=== PATIENT | male | born 1975 | race Two or more races ===

== ENCOUNTER 2020-05-29 11:41 | Outpatient (REF) | payer MEDICAID, SELFPAY ==
[2020-05-29 13:52] LABS: Glucose Urine UA NEG (NEG); Leukocyte Esterase Urine NEG (NEG); Nitrite Urine NEG (NEG); PH 5.5 (5.0-8.0); Specific Gravity - Urine >= 1.030 (1.005-1.025); Urine Blood NEG (NEG); Urine Ketones NEG (NEG); Urine Protein NEG (NEG-TRACE)
[2020-05-29 13:57] LABS: Appearance Urine HAZY; Color Urine DARK YELLOW
[2020-05-29 14:09] LABS: Prostate Specific Antigen 0.94 ng/mL (<0.05-4.0)
== END 2020-05-29 11:42 | disposition home or self-care (01) ==
LOC: HO.LAB 11:41
PROVIDERS: Absent Provider Internal Medicine; PCP Internal Medicine; Visit Provider Registered Nurse
DX: N39.43 Post-void dribbling (principal); R35.0 Frequency of micturition; R39.15 Urgency of urination
CPT/HCPCS: 81003; 84153; 87086

== ENCOUNTER → 2020-06-01 13:38 | Outpatient (BNVA) | payer MEDICAID, SELFPAY | PROVIDERS: PCP Internal Medicine; Referring Provider Internal Medicine; Visit Provider Internal Medicine Gastroenterology | DX: Z76.89 Persons encountering health services in other specified circumstances (principal) ==

== ENCOUNTER 2020-06-02 13:50 | Outpatient (REF) | payer MEDICAID, SELFPAY ==
[2020-06-02 14:45] LABS: Hematocrit 44.2 % (42-52); Hemoglobin 14.7 g/dl (14.0-18.0); Mean Corpuscular HGB Conc 33.3 g/dl (31.0-36.0); Mean Corpuscular Hemoglobin 29.7 pg (27.0-33.0); Mean Corpuscular Volume 89.3 fL (80-98); Mean Platelet Volume 10.7 fL (9.4-12.4); Platelet Count 234 X10*3/uL (160-400); Red Blood Count 4.95 X10*6/uL (4.60-5.80); Red Cell Distribution Width 11.7 % (11.0-16.0); White Blood Count 7.9 X10*3/uL (4.8-10.8)
[2020-06-02 14:50] LABS: INTERNATIONAL NORM RATIO 1.1 (0.9-1.1); Prothrombin Time 12.6 SEC (10.8-13.0)
[2020-06-02 15:11] LABS: Alanine Aminotransferase 17 U/L (0-40); Albumin Level 4.3 g/dL (3.5-5.0); Alkaline Phosphatase 101 U/L (39-117); Anion Gap 11 (12-20); Aspartate Amino Transferase 15 U/L (5-37); Bilirubin Total 0.3 mg/dL (0.0-1.0); Blood Urea Nitrogen 16 mg/dL (9-16); Calcium 9.6 mg/dL (8.4-10.2); Carbon Dioxide 31 mmol/L (22-29); Chloride 106 mmol/L (96-108); Estimated Glomerular Filt Rate > 60; Glucose Random 100 mg/dL (60-115); Potassium 5.6 mmol/l (3.3-5.1); Sodium 142 mmol/L (135-145); Total Protein 7.8 g/dL (6.5-8.0)
== END 2020-06-02 13:51 | disposition home or self-care (01) ==
LOC: HO.LAB 13:50
PROVIDERS: PCP Internal Medicine; Visit Provider Internal Medicine Gastroenterology
DX: K74.60 Unspecified cirrhosis of liver (principal)
CPT/HCPCS: 36415; 80053; 85027; 85610

== ENCOUNTER 2020-06-05 11:44 | Outpatient (REF) | payer MEDICAID, SELFPAY ==
[2020-06-05 13:11] LABS: Anion Gap 13 (12-20); Carbon Dioxide 28 mmol/L (22-29); Chloride 102 mmol/L (96-108); Potassium 5.4 mmol/l (3.3-5.1); Sodium 138 mmol/L (135-145)
== END 2020-06-05 11:45 | disposition home or self-care (01) ==
LOC: HO.LAB 11:44
PROVIDERS: Visit Provider Internal Medicine Gastroenterology
DX: E87.5 Hyperkalemia (principal)
CPT/HCPCS: 80051

== ENCOUNTER → 2020-08-31 13:19 | Outpatient (BNVA) | payer SELFPAY | PROVIDERS: PCP Internal Medicine; Visit Provider Internal Medicine Gastroenterology ==

== ENCOUNTER 2020-12-20 13:11 | Outpatient (REF) | payer MEDICAID, SELFPAY ==
--- NOTE | ~2020-12-20 | US_ITS ---
EXAMINATION: ULTRASOUND PROSTATE VOLUME CLINICAL INFORMATION: Enlarged prostate gland. COMPARISON: None TECHNIQUE: Multiple 2-D grayscale and color Doppler transrectal ultrasound images of the prostate gland were obtained. FINDINGS: The prostate gland demonstrates homogeneous echotexture and measures approximately 4.3 x 3.2 x 4.2 cm with a volume of 30 mL. Color Doppler showed no abnormal vascular flow. US/US prostate volume IMPRESSION: Mild prostatomegaly.
== END 2020-12-20 13:12 | disposition home or self-care (01) ==
LOC: HO.US 13:11
PROVIDERS: PCP Internal Medicine; Visit Provider Internal Medicine
DX: N40.1 Benign prostatic hyperplasia with lower urinary tract symptoms (principal)
CPT/HCPCS: 76872

== ENCOUNTER 2021-01-26 13:29 | Emergency (ER) | payer MEDICAID, SELFPAY ==
--- NOTE | ~2021-01-26 | US_ITS ---
EXAMINATION: US VENOUS ULTRASOUND WITH DOPPLER LOWER EXTREMITY, BILATERAL CLINICAL INFORMATION: Bilateral lower extremity pain. Assess for occult DVT. COMPARISON: None TECHNIQUE: Ultrasound of the deep veins is performed from the hip to the calf with compression sonography and color and pulse Doppler assessment. Spectral analysis with color-flow imaging is performed. FINDINGS: RIGHT: There is normal venous compression and respiratory variation and augmented flow. The visualized common femoral vein, superficial femoral vein, profunda femoral vein, popliteal vein, and the trifurcation region shows no evidence of deep venous thrombosis. No popliteal fossa cyst. LEFT: There is normal venous compression and respiratory variation and augmented flow. The visualized common femoral vein, superficial femoral vein, profunda femoral vein, popliteal vein, and the trifurcation region shows no evidence of deep venous thrombosis. No popliteal fossa cyst. US/US venous duplex LE BI IMPRESSION: No DVT demonstrated in the bilateral lower extremity.
[2021-01-26 13:36] VITALS: BP 111/81; PULSE 68; RESP 16; TEMP 36.6; O2SAT 97; BMI 31.0
--- NOTE | 2021-01-26 14:02 | ED_ITS ---
HPI - Extremity Problem General Chief complaint: Extremity Problem Stated complaint: swollen legs Time Seen by Provider: 01/26/21 13:47 Source: patient Mode of arrival: ambulatory Limitations: no limitations History of Present Illness HPI Narrative: 45 y/o male with history of hepatitis C/MENDOZA cirrhosis (compensated without ascites), asthma, GERD & polysubstance abuse on Suboxone who presents to the ER with 1 month of ankle and foot swelling. He denies injury or trauma. His feet and ankles ache and sometimes shoots up into his calf. He denies history of fluid retention, CHF, or being on any diuretics. He denies SOB, PEREZ or chest pain. MD Complaint: extremity swelling Onset (ago): month(s) (1) Pain Consistency: constant Location: left, right and lower extremity Quality: aching Radiation: proximal Relieving factors: rest Exacerbating factors: walking, exertion and palpation Associated symptoms: denies other symptoms Related Data Home Medications Medication Instructions Recorded Confirmed buprenorphine 8 mg-naloxone 2 mg 2 film BUCCAL DAILY 06/01/20 08/31/20 sublingual film quetiapine 50 mg tablet 50 mg PO DAILY 06/01/20 08/31/20 Previous Rx's Medication Instructions Recorded omeprazole 20 mg capsule,delayed 20 mg PO BID 30 Days #60 cap 08/31/20 release furosemide [Lasix] 20 mg PO QAM #3 tab 01/26/21 Allergies Allergy/AdvReac Type Severity Reaction Status Date / Time No Known Allergies Allergy Verified 01/26/21 13:42 [No Known Allergies*] Review of Systems Review of Systems: Constitutional: No Fever, No Chills ENT/Mouth: No sore throat, No Rhinorrhea, No Swallowing Difficulty Cardiovascular: No Chest Pain, No SOB, No Orthopnea, +Edema Respiratory: No Cough, No Sputum, No Wheezing, No dyspnea Gastrointestinal: No Nausea, No Vomiting, No Diarrhea, No abdominal Pain Musculoskeletal: No joint pain, No Myalgias Skin: No Skin Lesions, No rash Neuro: No Weakness, No Numbness, No Dizziness, No Headache Heme/Lymph: No Bruising, No Lymphadenopathy PMFSH Past Medical History Attestation statement: The following information was validated with the patient. Medical History Hepatitis C infection Polysubstance abuse Surgical History History of esophagogastroduodenoscopy (EGD) (~03/2018) Family History Family History (Updated 06/01/20 @ 13:42 by ASHLEY Lawrence) Father No problems noted. Mother Diabetes Social History Social History (Updated 08/31/20 @ 13:22 by Geeta Haney CMA) Household Members: Family Household Members Other:: mom Alcohol intake: never Cigarette Packs Per Day: 1 Cigarettes Per Day: 20 Advance Directives: Yes Advance Directives Information Provided: Yes Advance Directives on File: No Current occupational status: disabled Physical Exam Vital Signs: Vital Signs: Last Vital Signs Temp 98 F 01/26/21 15:59 Pulse 67 01/26/21 15:59 Resp 20 01/26/21 15:59 BP 128/82 01/26/21 15:59 Pulse Ox 98 01/26/21 15:59 Body Mass Index 31.0 Appearance: Alert. Oriented X3. No acute distress. HEENT: Normal external inspection. Neck: Normal inspection. CVS: Normal heart rate and rhythm. Pulses normal. Respiratory: No respiratory distress. Breath sounds normal. Abdomen: Soft and nontender. +BS x4 Skin: Skin warm and dry. Normal skin color. Normal skin turgor. No rashes. Extremities: Trace bilateral lower extremity edema of the feet and ankles, superficial nontender varicose veins on bilateral medial foot, calves are nontender to palpation. no pretibial edema Neuro: Oriented X 3. No motor deficit. No sensory deficit. Course Course Course Narrative: 45 y/o male with history of cirrhosis presenting with 1 month of LE edema. He reports calling his PCP and he was told to come to the ER for evaluation. He has no chest pain, SOB or calf tenderness. He reports a shooting pain up his leg and intermittent calf swelling at home. None at present. Doubt DVT but will get LE dopplers to rule this out. Will also check basic labs including BNP. Reevaluation(s) Reevaluation #1: Lab workup is unremarkable, including normal BNP. LE U/S are pending. Reevaluation #2: LE U/S are negative for DVT. Will plan to give 3 days of low dose lasix and have him f/u with his PCP for further evaluation next week. We discussed importance of elevation of his legs and compression stockings. MDM - Extremity (Nontraumatic) Lab Data Result diagrams: 01/26/21 14:08 01/26/21 14:08 Labs: Lab Results 01/26/21 01/26/21 01/26/21 Range/Units 14:08 14:08 14:08 WBC 7.1 (4.8-10.8) X10*3/uL RBC 4.84 (4.60-5.80) X10*6/uL Hgb 14.4 (14.0-18.0) g/dl Hct 42.7 (42-52) % MCV 88.2 (80-98) fL MCH 29.8 (27.0-33.0) pg MCHC 33.7 (31.0-36.0) g/dl RDW 11.9 (11.0-16.0) % Plt Count 214 (160-400) X10*3/uL MPV 10.0 (9.4-12.4) fL Immature Gran % (Auto) 0.4 (0.0-0.4) % Neut % (Auto) 55.1 (45-73) % Lymph % (Auto) 31.2 (20-40) % [place] % (Auto) 8.2 (2-11) % Eos % (Auto) 4.4 H (0-4) % Baso % (Auto) 0.7 (0-2) % Lymph # (Auto) 2.2 (1.2-4.9) X10*3/uL [place] # (Auto) 0.6 (0.1-1.2) X10*3/uL Eos # (Auto) 0.3 (0.0-0.4) X10*3/uL Baso # (Auto) 0.1 (0.0-0.2) X10*3/uL Abs Immat Gran (auto) 0.03 (0.00-0.03) X10*3/uL Absolute Neuts (auto) 3.9 (2.0-8.3) X10*3/uL Absolute Nucleated RBC 0.000 (0.0-0.012) X10*3/uL Nucleated RBC % (auto) 0.0 (0.0-0.2) /100WBC Sodium 143 (135-145) mmol/L Potassium 4.9 (3.3-5.1) mmol/L Chloride 106 (96-108) mmol/L Carbon Dioxide 30 H (22-29) mmol/L Anion Gap 12 (12-20) BUN 13 (9-16) mg/dL Creatinine 0.98 (0.5-1.4) mg/dL Estim Creat Clear Calc 107.2 Estimated GFR > 60 Random Glucose 108 (60-115) mg/dL Calcium 9.7 (8.4-10.2) mg/dL Magnesium 2.1 (1.6-2.6) mg/dL Total Bilirubin 0.3 (0.0-1.0) mg/dL Direct Bilirubin 0.2 (0.0-0.5) mg/dL AST 22 D (5-37) U/L ALT 33 (0-40) U/L Alkaline Phosphatase 94 (39-117) U/L B-Natriuretic Peptide < 10 (<100) pg/mL Total Protein 8.1 H (6.5-8.0) g/dL Albumin 4.4 (3.5-5.0) g/dL Critical Care Time Critical Care Time Critical Care Time: No Discharge Plan Discharge Clinical Impression: Lower extremity edema Patient Disposition: Home, Self-Care Instructions: Leg Edema (ED) Additional Instructions: Your lab workup today was normal. Your ultrasounds did not show any blood clots. Recommend elevating your legs whenever possible. Start wearing compression stockings every day to help with the swelling in your ankles and feel. Reduce your salt intake. Take the prescribed water pill for the next 3 days. Follow up with your doctor next week to see if they would like to continue you on this medication or not. If you develop new or worsening symptoms call 911 or come back to the ER for further evaluation. Tu examen de laboratorio de hoy fue normal. Anabella ecograf?as no mostraron db?n co?gulo de luisito. Recomiende elevar las piernas siempre que sea posible. Comience a usar medias de compresi?n todos los d?as para ayudar con la hinchaz?n en los tobillos y la sensaci?n. Reduzca hendrickson consumo de deepak. [place] la pastilla de agua recetada rodríguez los pr?ximos 3 d?as. Lin un seguimiento con hendrickson m?dico la pr?xima semana para jevon si le gustar?a continuar con luz elena medicamento o no. Si presenta s?ntomas nuevos o que empeoran, llame al 911 o regrese a la oliverio de emergencias para sharri evaluaci?n adicional. Prescriptions: New furosemide [Lasix] 20 mg tablet 20 mg PO QAM Qty: 3 RF: 0 No Action buprenorphine-naloxone [Suboxone] 8-2 mg film 2 film buccal DAILY RF: 0 quetiapine [Seroquel] 50 mg tablet 50 mg PO DAILY RF: 0 omeprazole 20 mg capsule,delayed release(DR/EC) 20 mg PO BID 30 Days Qty: 60 RF: 4 Referrals: Rubia Brantley MD [Primary Care Provider] - 3 days Cheng Bolanos MD [Physician] - 3 days (leg edema, ?cirrhosis related)
[2021-01-26 14:16] LABS: MANUAL DIFF FLAG NO
[2021-01-26 14:20] LABS: Basophils Absolute Auto 0.1 X10*3/uL (0.0-0.2); Basophils Percent Auto 0.7 % (0-2); Eosinophils Absolute Auto 0.3 X10*3/uL (0.0-0.4); Eosinophils Percent Auto 4.4 % (0-4); Hematocrit 42.7 % (42-52); Hemoglobin 14.4 g/dl (14.0-18.0); Imm Gran Abs Auto 0.03 X10*3/uL (0.00-0.03); Imm Gran Pct Auto 0.4 % (0.0-0.4); Lymphocytes Absolute Auto 2.2 X10*3/uL (1.2-4.9); Lymphocytes Percent Auto 31.2 % (20-40); Mean Corpuscular HGB Conc 33.7 g/dl (31.0-36.0); Mean Corpuscular Hemoglobin 29.8 pg (27.0-33.0); Mean Corpuscular Volume 88.2 fL (80-98); Monocytes Absolute Auto 0.6 X10*3/uL (0.1-1.2); Monocytes Percent Auto 8.2 % (2-11); Neutrophils Absolute Auto 3.9 X10*3/uL (2.0-8.3); Neutrophils Percent Auto 55.1 % (45-73); Platelet Count 214 X10*3/uL (160-400); Red Blood Count 4.84 X10*6/uL (4.60-5.80); Red Cell Distribution Width 11.9 % (11.0-16.0); White Blood Count 7.1 X10*3/uL (4.8-10.8)
[2021-01-26 14:41] LABS: Alanine Aminotransferase 33 U/L (0-40); Albumin Level 4.4 g/dL (3.5-5.0); Alkaline Phosphatase 94 U/L (39-117); Anion Gap 12 (12-20); Aspartate Amino Transferase 22 U/L (5-37); Bilirubin Direct 0.2 mg/dL (0.0-0.5); Bilirubin Total 0.3 mg/dL (0.0-1.0); Blood Urea Nitrogen 13 mg/dL (9-16); Calcium 9.7 mg/dL (8.4-10.2); Carbon Dioxide 30 mmol/L (22-29); Chloride 106 mmol/L (96-108); Creatinine Clr Calc Pharmacy 107.2; Estimated Glomerular Filt Rate > 60; Glucose Random 108 mg/dL (60-115); Magnesium 2.1 mg/dL (1.6-2.6); Potassium 4.9 mmol/L (3.3-5.1); Sodium 143 mmol/L (135-145); Total Protein 8.1 g/dL (6.5-8.0)
[2021-01-26 14:45] LABS: B Type Natriuretic Peptide < 10 pg/mL (<100)
[2021-01-26 15:59] VITALS: BP 128/82; PULSE 67; RESP 20; TEMP 36.6; O2SAT 98
== END 2021-01-26 16:19 | disposition home or self-care (01) ==
PROVIDERS: Physician Assistant; Emergency Provider Emergency Medicine; PCP Internal Medicine
DX: R60.0 Localized edema (principal); M79.662 Pain in left lower leg; M79.661 Pain in right lower leg; B19.20 Unspecified viral hepatitis C without hepatic coma; K75.81 Nonalcoholic steatohepatitis (NASH); F19.10 Other psychoactive substance abuse, uncomplicated; F11.20 Opioid dependence, uncomplicated
CPT/HCPCS: 36415; 80048; 80076; 83735; 83880; 85025; 93970; 99284

== ENCOUNTER → 2021-03-06 11:10 | Outpatient (BNVA) | payer MEDICAID, SELFPAY | PROVIDERS: PCP Internal Medicine; Referring Provider Internal Medicine; Visit Provider Surgery Vascular Surgery | DX: I83.12 Varicose veins of left lower extremity with inflammation (principal) | CPT/HCPCS: 99202 ==

== ENCOUNTER → 2021-03-15 10:38 | Outpatient (BNVA) | payer MEDICAID, SELFPAY | PROVIDERS: PCP Internal Medicine; Visit Provider Internal Medicine Gastroenterology ==

== ENCOUNTER 2021-03-27 08:58 | Outpatient (REF) | payer MEDICAID, SELFPAY ==
--- NOTE | ~2021-03-27 | US_ITS ---
EXAMINATION: US ABDOMEN LIMITED WITH LIVER ELASTOGRAPHY CLINICAL INFORMATION: Cirrhosis COMPARISON: Previous abdominal ultrasound most recent February 2019 TECHNIQUE: Real-time imaging of the abdominal viscera. Noninvasive ultrasound liver fibrosis assessment is performed using Kym ElastPQ point quantification shear wave elastography (pSWE) with a C5-2 MHz transducer. Multiple elastography samples are obtained. FINDINGS: PANCREAS: Not visualized due to bowel gas. LIVER: Liver echotexture is increased. The liver is normal in size and contour. No focal lesion or intrahepatic biliary duct dilatation. The right lobe measures 16.7 cm in length. The left lobe measures 9.3 cm in length. Portal flow is normal/hepatopedal Shear wave liver elastography median stiffness is 1.4 m/s (reference: normal median stiffness is 1.3 m/s or less). IQR/median stiffness to assess sampling precision is 0.14 (reference: good quality data set is IQR/median stiffness of 0.15 or less). GALLBLADDER: Normal. The gallbladder is physiologically distended without evidence of stones, sludge, polyps, wall thickening or pericholecystic fluid. COMMON BILE DUCT: Normal in caliber measuring 0.2 cm in diameter. RIGHT KIDNEY: Normal. No hydronephrosis. No renal calculi or focal parenchymal lesions. The kidney measures 11 cm in maximum dimension. FREE FLUID: None. US/US abdomen baker w elastography IMPRESSION: 1. Impression: Echogenic liver. Nonvisualization of the pancreas. 2. Liver elastography: Adequate liver sampling. In the absence of other known clinical signs, rules out compensated advanced chronic liver disease. REFERENCE: Society of Radiologists in Ultrasound Liver Stiffness Thresholds (2020): LIVER STIFFNESS THRESHOLDS: *Liver Stiffness equal or less than 1.3 m/s: High probability of being normal. *Liver Stiffness less than 1.7 m/s: In the absence of other known clinical signs, rules out compensated advanced chronic liver disease. *Liver Stiffness 1.7-2.1 m/s: Suggestive of compensated advanced chronic liver disease but need further test for confirmation. *Liver Stiffness over 2.1 m/s: Rules in compensated advanced chronic liver disease. *Liver Stiffness over 2.4 m/s: Suggestive of clinically significant portal hypertension. QUALITY OF DATA SET: *IQR/Median value equal or less than 0.15 implies a quality data set. *IQR/Median value over 0.15 implies a poor quality data set. SIGNIFICANT CHANGE FROM PRIOR EXAM: Significant change if liver stiffness measurement is 10% or greater from prior exam. OTHER CONSIDERATIONS: The stage of liver fibrosis may be overestimated in the setting of acute hepatitis, liver inflammation, elevated liver function tests, hepatic vascular congestion, obstructive cholestasis, non-fasting state, and infiltrative diseases such as amyloidosis and lymphoma. In some patients with NAFLD, the liver stiffness thresholds for compensated advanced chronic liver disease may be lower. In causes other than viral hepatitis and NAFLD, liver stiffness thresholds are not well established.
== END 2021-03-27 08:59 | disposition home or self-care (01) ==
LOC: HO.US 08:58
PROVIDERS: PCP Internal Medicine; Visit Provider Internal Medicine Gastroenterology
DX: K74.60 Unspecified cirrhosis of liver (principal)
CPT/HCPCS: 76705; 76981

== ENCOUNTER 2021-04-11 12:48 | Outpatient (REF) | payer MEDICAID, SELFPAY ==
--- NOTE | ~2021-04-11 | US_ITS ---
EXAMINATION: BILATERAL LOWER EXTREMITY VENOUS ULTRASOUND (Reflux Exam) CLINICAL INDICATION: Lower extremity venous insufficiency COMPARISON: Bilateral lower extremity venous Doppler ultrasound on 01/24/2021 TECHNIQUE: Color flow triplex imaging and compression Doppler was performed to evaluate both the deep and the superficial systems bilaterally. To evaluate the superficial system, the examination was performed in the upright position. Color-flow Doppler ultrasound and compression ultrasound were utilized. In addition, maneuvers were utilized to demonstrate reflux. FINDINGS: 1. DEEP VENOUS ULTRASOUND OF THE RIGHT LOWER EXTREMITY: Common Femoral Vein: Compressible, normal respiratory variation and augmented flow. Femoral Vein: Compressible, normal color flow and augmentation. Popliteal Vein: Compressible, normal augmentation. Deep Reflux: There is no evidence of reflux in the deep system in either the common femoral vein or the popliteal vein. There is no evidence of a Morales's cyst. 2. SUPERFICIAL ULTRASOUND WITH DOPPLER OF RIGHT LOWER EXTREMITY GREAT SAPHENOUS VEIN: Saphenofemoral junction: 0.7 cm; Reflux: No evidence of reflux. Proximal thigh: 0.4 cm; Reflux: No evidence of reflux. Midthigh: 0.3 cm; Reflux: No evidence of reflux. Above knee: 0.4 cm; Reflux: No evidence of reflux. At knee: 0.3 cm; Reflux: No evidence of reflux. Below knee: 0.3 cm; Reflux: 3.2 seconds Midcalf: 3 cm; Reflux: 2.7 seconds Ankle: 0.2 cm; Reflux: No evidence of reflux. DUPLICATED GREAT SAPHENOUS VEIN: None SMALL SAPHENOUS VEIN: Saphenopopliteal junction: 0.6 cm; No evidence of reflux. Midcalf: 0.4 cm; No evidence of reflux. Distal calf: 0.3 cm; No evidence of reflux. VEIN OF GIACOMINI: None imaged. PERFORATORS: Proximal calf, 0.3 cm, 0.9 seconds of reflux. VARICOSITIES: No varicosities greater than 3 mm identified. 3. DEEP VENOUS ULTRASOUND OF THE LEFT LOWER EXTREMITY: Common Femoral Vein: Compressible, normal respiratory variation and augmented flow. Femoral Vein: Compressible, normal color flow and augmentation. Popliteal Vein: Compressible, normal augmentation. Deep Reflux: There is no evidence of reflux in the deep system in either the common femoral vein or the popliteal vein. There is no evidence of a Morales's cyst. 4. SUPERFICIAL ULTRASOUND WITH DOPPLER OF LEFT LOWER EXTREMITY GREAT SAPHENOUS VEIN: Saphenofemoral junction/proximal thigh: 0.8 cm; Reflux: 2.9 seconds Midthigh: 0.6 cm; Reflux: 3.2 seconds Above knee: 0.5 cm; Reflux: 3.4 seconds At knee: 0.6 cm; Reflux: 3.2 seconds Below knee: 0.5 cm; Reflux: 3.2 seconds Midcalf: 0.4 cm; Reflux: 3.2 seconds Ankle: 0.4 cm; Reflux: 2.9 seconds DUPLICATED GREAT SAPHENOUS VEIN: None SMALL SAPHENOUS VEIN: Saphenopopliteal junction: 0.2 cm; No evidence of reflux. Midcalf: 0.3 cm; No evidence of reflux. Distal calf: 0.2 cm; No evidence of reflux. VEIN OF GIACOMINI: None imaged. PERFORATORS: Proximal calf, 0.3 cm, no reflux. Proximal calf, 0.3 cm, 1.1 seconds of reflux. Distal calf, 0.3 cm, 0.5 seconds of reflux. VARICOSITIES: Proximal calf, 0.3 cm, 3.3 seconds of reflux. ADDITIONAL: Note is made of prominent bilateral inguinal lymph nodes. US/US venous duplex LE BI IMPRESSION: 1. Segmental reflux within the right great saphenous vein below the knee and at the midcalf. 2. Left great saphenous venous insufficiency beginning at the junction/proximal thigh. 3. No evidence of small saphenous venous insufficiency. 4. Bilateral refluxing perforators and a left proximal calf refluxing varicosity. 5. No evidence of DVT or deep venous insufficiency. 6. Bilateral prominent inguinal lymph nodes.
== END 2021-04-11 12:49 | disposition home or self-care (01) ==
LOC: HO.US 12:48
PROVIDERS: PCP Internal Medicine; Visit Provider Surgery Vascular Surgery
DX: I83.893 Varicose veins of bilateral lower extremities with other complications (principal)
CPT/HCPCS: 93970

== ENCOUNTER → 2021-04-24 10:54 | Outpatient (BNVA) | payer MEDICAID, SELFPAY | PROVIDERS: PCP Internal Medicine; Visit Provider Urology | DX: N40.1 Benign prostatic hyperplasia with lower urinary tract symptoms (principal); N13.8 Other obstructive and reflux uropathy | CPT/HCPCS: 51798; 99202 ==

== ENCOUNTER → 2021-06-05 10:54 | Outpatient (BNVA) | payer MEDICAID, SELFPAY | PROVIDERS: PCP Internal Medicine; Visit Provider Urology | DX: R39.15 Urgency of urination (principal); N40.1 Benign prostatic hyperplasia with lower urinary tract symptoms; N13.8 Other obstructive and reflux uropathy; I83.12 Varicose veins of left lower extremity with inflammation | CPT/HCPCS: 99212 ==

== ENCOUNTER → 2021-06-22 08:58 | Outpatient (BNVA) | payer MEDICAID, SELFPAY | PROVIDERS: PCP Internal Medicine; Visit Provider Urology | DX: N30.10 Interstitial cystitis (chronic) without hematuria (principal); R39.15 Urgency of urination; R35.1 Nocturia | CPT/HCPCS: 52000; 99212 ==

== ENCOUNTER 2021-08-06 10:47 | Day surgery (SDC) | payer MEDICAID, SELFPAY ==
[2021-07-31 10:21] VITALS: BMI 31.9
[2021-08-06] VITALS (7 sets, daily range): BP systolic 104–129; BP diastolic 63–76; PULSE 63–91; RESP 16–18; TEMP 36.1–36.8; O2SAT 95–98
--- NOTE | 2021-08-06 11:49 | HO.ANESPROP2 ---
HPI - Anesthesia Eval Consult details Narrative: 46 M for cystoscopy and bladder biopsy PMF Active Problems Active Problems: All Active Problems (Updated 06/22/21 @ 09:38 by Srinivas Landers MD) Nocturia more than twice per night (Acute) Interstitial cystitis (Acute) Urinary urgency (Acute) BPH w urinary obs/LUTS (Acute) Varicose veins of left lower extremity with inflammation (Acute) Tobacco abuse (Acute) Asthma (Acute) Cirrhosis of liver without ascites (Acute) GERD (gastroesophageal reflux disease) (Acute) Past Medical History Medical History Hepatitis C infection Polysubstance abuse Family History Family History Father No problems noted. Mother Diabetes Family history of problems with anesthesia: No Surgical History Surgical History History of esophagogastroduodenoscopy (EGD) (~03/2018) History of Problems with Anesthesia: No Social History Social History (Updated 07/31/21 @ 10:21 by Annamaria Fernandes RN) Household Members: Family Household Members Other:: mom Alcohol intake: never Patient Tobacco Use Status: Current everyday Tobacco user Tobacco use type: Cigarette Cigarettes Per Day: 15 Years Smoked: 14 Substance Use Type: Former Substance User Last Used Substance: Unknown Last Used Substance Other:: on Suboxone x4 yrs Are you DNR?: No Advance Directives: No Advance Directives Information Provided: Yes Advance Directives on File: No Current occupational status: disabled Meds Allergies Allergy/AdvReac Type Severity Reaction Status Date / Time tramadol AdvReac Unknown Verified 07/31/21 10:20 Home Medications Medication Instructions Recorded Confirmed Last Taken Type buprenorphine 8 mg-naloxone 2 mg 2 film BUCCAL DAILY 06/01/20 07/31/21 08/06/21 History sublingual film (Suboxone) quetiapine 50 mg tablet (Seroquel) 50 mg PO DAILY 06/01/20 07/31/21 Unknown History Exam Exam Date and Time: August 06, 2021 1149 Height,Weight and Vital Signs: Height 5 ft 8 in Weight 95.254 kg Last Vital Signs Temp 98.2 F 08/06/21 10:53 Pulse 63 08/06/21 10:53 Resp 18 08/06/21 10:53 BP 115/76 08/06/21 10:53 Pulse Ox 98 08/06/21 10:53 Airway Mallampati Class: II TM Dist: >3cm Neck ROM: Full Loose/Missing/Broken Teeth: Yes (Poor dentation ) Heart: rrr Lungs: bl breath sounds Assessment and Plan Final Anesthetic Review Family History of Problems with Anesthesia: No History of Problems with Anesthesia: No NPO: Yes ASA Class: III Final Preanesthetic Review: Meds/Allgs Chart Reviewed and Anes Risks/Benef Reviewed Patient Risk: High Procedure Risk: Intermediate Anesthetic Plan Anesthetic Plan: GA Disposition: Standard PACU
--- NOTE | 2021-08-06 11:56 | PC.NURSE ---
iv right thigh by aneshtesia
--- NOTE | 2021-08-06 11:57 | MHC.SHP ---
Pre-Procedural Eval Section A Date of Service: 08/06/21 The patient is an INPATIENT: No Changes since office visit: No Cold of Flu in the past 2 weeks, No New Medical Problems, No Changes in Medication and No Patient answered all questions The History & Physical has been completed within 30 days and I have reviewed it.: No Section B Chief Complaint: interstital cystitis Details of Present Illness: persistent urgency and frequency with mild no response to medications Relevant Social History: Tobacco Use Present Medications: see Short Stay Collaborative assessment Medical History: No relevant PMH History of Previous Operations: No relevant previous surgery Allergies: Allergies Allergy/AdvReac Type Severity Reaction Status Date / Time tramadol AdvReac Unknown Verified 07/31/21 10:20 Review of Systems Sugical H&P ROS: Negative: Constitution, Cardiovascular, Respiratory, Neurological, Psychiatric, Hem-Onc, Allergic/Immunologic, Gastrointestinal, Genitourinary, Musculoskeletal, Integumentary, Endocrine and Eyes/Ears/Nose/Throat Exam Surgical H&P Exam: Normal: HEENT, Normal: Heart, Normal: Lungs, Normal: Extremities, Normal: Abdomen, Normal: Skin and Normal: Neurological Plan Diagnosis/Plan: Unchanged ( cystoscopy, bladder biopsy, hydrodistention) I have reviewed the history and physical and performed a pertinent physical examination on my patient. No changes have occurred unless specified.
--- NOTE | 2021-08-06 12:40 | W.PM.OPN ---
Operative Note Operative Note Date of Service: 08/06/21 Narrative: PreOperative Diagnosis: Interstitial cystitis with pelvic pain Post Operative Diagnosis: Interstitial cystitis with pelvic pain Procedure: Hydrodistention Surgeon: Dr Srinivas Landers Anesthesia: General Indications for procedure: failed prior overactive bladder medications. Cystoscopy in office showed small capacity bladder with collagen sub 1/3 L deposition. Recommended for hydrodistention with bladder biopsy. Procedure: After informed consent was verified the patient was brought to the operating room and placed in a supine position. Anesthesia was administered per protocol. The patient was placed in a modified dorsal lithotomy position and prepped and draped in sterile fashion. Safety pause time-out was observed. Antibiotics being given. A 22 [place] cystoscope was used to empty the bladder. A mixture of bupivacaine lidocaine gel 20 cc was instilled into the bladder and allowed to sit for 2-3 minutes. A belladonna and opiate rectal suppository was placed. Hydrodistention of the bladder was performed. The bladder was filled and allowed to sit for 2 minutes. Filling was from a height of 1 m. On the 1st fill there was Three hundred twenty-five cc within the bladder. Cystoscopy revealed only mild glomerulations. Prominent feature was bladder stiffness with prominent collagen bands. Second filling of the bladder was performed in similar fashion. Bladder biopsies were performed and fulguration used for control. Volume was approximately Three hundred twenty-five cc. mild hematuria terminal The the bladder was emptied. The patient tolerated procedure well was extubated in operating room transferred in stable condition to the recovery area. Appropriate postprocedure pain medication was provided. Pathology: bladder biopsies Drains: None
[2021-08-06] MEDS: Phenazopyridine HCL 100 MG TABLET PO (13:20)
[2021-08-06] MEDS: Acetaminophen 325 MG TABLET 650 MG PO (13:20)
== END 2021-08-06 14:22 | disposition home or self-care (01) ==
PROVIDERS: PCP Internal Medicine; Visit Provider Urology
PROC: 0T7B7ZZ Dilation of Bladder, Via Natural or Artificial Opening (ICD-10-PCS; CPT 52260; principal; 2021-08-06 12:40)
DX: N30.10 Interstitial cystitis (chronic) without hematuria (principal); R10.2 Pelvic and perineal pain; N32.89 Other specified disorders of bladder
CPT/HCPCS: 52260; 88305; J1100; J1956; J2250; J2405; J3010

== ENCOUNTER → 2021-08-21 10:16 | Outpatient (BNVA) | payer MEDICAID, SELFPAY | PROVIDERS: PCP Internal Medicine; Visit Provider Urology | DX: N30.10 Interstitial cystitis (chronic) without hematuria (principal); N40.1 Benign prostatic hyperplasia with lower urinary tract symptoms; R35.1 Nocturia; R39.15 Urgency of urination | CPT/HCPCS: 51798; 99212 ==

== ENCOUNTER 2021-09-12 11:30 | Outpatient (REF) | payer MEDICAID, SELFPAY ==
--- NOTE | ~2021-09-12 | XR_ITS ---
EXAMINATION: XR CHEST CLINICAL INFORMATION: Chest pain. COMPARISON: 07/10/2018 and 07/07/2013. TECHNIQUE: 2 views of the chest were obtained. FINDINGS: There is some bibasilar scarring/atelectasis present. No confluent pneumonitis is appreciated. No pneumothorax or pleural effusion. Heart normal size. No evidence of pulmonary edema. XR/XR chest 2V IMPRESSION: No significant acute parenchymal disease.
== END 2021-09-12 11:31 | disposition home or self-care (01) ==
LOC: HO.XRAY 11:30
PROVIDERS: Absent Provider Internal Medicine; PCP Internal Medicine; Visit Provider Emergency Medicine
DX: R07.9 Chest pain, unspecified (principal)
CPT/HCPCS: 71046

== ENCOUNTER 2021-11-11 12:42 | Emergency (ER) | payer MEDICAID, SELFPAY ==
--- NOTE | ~2021-11-11 | CT_ITS ---
EXAMINATION: CT FACIAL BONES WITH CONTRAST CLINICAL INFORMATION: Evaluate dental abscess versus edema/cellulitis COMPARISON: None TECHNIQUE: 3 mm thin and reformatted 1.5 mm sagittal and coronal images of facial bones were obtained following IV 85 mL Omnipaque 350. This CT examination was performed using dose optimization techniques as appropriate, variously including the following: *Automated exposure control *Adjustment of mA and/or kV according to patient size (this includes techniques or standardized protocols for targeted exams where dose is matched to indication/reason for exam; i.e. extremities or head) *Use of iterative reconstruction technique DLP: 611 mGy-cm FINDINGS: There is no acute maxillofacial fracture. The pterygoid plates are intact. The zygomatic arches are intact. The lamina papyracea are intact. The orbital rims are intact. The paranasal sinuses are well-aerated. No air-fluid levels are seen. There is mild deviation of the nasal septum. The ostiomeatal complexes are clear. The lamina papyracea are intact. The ethmoid roofs are symmetric. The carotid canals are normally covered by bone. Except for upper and lower frontal teeth patient is near edentulous. No maxillary periapical disease is seen. The mastoid air cells and visualized middle ear cavities are well-aerated. The orbits are normal. The TMJs are unremarkable. The imaged portions of the brain demonstrate no acute abnormality. CT/CT facial bones w con IMPRESSION: No evidence of periapical or dental abscess or serous collection seen. No abnormal lymphadenopathy. The sinuses are clear.
[2021-11-11 13:03] VITALS: BP 128/78; PULSE 90; RESP 18; TEMP 36.6; O2SAT 98; BMI 31.8
[2021-11-11 14:52] LABS: MANUAL DIFF FLAG NO
[2021-11-11 14:55] LABS: Basophils Absolute Auto 0.1 X10*3/uL (0.0-0.2); Basophils Percent Auto 0.6 % (0-2); Eosinophils Absolute Auto 0.2 X10*3/uL (0.0-0.4); Eosinophils Percent Auto 1.9 % (0-4); Hematocrit 42.8 % (42.0-52.0); Hemoglobin 14.6 g/dl (14.0-18.0); Imm Gran Abs Auto 0.03 X10*3/uL (0.00-0.03); Imm Gran Pct Auto 0.3 % (0.0-0.4); Lymphocytes Percent Auto 19.6 % (20-40); Mean Corpuscular HGB Conc 34.1 g/dl (31.0-36.0); Mean Corpuscular Hemoglobin 29.4 pg (27.0-33.0); Mean Corpuscular Volume 86.1 fL (80.0-98.0); Mean Platelet Volume 9.9 fL (9.4-12.4); Monocytes Absolute Auto 0.7 X10*3/uL (0.1-1.2); Monocytes Percent Auto 7.1 % (2-11); Neutrophils Absolute Auto 7.3 x10*3/uL (2.0-8.3); Neutrophils Percent Auto 70.5 % (45-73); Platelet Count 244 X10*3/uL (160-400); Red Blood Count 4.97 X10*6/uL (4.60-5.80); Red Cell Distribution Width 12.3 % (11.0-16.0); White Blood Count 10.4 X10*3/uL (4.8-10.8)
[2021-11-11 15:07] LABS: Lactic Acid 1.7 mmol/L (0.5-2.0)
[2021-11-11 15:13] LABS: Alanine Aminotransferase 28 U/L (0-40); Albumin Level 4.4 g/dL (3.5-5.0); Alkaline Phosphatase 96 U/L (39-117); Anion Gap 13 (12-20); Aspartate Amino Transferase 20 U/L (5-37); Bilirubin Direct 0.2 mg/dL (0.0-0.5); Bilirubin Total 0.7 mg/dL (0.0-1.0); Blood Urea Nitrogen 15 mg/dL (9-16); Calcium 9.8 mg/dL (8.4-10.2); Carbon Dioxide 26 mmol/L (22-29); Chloride 104 mmol/L (96-108); Creatinine Clr Calc Pharmacy 125.5; Estimated Glomerular Filt Rate > 60; Glucose Random 100 mg/dL (60-115); Potassium 5.2 mmol/L (3.3-5.1); Sodium 138 mmol/L (135-145); Total Protein 8.3 g/dL (6.5-8.0)
[2021-11-11] MEDS: Ketorolac Tromethamine 15 MG/ML VIAL IVPUSH (16:10)
[2021-11-11] MEDS: iohexoL 350 MG/ML 100 ML INFUS..BTL IV (16:26)
[2021-11-11] MEDS: Clindamycin Phosphate/D5W 600 MG/50 ML PIGGYBACK 100 MG IV (16:32)
--- NOTE | 2021-11-11 17:16 | ED_ITS ---
HPI - Dental/Oral General Chief complaint: Dental/Oral Stated complaint: Facial swelling/Mouth pain Time Seen by Provider: 11/11/21 14:28 Source: patient Mode of arrival: ambulatory History of Present Illness HPI Narrative: 46-year-old male with a past medical history of hepatitis-C, polysubstance abuse, presenting to the ED complaining of left lower dental pain and left-sided facial swelling since yesterday. Admits pain started 3 days ago after trying to eat something with his gums as patient has minimal teeth. Denies fever, chills, drainage from area, oral swelling, difficulty swallowing, ear pain, throat pain, neck pain Related Data Home Medications Medication Instructions Recorded Confirmed buprenorphine 8 mg-naloxone 2 mg 2 film BUCCAL DAILY 06/01/20 07/31/21 sublingual film (Suboxone) quetiapine 50 mg tablet (Seroquel) 50 mg PO DAILY 06/01/20 07/31/21 Previous Rx's Medication Instructions Recorded omeprazole 20 mg capsule,delayed 20 mg PO BID 30 Days #60 cap 08/31/20 release doxycycline hyclate 100 mg tablet 100 mg PO BID 14 Days #28 tab 04/24/21 tamsulosin 0.4 mg capsule 0.4 mg PO BEDTIME 30 Days #30 cap 04/24/21 naproxen 500 mg tablet 500 mg PO BID PRN 7 Days #14 tab 08/06/21 phenazopyridine 100 mg tablet 100 mg PO TID PRN 4 Days #12 tab 08/06/21 (Pyridium) amitriptyline 25 mg tablet 25 mg PO BEDTIME 90 Days #90 tab 08/21/21 famotidine 40 mg tablet 40 mg PO BEDTIME 90 Days #90 tab 08/21/21 oxybutynin chloride 10 mg 10 mg PO DAILY 90 Days #90 tab 08/21/21 tablet,extended release 24 hr acetaminophen 500 mg tablet 500 mg PO Q6H PRN #14 tab 11/11/21 (Tylenol Extra Strength) clindamycin HCl 150 mg capsule 450 mg PO Q8H 7 Days #63 cap 11/11/21 naproxen 500 mg tablet 500 mg PO BID PRN 10 Days #20 tab 11/11/21 Allergies Allergy/AdvReac Type Severity Reaction Status Date / Time tramadol AdvReac Unknown Verified 08/21/21 10:56 Review of Systems Review of Systems: Constitutional: No Fever, No Chills ENT/Mouth: +L lower dental pain, +L facial swelling, No Ear Pain, No Nasal Congestion, No Sinus Pain, No Hoarseness, No sore throat, No Rhinorrhea, No Swallowing Difficulty Cardiovascular: No Chest Pain, No SOB Respiratory: No Cough, No Sputum Gastrointestinal: No Nausea, No Vomiting, No Diarrhea, No Constipation, No Abdominal pain Genitourinary: No Dysuria, No Urgency, No Flank Pain Musculoskeletal: No joint pain, No Myalgias, No Joint Swelling Skin: No Skin Lesions, No rash Neuro: No Weakness Yes all other systems are reviewed and are negative [facility] Past Medical History Attestation statement: The following information was validated with the patient. Medical History Hepatitis C infection Polysubstance abuse Surgical History History of esophagogastroduodenoscopy (EGD) (~03/2018) Family History Family History Father No problems noted. Mother Diabetes Social History Social History Household Members: Family Household Members Other:: mom Alcohol intake: never Patient Tobacco Use Status: Current everyday Tobacco user Tobacco use type: Cigarette Cigarettes Per Day: 15 Years Smoked: 14 Substance Use Type: Former Substance User Advance Directives: No Advance Directives Information Provided: No Current occupational status: disabled Physical Exam Vital Signs: Vital Signs: Last Vital Signs Temp 98 F 11/11/21 13:03 Pulse 90 11/11/21 13:03 Resp 18 11/11/21 13:03 BP 128/78 11/11/21 13:03 Pulse Ox 98 11/11/21 13:03 BMI result Body Mass Index 31.8 Const: General: cooperative, healthy appearing and no acute distress Orientation/consciousness: patient oriented x3 Limitations: no limitations HEENT: Other: + very poor dentition. + left lower gums with mild swelling and tenderness to palpation. No appreciable fluctuance/induration or cellulitis. + left mandible/lower cheek with her appreciable swelling and tenderness. No erythema or pointing Head: Yes normal to inspection and Yes atraumatic Ears: hearing grossly normal bilaterally, external ears normal, TM's normal bilaterally and mastoids normal General nose exam: Normal external nose present Throat: Yes posterior oropharynx normal, Yes tonsils normal, No peritonsillar mass and No uvular edema Eyes: General: appearance normal, both eyes and all related structures EOM: EOMs intact bilaterally Neck: Neck: Yes normal visual inspection and Yes no meningeal signs Resp: Effort & Inspection: normal respiratory effort, no respiratory distress and no stridor Cardio: Rate: regular rate Heart sounds: S1 normal heart sound present and S2 normal heart sound present Skin: Rashes: no rashes Wounds: no wounds Neuro: General: patient oriented x3, tone normal and no meningeal signs Gait exam (Neuro): Normal gait present Extrem: General: Yes normal to inspection Course Course Course Narrative: -no leukocytosis. H&H stable. Potassium mildly elevated to 5.2 > p.o. Kayexalate ordered CT facial bones w con IMPRESSION: No evidence of periapical or dental abscess or serous? collection seen. No abnormal lymphadenopathy. The sinuses are clear. >> results discussed with patient with assistant golf course superintendent. Will DC home with Clindamycin and stressed dental follow-up MDM - Dental/Oral MDM Narrative Medical decision making narrative: 46-year-old male with a past medical history of hepatitis-C, polysubstance abuse, presenting to the ED complaining of left lower dental pain and left-sided facial swelling since yesterday. On exam vital signs stable, NAD/well appearing. Physical exam as above. Concern for dental abscess versus gingival abscess 1st conjunctivitis. No evidence of drainable collection at this time Plan: Labs, lactic/blood cultures, CT, IV clindamycin Differential Diagnosis Differential diagnosis: Likely gingival abscess, dental caries, toothache and dental abscess Medical Records Attestation: I reviewed the patient's medical records. Lab Data Attestation: I reviewed the patient's lab results. Result diagrams: 11/11/21 14:46 11/11/21 14:46 Labs: Lab Results 11/11/21 11/11/21 11/11/21 Range/Units 14:46 14:46 14:46 WBC 10.4 (4.8-10.8) X10*3/uL RBC 4.97 (4.60-5.80) X10*6/uL Hgb 14.6 (14.0-18.0) g/dl Hct 42.8 (42.0-52.0) % MCV 86.1 (80.0-98.0) fL MCH 29.4 (27.0-33.0) pg MCHC 34.1 (31.0-36.0) g/dl RDW 12.3 (11.0-16.0) % Plt Count 244 (160-400) X10*3/uL MPV 9.9 (9.4-12.4) fL Immature Gran % (Auto) 0.3 (0.0-0.4) % Neut % (Auto) 70.5 (45-73) % Lymph % (Auto) 19.6 L (20-40) % Sawyer % (Auto) 7.1 (2-11) % Eos % (Auto) 1.9 (0-4) % Baso % (Auto) 0.6 (0-2) % Lymph # (Auto) 2.0 (1.2-4.9) X10*3/uL Sawyer # (Auto) 0.7 (0.1-1.2) X10*3/uL Eos # (Auto) 0.2 (0.0-0.4) X10*3/uL Baso # (Auto) 0.1 (0.0-0.2) X10*3/uL Abs Immat Gran (auto) 0.03 (0.00-0.03) X10*3/uL Absolute Neuts (auto) 7.3 (2.0-8.3) x10*3/uL Absolute Nucleated RBC 0.000 (0.0-0.012) X10*3/uL Nucleated RBC % (auto) 0.0 (0.0-0.2) /100WBC Sodium 138 (135-145) mmol/L Potassium 5.2 H (3.3-5.1) mmol/L Chloride 104 (96-108) mmol/L Carbon Dioxide 26 (22-29) mmol/L Anion Gap 13 (12-20) BUN 15 (9-16) mg/dL Creatinine 0.84 (0.5-1.4) mg/dL Estim Creat Clear Calc 125.5 Estimated GFR > 60 Random Glucose 100 (60-115) mg/dL Lactic Acid 1.7 (0.5-2.0) mmol/L Calcium 9.8 (8.4-10.2) mg/dL Magnesium 2.0 (1.6-2.6) mg/dL Total Bilirubin 0.7 (0.0-1.0) mg/dL Direct Bilirubin 0.2 (0.0-0.5) mg/dL AST 20 (5-37) U/L ALT 28 (0-40) U/L Alkaline Phosphatase 96 (39-117) U/L Total Protein 8.3 H (6.5-8.0) g/dL Albumin 4.4 (3.5-5.0) g/dL Discharge Plan Discharge Clinical Impression: Dental infection Patient Disposition: Home, Self-Care Instructions: Dental Abscess (ED) Additional Instructions: A CT scan does not show any evidence of abscess or drainable collection You have an infection of your mouth. Clindamycin is an antibiotic please take a s prescribed. In addition naproxen as an anti-inflammatory pain medication. Also take Tylenol Call your dentist tomorrow for follow-up If symptoms persist or worsen, you have fever, worsening swelling, or are able to swallow up return to the ED Sharri tomograf?a computarizada no muestra ninguna evidencia de absceso o colecci?n drenable Tiene sharri infecci?n en la boca. La clindamicina es un antibi?becky, t?hernandez seg?n lo prescrito. Adem?s, el naproxeno michael analg?sico antiinflamatorio. Tambi?n topher Tylenol Llame a hendrickson dentista ma?juan alberto para un seguimiento Si los s?ntomas persisten o empeoran, tiene fiebre, empeora la hinchaz?n o puede tragar. Regrese al servicio de urgencias. Prescriptions: New clindamycin HCl 150 mg capsule 450 mg PO Q8H 7 Days Qty: 63 0RF acetaminophen [Tylenol Extra Strength] 500 mg tablet 500 mg PO Q6H PRN (Reason: pain or fever) Qty: 14 0RF naproxen 500 mg tablet 500 mg PO BID PRN (Reason: pain) 10 Days Qty: 20 0RF No Action phenazopyridine [Pyridium] 100 mg tablet 100 mg PO TID PRN (Reason: spasm) 4 Days Qty: 12 0RF naproxen 500 mg tablet 500 mg PO BID PRN (Reason: pain) 7 Days Qty: 14 0RF doxycycline hyclate 100 mg tablet 100 mg PO BID 14 Days Qty: 28 0RF tamsulosin 0.4 mg capsule 0.4 mg PO BEDTIME 30 Days Qty: 30 1RF buprenorphine-naloxone [Suboxone] 8-2 mg film 2 film buccal DAILY 0RF Rx Instructions: place 1 film on inside of (each) cheek quetiapine [Seroquel] 50 mg tablet 50 mg PO DAILY 0RF omeprazole 20 mg capsule,delayed release(DR/EC) 20 mg PO BID 30 Days Qty: 60 4RF famotidine 40 mg tablet 40 mg PO BEDTIME 90 Days Qty: 90 1RF oxybutynin chloride 10 mg tablet extended release 24hr 10 mg PO DAILY 90 Days Qty: 90 1RF amitriptyline 25 mg tablet 25 mg PO BEDTIME 90 Days Qty: 90 1RF Referrals: Donte Krause, ELI [Dentist] - Josiane Escobedo DMD [Dentist] - Enrique Pan DDS [Physician] - Print Language: Swedish
[2021-11-11] MEDS: Sodium Polystyrene Sulfon/Sorb 15 GM/60 ML ORAL.SUSP 30 GM PO (17:23)
== END 2021-11-11 17:46 | disposition home or self-care (01) ==
PROVIDERS: Physician Assistant; Emergency Provider Emergency Medicine; PCP Internal Medicine
DX: K04.7 Periapical abscess without sinus (principal); K08.89 Other specified disorders of teeth and supporting structures; Z87.891 Personal history of nicotine dependence; Z79.899 Other long term (current) drug therapy
CPT/HCPCS: 36415; 70487; 80048; 80076; 83605; 83735; 85025; 87040; 96365; 96375; 99284; J1885; Q9967

== ENCOUNTER → 2022-01-10 11:09 | Outpatient (BNVA) | payer MEDICAID, SELFPAY | PROVIDERS: PCP Internal Medicine; Visit Provider Internal Medicine Gastroenterology | DX: K74.60 Unspecified cirrhosis of liver (principal); K21.9 Gastro-esophageal reflux disease without esophagitis; Z79.899 Other long term (current) drug therapy | CPT/HCPCS: 99212 ==

== ENCOUNTER → 2022-02-19 10:44 | Outpatient (BNVA) | payer MEDICAID, SELFPAY | PROVIDERS: PCP Internal Medicine; Visit Provider Urology | DX: N40.1 Benign prostatic hyperplasia with lower urinary tract symptoms (principal); N13.8 Other obstructive and reflux uropathy; N30.10 Interstitial cystitis (chronic) without hematuria | CPT/HCPCS: 99212 ==

== ENCOUNTER 2022-04-30 10:58 | Day surgery (SDC) | payer MEDICAID, SELFPAY ==
[2022-04-25 11:59] VITALS: BMI 31.0
--- NOTE | 2022-04-26 12:14 | P.CONAN_ITS ---
Documented by User: Martha Hollingsworth NP 04/26/22 12:17 HPI - Anesthesia Eval Consult details Narrative: 46yo M for Upper Endoscopy and Colonoscopy Hx polysub. Suboxone daily s/p cysto hydrodistention 07/2021 with GA-LMA 4 PMFSH Active Problems Active Problems: All Active Problems (Updated 11/12/21 @ 00:01 by Background Jayshree) Nocturia more than twice per night (Acute) Interstitial cystitis (Acute) Urinary urgency (Acute) BPH w urinary obs/LUTS (Acute) Varicose veins of left lower extremity with inflammation (Acute) Tobacco abuse (Acute) Asthma (Acute) Cirrhosis of liver without ascites (Acute) GERD (gastroesophageal reflux disease) (Acute) Past Medical History Medical History Hepatitis C infection Polysubstance abuse Family History Family History Father No problems noted. Mother Diabetes Family history of problems with anesthesia: No Surgical History Surgical History History of esophagogastroduodenoscopy (EGD) (~03/2018) History of Problems with Anesthesia: No Social History Social History Household Members: Family Household Members Other:: mom Alcohol intake: never Patient Tobacco Use Status: Current everyday Tobacco user Tobacco use type: Cigarette Cigarette Packs Per Day: 1 Cigarettes Per Day: 20.0 Years Smoked: 14 Use of substances other than those prescribed or required for medical reasons: No Substance Use Type: Former Substance User Substance Use Type Other:: on suboxone x 5 years Are you DNR?: No Advance Directives: No Advance Directives Information Provided: Yes Current occupational status: disabled Meds Allergies Allergy/AdvReac Type Severity Reaction Status Date / Time tramadol AdvReac Unknown Verified 03/21/22 15:24 Home Medications Medication Instructions Recorded Confirmed Last Taken Type buprenorphine 8 mg-naloxone 2 mg 2 film buccal DAILY 06/01/20 01/10/22 04/30/22 History sublingual film (Suboxone) quetiapine 50 mg tablet (Seroquel) 50 mg PO DAILY 06/01/20 01/10/22 Unknown History cholecalciferol (vitamin D3) 50 50 mcg PO DAILY 03/21/22 Unknown History mcg (2,000 unit) capsule (Vitamin D3) docusate sodium 100 mg capsule 100 mg PO BID 03/21/22 Unknown History melatonin 10 mg capsule 10 mg PO BEDTIME 03/21/22 Unknown History Exam Exam Date and Time: April 26, 2022 1214 Height,Weight and Vital Signs: Height 5 ft 9 in Weight 95.254 kg Pertinent Lab Results Pertinent Lab Results: Laboratory Tests 11/11/21 11/11/21 14:46 14:46 WBC 10.4 Hgb 14.6 Hct 42.8 Plt Count 244 Sodium 138 Potassium 5.2 H Chloride 104 Carbon Dioxide 26 BUN 15 Creatinine 0.84 Assessment and Plan Assessment Anesthesia Assessment: Chart Reviewed Final Anesthetic Review Family History of Problems with Anesthesia: No History of Problems with Anesthesia: No Documented by User: Hipolito Paredes MD 04/30/22 12:42 [facility] Past Medical History Medical History Hepatitis C infection Polysubstance abuse Family History Family History Father No problems noted. Mother Diabetes Surgical History Surgical History History of esophagogastroduodenoscopy (EGD) (~03/2018) Social History Social History Household Members: Family Household Members Other:: mom Alcohol intake: never Patient Tobacco Use Status: Current everyday Tobacco user Tobacco use type: Cigarette Cigarette Packs Per Day: 1 Cigarettes Per Day: 20.0 Years Smoked: 14 Use of substances other than those prescribed or required for medical reasons: No Substance Use Type: Former Substance User Substance Use Type Other:: on suboxone x 5 years Are you DNR?: No Advance Directives: No Advance Directives Information Provided: Yes Current occupational status: disabled Meds Allergies Allergy/AdvReac Type Severity Reaction Status Date / Time tramadol AdvReac Unknown Verified 03/21/22 15:24 Home Medications Medication Instructions Recorded Confirmed Last Taken Type buprenorphine 8 mg-naloxone 2 mg 2 film buccal DAILY 06/01/20 01/10/22 04/30/22 History sublingual film (Suboxone) quetiapine 50 mg tablet (Seroquel) 50 mg PO DAILY 06/01/20 01/10/22 Unknown History cholecalciferol (vitamin D3) 50 50 mcg PO DAILY 03/21/22 Unknown History mcg (2,000 unit) capsule (Vitamin D3) docusate sodium 100 mg capsule 100 mg PO BID 03/21/22 Unknown History melatonin 10 mg capsule 10 mg PO BEDTIME 03/21/22 Unknown History Exam Airway Mallampati Class: I TM Dist: >3cm Neck ROM: Full Loose/Missing/Broken Teeth: Yes Assessment and Plan Final Anesthetic Review NPO: Yes ASA Class: III Final Preanesthetic Review: No Changes in Pt Med Stat, Meds/Allgs Chart Reviewed, Consent Obtained/Reviewed and Anes Risks/Benef Reviewed Patient Risk: Low Procedure Risk: Low Anesthetic Plan Anesthetic Plan: MAC: Disposition: Standard PACU
[2022-04-30 11:11] VITALS: BMI 31.0
[2022-04-30 11:20] VITALS: BP 146/74; PULSE 86; RESP 20; TEMP 530.6; TEMP 987; O2SAT 95
[2022-04-30 11:49] LABS: Amphetamine Screen Urine Not Detected (Not Detect); Barbiturates, Urine Not Detected (Not Detect); Benzodiazepines Screen Urine Not Detected (Not Detect); Cannabinoid Screen Urine Not Detected (Not Detect); Cocaine Screen Urine Not Detected (Not Detect); Fentanyl, urine Not Detected (Not Detect); Opiate Screen Urine Not Detected (Not Detect); Phencyclidine Screen Urine Not Detected (Not Detect)
[2022-04-30] MEDS: Lactated Ringers 1,000 ML 100 ML IVCONT (11:51)
--- NOTE | 2022-04-30 11:59 | MHC.SHP ---
Pre-Procedural Eval Section A Date of Service: 04/30/22 Section B Chief Complaint: Unspecified cirrhosis of liver,reflux disease Relevant Family History (Specify if Yes): No Relevant Social History: Tobacco Use Present Medications: see Short Stay Collaborative assessment Medical History: Significant History (Hepatitis C infection Polysubstance abuse) History of Previous Operations: Relevant previous surgery/procedure and date(s) (urology procedure) Allergies: Allergies Allergy/AdvReac Type Severity Reaction Status Date / Time tramadol AdvReac Unknown Verified 03/21/22 15:24 Review of Systems Sugical H&P ROS: Negative: Constitution, Cardiovascular, Respiratory, Neurological, Psychiatric, Hem-Onc, Allergic/Immunologic, Gastrointestinal, Genitourinary, Musculoskeletal, Integumentary, Endocrine and Eyes/Ears/Nose/Throat Exam Surgical H&P Exam: Normal: HEENT, Normal: Heart, Normal: Lungs, Normal: Extremities, Normal: Abdomen, Normal: Skin and Normal: Neurological Plan Diagnosis/Plan: Unchanged I have reviewed the history and physical and performed a pertinent physical examination on my patient. No changes have occurred unless specified.
--- NOTE | 2022-04-30 12:00 | W.PM.OPN ---
Operative Note Operative Note Date of Service: 04/30/22 Narrative: Procedure Description: EGD Indication: GERD Anesthesia: MAC FLEXIBLE TRANSORAL UPPER GASTROINTESTINAL ENDOSCOPY UPPER ENDOSCOPY Consent: Indications for the procedure and potential complications of bleeding, perforation, reaction to medications and missed diagnosis were discussed with the patient and informed consent was obtained. Instrument: Olympus GIF H 190 J mid size upper endoscope Monitoring: Vital signs and clinical assessment, continuous EKG monitoring, Pulse oximetry, Carbon Dioxide monitoring and blood pressure monitoring were done throughout the procedure. Procedure: The patient was placed in the left lateral decubitis position and pre-procedure medications were administered and a bite block was placed. The endoscope was inserted into the mouth and advanced under direct vision to the third part of duodenum. A careful inspection was made as the upper endoscope was withdrawn including a retroflexed examination of the proximal stomach; Findings and interventions are described below. Findings: Larynx:normal Esophagus: GE junction at 38 cm, diaphragm hiatus at 38 cm, islands of salmon pink mucosa with few short tongues consistent with barretts, bx taken. Also esophagitis noted with furrowing of mucosa. Bx taken from GEJ, and distal, proximal esophagus. white patches noted consistent with candidiasis. No esophageal varices noted. Stomach: Patchy gastric erythema. Biopsies were obtained. Grade 3 flap valve on retroflexed examination of the cardia with very lax LES> Duodenum: Normal bulb and descending duodenum, Intervention: Biopsies as noted above Impression/Findings: possible barretts esophagitis gastritis candidiasis PLAN: 2 week course of fluconazole GERD precautions if H pylori pos then treat If Barretts pos then repeat EGD in 3 yrs or so
[2022-04-30 12:33] VITALS: BP 108/50; PULSE 82; RESP 20; TEMP 36.1; O2SAT 95
[2022-04-30 12:51] VITALS: BP 115/51; PULSE 79; RESP 18; TEMP 36.1; O2SAT 96
== END 2022-04-30 14:02 | disposition home or self-care (01) ==
PROVIDERS: Nurse Practitioner; PCP Internal Medicine; Visit Provider Internal Medicine Gastroenterology
PROC: (CPT 43239; principal; 2022-04-30 13:30)
DX: K21.9 Gastro-esophageal reflux disease without esophagitis (principal); K74.60 Unspecified cirrhosis of liver; B19.20 Unspecified viral hepatitis C without hepatic coma; K22.70 Barrett's esophagus without dysplasia; K20.80 Other esophagitis without bleeding; B37.9 Candidiasis, unspecified; K29.50 Unspecified chronic gastritis without bleeding; K44.9 Diaphragmatic hernia without obstruction or gangrene; E66.9 Obesity, unspecified; Z68.31 Body mass index [BMI] 31.0-31.9, adult; Z79.899 Other long term (current) drug therapy; F19.11 Other psychoactive substance abuse, in remission; F17.210 Nicotine dependence, cigarettes, uncomplicated
CPT/HCPCS: 43239; 80307; 88305; 88312; 88342

== ENCOUNTER → 2022-08-01 11:34 | Outpatient (BNVA) | payer MEDICAID, SELFPAY | PROVIDERS: PCP Internal Medicine; Visit Provider Internal Medicine Gastroenterology | DX: K74.60 Unspecified cirrhosis of liver (principal); K21.9 Gastro-esophageal reflux disease without esophagitis; Z79.899 Other long term (current) drug therapy | CPT/HCPCS: 99212 ==

== ENCOUNTER 2022-08-02 12:53 | Outpatient (REF) | payer MEDICAID, SELFPAY ==
[2022-08-02 13:16] LABS: MANUAL DIFF FLAG NO
[2022-08-02 13:30] LABS: Basophils Absolute Auto 0.1 X10*3/uL (0.0-0.2); Basophils Percent Auto 0.7 % (0-2); Eosinophils Absolute Auto 0.3 X10*3/uL (0.0-0.4); Eosinophils Percent Auto 4.1 % (0-4); Hematocrit 41.9 % (42.0-52.0); Hemoglobin 14.3 g/dl (14.0-18.0); Imm Gran Abs Auto 0.01 X10*3/uL (0.00-0.03); Imm Gran Pct Auto 0.1 % (0.0-0.4); Lymphocytes Absolute Auto 1.9 X10*3/uL (1.2-4.9); Mean Corpuscular HGB Conc 34.1 g/dl (31.0-36.0); Mean Corpuscular Hemoglobin 29.2 pg (27.0-33.0); Mean Corpuscular Volume 85.7 fL (80.0-98.0); Mean Platelet Volume 9.8 fL (9.4-12.4); Monocytes Absolute Auto 0.5 X10*3/uL (0.1-1.2); Monocytes Percent Auto 7.6 % (2-11); Neutrophils Absolute Auto 4.1 x10*3/uL (2.0-8.3); Neutrophils Percent Auto 59.5 % (45-73); Platelet Count 231 X10*3/uL (160-400); Red Blood Count 4.89 X10*6/uL (4.60-5.80); Red Cell Distribution Width 11.9 % (11.0-16.0); White Blood Count 6.8 X10*3/uL (4.8-10.8)
[2022-08-02 14:33] LABS: Folate 15.2 ng/mL (> or = 4.0); Vitamin B12 510 pg/mL (200-900)
[2022-08-02 14:34] LABS: Alanine Aminotransferase 33 U/L (0-40); Albumin Level 4.3 g/dL (3.5-5.0); Alkaline Phosphatase 93 U/L (39-117); Anion Gap 15 (12-20); Aspartate Amino Transferase 26 U/L (5-37); Bilirubin Total 0.3 mg/dL (0.0-1.0); Blood Urea Nitrogen 14 mg/dL (9-16); Calcium 9.4 mg/dL (8.4-10.2); Carbon Dioxide 22 mmol/L (22-29); Chloride 106 mmol/L (96-108); Estimated Glomerular Filt Rate > 60; Glucose Random 106 mg/dL (60-115); Potassium 4.4 mmol/L (3.3-5.1); Sodium 139 mmol/L (135-145)
[2022-08-02 14:49] LABS: Vitamin D 25-OH Total 19.6 ng/mL (>30)
== END 2022-08-02 12:54 | disposition home or self-care (01) ==
LOC: HO.LAB 12:53
PROVIDERS: Internal Medicine Gastroenterology; PCP Internal Medicine; Visit Provider Radiology Diagnostic Radiology
DX: K74.60 Unspecified cirrhosis of liver (principal)
CPT/HCPCS: 36415; 80053; 82306; 82607; 82746; 85025; 85610

== ENCOUNTER 2022-08-30 10:14 | Outpatient (REF) | payer MEDICAID, SELFPAY ==
--- NOTE | ~2022-08-30 | US_ITS ---
EXAMINATION: US ABDOMEN COMPLETE CLINICAL INFORMATION: Unspecified cirrhosis of the liver, screen for HCC. COMPARISON: US abdomen complete with liver elastography 03/27/2021. Ultrasound abdomen complete 02/23/2019. TECHNIQUE: Real-time imaging of the abdominal viscera. FINDINGS: PANCREAS: Normal. ABDOMINAL AORTA: The proximal, mid, and distal segments are normal in caliber. INFERIOR VENA CAVA: Visualized portions are normal. LIVER: Enlarged measuring 17.6 cm in span. The liver contour is normal. There is diffuse increased liver parenchymal echogenicity, consistent with infiltrative hepatocellular disease. No focal hepatic lesion. There is no intrahepatic biliary duct dilatation seen. GALLBLADDER: Normal. The gallbladder is physiologically distended without evidence of stones, sludge, polyps, wall thickening or pericholecystic fluid. COMMON BILE DUCT: Normal in caliber measuring 0.5 cm in diameter. RIGHT KIDNEY: Normal. No hydronephrosis. No renal calculi or focal parenchymal lesions. The kidney measures 10.0 cm in maximum dimension. LEFT KIDNEY: Normal. No hydronephrosis. No renal calculi or focal parenchymal lesions. The kidney measures 10.2 cm in maximum dimension. SPLEEN: Normal. The spleen measures 12.8 cm in maximum dimension. FREE FLUID: None. US/US abdomen complete IMPRESSION: Hepatomegaly. Increased hepatic echogenicity which can be seen in the setting of hepatic steatosis or underlying liver disease. No focal liver lesion.
== END 2022-08-30 10:15 | disposition home or self-care (01) ==
LOC: HO.US 10:14
PROVIDERS: Visit Provider Internal Medicine Gastroenterology
DX: K74.60 Unspecified cirrhosis of liver (principal)
CPT/HCPCS: 76700

== ENCOUNTER 2022-09-11 17:22 | Emergency (ER) | payer MEDICAID, SELFPAY ==
--- NOTE | ~2022-09-11 | XR_ITS ---
EXAMINATION: XR CHEST CLINICAL INFORMATION: Volume overload COMPARISON: Chest x-ray 09/12/2021 TECHNIQUE: 2 views of the chest were obtained. FINDINGS: The lungs are clear. No airspace consolidation, pleural effusion, or pneumothorax. The cardiomediastinal silhouette is within normal limits. No evidence of pulmonary edema. No acute osseous injury. XR/XR chest 2V IMPRESSION: No acute pulmonary process. No evidence of pulmonary edema.
--- NOTE | ~2022-09-11 | US_ITS ---
EXAMINATION: US VENOUS ULTRASOUND WITH DOPPLER LOWER EXTREMITY, BILATERAL CLINICAL INFORMATION: Left worse than right lower extremity edema for 2 weeks COMPARISON: Lower extremity venous ultrasound 04/11/2021 TECHNIQUE: Ultrasound of the deep veins is performed from the hip to the calf with compression sonography and color and pulse Doppler assessment. Spectral analysis with color-flow imaging is performed. FINDINGS: RIGHT: There is normal venous compression and respiratory variation and augmented flow. The visualized common femoral vein, superficial femoral vein, profunda femoral vein, popliteal vein, and the trifurcation region shows no evidence of deep venous thrombosis. Visualized right posterior tibial calf veins appear patent. The peroneal veins were not visualized. LEFT: There is normal venous compression and respiratory variation and augmented flow. The visualized common femoral vein, superficial femoral vein, profunda femoral vein, popliteal vein, and the trifurcation region shows no evidence of deep venous thrombosis. Visualized posterior tibial and peroneal veins calf veins appear patent. If the patient's symptoms persist, followup ultrasound in 5 days 7 days might be of value to exclude proximal propagation from a non-visualized calf vein. Incidental finding of prominent bilateral inguinal lymph nodes measuring up to 1.3 cm in short axis dimension, presumably reactive. US/US venous duplex LE BI IMPRESSION: No DVT demonstrated in the bilateral lower extremities.
[2022-09-11 17:46] VITALS: BP 127/51; PULSE 76; RESP 16; TEMP 36.6; O2SAT 98; BMI 31.0
--- NOTE | 2022-09-11 17:48 | ED.EXTPRO ---
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 Patient denies any recent travel but states that his legs are uncomfortable. <Patrica Sue MD - Last Filed: 09/11/22 23:02> Related Data Home medications: Home Medications Medication Instructions Recorded Confirmed buprenorphine 8 mg-naloxone 2 mg 2 film buccal DAILY 06/01/20 08/01/22 sublingual film (Suboxone) quetiapine 50 mg tablet (Seroquel) 50 mg PO DAILY 06/01/20 08/01/22 cholecalciferol (vitamin D3) 50 50 mcg PO DAILY 03/21/22 08/01/22 mcg (2,000 unit) capsule (Vitamin D3) docusate sodium 100 mg capsule 100 mg PO BID 03/21/22 08/01/22 melatonin 10 mg capsule 10 mg PO BEDTIME 03/21/22 08/01/22 Previous Rx's Medication Instructions Recorded tamsulosin 0.4 mg capsule 0.4 mg PO BEDTIME 30 days #30 caps 04/24/21 naproxen 500 mg tablet 500 mg PO BID PRN pain 7 days #14 08/06/21 tabs phenazopyridine 100 mg tablet 100 mg PO TID PRN spasm 4 days #12 08/06/21 (Pyridium) tabs acetaminophen 500 mg tablet 500 mg PO Q6H PRN pain or fever 11/11/21 (Tylenol Extra Strength) #14 tabs naproxen 500 mg tablet 500 mg PO BID PRN pain 10 days #20 11/11/21 tabs bisacodyl 5 mg tablet,delayed 10 mg PO ONCE 3 days #6 tabs 01/10/22 release (Dulcolax (bisacodyl)) polyethylene glycol 3350 17 17 g PO DAILY 1 day #238 grams 01/10/22 gram/dose oral powder (Miralax) oxybutynin chloride 10 mg 10 mg PO DAILY 90 days #90 tabs 03/04/22 tablet,extended release 24 hr mirabegron 50 mg tablet,extended 50 mg PO DAILY 90 days #90 tabs 04/15/22 release 24 hr (Myrbetriq) fluconazole 100 mg tablet 100 mg PO DAILY #15 tabs 04/30/22 omeprazole 20 mg capsule,delayed 20 mg PO BID 60 days #120 caps 08/01/22 release sennosides 8.6 mg-docusate sodium 2 tab-cap PO BEDTIME 60 days #120 08/01/22 50 mg capsule (Senna Plus) caps <SAMANTHA Rees - Last Filed: 09/11/22 17:51> Allergies/Adverse reactions: Allergies Allergy/AdvReac Type Severity Reaction Status Date / Time tramadol AdvReac Unknown Verified 08/01/22 11:40 <SAMANTHA Rees - Last Filed: 09/11/22 17:51> Review of Systems Review of Systems: Pertinent positives and negatives as stated in HPI <Patrica Sue MD - Last Filed: 09/11/22 23:02> PMFSH Past Medical History Source: nursing notes reviewed <Patrica Sue MD - Last Filed: 09/11/22 23:02> Medical History: Medical History Hepatitis C infection Polysubstance abuse <SAMANTHA Rees - Last Filed: 09/11/22 17:51> Surgical History: Surgical History History of esophagogastroduodenoscopy (EGD) (~03/2018) <SAMANTHA Rees - Last Filed: 09/11/22 17:51> Family History Family History: Family History Father No problems noted. Mother Diabetes <SAMANTHA Rees - Last Filed: 09/11/22 17:51> Social History Social History: Social History Household Members: Family Household Members Other:: mom Alcohol intake: never Patient Tobacco Use Status: Current everyday Tobacco user Tobacco use type: Cigarette Cigarette Packs Per Day: 1 Cigarettes Per Day: 20.0 Years Smoked: 14 Substance Use Type: Former Substance User Advance Directives: No Advance Directives Information Provided: Yes Current occupational status: disabled <SAMANTHA Rees - Last Filed: 09/11/22 17:51> Physical Exam Vital Signs: Vital Signs: Last Vital Signs Temp 97.9 F 09/11/22 17:46 Pulse 62 09/11/22 22:08 Resp 18 09/11/22 22:08 BP 133/83 09/11/22 22:08 Pulse Ox 100 09/11/22 22:08 O2 Del Method 09/11/22 22:08 BMI result Body Mass Index 31.0 <SAMANTHA Rees - Last Filed: 09/11/22 17:51> Vital Signs: Last Vital Signs Temp 97.9 F 09/11/22 17:46 Pulse 62 09/11/22 22:08 Resp 18 09/11/22 22:08 BP 133/83 09/11/22 22:08 Pulse Ox 100 09/11/22 22:08 O2 Del Method 09/11/22 22:08 BMI result Body Mass Index 31.0 VITAL SIGNS: Reviewed. GENERAL: Well developed, well nourished, in no acute distress. HEAD: Normocephalic/atraumatic LUNGS: Normal breath sounds. No adventitious sounds or accessory muscle use. SpO2<100> CARDIOVASCULAR: Regular rate and rhythm without noted murmur ABDOMEN: Soft, non-tender, non-distended with bowel sounds. MUSCULOSKELETAL: No tenderness, deformities, or effusions noted on gross inspection. EXTREMITIES: No cyanosis, clubbing or edema; bilateral lower extremity swelling, nonpitting and no evidence of erythema or induration, palpable DP/PT and obvious skin changes consistent with chronic venous stasis. SKIN: Inspection of the skin reveals no rashes NEUROLOGIC: Alert and oriented x 4. Strength and sensation to light touch were grossly intact x 4. <Patrica Sue MD - Last Filed: 09/11/22 23:02> Course Course Course Narrative: RME - 47 yo male with history of hepatitis C/MENDOZA cirrhosis, asthma, GERD, & polysubstance abuse on Suboxone presents to the ER for evaluation of worsening bilateral LE edema, L>R for the last 2 weeks. No associated SOB or chest pain. LE with bilateral tense edema. VSS. Will get labs, bilateral LE dopplers. Stable to go to waiting room until treatment room is available. <SAMANTHA Rees - Last Filed: 09/11/22 17:51> Medical Decision Making Medical Decision Making MDM Narrative: 47-year-old male with history and clinical presentation after review of all investigations most consistent with chronic venous stasis as there is no evidence to suggest DVT or cellulitis. On review of patient's documentation prior history he does seem to carry a diagnosis of liver cirrhosis but he denies being on any prescription medications. The lower extremities do appear to have chronic skin color changes with thickening. All results were discussed with him he was strongly encouraged to watch his salt intake, use compression stockings and these were described that he needed to measure across the calf area for best fit and then further instructed to follow-up with his primary care provider. <Patrica Sue MD - Last Filed: 09/11/22 23:02> Differential Diagnosis Differential Diagnoses: The differential diagnosis associated with the presentation includes <Patrica Sue MD - Last Filed: 09/11/22 23:02> Please see the discussion above <Patrica Sue MD - Last Filed: 09/11/22 23:02> Lab Data [facility] Lab Attestation statement: I reviewed the patient's lab results. <Patrica Sue MD - Last Filed: 09/11/22 23:02> Please see the discussion above <Patrica Sue MD - Last Filed: 09/11/22 23:02> Result Diagrams: 09/11/22 18:11 09/11/22 18:11 <SAMANTHA Rees - Last Filed: 09/11/22 17:51> Labs: Lab Results 09/11/22 09/11/22 09/11/22 Range/Units 18:11 18:11 18:11 WBC 6.5 (4.8-10.8) X10*3/uL RBC 4.87 (4.60-5.80) X10*6/uL Hgb 14.3 (14.0-18.0) g/dl Hct 42.1 (42.0-52.0) % MCV 86.4 (80.0-98.0) fL MCH 29.4 (27.0-33.0) pg MCHC 34.0 (31.0-36.0) g/dl RDW 12.0 (11.0-16.0) % Plt Count 237 (160-400) X10*3/uL MPV 9.8 (9.4-12.4) fL Immature Gran % (Auto) 0.3 (0.0-0.4) % Neut % (Auto) 54.0 (45-73) % Lymph % (Auto) 32.7 (20-40) % [place] % (Auto) 7.9 (2-11) % Eos % (Auto) 4.2 H (0-4) % Baso % (Auto) 0.9 (0-2) % Lymph # (Auto) 2.1 (1.2-4.9) X10*3/uL [place] # (Auto) 0.5 (0.1-1.2) X10*3/uL Eos # (Auto) 0.3 (0.0-0.4) X10*3/uL Baso # (Auto) 0.1 (0.0-0.2) X10*3/uL Abs Immat Gran (auto) 0.02 (0.00-0.03) X10*3/uL Absolute Neuts (auto) 3.5 (2.0-8.3) x10*3/uL Absolute Nucleated RBC 0.000 (0.0-0.012) X10*3/uL Nucleated RBC % (auto) 0.0 (0.0-0.2) /100WBC Sodium 144 (135-145) mmol/L Potassium 4.5 (3.3-5.1) mmol/L Chloride 106 (96-108) mmol/L Carbon Dioxide 32 H (22-29) mmol/L Anion Gap 11 L (12-20) BUN 14 (9-16) mg/dL Creatinine 0.87 (0.5-1.4) mg/dL Estim Creat Clear Calc 118.2 Estimated GFR > 60 Random Glucose 117 H (60-115) mg/dL Calcium 9.7 (8.4-10.2) mg/dL Magnesium 1.9 (1.6-2.6) mg/dL Total Bilirubin 0.4 (0.0-1.0) mg/dL Direct Bilirubin < 0.2 (0.0-0.5) mg/dL AST 22 (5-37) U/L ALT 30 (0-40) U/L Alkaline Phosphatase 87 (39-117) U/L B-Natriuretic Peptide < 10 (<100) pg/mL Total Protein 8.0 (6.5-8.0) g/dL Albumin 4.3 (3.5-5.0) g/dL <SAMANTHA Rees - Last Filed: 09/11/22 17:51> Lab Results 09/11/22 09/11/22 09/11/22 Range/Units 18:11 18:11 18:11 WBC 6.5 (4.8-10.8) X10*3/uL RBC 4.87 (4.60-5.80) X10*6/uL Hgb 14.3 (14.0-18.0) g/dl Hct 42.1 (42.0-52.0) % MCV 86.4 (80.0-98.0) fL MCH 29.4 (27.0-33.0) pg MCHC 34.0 (31.0-36.0) g/dl RDW 12.0 (11.0-16.0) % Plt Count 237 (160-400) X10*3/uL MPV 9.8 (9.4-12.4) fL Immature Gran % (Auto) 0.3 (0.0-0.4) % Neut % (Auto) 54.0 (45-73) % Lymph % (Auto) 32.7 (20-40) % [place] % (Auto) 7.9 (2-11) % Eos % (Auto) 4.2 H (0-4) % Baso % (Auto) 0.9 (0-2) % Lymph # (Auto) 2.1 (1.2-4.9) X10*3/uL [place] # (Auto) 0.5 (0.1-1.2) X10*3/uL Eos # (Auto) 0.3 (0.0-0.4) X10*3/uL Baso # (Auto) 0.1 (0.0-0.2) X10*3/uL Abs Immat Gran (auto) 0.02 (0.00-0.03) X10*3/uL Absolute Neuts (auto) 3.5 (2.0-8.3) x10*3/uL Absolute Nucleated RBC 0.000 (0.0-0.012) X10*3/uL Nucleated RBC % (auto) 0.0 (0.0-0.2) /100WBC Sodium 144 (135-145) mmol/L Potassium 4.5 (3.3-5.1) mmol/L Chloride 106 (96-108) mmol/L Carbon Dioxide 32 H (22-29) mmol/L Anion Gap 11 L (12-20) BUN 14 (9-16) mg/dL Creatinine 0.87 (0.5-1.4) mg/dL Estim Creat Clear Calc 118.2 Estimated GFR > 60 Random Glucose 117 H (60-115) mg/dL Calcium 9.7 (8.4-10.2) mg/dL Magnesium 1.9 (1.6-2.6) mg/dL Total Bilirubin 0.4 (0.0-1.0) mg/dL Direct Bilirubin < 0.2 (0.0-0.5) mg/dL AST 22 (5-37) U/L ALT 30 (0-40) U/L Alkaline Phosphatase 87 (39-117) U/L B-Natriuretic Peptide < 10 (<100) pg/mL Total Protein 8.0 (6.5-8.0) g/dL Albumin 4.3 (3.5-5.0) g/dL <Patrica Sue MD - Last Filed: 09/11/22 23:02> Radiology Impression Radiologist Impression: My interpretation is in agreement with radiology's impression of the imaging studies. <Patrica Sue MD - Last Filed: 09/11/22 23:02> External Record Review External record reviewed: Outpatient record and Prior outpatient labs <Patrica Sue MD - Last Filed: 09/11/22 23:02> Discharge Plan Discharge Clinical Impression: Chronic venous stasis dermatitis of both lower extremities, Bilateral leg edema <SAMANTHA Rees - Last Filed: 09/11/22 17:51> Patient Disposition: Home, Self-Care <SAMANTHA Rees - Last Filed: 09/11/22 17:51> Instructions: Leg Edema (ED), Venous Insufficiency (DC), Lymphedema (ED) <SAMANTHA Rees - Last Filed: 09/11/22 17:51> Additional Instructions: 1. Reanudar todos los medicamentos caseros seg?n lo prescrito. 2. Llame al consultorio de hendrickson proveedor de atenci?n primaria y programe sharri tommy para sharri reevaluaci?n y un manejo ambulatorio adicional. 3. Recomiende que mida la parte m?s chuy de hendrickson pantorrilla y luego compre las medias de compresi?n que mejor le queden. Deben ser medias hasta la rodilla. Regrese a la olivreio de emergencias si los s?ntomas empeoran. 1. Resume all home medications as prescribed. 2. Please call the office of your primary care provider and set up an appointment for re-evaluation and further outpatient management. 3. Recommend that you measure the largest portion of your calf and then purchased the compression stockings that will best fit you. The should be knee-high stockings. Return to the ER for any worsening symptoms. <SAMANTHA Rees - Last Filed: 09/11/22 17:51> Prescriptions: No Action oxybutynin chloride 10 mg tablet extended release 24hr 10 mg PO DAILY 90 Days Qty: 90 1RF Myrbetriq 50 mg tablet extended release 24 hr 50 mg PO DAILY 90 Days Qty: 90 1RF phenazopyridine [Pyridium] 100 mg tablet 100 mg PO TID PRN (Reason: spasm) 4 Days Qty: 12 0RF naproxen 500 mg tablet 500 mg PO BID PRN (Reason: pain) 7 Days Qty: 14 0RF fluconazole 100 mg tablet 100 mg PO DAILY Qty: 15 0RF Rx Instructions: Take 2 tabs day one then one tab thereafter acetaminophen [Tylenol Extra Strength] 500 mg tablet 500 mg PO Q6H PRN (Reason: pain or fever) Qty: 14 0RF naproxen 500 mg tablet 500 mg PO BID PRN (Reason: pain) 10 Days Qty: 20 0RF tamsulosin 0.4 mg capsule 0.4 mg PO BEDTIME 30 Days Qty: 30 1RF buprenorphine-naloxone [Suboxone] 8-2 mg film 2 film buccal DAILY Rx Instructions: place 1 film on inside of (each) cheek quetiapine [Seroquel] 50 mg tablet 50 mg PO DAILY melatonin 10 mg capsule 10 mg PO BEDTIME docusate sodium 100 mg capsule 100 mg PO BID cholecalciferol (vitamin D3) [Vitamin D3] 50 mcg (2,000 unit) capsule 50 mcg PO DAILY bisacodyl [Dulcolax (bisacodyl)] 5 mg tablet,delayed release (DR/EC) 10 mg PO ONCE 3 Days Qty: 6 0RF Rx Instructions: Take 2 tablets at 12 pm daily starting 3 days before colonoscopy appointment polyethylene glycol 3350 [Miralax] 17 gram/dose powder 17 g PO DAILY 1 Days Qty: 238 0RF Rx Instructions: Mix Miralax with 64 oz(8 cups) of Crystal light. Take 2 tablets of Dulcolax qt 12 pm. Wait to have your 1st bowel movement, then begin drinking Miralax. Drink a glass of Miralax every 10-15 minutes until you are finished. You will drink at least another 4 cups of clear liquid of your choice over the next 2 hours. Please drink as many clear liquids as possible You may have clear liquids up to four hours before your procedure omeprazole 20 mg capsule,delayed release(DR/EC) 20 mg PO BID 60 Days Qty: 120 2RF Senna Plus 8.6-50 mg capsule 2 tab-cap PO BEDTIME 60 Days Qty: 120 1RF <SAMANTHA Rees - Last Filed: 09/11/22 17:51> Referrals: Rubia Brantley MD [Primary Care Provider] - <SAMANTHA Rees - Last Filed: 09/11/22 17:51> Print Language: Emirati <SAMANTHA Rees - Last Filed: 09/11/22 17:51>
[2022-09-11 18:16] LABS: MANUAL DIFF FLAG NO
[2022-09-11 18:21] LABS: Basophils Absolute Auto 0.1 X10*3/uL (0.0-0.2); Basophils Percent Auto 0.9 % (0-2); Eosinophils Absolute Auto 0.3 X10*3/uL (0.0-0.4); Eosinophils Percent Auto 4.2 % (0-4); Hematocrit 42.1 % (42.0-52.0); Hemoglobin 14.3 g/dl (14.0-18.0); Imm Gran Abs Auto 0.02 X10*3/uL (0.00-0.03); Imm Gran Pct Auto 0.3 % (0.0-0.4); Lymphocytes Absolute Auto 2.1 X10*3/uL (1.2-4.9); Lymphocytes Percent Auto 32.7 % (20-40); Mean Corpuscular Hemoglobin 29.4 pg (27.0-33.0); Mean Corpuscular Volume 86.4 fL (80.0-98.0); Mean Platelet Volume 9.8 fL (9.4-12.4); Monocytes Absolute Auto 0.5 X10*3/uL (0.1-1.2); Monocytes Percent Auto 7.9 % (2-11); Neutrophils Absolute Auto 3.5 x10*3/uL (2.0-8.3); Platelet Count 237 X10*3/uL (160-400); Red Blood Count 4.87 X10*6/uL (4.60-5.80); White Blood Count 6.5 X10*3/uL (4.8-10.8)
[2022-09-11 18:35] LABS: Alanine Aminotransferase 30 U/L (0-40); Albumin Level 4.3 g/dL (3.5-5.0); Alkaline Phosphatase 87 U/L (39-117); Anion Gap 11 (12-20); Aspartate Amino Transferase 22 U/L (5-37); Bilirubin Direct < 0.2 mg/dL (0.0-0.5); Bilirubin Total 0.4 mg/dL (0.0-1.0); Blood Urea Nitrogen 14 mg/dL (9-16); Calcium 9.7 mg/dL (8.4-10.2); Carbon Dioxide 32 mmol/L (22-29); Chloride 106 mmol/L (96-108); Creatinine Clr Calc Pharmacy 118.2; Estimated Glomerular Filt Rate > 60; Glucose Random 117 mg/dL (60-115); Magnesium 1.9 mg/dL (1.6-2.6); Potassium 4.5 mmol/L (3.3-5.1); Sodium 144 mmol/L (135-145)
[2022-09-11 18:39] LABS: B Type Natriuretic Peptide < 10 pg/mL (<100)
[2022-09-11 22:08] VITALS: BP 133/83; PULSE 62; RESP 18; O2SAT 100
== END 2022-09-11 23:22 | disposition home or self-care (01) ==
PROVIDERS: Physician Assistant; Emergency Provider Student in an Organized Health Care Education/Training Program; PCP Internal Medicine
DX: R60.0 Localized edema (principal); L30.9 Dermatitis, unspecified; R06.02 Shortness of breath; Z79.899 Other long term (current) drug therapy
CPT/HCPCS: 36415; 71046; 80048; 80076; 83735; 83880; 85025; 93970; 99283; 99284

== ENCOUNTER 2022-09-30 11:38 | Outpatient (REF) | payer MEDICAID, SELFPAY ==
--- NOTE | ~2022-09-30 | US_ITS ---
EXAMINATION: US VENOUS ULTRASOUND WITH DOPPLER LOWER EXTREMITY, BILATERAL CLINICAL INFORMATION: Bilateral lower extremity edema. COMPARISON: 09/11/2022. TECHNIQUE: Ultrasound of the deep veins is performed from the hip to the calf with compression sonography and color and pulse Doppler assessment. Spectral analysis with color-flow imaging is performed. FINDINGS: RIGHT: There is normal venous compression and respiratory variation and augmented flow. The visualized common femoral vein, superficial femoral vein, profunda femoral vein, popliteal vein, and the trifurcation region shows no evidence of deep venous thrombosis. There is no significant popliteal fossa cyst. LEFT: There is normal venous compression and respiratory variation and augmented flow. The visualized common femoral vein, superficial femoral vein, profunda femoral vein, popliteal vein, and the trifurcation region shows no evidence of deep venous thrombosis. There is no significant popliteal fossa cyst. If the patient's symptoms persist, followup ultrasound in 5 days 7 days might be of value to exclude proximal propagation from a non-visualized calf vein. OTHERS FINDINGS: Incidentally noted prominent bilateral inguinal lymph nodes measuring up to 1.4 cm short axis, grossly unchanged compared to 09/11/2022 with preserved fatty aden and reniform shape, presumably reactive. US/US venous duplex LE BI IMPRESSION: No DVT demonstrated in the bilateral lower extremities.
== END 2022-09-30 11:39 | disposition home or self-care (01) ==
LOC: HO.US 11:38
PROVIDERS: PCP Internal Medicine; Visit Provider Emergency Medicine
DX: I87.2 Venous insufficiency (chronic) (peripheral) (principal); R22.43 Localized swelling, mass and lump, lower limb, bilateral
CPT/HCPCS: 93970

== ENCOUNTER 2023-01-30 11:06 | Outpatient (AMB) | payer MEDICAID, SELFPAY ==
--- NOTE | 2023-01-30 11:14 | A.OFFVIS_ITS ---
Intake Vital Signs 01/30/23 11:26 Height 5 ft 9 in Weight 217 lb BMI 32.0 BP 102/69 Blood Pressure Location Lt brachial Position Sitting Pulse 76 Intake Visit Reasons: 6 month Intake Note: Patient 6 month follow up Patient cc: constipation and refills for Vit D3. Denies any other GI issues. 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 Accompanied by: Self / Same As Patient Allergies tramadol Adverse Reaction (Verified 01/30/23 11:22) Unknown Medication List - Last Reconciled 01/30/23 by Cheng Bolanos MD acetaminophen (Tylenol Extra Strength) 500 mg PO Q6H PRN buprenorphine-naloxone 8-2 mg (Suboxone) 2 film buccal DAILY cholecalciferol (vitamin D3) (Vitamin D3) 50 mcg PO DAILY docusate sodium 100 mg PO BID fluconazole 100 mg PO DAILY mirabegron ER (Myrbetriq) 50 mg PO DAILY 90 days naproxen 500 mg PO BID PRN 10 days omeprazole 20 mg PO BID 60 days oxybutynin chloride ER 10 mg PO DAILY 90 days phenazopyridine (Pyridium) 100 mg PO TID PRN 4 days quetiapine (Seroquel) 50 mg PO DAILY sennosides-docusate sodium 8.6-50 mg (Senna Plus) 2 tab-caps (2 x 8.6-50 mg) PO BEDTIME 60 days tamsulosin 0.4 mg PO BEDTIME 30 days HPI 6 month HPI Details GI CLINIC?VISIT FOR THIS 47-YEAR-OLD URUGUAYAN-SPEAKING MALE FOR FU of GERD, history of Hep C and compensated liver cirrhosis LABS [facility]:?02/23/19 Normal CBC, INR and LFTs IMAGING STUDIES:? 08/2022 ABD US SHOWED: Hepatomegaly. Increased hepatic echogenicity which can be seen in the setting of hepatic steatosis or underlying liver disease. No focal liver lesion. 03/2021 ABD US SHOWED: 1. Impression: Echogenic liver. Nonvisualization of the pancreas. ?2. Liver elastography:? Adequate liver sampling.? In the absence of other known clinical signs, rules out compensated advanced chronic liver disease. 02/24/19 abd US showed: ? 1. Unremarkable complete abdomen ultrasound. ? 2. On the previous 2016 ultrasound exam there was mild hepatosplenomegaly and increased hepatic texture which is not visualized at this time. ENDOSCOPIC STUDIES: 04/2022 EGD WAS PERFORMED BY DR FARIA: Esophagus: GE junction at 38? cm, diaphragm hiatus at 38 cm, islands of salmon pink mucosa with few short tongues consistent with barretts, bx taken. Also esophagitis noted with furrowing of mucosa. Bx taken from GEJ, and distal, proximal esophagus. white patches noted consistent with candidiasis. No esophageal varices noted. Stomach: Patchy gastric erythema. Biopsies were obtained. Grade 3 flap valve on retroflexed examination of the cardia with very lax LES> Impression/Findings: possible barretts esophagitis gastritis candidiasis PLAN:? 2 week course of fluconazole GERD precautions if H pylori pos then treat If Barretts pos then repeat EGD in 3 yrs or so BIOPSIES SHOWED: A.? Stomach, biopsy:? Antral-type and oxyntic mucosa with mild chronic inactive inflammation; no Helicobacter organisms seen. B.? GE junction, biopsy: - Cardiac-type mucosa with moderate chronic, focally active, inflammation; no intestinal metaplasia seen. - Squamous mucosa within normal limits; no fungi seen. C.? Esophagus, distal, biopsy:? Active esophagitis (few eosinophils and neutrophils); no fungi seen. D.? Esophagus, proximal, biopsy:? Active esophagitis (rare eosinophil); no fungi seen. 03/27/18? EGD SHOWED: ? Small hiatal hernia and erosive esophagitis and no varices ?TODAY'S VISIT ?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 Pt would like to wait till he is 49 to schedule a colonoscopy. Complains of mild constipation which he attributes to his diet - eats anything Denies known family hx of colon polyps or cancer PAST VISIT: EGD results were reviewed with the patient Intermittent GERD symptoms Denies abd pain Sometimes he notes RUQ pain with bloating 1-2 times a month. Pain resolves after a few seconds to a few minutes. Feels like someone is putting a needle in him. Pt advised to schedule a screening colonoscopy. Denies known FH of colon cancer or polyps. ? Everything is good ? Lab resuts were reviewed with the patient. ? Did not have an US done since he did not get called with an appointment. ? Heartburn well controlled with Omeprazole twice a day? - requesting a refill ? Sometimes takes two Omeprazole at the same time. ? Denies dysphagia, heartburn, change in appetite or weight. ? Takes 2 beers sometimes on weekends. ? Reminded to have labs checked and schedule an abdominal US. ? Has not had labs checked due to COVID 19 pandemic. ?PAST GI HISTORY BY REVIEW OF MEDICAL RECORDS: ? Pt was seen on 11/29/19: 1. Gastroesophageal reflux disease, esophagitis presence not specified - K21.9 (Primary) 2. Cirrhosis of liver without ascites, unspecified hepatic cirrhosis type - K74.60 3. History of hepatitis C - Z86.19 44 YM with obesity, history of Chronic Hep B and C x several years status post hepatitis C treatment 3 years ago. Liver fibrosis test suggestive of F1-2 cirrhosis. Patient has normal LFTs, albumin, prothrombin time without thrombocytopenia. He most likely has early cirrhosis related to Hep C and MENDOZA. He will need to work on weight reduction to prevent progression of liver disease related to MENDOZA. 02/23/19 abdominal US was normal. He was advisied to FU in 8-9 months. ? Treatment 1. Gastroesophageal reflux disease, esophagitis presence not specified Refill Omeprazole Capsule Delayed Release, 20 mg, 1 capsule, Orally, once a day, 30 days, 30, Refills 5 ?? ? LAB: CREATININE ?? ? LAB: LIVER PROFILE ?? ? LAB: CBC w/o DIFF ?? ? LAB: PROTHROMBIN TIME (PT, INR) 2. History of hepatitis C Notes: Treated in the past. FU monitoring with repeat viral load showed a viral load of < 1.18 in Jul, 2019 [facility] Medical History Hepatitis C infection Polysubstance abuse Surgical History History of esophagogastroduodenoscopy (EGD) (~03/2018) Family History Father No problems noted. Mother Diabetes Social History Household Members: Family Household Members Other:: mom Alcohol intake: never Patient Tobacco Use Status: Current everyday Tobacco user Tobacco use type: Cigarette Cigarette Packs Per Day: 1 Cigarettes Per Day: 20.0 Years Smoked: 14 Substance Use Type: Former Substance User Current occupational status: disabled Review of Systems Const All systems reviewed & are unremarkable except as noted in HPI and below Physical Exam Vital Signs: Last Vital Signs Pulse 76 01/30/23 11:26 BP 102/69 01/30/23 11:26 BMI result Body Mass Index 32.0 Const General: healthy appearing and no acute distress Nutritional Appearance: obese Orientation/consciousness: patient oriented x3 Limitations: language barrier HEENT Head: Yes normal to inspection Ears: hearing grossly normal bilaterally Eyes Sclerae: sclerae normal Pupils: Equal, round and reactive pupils present Neck Neck: Yes normal visual inspection Chest Chest palpation & inspection: normal inspection of the chest Resp Effort & Inspection: normal respiratory effort Auscultation: clear to auscultation bilaterally Cardio Palpation: normal PMI Rate: regular rate Rhythm: regular rhythm Heart sounds: S1 normal heart sound present, S2 normal heart sound present and no murmurs GI Palpation (GI): Soft to palpation, nontender and No hepatosplenomegaly present Auscultation: normal bowel sounds Rectal Exam - Male: Yes deferred Skin General skin exam: no rashes or lesions noted Neuro General: patient oriented x3, gait normal and moves all extremities Cranial nerves: Yes Equal, round and reactive pupils present Psych Appearance: grossly normal Mental Status: mental status grossly normal Assessment & Plan Assessment & Plan (1) Cirrhosis of liver without ascites: Comment: Liver fibrosis test suggestive of F1-2 cirrhosis. Patient has normal LFTs, albumin, prothrombin time without thrombocytopenia. He most likely has early cirrhosis related to past Hep C and MENDOZA Code(s): K74.60 - Unspecified cirrhosis of liver (2) GERD (gastroesophageal reflux disease): Code(s): K21.9 - Gastro-esophageal reflux disease without esophagitis (3) Colon cancer screening: Code(s): Z12.11 - Encounter for screening for malignant neoplasm of colon Plan 47 YM with obesity, history of Chronic Hep B and C x several years status post hepatitis C treatment 4 years ago. Liver fibrosis test suggestive of F1-2 cirrhosis. Patient has normal LFTs, albumin, prothrombin time without thrombocytopenia. He most likely has early cirrhosis related to Hep C and MENDOZA. He will need to work on weight reduction to prevent progression of liver disease related to MENDOZA. 03/2021 abdominal US with Elastography was normal. Pt will be scheduled for a FU Abd US 04/2022 EGD (FU of GERD) and performed by Dr Faria and results as noted above. FU in 12 months Colonoscopy will be scheduled on FU next year since patient would like to wait till he has 49 to schedule his colonoscopy. Medications: Changed From cholecalciferol (vitamin D3) (Vitamin D3) 50 mcg PO DAILY To cholecalciferol (vitamin D3) (Vitamin D3) 50 mcg PO DAILY 90 caps 1RF 90 days Coding Level of Care Code Est Pt Level 4 (26257) Diagnoses Cirrhosis of liver without ascites K74.60 GERD (gastroesophageal reflux disease) K21.9 Colon cancer screening Z12.11 Time Spent (min) 23
[2023-01-30 11:26] VITALS: BP 102/69; PULSE 76; BMI 32.0
== END 2023-01-30 12:24 | disposition home or self-care (01) ==
PROVIDERS: Visit Provider Internal Medicine Gastroenterology
DX: K74.60 Unspecified cirrhosis of liver (principal); K21.9 Gastro-esophageal reflux disease without esophagitis; Z12.11 Encounter for screening for malignant neoplasm of colon
CPT/HCPCS: 99214

== ENCOUNTER → 2023-01-30 11:06 | Outpatient (BNVA) | payer MEDICAID, SELFPAY | PROVIDERS: Visit Provider Internal Medicine Gastroenterology | DX: Z12.11 Encounter for screening for malignant neoplasm of colon (principal); K74.60 Unspecified cirrhosis of liver; K21.9 Gastro-esophageal reflux disease without esophagitis | CPT/HCPCS: 99212 ==

== ENCOUNTER 2023-02-07 13:00 | Outpatient (AMB) | payer MEDICAID, SELFPAY ==
[2023-02-07 13:03] VITALS: BP 130/66; PULSE 73; BMI 32.0
--- NOTE | 2023-02-07 13:03 | MHC.OFFVIS ---
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 Required: Yes Stage Electrician Helper Language: Inflated Pad Buffer Name: Ceci [id number] Accompanied by: Self / Same As Patient Allergies tramadol Adverse Reaction (Verified 02/07/23 13:05) Unknown Medication List - Last Reconciled 02/07/23 by Boyd Pfeiffre MD acetaminophen (Tylenol Extra Strength) 500 mg PO Q6H PRN buprenorphine-naloxone 8-2 mg (Suboxone) 2 film buccal DAILY cholecalciferol (vitamin D3) (Vitamin D3) 50 mcg PO DAILY 90 days docusate sodium 100 mg PO BID fluconazole 100 mg PO DAILY mirabegron ER (Myrbetriq) 50 mg PO DAILY naproxen 500 mg PO BID PRN 10 days omeprazole 20 mg PO BID 60 days oxybutynin chloride ER 10 mg PO DAILY phenazopyridine (Pyridium) 100 mg PO TID PRN quetiapine (Seroquel) 50 mg PO DAILY sennosides-docusate sodium 8.6-50 mg (Senna Plus) 2 tab-caps (2 x 8.6-50 mg) PO BEDTIME 60 days tamsulosin 0.4 mg PO BEDTIME 30 days HPI HPI Comments History of Present Illness Details Patient is here for consultation regarding leg edema. He carries a diagnosis of cirrhosis of the liver possibly related to hepatitis-B/C. He states he gets swelling in the legs off and on. Otherwise, denies any clear-cut anginal-type symptoms or shortness of breath. No known cardiac issues including coronary artery disease, myocardial infarction or cardiomyopathy. [facility] Medical History Hepatitis C infection Polysubstance abuse Surgical History History of esophagogastroduodenoscopy (EGD) (~03/2018) Family History Father No problems noted. Mother Diabetes Social History Household Members: Family Household Members Other:: mom Alcohol intake: never Patient Tobacco Use Status: Current everyday Tobacco user Tobacco use type: Cigarette Cigarette Packs Per Day: 1 Cigarettes Per Day: 20.0 Years Smoked: 14 Substance Use Type: Former Substance User Current occupational status: disabled Review of Systems Const Denies weakness ENT Denies dizziness Card Denies chest pain, Denies chest pain with activity, Denies syncope, Denies rapid heart rate, Denies pedal edema, Denies edema, Denies leg edema, Denies lightheadedness, Denies palpitations, Denies dyspnea, Denies dyspnea on exertion and Denies orthopnea Resp Denies cough, Denies dyspnea and Denies dyspnea on exertion GI Denies hematochezia and Denies change in stool character Musc Denies abnormal gait, Denies muscle cramps, Denies muscle weakness, Denies numbness, Denies radiating pain into limb and Denies tingling Neuro Denies abnormal gait, Denies dizziness, Denies syncope, Denies numbness, Denies tingling and Denies weakness Endo Denies palpitations Physical Exam Vital Signs: Last Vital Signs Pulse 73 02/07/23 13:03 BP 130/66 02/07/23 13:03 BMI result Body Mass Index 32.0 Const General: comfortable and no acute distress Orientation/consciousness: patient oriented x3 HEENT Other: Unremarkable Head: Yes normal to inspection Neck Neck: Yes normal visual inspection Chest Chest palpation & inspection: normal inspection of the chest Resp Auscultation: clear to auscultation bilaterally Cardio Palpation: normal PMI Heart sounds: S1 normal heart sound present, S2 normal heart sound present, no gallops, no murmurs and no rubs GI Palpation (GI): Soft to palpation Back/Spine/Pelvis Other: unremarkable Skin General skin exam: no rashes or lesions noted Neuro General: patient oriented x3 Extrem Other: 1+ edema General: Yes normal to inspection Psych Mental Status: mental status grossly normal Office Procedures EKG Details: EKG with sinus rhythm at 73/Min; no significant ST-T changes and otherwise unremarkable. [place]. [id number], Complete Assessment & Plan Assessment & Plan (1) Leg edema: Code(s): R60.0 - Localized edema (2) Cirrhosis of liver without ascites: Comment: Liver fibrosis test suggestive of F1-2 cirrhosis. Patient has normal LFTs, albumin, prothrombin time without thrombocytopenia. He most likely has early cirrhosis related to past Hep C and MENDOZA Code(s): K74.60 - Unspecified cirrhosis of liver Plan Mild leg swelling on exam. Could be related to venous insufficiency/dependent edema. Less likely right heart dysfunction or pulmonary hypertension. Check echocardiogram. Orders: Orders CA echo transthoracic complete Today K74.60 - Unspecified cirrhosis of liver, R60.0 - Localized edema Medications: Changed From mirabegron ER (Myrbetriq) 50 mg PO DAILY 90 days 90 tabs 1RF N30.10 - Interstitial cystitis (chronic) without hematuria To mirabegron ER (Myrbetriq) 50 mg PO DAILY N30.10 - Interstitial cystitis (chronic) without hematuria From oxybutynin chloride ER 10 mg PO DAILY 90 days 90 tabs 1RF N30.10 - Interstitial cystitis (chronic) without hematuria, N32.81 - Overactive bladder, R39.15 - Urgency of urination To oxybutynin chloride ER 10 mg PO DAILY N30.10 - Interstitial cystitis (chronic) without hematuria, N32.81 - Overactive bladder, R39.15 - Urgency of urination From phenazopyridine (Pyridium) 100 mg PO TID 4 days PRN 12 tabs 0RF spasm To phenazopyridine (Pyridium) 100 mg PO TID PRN Coding Level of Care Code New Pt Level 3 (94014) Diagnoses Leg edema R60.0 Cirrhosis of liver without ascites K74.60 CPT Codes EKG - CPT: 13491-[id number], Complete ([id number])
== END 2023-02-07 13:20 | disposition home or self-care (01) ==
PROVIDERS: PCP Internal Medicine; Visit Provider Internal Medicine
DX: R60.0 Localized edema (principal); K74.60 Unspecified cirrhosis of liver
CPT/HCPCS: 93010; 99203

== ENCOUNTER → 2023-02-07 13:00 | Outpatient (BNVA) | payer MEDICAID, SELFPAY | PROVIDERS: PCP Internal Medicine; Visit Provider Internal Medicine | DX: R60.0 Localized edema (principal); K74.60 Unspecified cirrhosis of liver | CPT/HCPCS: 93005; 99202 ==

== ENCOUNTER → 2023-03-07 13:12 | Outpatient (REF) | payer MEDICAID, SELFPAY ==
--- NOTE | 2023-03-07 13:14 | CA_ITS ---
Transthoracic Echocardiogram Patient (Last, First, Middle): Demetri Story, Gender: Male Date of : 1975 Age: 47 Procedure Date: 03/07/2023 Procedure Type: Transthoracic Echocardiogram Location: OP Height: 175.26 cm Weight: 99.79 kg BSA: 2.15 m2 Heart Rate: 68 bpm BP: 115 / 70 mmHg Head Neck Surgeon: LUIS Grossman MD: Boyd Pfeiffer MD Staff Pharmacist: Jagdeep Ortiz MD Symptoms: R60.0 - Localized edema Study Quality: Adequate ECG Rhythm: Sinus Conclusions: - Essentially normal study Findings Left Ventricle Normal left ventricular size, thickness, and systolic function. The visually estimated ejection fraction is between 60-65%. Spectral Doppler is indicative of a normal filling pattern. Peak GLS is -17.1%, which is borderline low. Right Ventricle Normal right ventricular cavity size and systolic function. Atria Both atria are normal in size. There is no evidence of interatrial shunt. Aortic Valve Normal aortic valve structure and function. There is no aortic valve stenosis. There is no aortic valve regurgitation. Mitral Valve Normal mitral valve structure and function. There is trace mitral valve regurgitation. There is no mitral valve stenosis. Pulmonic Valve The pulmonic valve is likely normal. There is trace pulmonic valve regurgitation. Tricuspid Valve Normal tricuspid valve structure. There is trace tricuspid valve regurgitation. The right ventricular systolic pressure is normal. The right ventricular systolic pressure is 20 mmHg. Normal right atrial pressure. There is no evidence of pulmonary hypertension. Great Vessels All visible segments of the aorta are normal in size. The pulmonary artery was not well visualized. There is no dilatation of the ascending aorta. Venous The inferior vena cava is normal in size and collapses greater than 50% with inspiration. Pericardium/Pleural There is no evidence of pericardial effusion. Prior Study Comparison No prior study available for comparison. Measurements 2D Linear Measurements IVSd: 1.09 0.6-0.9/0.6-1.0 cm LVIDd: 4.63 3.9-5.3/4.2-5.9 cm LVIDd Index: 2.15 2.4-3.2/2.2-3.1 cm/m2 LVIDs: 3.02 2.0-3.6 cm LVPWd: 0.93 0.7-1.1 cm LA Diam: 3.20 2.7-3.8/3.0-4.0 cm LAIDs Index: 1.49 1.5-2.3 cm/m2 LV Mass: 202.34 67-162/88-224 g LV Mass Index: 94.11 43-95/49-115 g/m2 LVOT Diam: 2.00 3.0+(-)1.3 cm 2D Systolic Function EF 4C: 63.10 >55% EF 2C: 59.10 >55% EF BiP: 60.20 >55% Mitral Valve MV Pk E: 0.90 MV PK A: 0.88 MV Decel Time: 232.00 E/A: 1.00 E'Lateral: 10.30 E'Medial: 10.00 E/E' Med: 9.00 E/E' Lat: 8.70 PHT: 68.00 MVA PHT: 3.24 Decel Hale: 3.85 Aortic Valve AoV Pk Sidney: 1.29 AoV Mn Sidney: 0.87 AoV VTI: 0.27 AoV Pk Grad: 7.00 Aov Mn Grad: 4.00 NICOLA Cont.VTI: 2.80 LVOT LVOT Pk Sidney: 1.14 LVOT Mn Sidney: 0.76 LVOT VTI: 0.24 LVOT Pk Grad: 5.00 LVOT Mn Grad: 3.00 LVOT Diam: 2.00 LVOT Area: 3.14 Diastolic Function MV Pk E: 0.90 MV Pk A: 0.88 E/A: 1.00 E'Medial: 10.00 E/E' Med: 9.00 E' Laterial: 10.30 E/E' Lat: 8.70 Right Ventricle TAPSE (mm): 23.30 TVS' Sidney: 12.40 Tricuspid Valve TR Pk Sidney: 2.07 TR Pk Grad: 17.00 RA Press: 3.00 RVSP: 20.00 Great Vessels Aorta Sinus of Valsalva: 3.60 2.0-3.5 cm Ao Asc: 3.40 2.1-3.4 cm Pulmonary Valve PV Pk Sidney: 0.98 Peak PV Grad: 4.00 Updated in Other Vendor System with Status of Final Jagdeep Ortiz MD electronically signed on 03/07/2023 2:58:23 PM with status of Final
== END ==
LOC: HO.CARD 13:12
PROVIDERS: PCP Internal Medicine; Visit Provider Internal Medicine
DX: R60.0 Localized edema (principal); K74.60 Unspecified cirrhosis of liver
CPT/HCPCS: 93306; 93356

== ENCOUNTER → 2023-03-07 13:14 | Outpatient (BNV) | payer MEDICAID, SELFPAY | PROVIDERS: PCP Internal Medicine; Visit Provider Internal Medicine Cardiovascular Disease | DX: R60.0 Localized edema (principal) | CPT/HCPCS: 93306 ==

== ENCOUNTER 2023-08-27 16:07 | Outpatient (REF) | payer MEDICAID, SELFPAY ==
[2023-08-28 08:10] LABS: HBS Num1 13.41 mIU/mL (0-7.99); HBc Num1 6.67 S/CO (0.00-0.79); HBsAGNum1 0.59 S/CO (0.00-0.99); Hepatitis A Antibody IgM 0.75 Index (0-0.79); Hepatitis B Surface Antigen Negative (Negative); ~HepC Num1 12.33 S/CO (0.00-0.79); ~Hepatitis A Antibody IgM Nonreactive (Nonreactive); ~Hepatitis B Surface Antibody REACTIVE (Nonreactive); ~Hepatitis C Antibody Reactive (Nonreactive)
[2023-08-28 09:57] LABS: HBc Num2 7.03 S/CO; HBc Num3 6.74 S/CO
[2023-08-28 09:58] LABS: Hepatitis B Core Antibody Reactive (Nonreactive)
== END 2023-08-27 16:08 | disposition home or self-care (01) ==
LOC: HO.HHCL 16:07
PROVIDERS: Visit Provider Internal Medicine
DX: K74.60 Unspecified cirrhosis of liver (principal)
CPT/HCPCS: 36415; 86704; 86705; 86706; 86709; 86803; 87340

== ENCOUNTER 2024-01-29 11:08 | Outpatient (AMB) | payer MEDICAID, SELFPAY ==
--- NOTE | 2024-01-29 11:32 | A.OFFVIS_ITS ---
Vital Signs 01/29/24 11:35 Height 5 ft 9 in Weight 203 lb BMI 30.0 BP 112/59 L Blood Pressure Location Lt brachial Position Sitting Pulse 73 Intake Visit Reasons: 1 year fu Intake Note: Patient yearly follow up Cirrhosis of liver without ascites (+) Patient cc: constipation with some blood on and off. Patient also is been having both legs with uinflammation and pain. Denies any other GI issues. Security Vehicle Patrol Officer Required: Yes Security Vehicle Patrol Officer Name: [facility] interpeter Accompanied by: Self / Same As Patient Allergies tramadol Adverse Reaction (Verified 02/07/23 13:05) Unknown Medication List - Last Reconciled 01/29/24 by Cheng Bolanos MD acetaminophen (Tylenol Extra Strength) 500 mg PO Q6H PRN buprenorphine-naloxone 8-2 mg (Suboxone) 2 film buccal DAILY cholecalciferol (vitamin D3) 50 mcg PO DAILY 90 days docusate sodium 100 mg PO BID fluconazole 100 mg PO DAILY mirabegron ER (Myrbetriq) 50 mg PO DAILY naproxen 500 mg PO BID PRN 10 days omeprazole 20 mg PO BID 60 days oxybutynin chloride ER 10 mg PO DAILY phenazopyridine (Pyridium) 100 mg PO TID PRN quetiapine (Seroquel) 50 mg PO DAILY sennosides-docusate sodium 8.6-50 mg (Senna Plus) 2 tab-caps (2 x 8.6-50 mg) PO BEDTIME 60 days tamsulosin 0.4 mg PO BEDTIME 30 days HPI HPI 1 year fu: Details: GI CLINIC?VISIT FOR THIS 48-YEAR-OLD GUAMANIAN-SPEAKING MALE FOR FU of GERD, history of Hep C and compensated liver cirrhosis LABS IN [facility]:?02/23/19 Normal CBC, INR and LFTs IMAGING STUDIES:? 08/2022 ABD US SHOWED: Hepatomegaly. Increased hepatic echogenicity which can be seen in the setting of hepatic steatosis or underlying liver disease. No focal liver lesion. 03/2021 ABD US SHOWED: 1. Impression: Echogenic liver. Nonvisualization of the pancreas. ?2. Liver elastography:? Adequate liver sampling.? In the absence of other known clinical signs, rules out compensated advanced chronic liver disease. 02/24/19 abd US showed: ? 1. Unremarkable complete abdomen ultrasound. ? 2. On the previous 2017 ultrasound exam there was mild hepatosplenomegaly and increased hepatic texture which is not visualized at this time. ENDOSCOPIC STUDIES: 04/2022 EGD WAS PERFORMED BY DR FARIA: Esophagus: GE junction at 38? cm, diaphragm hiatus at 38 cm, islands of salmon pink mucosa with few short tongues consistent with barretts, bx taken. Also esophagitis noted with furrowing of mucosa. Bx taken from GEJ, and distal, proximal esophagus. white patches noted consistent with candidiasis. No esophageal varices noted. Stomach: Patchy gastric erythema. Biopsies were obtained. Grade 3 flap valve on retroflexed examination of the cardia with very lax LES> Impression/Findings: possible barretts esophagitis gastritis candidiasis PLAN:? 2 week course of fluconazole GERD precautions if H pylori pos then treat If Barretts pos then repeat EGD in 3 yrs or so BIOPSIES SHOWED: A.? Stomach, biopsy:? Antral-type and oxyntic mucosa with mild chronic inactive inflammation; no Helicobacter organisms seen. B.? GE junction, biopsy: - Cardiac-type mucosa with moderate chronic, focally active, inflammation; no intestinal metaplasia seen. - Squamous mucosa within normal limits; no fungi seen. C.? Esophagus, distal, biopsy:? Active esophagitis (few eosinophils and neutrophils); no fungi seen. D.? Esophagus, proximal, biopsy:? Active esophagitis (rare eosinophil); no fungi seen. 03/27/18? EGD SHOWED: ? 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 Patient also is been having both legs with inflammation and pain. Denies any other GI issues. Complains of constipation - sometimes no BM for 5 days. Notes intermittent BR blood in the stool after he strains to have a BM Heartburn is better. Pt would like to wait till he is 49 to schedule a colonoscopy. Complains of mild constipation which he attributes to his diet - eats anything Denies known family hx of colon polyps or cancer PAST VISIT: EGD results were reviewed with the patient Intermittent GERD symptoms Denies abd pain Sometimes he notes RUQ pain with bloating 1-2 times a month. Pain resolves after a few seconds to a few minutes. Feels like someone is putting a needle in him. Pt advised to schedule a screening colonoscopy. Denies known FH of colon cancer or polyps. ? Everything is good ? Lab resuts were reviewed with the patient. ? Did not have an US done since he did not get called with an appointment. ? Heartburn well controlled with Omeprazole twice a day? - requesting a refill ? Sometimes takes two Omeprazole at the same time. ? Denies dysphagia, heartburn, change in appetite or weight. ? Takes 2 beers sometimes on weekends. ? Reminded to have labs checked and schedule an abdominal US. ? Has not had labs checked due to COVID 19 pandemic. ?PAST GI HISTORY BY REVIEW OF MEDICAL RECORDS: ? Pt was seen on 11/29/19: 1. Gastroesophageal reflux disease, esophagitis presence not specified - K21.9 (Primary) 2. Cirrhosis of liver without ascites, unspecified hepatic cirrhosis type - K74.60 3. History of hepatitis C - Z86.19 44 YM with obesity, history of Chronic Hep B and C x several years status post hepatitis C treatment 3 years ago. Liver fibrosis test suggestive of F1-2 cirrhosis. Patient has normal LFTs, albumin, prothrombin time without thrombocytopenia. He most likely has early cirrhosis related to Hep C and MENDOZA. He will need to work on weight reduction to prevent progression of liver disease related to MENDOZA. 02/23/19 abdominal US was normal. He was advisied to FU in 8-9 months. ? Treatment 1. Gastroesophageal reflux disease, esophagitis presence not specified Refill Omeprazole Capsule Delayed Release, 20 mg, 1 capsule, Orally, once a day, 30 days, 30, Refills 5 ?? ? LAB: CREATININE ?? ? LAB: LIVER PROFILE ?? ? LAB: CBC w/o DIFF ?? ? LAB: PROTHROMBIN TIME (PT, INR) 2. History of hepatitis C Notes: Treated in the past. FU monitoring with repeat viral load showed a viral load of < 1.18 in Jul, 2019 [facility] Medical History Hepatitis C infection Polysubstance abuse Surgical History History of esophagogastroduodenoscopy (EGD) (~03/2018) Family History Father No problems noted. Mother Diabetes Social History Household Members: Family Household Members Other:: mom Alcohol intake: never Patient Tobacco Use Status: Current everyday Tobacco user Tobacco use type: Cigarette Cigarette Packs Per Day: 1 Cigarettes Per Day: 20.0 Years Smoked: 14 Substance Use Type: Former Substance User Current occupational status: disabled Review of Systems Const All systems reviewed & are unremarkable except as noted in HPI and below Physical Exam Vital Signs: Last Vital Signs Pulse 73 01/29/24 11:35 BP 112/59 L 01/29/24 11:35 BMI result Body Mass Index 30.0 Const General: healthy appearing and no acute distress Nutritional Appearance: obese Orientation/consciousness: patient oriented x3 Limitations: language barrier HEENT Head: Yes normal to inspection Ears: hearing grossly normal bilaterally Eyes Sclerae: sclerae normal Pupils: Equal, round and reactive pupils present Neck Neck: Yes normal visual inspection Chest Chest palpation & inspection: normal inspection of the chest Resp Effort & Inspection: normal respiratory effort Auscultation: clear to auscultation bilaterally Cardio Palpation: normal PMI Rate: regular rate Rhythm: regular rhythm Heart sounds: S1 normal heart sound present, S2 normal heart sound present and no murmurs GI Palpation (GI): Soft to palpation, nontender and No hepatosplenomegaly present Auscultation: normal bowel sounds Rectal Exam - Male: Yes deferred Skin General skin exam: no rashes or lesions noted Neuro General: patient oriented x3, gait normal and moves all extremities Cranial nerves: Yes Equal, round and reactive pupils present Psych Appearance: grossly normal Mental Status: mental status grossly normal Assessment & Plan Assessment & Plan (1) GERD (gastroesophageal reflux disease): Code(s): K21.9 - Gastro-esophageal reflux disease without esophagitis Category: Medical (2) Cirrhosis of liver without ascites: Comment: Liver fibrosis test suggestive of F1-2 cirrhosis. Patient has normal LFTs, albumin, prothrombin time without thrombocytopenia. He most likely has early cirrhosis related to past Hep C and MENDOZA Code(s): K74.60 - Unspecified cirrhosis of liver Category: Medical (3) Colon cancer screening: Code(s): Z12.11 - Encounter for screening for malignant neoplasm of colon Category: Medical (4) Chronic constipation: Code(s): K59.09 - Other constipation Category: Medical Plan 48 YM with obesity, history of Chronic Hep B and C x several years status post hepatitis C treatment 4 years ago. Liver fibrosis test suggestive of F1-2 cirrhosis. Patient has normal LFTs, albumin, prothrombin time without thrombocytopenia. He most likely has early cirrhosis related to Hep C and MENDOZA. He will need to work on weight reduction to prevent progression of liver disease related to MENDOZA. 03/2021 abdominal US with Elastography was normal. Pt will be scheduled for a FU Abd US 04/2022 EGD (FU of GERD) and performed by Dr Faria and results as noted above. Colonoscopy will be scheduled on FU next year since patient would like to wait till he has 49 to schedule his colonoscopy 01/29/24 Complains of constipation - sometimes no BM for 5 days. Notes intermittent BR blood in the stool after he strains to have a BM Patient was advised to take senna at bedtime for constipation. He will be scheduled for a colonoscopy for colon cancer screen and rectal bleeding Abdominal US for HCC surveillance FU in 3-4 months Orders: Orders US abdomen limited Today K74.60 - Unspecified cirrhosis of liver Medications: New polyethylene glycol 3350 (Miralax) Mix Miralax with 64 oz(8 cups) of Crystal light. Take 2 tablets of Dulcolax qt 12 pm. Wait to have your 1st bowel movement, then begin drinking Miralax. Drink a glass of Miralax every 10-15 minutes until you are finished. You will drink at least another 4 cups of clear liquid of your choice over the next 2 hours. Please drink as many clear liquids as possible You may have clear liquids up to four hours before your procedure 17 grams PO DAILY 238 grams 0RF colon prep 1 day sennosides-docusate sodium 8.6-50 mg (Senna Plus) 2 tab-caps (2 x 8.6-50 mg) PO BEDTIME 120 caps 1RF 60 days K59.09 - Other constipation bisacodyl (Dulcolax (bisacodyl)) Take 2 tablets at 12 pm starting 5 days before colonoscopy 10 mg (2 x 5 mg) PO ONCE 10 tabs 0RF colon prep 5 days Coding Level of Care Code Est Pt Level 4 (17903) Diagnoses GERD (gastroesophageal reflux disease) K21.9 Cirrhosis of liver without ascites K74.60 Colon cancer screening Z12.11 Chronic constipation K59.09 Time Spent (min) 24
[2024-01-29 11:35] VITALS: BP 112/59; PULSE 73
== END 2024-01-29 12:51 | disposition home or self-care (01) ==
PROVIDERS: PCP Internal Medicine; Referring Provider Internal Medicine; Visit Provider Internal Medicine Gastroenterology
DX: K21.9 Gastro-esophageal reflux disease without esophagitis (principal); K74.60 Unspecified cirrhosis of liver; Z12.11 Encounter for screening for malignant neoplasm of colon; K59.09 Other constipation
CPT/HCPCS: 99214

== ENCOUNTER → 2024-01-29 11:08 | Outpatient (BNVA) | payer MEDICAID, SELFPAY | PROVIDERS: PCP Internal Medicine; Visit Provider Internal Medicine Gastroenterology | DX: Z12.11 Encounter for screening for malignant neoplasm of colon (principal); K21.9 Gastro-esophageal reflux disease without esophagitis; K74.60 Unspecified cirrhosis of liver; K59.09 Other constipation | CPT/HCPCS: 99212 ==

== ENCOUNTER 2024-02-17 09:32 | Outpatient (REF) | payer MEDICAID, SELFPAY ==
--- NOTE | ~2024-02-17 | US_ITS ---
EXAMINATION: US ABDOMEN LIMITED CLINICAL INFORMATION: Unspecified cirrhosis of the liver. COMPARISON: Ultrasound abdomen 08/30/2022 and 03/27/2021. TECHNIQUE: Real-time imaging of the right upper quadrant abdominal viscera. FINDINGS: PANCREAS: Limited visualization of pancreatic tail and head. Imaged portion of pancreatic body is unremarkable. LIVER: Hepatomegaly, 17.4 cm. Increased hepatic parenchymal heterogeneity and echogenicity could be associated with hepatocellular disease/hepatic steatosis and substantially limits visualization. Correlation with liver function tests and clinical exam recommended to determine further management. GALLBLADDER: No gallstones. No gallbladder wall thickening. COMMON BILE DUCT: Normal in caliber measuring 0.3 cm in diameter. RIGHT KIDNEY: No hydronephrosis. No renal calculi. Limited visualization. The kidney measures 10.4 cm in maximum dimension. FREE FLUID: None. US/US abdomen limited IMPRESSION: Hepatomegaly, 17.4 cm. Increased hepatic parenchymal heterogeneity and echogenicity could be associated with hepatocellular disease/hepatic steatosis and substantially limits visualization. Correlation with liver function tests and clinical exam recommended to determine further management.
== END 2024-02-17 09:33 | disposition home or self-care (01) ==
LOC: HO.US 09:32
PROVIDERS: PCP Internal Medicine; Visit Provider Internal Medicine Gastroenterology
DX: K74.60 Unspecified cirrhosis of liver (principal)
CPT/HCPCS: 76705

== ENCOUNTER 2024-04-08 12:27 | Outpatient (AMB) | payer MEDICAID, SELFPAY ==
--- NOTE | 2024-04-08 12:33 | A.OFFVIS_ITS ---
Vital Signs 04/08/24 12:35 Height 5 ft 9 in Weight 208 lb 1.862 oz BMI 30.7 BP 118/63 Blood Pressure Location Lt brachial Position Sitting Intake Visit Reasons: discuss colonoscopy Intake Note: Patient follow up for chronic constipation and to discuss Colonoscopy screening. Patient cc: chronic constipation with some blood on and off. Senior Civil Engineer Required: Yes Senior Civil Engineer Name: [facility] Interpeter Accompanied by: Self / Same As Patient Allergies tramadol Adverse Reaction (Verified 04/08/24 12:33) Unknown Medication List - Last Reconciled 04/08/24 by Cheng Bolanos MD acetaminophen (Tylenol Extra Strength) 500 mg PO Q6H PRN bisacodyl (Dulcolax (bisacodyl)) 10 mg (2 x 5 mg) PO ONCE 5 days buprenorphine-naloxone 8-2 mg (Suboxone) 2 film buccal DAILY cholecalciferol (vitamin D3) 50 mcg PO DAILY 90 days docusate sodium 100 mg PO BID fluconazole 100 mg PO DAILY mirabegron ER (Myrbetriq) 50 mg PO DAILY naproxen 500 mg PO BID PRN 10 days omeprazole 20 mg PO BID 60 days oxybutynin chloride ER 10 mg PO DAILY phenazopyridine (Pyridium) 100 mg PO TID PRN polyethylene glycol 3350 (Miralax) 17 grams PO DAILY 1 day quetiapine (Seroquel) 50 mg PO DAILY sennosides-docusate sodium 8.6-50 mg (Senna Plus) 2 tab-caps (2 x 8.6-50 mg) PO BEDTIME 60 days sennosides-docusate sodium 8.6-50 mg (Senna Plus) 2 tab-caps (2 x 8.6-50 mg) PO BEDTIME 60 days tamsulosin 0.4 mg PO BEDTIME 30 days HPI HPI discuss colonoscopy: Details: GI CLINIC?VISIT FOR THIS 48-YEAR-OLD UKRAINIAN-SPEAKING MALE FOR FU of GERD, history of Hep C and compensated liver cirrhosis ??TODAY'S VISIT ?[facility] [employer]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 No showed for colon appt since he was not prepared for it. Abd US results and colon Prep instructions reviewed with the patient with the help of the reservations manager PAST VISIT: Patient cc: constipation with some blood on and off. Patient also is been having both legs with inflammation and pain. Denies any other GI issues. Complains of constipation - sometimes no BM for 5 days. Notes intermittent BR blood in the stool after he strains to have a BM Heartburn is better. Pt would like to wait till he is 49 to schedule a colonoscopy. Complains of mild constipation which he attributes to his diet - eats anything Denies known family hx of colon polyps or cancer EGD results were reviewed with the patient Intermittent GERD symptoms Denies abd pain Sometimes he notes RUQ pain with bloating 1-2 times a month. Pain resolves after a few seconds to a few minutes. Feels like someone is putting a needle in him. Pt advised to schedule a screening colonoscopy. Denies known FH of colon cancer or polyps. ? Everything is good ? Lab resuts were reviewed with the patient. ? Did not have an US done since he did not get called with an appointment. ? Heartburn well controlled with Omeprazole twice a day? - requesting a refill ? Sometimes takes two Omeprazole at the same time. ? Denies dysphagia, heartburn, change in appetite or weight. ? Takes 2 beers sometimes on weekends. ? Reminded to have labs checked and schedule an abdominal US. ? Has not had labs checked due to COVID 19 pandemic. LABS IN [place]:?02/23/19 Normal CBC, INR and LFTs IMAGING STUDIES:? 08/2022 ABD US SHOWED: Hepatomegaly. Increased hepatic echogenicity which can be seen in the setting of hepatic steatosis or underlying liver disease. No focal liver lesion. 03/2021 ABD US SHOWED: 1. Impression: Echogenic liver. Nonvisualization of the pancreas. ?2. Liver elastography:? Adequate liver sampling.? In the absence of other known clinical signs, rules out compensated advanced chronic liver disease. 02/24/19 abd US showed: ? 1. Unremarkable complete abdomen ultrasound. ? 2. On the previous 2016 ultrasound exam there was mild hepatosplenomegaly and increased hepatic texture which is not visualized at this time. ENDOSCOPIC STUDIES: 04/2022 EGD WAS PERFORMED BY DR FARIA: Esophagus: GE junction at 38? cm, diaphragm hiatus at 38 cm, islands of salmon pink mucosa with few short tongues consistent with barretts, bx taken. Also esophagitis noted with furrowing of mucosa. Bx taken from GEJ, and distal, proximal esophagus. white patches noted consistent with candidiasis. No esophageal varices noted. Stomach: Patchy gastric erythema. Biopsies were obtained. Grade 3 flap valve on retroflexed examination of the cardia with very lax LES> Impression/Findings: possible barretts esophagitis gastritis candidiasis PLAN:? 2 week course of fluconazole GERD precautions if H pylori pos then treat If Barretts pos then repeat EGD in 3 yrs or so BIOPSIES SHOWED: A.? Stomach, biopsy:? Antral-type and oxyntic mucosa with mild chronic inactive inflammation; no Helicobacter organisms seen. B.? GE junction, biopsy: - Cardiac-type mucosa with moderate chronic, focally active, inflammation; no intestinal metaplasia seen. - Squamous mucosa within normal limits; no fungi seen. C.? Esophagus, distal, biopsy:? Active esophagitis (few eosinophils and neutrophils); no fungi seen. D.? Esophagus, proximal, biopsy:? Active esophagitis (rare eosinophil); no fungi seen. 03/27/18? EGD SHOWED: ? Small hiatal hernia and erosive esophagitis and no varices ?PAST GI HISTORY BY REVIEW OF MEDICAL RECORDS: ? Pt was seen on 11/29/19: 1. Gastroesophageal reflux disease, esophagitis presence not specified - K21.9 (Primary) 2. Cirrhosis of liver without ascites, unspecified hepatic cirrhosis type - K74.60 3. History of hepatitis C - Z86.19 44 YM with obesity, history of Chronic Hep B and C x several years status post hepatitis C treatment 3 years ago. Liver fibrosis test suggestive of F1-2 cir rhosis. Patient has normal LFTs, albumin, prothrombin time without thrombocytopenia. He most likely has early cirrhosis related to Hep C and MENDOZA. He will need to work on weight reduction to prevent progression of liver disease related to MENDOZA. 02/23/19 abdominal US was normal. He was advisied to FU in 8-9 months. ? Treatment 1. Gastroesophageal reflux disease, esophagitis presence not specified Refill Omeprazole Capsule Delayed Release, 20 mg, 1 capsule, Orally, once a day, 30 days, 30, Refills 5 ?? ? LAB: CREATININE ?? ? LAB: LIVER PROFILE ?? ? LAB: CBC w/o DIFF ?? ? LAB: PROTHROMBIN TIME (PT, INR) 2. History of hepatitis C Notes: Treated in the past. FU monitoring with repeat viral load showed a viral load of < 1.18 in Jul, 2019 [facility] Medical History Hepatitis C infection Polysubstance abuse Surgical History History of esophagogastroduodenoscopy (EGD) (~03/2018) Family History Father No problems noted. Mother Diabetes Social History Household Members: Family Household Members Other:: mom Alcohol intake: never Patient Tobacco Use Status: Current everyday Tobacco user Tobacco use type: Cigarette Cigarette Packs Per Day: 1 Cigarettes Per Day: 20.0 Years Smoked: 14 Substance Use Type: Former Substance User Current occupational status: disabled Review of Systems Const All systems reviewed & are unremarkable except as noted in HPI and below Physical Exam Vital Signs: Last Vital Signs BP 118/63 04/08/24 12:35 BMI result Body Mass Index 30.7 Const General: healthy appearing and no acute distress Nutritional Appearance: obese Orientation/consciousness: patient oriented x3 Limitations: language barrier HEENT Head: Yes normal to inspection Ears: hearing grossly normal bilaterally Eyes Sclerae: sclerae normal Pupils: Equal, round and reactive pupils present Neck Neck: Yes normal visual inspection Chest Chest palpation & inspection: normal inspection of the chest Resp Effort & Inspection: normal respiratory effort Auscultation: clear to auscultation bilaterally Cardio Palpation: normal PMI Rate: regular rate Rhythm: regular rhythm Heart sounds: S1 normal heart sound present, S2 normal heart sound present and no murmurs GI Palpation (GI): Soft to palpation, nontender and No hepatosplenomegaly present Auscultation: normal bowel sounds Rectal Exam - Male: Yes deferred Skin General skin exam: no rashes or lesions noted Neuro General: patient oriented x3, gait normal and moves all extremities Cranial nerves: Yes Equal, round and reactive pupils present Psych Appearance: grossly normal Mental Status: mental status grossly normal Assessment & Plan Assessment & Plan (1) GERD (gastroesophageal reflux disease): Code(s): K21.9 - Gastro-esophageal reflux disease without esophagitis Category: Medical (2) Cirrhosis of liver without ascites: Comment: Liver fibrosis test suggestive of F1-2 cirrhosis. Patient has normal LFTs, albumin, prothrombin time without thrombocytopenia. He most likely has early cirrhosis related to past Hep C and MENDOZA Code(s): K74.60 - Unspecified cirrhosis of liver Category: Medical (3) Colon cancer screening: Code(s): Z12.11 - Encounter for screening for malignant neoplasm of colon Category: Medical (4) Chronic constipation: Code(s): K59.09 - Other constipation Category: Medical Plan 48 YM with obesity, history of Chronic Hep B and C x several years status post hepatitis C treatment 4 years ago. Liver fibrosis test suggestive of F1-2 cirrhosis. Patient has normal LFTs, albumin, prothrombin time without thrombocytopenia. He most likely has early cirrhosis related to Hep C and MENDOZA. He will need to work on weight reduction to prevent progression of liver disease related to MENDOZA. 03/2021 abdominal US with Elastography was normal. Pt will be scheduled for a FU Abd US 04/2022 EGD (FU of GERD) and performed by Dr Faria and results as noted above. Colonoscopy will be scheduled on FU next year since patient would like to wait till he has 49 to schedule his colonoscopy 01/29/24 Complains of constipation - sometimes no BM for 5 days. Notes intermittent BR blood in the stool after he strains to have a BM Patient was advised to take senna at bedtime for constipation. He will be scheduled for a colonoscopy for colon cancer screen and rectal bleeding On 02/25/24 @ 11:05 Cheng Bolanos Wrote To Cheng Bolanos (2) pt scheduled for a screening colonoscopy today and did not shhow up for his appt Did not answer the phone when called. (Pre-op nurse reported ot was apprehensive about the procedure when called yesterday) Please keep FU appt with Dr Bolanos in Mar, 2024 to rediscuss Abdominal US for HCC surveillance 04/08/24 colon Prep instructions reviewed with the patient with the help of the reservations manager Recheck labs today, reschedule colonoscopy and fU in 6 months Coding Level of Care Code Est Pt Level 4 (17903) Diagnoses GERD (gastroesophageal reflux disease) K21.9 Cirrhosis of liver without ascites K74.60 Colon cancer screening Z12.11 Chronic constipation K59.09 Time Spent (min) 21
[2024-04-08 12:35] VITALS: BP 118/63; BMI 30.7
== END 2024-04-08 13:26 | disposition home or self-care (01) ==
PROVIDERS: PCP Internal Medicine; Referring Provider Internal Medicine; Visit Provider Internal Medicine Gastroenterology
DX: K21.9 Gastro-esophageal reflux disease without esophagitis (principal); K74.60 Unspecified cirrhosis of liver; Z12.11 Encounter for screening for malignant neoplasm of colon; K59.09 Other constipation
CPT/HCPCS: 99214

== ENCOUNTER → 2024-04-08 12:27 | Outpatient (BNVA) | payer MEDICAID, SELFPAY | PROVIDERS: PCP Internal Medicine; Visit Provider Internal Medicine Gastroenterology | DX: Z12.11 Encounter for screening for malignant neoplasm of colon (principal); K21.9 Gastro-esophageal reflux disease without esophagitis; K74.60 Unspecified cirrhosis of liver; K59.09 Other constipation | CPT/HCPCS: 99212 ==

== ENCOUNTER 2024-04-21 13:31 | Outpatient (REF) | payer MEDICAID, SELFPAY ==
[2024-04-21 14:45] LABS: Hematocrit 43.7 % (42.0-52.0); Hemoglobin 14.8 g/dl (14.0-18.0); Mean Corpuscular HGB Conc 33.9 g/dl (31.0-36.0); Mean Corpuscular Hemoglobin 30.1 pg (27.0-33.0); Mean Platelet Volume 10.8 fL (9.4-12.4); Platelet Count 233 X10*3/uL (160-400); Red Blood Count 4.91 X10*6/uL (4.60-5.80); Red Cell Distribution Width 12.3 % (11.0-16.0); White Blood Count 8.9 X10*3/uL (4.8-10.8)
[2024-04-21 14:56] LABS: Prothrombin Time 12.2 SEC (10.9-12.4)
[2024-04-21 15:29] LABS: Alanine Aminotransferase 33 U/L (0-40); Albumin Level 4.2 g/dL (3.5-5.0); Alkaline Phosphatase 96 U/L (39-117); Aspartate Amino Transferase 22 U/L (5-37); Bilirubin Direct 0.1 mg/dL (0.0-0.5); Bilirubin Total 0.4 mg/dL (0.0-1.0)
[2024-04-21 15:33] LABS: Vitamin D 25-OH Total 33.2 ng/mL (>30)
== END 2024-04-21 13:32 | disposition home or self-care (01) ==
LOC: HO.LAB 13:31
PROVIDERS: Visit Provider Internal Medicine Gastroenterology
DX: K74.60 Unspecified cirrhosis of liver (principal)
CPT/HCPCS: 36415; 80076; 82306; 85027; 85610

== ENCOUNTER 2025-01-15 16:49 | Emergency (ER) | payer MEDICAID, SELFPAY ==
--- NOTE | ~2025-01-15 | US_ITS ---
CLINICAL HISTORY: pain Venous duplex ultrasound bilateral lower extremity Comparison: US/[place]/SR - US VENOUS DUPLEX LE BI - 09/30/22 11:46 EDT Findings: The visualized deep veins are fully compressible with normal Doppler color flow and spectral tracings. No popliteal cyst. IMPRESSION: 1. Negative for bilateral lower extremity deep vein thrombosis. This document has been electronically signed by: Awilda Greene MD on 01/15/2025 19:24:04
[2025-01-15 16:57] VITALS: BP 105/61; PULSE 78; RESP 16; TEMP 36.4; O2SAT 95; BMI 30.4
[2025-01-15 18:12] LABS: MANUAL DIFF FLAG NO
[2025-01-15 18:17] LABS: Basophils Absolute Auto 0.1 X10*3/uL (0.0-0.2); Eosinophils Absolute Auto 0.3 X10*3/uL (0.0-0.4); Eosinophils Percent Auto 3.8 % (0-4); Hematocrit 41.6 % (42.0-52.0); Hemoglobin 14.7 g/dl (14.0-18.0); Imm Gran Abs Auto 0.02 X10*3/uL (0.00-0.03); Imm Gran Pct Auto 0.3 % (0.0-0.4); Lymphocytes Absolute Auto 2.4 X10*3/uL (1.2-4.9); Lymphocytes Percent Auto 34.4 % (20-40); Mean Corpuscular HGB Conc 35.3 g/dl (31.0-36.0); Mean Corpuscular Volume 84.9 fL (80.0-98.0); Mean Platelet Volume 10.3 fL (9.4-12.4); Monocytes Absolute Auto 0.5 X10*3/uL (0.1-1.2); Monocytes Percent Auto 6.5 % (2-11); Neutrophils Absolute Auto 3.8 x10*3/uL (2.0-8.3); Platelet Count 238 X10*3/uL (160-400); Red Cell Distribution Width 12.1 % (11.0-16.0); White Blood Count 7.1 X10*3/uL (4.8-10.8)
[2025-01-15 18:33] LABS: Alanine Aminotransferase 50 U/L (0-40); Albumin Level 4.5 g/dL (3.5-5.0); Alkaline Phosphatase 96 U/L (39-117); Anion Gap 13 (12-20); Aspartate Amino Transferase 31 U/L (5-37); Bilirubin Total 0.4 mg/dL (0.0-1.0); Blood Urea Nitrogen 14 mg/dL (9-16); Calcium 9.5 mg/dL (8.4-10.2); Carbon Dioxide 27 mmol/L (22-29); Chloride 106 mmol/L (96-108); Estimated Glomerular Filt Rate > 60; Glucose Random 98 mg/dL (60-115); Sodium 141 mmol/L (135-145)
[2025-01-15 18:53] LABS: B Type Natriuretic Peptide 20 pg/mL (<100)
--- NOTE | 2025-01-15 20:38 | ED.GENADULT ---
HPI - General Adult General Chief complaint: Extremity Problem Stated complaint: bilat leg pain Time Seen by Provider: 01/15/25 17:19 Source: patient, RN notes reviewed, old records reviewed and translator/interpreter Mode of arrival: ambulatory Limitations: language barrier History of Present Illness ED Provider: Florentino HPI narrative: 49-year-old male past medical history significant for liver cirrhosis without ascites, GERD, asthma, BPH presents for evaluation of bilateral leg pain. Patient reports chronic leg pain for many years He describes a burning sensation in both of his legs. His symptoms are worse when he is walking. He denies any injury to either leg pain He has no history of DVT or PE. He is already taking gabapentin 100 mg TID He is not a diabetic Denies any redness or swelling Related Data Home Medications ?Medication ?Instructions ?Recorded ?Confirmed buprenorphine 8 mg-naloxone 2 mg 2 film buccal DAILY 06/01/20 04/08/24 sublingual film (Suboxone) quetiapine 50 mg tablet (Seroquel) 50 mg PO DAILY 06/01/20 04/08/24 docusate sodium 100 mg capsule 100 mg PO BID 03/21/22 04/08/24 mirabegron 50 mg tablet,extended 50 mg PO DAILY 02/07/23 04/08/24 release 24 hr (Myrbetriq) oxybutynin chloride 10 mg 10 mg PO DAILY 02/07/23 04/08/24 tablet,extended release 24 hr phenazopyridine 100 mg tablet 100 mg PO TID PRN spasm 02/07/23 04/08/24 (Pyridium) Previous Rx's ?Medication ?Instructions ?Recorded tamsulosin 0.4 mg capsule 0.4 mg PO BEDTIME 30 days #30 caps 04/24/21 acetaminophen 500 mg tablet 500 mg PO Q6H PRN pain or fever 11/11/21 (Tylenol Extra Strength) #14 tabs naproxen 500 mg tablet 500 mg PO BID PRN pain 10 days #20 11/11/21 tabs fluconazole 100 mg tablet 100 mg PO DAILY #15 tabs 04/30/22 omeprazole 20 mg capsule,delayed 20 mg PO BID 60 days #120 caps 08/01/22 release sennosides 8.6 mg-docusate sodium 2 tab-cap (2 x 8.6-50 mg) PO 08/01/22 50 mg capsule (Senna Plus) BEDTIME 60 days #120 caps cholecalciferol (vitamin D3) 50 50 mcg PO DAILY 90 days #90 caps 07/24/23 mcg (2,000 unit) capsule bisacodyl 5 mg tablet,delayed 10 mg (2 x 5 mg) PO ONCE colon 01/29/24 release (Dulcolax (bisacodyl)) prep 5 days #10 tabs polyethylene glycol 3350 17 17 g PO DAILY colon prep 1 day 01/29/24 gram/dose oral powder (Miralax) #238 grams sennosides 8.6 mg-docusate sodium 2 tab PO BEDTIME 90 days #180 tabs 09/19/24 50 mg tablet (Senexon-S) naproxen 500 mg tablet 500 mg PO BID PRN pain #20 tabs 01/15/25 Allergies Allergy/AdvReac Type Severity Reaction Status Date / Time tramadol AdvReac Unknown Verified 01/15/25 17:03 Review of Systems Constitutional: Constitutional: Denies body ache(s), Denies chills, Denies fever(s) and Denies headache(s) Eyes: Eyes: Denies blurry vision, Denies exophthalmos and Denies irritation ENT: Denies dizziness and Denies headache(s) Cardiovascular: Cardiovascular: Denies chest pain and Denies dyspnea on exertion Respiratory: Respiratory: Denies cough and Denies dyspnea on exertion Gastrointestinal: Gastrointestinal: Denies abdominal pain, Denies nausea and Denies vomiting Musculoskeletal: Musculoskeletal: Denies arthralgias, Denies joint swelling and Reports radiating pain into limb Integumentary/Breasts: Skin/Breast: Denies erythema Neurologic: Denies dizziness and Denies headache(s) Psychiatric: Psychiatric: Denies depression [facility] Past Medical History Medical History (Updated 01/15/25 @ 20:47 by Freedom Good) Hiatal hernia Polysubstance abuse Hepatitis C infection Surgical History History of esophagogastroduodenoscopy (EGD) (~03/2018) Family History Family History Father No problems noted. Mother Diabetes Social History Social History Household Members: Family Household Members Other:: mom Alcohol intake: never Patient Tobacco Use Status: Current everyday Tobacco user Tobacco use type: Cigarette Cigarette Packs Per Day: 1 Cigarettes Per Day: 20.0 Years Smoked: 14 Substance Use Type: Former Substance User Advance Directives: No Advance Directives Information Provided: No Current occupational status: disabled Physical Exam ED Vital Signs: Vital Signs - 24 hr 01/15/25 16:57 Temperature 97.5 F Pulse Rate 78 Respiratory Rate 16 Blood Pressure 105/61 Pulse Oximetry 95 Oxygen Delivery Method Room Air BMI result Body Mass Index 30.4 Const General: healthy appearing, comfortable, no acute distress, alert and awake Nutritional Appearance: well nourished Orientation/consciousness: patient oriented x3 HENMT Head: Yes normocephalic and Yes atraumatic Eyes Eyelids: Yes eyelids normal Conjunctivae: conjunctivae normal Sclerae: sclerae normal Corneas: corneas normal Pupils: Equal, round and reactive pupils present EOM: EOMs intact bilaterally Neck Neck: Yes full ROM Resp Effort & Inspection: normal respiratory effort, able to speak in complete sentences and not labored Cardio Rate: regular rate Rhythm: regular rhythm Skin General skin exam: elasticity normal Neuro General: patient oriented x3 Cranial nerves: Yes Equal, round and reactive pupils present and Yes Bilaterally intact EOM present Cognition (Neuro): normal cognition Extrem Other: There is mild edema bilateral nonpitting edema to the lower extremities. There was no significant erythema. PT and DP pulses are 2+ and equal bilaterally. No open wounds or lesions. The patient does have calf tenderness bilaterally, right greater than left. Full range of motion with flexion-extension of the hip, knees Medical Decision Making Medical Decision Making MDM Narrative: 49-year-old male presents for evaluation of bilateral leg pain. History exam is most consistent with neuropathy and he has already being treated with gabapentin. There was no evidence of cellulitis or infectious process. No recent trauma to suggest osseous injury. The patient has been range of motion is ambulatory, no evidence of CHF. The patient has no shortness of breath, cough or history of CHF. He does have a history of liver cirrhosis without ascites. Ultrasound of the legs were ordered which does not show any evidence of DVT. Labs are relatively patient's platelet count is normal, renal function is normal and no history of GI bleed, we will treat his pain with naproxen Differential Diagnosis Differential Diagnoses: The differential diagnosis associated with the presentation includes Bilateral leg pain Neuropathy DVT Cellulitis CHF Lab Data [facility] Lab Attestation statement: I reviewed the patient's lab results. No leukocytosis or significant anemia. Normal platelet count. No electrolyte abnormalities warranting intervention 01/15/25 18:08 01/15/25 18:08 Labs: Lab Results 01/15/25 Range/Units 18:08 WBC 7.1 (4.8-10.8) X10*3/uL RBC 4.90 (4.60-5.80) X10*6/uL Hgb 14.7 (14.0-18.0) g/dl Hct 41.6 L (42.0-52.0) % MCV 84.9 (80.0-98.0) fL MCH 30.0 (27.0-33.0) pg MCHC 35.3 (31.0-36.0) g/dl RDW 12.1 (11.0-16.0) % Plt Count 238 (160-400) X10*3/uL MPV 10.3 (9.4-12.4) fL Immature Gran % (Auto) 0.3 (0.0-0.4) % Neut % (Auto) 54.0 (45-73) % Lymph % (Auto) 34.4 (20-40) % Jewell % (Auto) 6.5 (2-11) % Eos % (Auto) 3.8 (0-4) % Baso % (Auto) 1.0 (0-2) % Lymph # (Auto) 2.4 (1.2-4.9) X10*3/uL Jewell # (Auto) 0.5 (0.1-1.2) X10*3/uL Eos # (Auto) 0.3 (0.0-0.4) X10*3/uL Baso # (Auto) 0.1 (0.0-0.2) X10*3/uL Abs Immat Gran (auto) 0.02 (0.00-0.03) X10*3/uL Absolute Neuts (auto) 3.8 (2.0-8.3) x10*3/uL Absolute Nucleated RBC 0.000 (0.0-0.012) X10*3/uL Nucleated RBC % (auto) 0.0 (0.0-0.2) /100WBC Sodium 141 (135-145) mmol/L Potassium 5.0 (3.3-5.1) mmol/L Chloride 106 (96-108) mmol/L Carbon Dioxide 27 (22-29) mmol/L Anion Gap 13 (12-20) BUN 14 (9-16) mg/dL Creatinine 0.92 (0.5-1.4) mg/dL Estim Creat Clear Calc 105.0 Estimated GFR > 60 Random Glucose 98 (60-115) mg/dL Calcium 9.5 (8.4-10.2) mg/dL Total Bilirubin 0.4 (0.0-1.0) mg/dL AST 31 (5-37) U/L ALT 50 H (0-40) U/L Alkaline Phosphatase 96 (39-117) U/L B-Natriuretic Peptide 20 (<100) pg/mL Total Protein 8.0 (6.5-8.0) g/dL Albumin 4.5 (3.5-5.0) g/dL Radiology Impression Discussion of test interpretation with radiology: I have reviewed the radiologist's reading. Radiologist Impression: Findings: The visualized deep veins are fully compressible with normal Doppler color flow and spectral tracings. No popliteal cyst. IMPRESSION: 1. Negative for bilateral lower extremity deep vein thrombosis. This document has been electronically signed by: Awilda Greene MD on 01/15/2025 19:24:04 Discharge Plan Discharge Clinical Impression: Chronic leg pain Patient Disposition: Home, Self-Care Instructions: Leg Pain (ED) Additional Instructions: Your pain is most likely related to neuropathy. There was no evidence of infection or DVT. No evidence of heart failure. I recommend taking naproxen twice daily for your pain. Follow-up with your primary doctor, return for new or worsening symptoms Prescriptions: New naproxen 500 mg tablet 500 mg PO BID PRN (Reason: pain) Qty: 20 0RF No Action cholecalciferol (vitamin D3) 50 mcg (2,000 unit) capsule 50 mcg PO DAILY 90 Days Qty: 90 1RF sennosides-docusate sodium [Senexon-S] 8.6-50 mg tablet 2 tab PO BEDTIME 90 Days Qty: 180 1RF fluconazole 100 mg tablet 100 mg PO DAILY Qty: 15 0RF Rx Instructions: Take 2 tabs day one then one tab thereafter acetaminophen [Tylenol Extra Strength] 500 mg tablet 500 mg PO Q6H PRN (Reason: pain or fever) Qty: 14 0RF naproxen 500 mg tablet 500 mg PO BID PRN (Reason: pain) 10 Days Qty: 20 0RF tamsulosin 0.4 mg capsule 0.4 mg PO BEDTIME 30 Days Qty: 30 1RF buprenorphine-naloxone [Suboxone] 8-2 mg film 2 film buccal DAILY Rx Instructions: place 1 film on inside of (each) cheek quetiapine [Seroquel] 50 mg tablet 50 mg PO DAILY docusate sodium 100 mg capsule 100 mg PO BID omeprazole 20 mg capsule,delayed release(DR/EC) 20 mg PO BID 60 Days Qty: 120 2RF Senna Plus 8.6-50 mg capsule 2 tab-cap PO BEDTIME 60 Days Qty: 120 1RF Myrbetriq 50 mg tablet extended release 24 hr 50 mg PO DAILY oxybutynin chloride 10 mg tablet extended release 24hr 10 mg PO DAILY phenazopyridine [Pyridium] 100 mg tablet 100 mg PO TID PRN (Reason: spasm) bisacodyl [Dulcolax (bisacodyl)] 5 mg tablet,delayed release (DR/EC) 10 mg PO ONCE 5 Days Qty: 10 0RF Rx Instructions: Take 2 tablets at 12 pm starting 5 days before colonoscopy polyethylene glycol 3350 [Miralax] 17 gram/dose powder 17 g PO DAILY 1 Days Qty: 238 0RF Rx Instructions: Mix Miralax with 64 oz(8 cups) of Crystal light. Take 2 tablets of Dulcolax qt 12 pm. Wait to have your 1st bowel movement, then begin drinking Miralax. Drink a glass of Miralax every 10-15 minutes until you are finished. You will drink at least another 4 cups of clear liquid of your choice over the next 2 hours. Please drink as many clear liquids as possible You may have clear liquids up to four hours before your procedure Print Language: Fijian
[2025-01-15 21:33] VITALS: BP 105/61; PULSE 78; RESP 16; TEMP 36.4; O2SAT 95
[2025-01-15 21:34] VITALS: BP 141/80; PULSE 64; RESP 16; TEMP 36.5; O2SAT 98
== END 2025-01-15 21:34 | disposition home or self-care (01) ==
PROVIDERS: Physician Assistant; Emergency Provider Emergency Medicine Emergency Medical Services; PCP Internal Medicine
DX: M79.604 Pain in right leg (principal); M79.605 Pain in left leg; R60.0 Localized edema; J45.909 Unspecified asthma, uncomplicated; F17.210 Nicotine dependence, cigarettes, uncomplicated; Z79.899 Other long term (current) drug therapy
CPT/HCPCS: 36415; 80053; 83880; 85025; 93970; 99284

== ENCOUNTER → 2025-01-15 17:42 | Outpatient (BNV) | payer MEDICAID, SELFPAY | PROVIDERS: PCP Internal Medicine; Visit Provider Specialist | DX: M79.606 Pain in leg, unspecified (principal) | CPT/HCPCS: 93970 ==

== ENCOUNTER 2025-01-18 09:12 | Outpatient (REF) | payer MEDICAID, SELFPAY ==
--- NOTE | 2025-01-18 | EMG_ITS ---
FINDINGS: Bilateral tibial and peroneal motor studies were performed. Bilateral superficial peroneal and sural sensory studies were performed. Tibial H reflexes were obtained and paraspinal muscles were tested with a needle. 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 Please see that has neurophysiology report for detail MD DEAN Peters/JUSTUS / [id number] MTDD
--- OUTSIDE RECORDS SUMMARY | 2025-01-18 09:43 | XMS_ITS | Clinical Summary ---
Author Organization [address] [facility] Address [address] [place] [address] Phone Care Team Providers Care Radiation Control Specialist Name Role Phone Rubia Brantley MD Primary Care Provide r Social History Tobacco Use Types Packs/Day Years Used Date Smoking Tobacco: Never Assessed Sex and Gender Information Value Date Recorded Sex Assigned at Not on file Legal Sex Male 8:08 AM EDT Gender Identity Not on file Sexual Orientation Not on file Plan of Treatment Upcoming Encounters Date Type Department Care Team ([facility] Contact Info) Description 03/03/2025 1:45 PM EDT Consult Orthopedic Surgery - [place] [address] [phone] Austin Gottlieb, DPM [address] [id number] Health Maintenance Due Date Last Done Comments DTaP,Tdap,and Td Vaccines (1 - Tdap) 1993 Hepatitis B Vaccines (1 of 3 - 19+ 3-dose series) 1993 COVID-19 Vaccine (1 - 2023-2 5 season) 2024 Pneumococcal Vaccine: 50+ Ye ars (1 of 1 - PCV) 2024 Zoster Vaccines (1 of 2) 2024 Cholesterol Screening (Lipid Panel) 12/09/2024 Colorectal Cancer Screening: Colonoscopy 12/09/2024 Depression Screening 12/09/2024 HIV Screening 12/09/2024 Hepatitis C Screening 12/09/2024 Social Influencers of Health Screening 12/09/2024 Influenza Vaccine (Season Ended) 2025 HIB Vaccines Aged Out No longer eligi ble based on patient's age to complete this topic HPV Vaccines Aged Out No longer eligi ble based on patient's age to complete this topic Hepatitis A Vaccines Aged Out No long er eligible based on patient's age to complete this topic IPV Vaccines Aged Out No longer eligi ble based on patient's age to complete this topic MMR Vaccines Aged Out No longer eligi ble based on patient's age to complete this topic Meningococcal ACWY Vaccine Aged Out N o longer eligible based on patient's age to complete this topic Meningococcal B Vaccine Aged Out No l onger eligible based on patient's age to complete this topic Pneumococcal Vaccine: Pediat rics (0 to 5 Years) and At-Risk Patients (6 to 64 Years) Aged Out No longer eligible b ased on patient's age to complete this topic RSV Immunization Patients Un mauricio 20 months Aged Out No longer eligible b ased on patient's age to complete this topic Varicella Vaccines Aged Out No longer eligible based on patient's age to complete this topic Insurance MEDICAID - [place] Care Teams Radiation Control Specialist Relationship Specialty Start Date End Date Rubia Brantley MD [address] [phone] PCP - General Internal Medicine 12/09/24
== END 2025-01-18 09:13 | disposition home or self-care (01) ==
LOC: HO.NEURO 09:12
PROVIDERS: PCP Internal Medicine; Visit Provider Internal Medicine
DX: M79.604 Pain in right leg (principal); M79.605 Pain in left leg; G62.9 Polyneuropathy, unspecified
CPT/HCPCS: 95886; 95911

== ENCOUNTER → 2025-01-18 09:30 | Outpatient (BNV) | payer MEDICAID, SELFPAY | PROVIDERS: PCP Internal Medicine; Visit Provider Psychiatry & Neurology Neurology | DX: G57.81 Other specified mononeuropathies of right lower limb (principal); G57.82 Other specified mononeuropathies of left lower limb; G62.89 Other specified polyneuropathies | CPT/HCPCS: 95886; 95913 ==

== ENCOUNTER 2025-03-11 14:34 | Outpatient (REF) | payer MEDICAID, SELFPAY ==
--- OUTSIDE RECORDS SUMMARY | 2025-03-11 14:37 | XMS_ITS | Clinical Summary ---
Author Organization [employer] Address [address] [facility] [address] [place] [address] Care Team Providers Care Rn Or Lvn Name Role Phone Rubia Brantley MD Primary Care Provide r Allergies No known active allergies Medications tamsulosin (Flomax) 0.4 MG 24 hr capsuleIndicati ons:Benign prostatic hyperplasia with incomplete bladder emptying Take 1 capsule by mouth every day 1/2 hour following the same meal each day 90 capsule 2 10/15/19 25 Active docusate sodium (Colace) 100 MG capsuleIndicati ons:Constipatio n, unspecified constipation type TAKE 1 CAPSULE BY MOUTH TWICE A DAY 180 capsule 1 10/15/19 25 Active zolpidem (Ambien) 10 MG tabletIndicatio ns:Insomnia, unspecified type TAKE 1 TABLET BY MOUTH AT BEDTIME NEEDED FOR SLEEP 30 tablet 1 02/26/20 25 Active gabapentin (Neurontin) 100 MG capsuleIndicati ons:Bilateral leg pain TAKE 1 CAPSULE BY MOUTH EVERY 8 HOURS 90 capsule 03/02/20 25 Active zolpidem (Ambien) 10 MG tabletIndicatio ns:Insomnia, unspecified type TAKE 1 TABLET BY MOUTH AT BEDTIME NEEDED FOR SLEEP 30 tablet 1 11/26/19 25 025 Discontinued(Re order (will not trigger notification to Pharmacy)) gabapentin (Neurontin) 100 MG capsuleIndicati ons:Bilateral leg pain TAKE 1 CAPSULE BY MOUTH EVERY 8 HOURS 90 capsule 02/03/20 25 025 Discontinued Active Problems Problem Noted Date Diagnosed Date Pain in right testicle 03/11/2025 Neuropathy involving both lower extremities 02/19 Chronic pain of both feet 12/08/2024 Assessment & Plan (12/08/2024 11:41 AM EDT): Podiatry referral Colon cancer screening 08/27/2023 Venous insufficiency of both lower extremities 0 08/27/2023 Assessment & Plan (10/14/2024 4:24 PM EDT): Continue to use compression stockings Continue with elevation of legs Possible neuropathy? I will start him on gabapentin 100 mg 3 times a day and I will follow-up with him in few weeks to see if medication is helping and possible titration Continue to follow-up with specialist, vascular Bilateral leg pain 08/27/2023 Assessment & Plan (12/08/2024 11:42 AM EDT): I advised to start gabapentin 100 mg every 8 hours this he can do it for 2 weeks if he does not have any side effects from medication and there is no relief of the pain he can go up to 2 capsules every 8 hours for 2 more weeks, if there is no relief of symptoms and no side effects he can go up to 3 capsules every 8 hours. Patient understood and read back the plan I will order nerve conduction studies and EMG I will also refer patient to podiatry for possible plantar fasciitis Venous insufficiency 11/07/2022 Assessment & Plan (11/07/2022 4:18 PM EDT): Edema improved with lasix, he has an upcoming appointment with vascular specialist I advise not to miss this appointment Other chest pain 11/07/2022 Lower extremity edema 11/07/2022 Assessment & Plan (11/21/2023 9:30 AM EDT): Patient will call vascular office to schedule his appointment Assessment & Plan (11/07/2022 4:19 PM EDT): Follow up with vascular Cardiology referral also done today Other insomnia 11/07/2022 Assessment & Plan (11/21/2023 9:29 AM EDT): Ambien will be refill Assessment & Plan (11/07/2022 4:21 PM EDT): I discontinue Seroquel and started patient on zolpidem Patient educated about sleep hygiene Benign prostatic hyperplasia with incomplete bladder emptying 09/19/2022 Chronic constipation 09/19/2022 Assessment & Plan (11/21/2023 9:29 AM EDT): I advise to drink more water and integrate more fiber to his diet I added today miralax Chronic interstitial cystitis 09/19/2022 Onychomycosis 09/19/2022 Tinea pedis 09/19/2022 Severe major depression, sin gle episode, without psychotic features 12/24/2017 Cirrhosis of liver 12/02/2016 Assessment & Plan (01/22/2023 3:21 PM EDT): Continue to follow with specialist Assessment & Plan (11/07/2022 4:19 PM EDT): Patient reports he is being follow closely by specialist and the he recently had an abdominal US I advise not to miss any appointment and continue to follow with specialist Gastroesophageal reflux disease 06/05/2012 Hepatitis B 06/05/2012 Hepatitis C 06/05/2012 Mixed anxiety and depressive disorder 06/05/2012 Substance abuse 06/05/2012 Encounters Date Type Department Care Team Description 03/11/2025 1:45 PM EDT Office Visit [facility] [address] [place] [phone] Rubia Brantley MD Neuropathy involving both lower extremities (Primary Dx); Severe major depression, single episode, without psychotic features (CMS/HCC); Cirrhosis of liver without ascites, unspecified hepatic cirrhosis type (CMS/HCC); Pain in right testicle; Venous insufficiency of both lower extremities 03/11/2025 Travel 03/08/2025 Telephone [facility] [address] [place] [address] Rubia Brantley MD Chart Prep 03/01/2025 Refill [facility] [address] [place] [address] Rubia Brantley MD Bilateral leg pain 02/23/2025 Refill [facility] [address] [place] [address] Rubia Brantley MD Insomnia, unspecified type 02/01/2025 Refill [facility] [address] [place] [address] Rubia Brantley MD Bilateral leg pain 01/15/2025 Orders Only [facility] External Provider, [facility] 01/05/2025 Refill [facility] [address] [place] [address] Rubia Brantley MD Bilateral leg pain 12/23/[address] [address] Rubia Brantley MD telephone call 12/14/[address] [address] Elham Diana RN from Last 3 Months Immunizations Immunization Administration Dates Next Due Pneumococcal Conjugate PCV 20 10/14/2024 TD (adult), 2 Lf tetanus tox oid, preservative free, adsorbed 10/15/2004 Tdap 05/22/2016 Social History Tobacco Use Types Packs/Day Years Used Date Smoking Tobacco: Every Day Cigarettes Passive Smoke Exposure: Current Smokeless Tobacco: Never Tobacco Cessation:Ready to Q uit: Not Asked; Counseling Given: Not Answered Depression Answer Date Recorded Patient Health Questionnaire-9 Score 0 11/19/2023 Patient Health Questionnaire-9 Score 0 11/19/2023 Last PHQ-9: Questionnaire Data Not on file 0 11/19/2023 Housing Stability Answer Date Recorded What is your housing situation today? I have ashlyn murry 10/05/[address] you li ve. Do you have problems with any of the following? None of the above 10/05/2024 Food Insecurity Answer Date Recorded Within the past 12 months, y ou worried that your food would run out before you got money to buy more: Never True 10/05/2024 Within the past 12 months,th e food you bought just didn't last and you didn't have enough money to get more: Never True Transportation Answer Date Recorded In the past 12 months, has l ack of transportation kept you from medical appts, meetings, work or from getting things needed for daily living? No 10/05/2024 Utilities Answer Date Recorded In the past 12 months, has t he electric, gas, oil or water company threatened to shut off services in your home? No 10/05/2024 Depression Answer Date Recorded Patient Health Questionnaire-2 Score 0 11/19/2023 Internet Access Answer Date Recorded Internet Access Q1 Yes 10/05/2024 Internet Access Q2 Not on file 10/05/2024 Sex and Gender Information Value Date Recorded Sex Assigned at Male 05/20/2022 10:18 AM EDT Legal Sex Male 10:18 AM EDT Gender Identity Male 05/20/2022 10:18 AM EDT Sexual Orientation Choose not to disclose 2021 10:18 AM EDT Last Filed Vital Signs Vital Sign Reading Time Taken Comments Blood Pressure 110/70 03/11/2025 2:04 PM EDT Pulse 64 03/11/2025 2:04 PM EDT Temperature 36.4 C (97.6 F) 03/11/2025 2:04 PM EDT Respiratory Rate 20 03/11/2025 2:04 PM EDT Oxygen Saturation 99% 03/11/2025 2:04 PM EDT Inhaled Oxygen Concentration - - Weight 90 kg (198 lb 6.4 oz) 03/11/2025 2:04 PM EDT Height 175.3 cm (5' 9 ) 03/11/2025 2:04 PM EDT Body Mass Index 29.3 03/11/2025 2:04 PM EDT Plan of Treatment Health Maintenance Due Date Last Done Comments CT Colonography 1974 Colonoscopy 1974 Colorectal Cancer Screening 1974 FIT DNA/Cologuard 1974 FIT 1974 FOBT 1974 Sigmoidoscopy 1974 Family Planning (PISQ) 1989 Hepatitis A Vaccines (1 of 2 - Risk 2-dose series) 1993 Hepatitis B Vaccines (1 of 3 - 19+ 3-dose series) 1993 COVID-19 Vaccine (4 - 2023-2 5 season) 2024 03/06/2022, 09/06/2021, 08/09/2021 Zoster Vaccines (1 of 2) 2024 Depression Screening 11/18/2024 11/19/2023, 11/19/2023 Influenza Vaccine (#1) 2025 SDOH Screening 10/05/2025 10/05/2024 Disability Screening 10/14/2025 10/14/2024 Alcohol/Substance Use Screening 03/11/2026 03/11/2025 Tobacco Screening 03/11/2026 03/11/2025 DTaP/Tdap/Td Vaccines (2 - T d or Tdap) 05/22/2026 05/22/2016, 10/15/2004 Lipid Panel 11/06/2026 11/06/2021 RSV Patients and Patients Aged 60 years or older (1 - 1-dose 75+ series) 2049 HIV Screening Completed 11/06/2021 Pneumococcal Vaccine: 50+ Years Completed 10/14/2024 HIB Vaccines Aged Out No longer eligi [...] patient's age to complete this topic Meningococcal Vaccine Aged Out No gabby brody eligible based on patient's age to complete this topic RSV under 20 months Aged Out No longe r eligible based on patient's age to complete this topic Rotavirus Vaccines Aged Out No longer eligible based on patient's age to complete this topic Procedures Procedure Name Priority Date/Time Associated Diagnosis Comments VASC US LOWER EXTREMITY VENOUS DUPLEX BILATERAL Routine 01/15/2025 7:24 PM EDT B TYPE NATRIURETIC PEPTIDE (BNP) Routine 01/15/2025 6:08 PM EDT COMPREHENSIVE METABOLIC PANEL Routine 01/15/2025 6:08 PM EDT CBC WITH AUTO DIFFERENTIAL Routine 01/15/2025 6:08 PM EDT HIV 1/2 ANTIGEN/ANTIBODY, FOURTH GENERATION W/RFL Routine 11/06/2021 12:00 AM EDT LIPID PANEL, STANDARD Routine 11/06/2021 12:00 AM EDT from Last 3 Months or Most Recently Relevant to Health Maintenance Results * [facility] US Lower Extremity Venous Duplex Bilateral (01/15/2025 7:24 PM EDT) 01/15/2025 7:24 PM EDT Narrative [facility] - 01/15/2025 7:25 PM EDT [address] [address] Ultrasound Report Signed Patient: Demetri Story MR#: [id number] : 1975 Acct:[id number] Age/Sex: 49 / M ADM Date: 01/15/25 Loc: HO.ED Attending Dr: Ordering Physician: Freedom Good Date of Service: 01/15/25 Procedure(s): US venous duplex LE BI Accession Number(s): [id number] cc: Rubia Brantley MD; Freedom Good CLINICAL HISTORY: pain Venous duplex ultrasound bilateral lower extremity Comparison: US/ND/SR - US VENOUS DUPLEX LE BI - 09/30/22 11:46 EDT Findings: The visualized deep veins are fully compressible with normal Doppler color flow and spectral tracings. No popliteal cyst. IMPRESSION: 1. Negative for bilateral lower extremity deep vein thrombosis. This document has been electronically signed by: Awilda Greene MD on 01/15/2025 19:24:04 Dictated By: Awilda Greene MD Signed By: <Electronically signed by Awilda Greene MD in OV> 01/15/251924 DD/ 23 TD/TT: 01/15/251923 Field Marketer: Procedure Note Donotuseinterpreter, Image - 01/15/[address] [address] Ultrasound Report Signed Patient: Demetri StoryMR#: [id number] : 1975Acct:[id number] Age/Sex: 49 / MADM Date: 01/15/25 Loc: HO.ED Attending Dr: Ordering Physician: Freedom Good Date of Service: 01/15/25 Procedure(s): US venous duplex LE BI Accession Number(s): [id number] cc: Rubia Brantley MD; Freedom Good CLINICAL HISTORY: pain Venous duplex ultrasound bilateral lower extremity Comparison: US/ND/SR - US VENOUS DUPLEX LE BI - 09/30/22 11:46 EDT Findings: The visualized deep veins are fully compressible with normal Doppler color flow and spectral tracings. No popliteal cyst. IMPRESSION: 1. Negative for bilateral lower extremity deep vein thrombosis. This document has been electronically signed by: Awilda Greene MD on 01/15/2025 19:24:04 Dictated By: Awilda Greene MD Signed By: <Electronically signed by Awilda Greene MD in OV> 01/15/251924 DD/ 23 TD/TT: 01/15/251923 Field Marketer: us [facility] External Provider CV VASC ULAR PROCEDURES Edited Result - Final [facility] [address] [place] [address] [phone] * (ABNORMAL) CBC auto differential (01/15/2025 6:08 PM EDT) White Blood Count 7.1 4.8 - 10.8 X10*3/uL [facility] Red Blood Count 4.90 4.60 - 5.80 X10*6/uL [facility] Hemoglobin 14.7 14.0 - 18.0 g/dl [facility] Hematocrit 41.6(L) 42.0 - 52.0 % [facility] Mean Corpuscular Volume 84.9 80.0 - 98.0 fL [facility] Mean Corpuscular Hemoglobin 30.0 27.0 - 33.0 pg [facility] Mean Corpuscular HGB Conc 35.3 31.0 - 36.0 g/dl [facility] Red Cell Distribution Width 12.1 11.0 - 16.0 % [facility] Platelet Count 238 160 - 400 X10*3/uL [facility] Mean Platelet Volume 10.3 9.4 - 12.4 fL [facility] Neutrophils Percent Auto 54.0 45 - 73 % [facility] Imm Gran Pct Auto 0.3 0.0 - 0.4 % [facility] Lymphocytes Percent Auto 34.4 20 - 40 % [facility] Monocytes Percent Auto 6.5 2 - 11 % [facility] Eosinophils Percent Auto 3.8 0 - 4 % [facility] Basophils Percent Auto 1.0 0 - 2 % [facility] NRBC Pct Auto 0.0 0.0 - 0.2 /100WBC [facility] Neutrophils Absolute Auto 3.8 2.0 - 8.3 x10*3/uL [facility] Imm Gran Abs Auto 0.02 0.00 - 0.03 X10*3/uL [facility] Lymphocytes Absolute Auto 2.4 1.2 - 4.9 X10*3/uL [facility] Monocytes Absolute Auto 0.5 0.1 - 1.2 X10*3/uL [facility] Eosinophils Absolute Auto 0.3 0.0 - 0.4 X10*3/uL [facility] Basophils Absolute Auto 0.1 0.0 - 0.2 X10*3/uL [facility] NRBC Abs Auto 0.000 0.0 - 0.012 X10*3/uL [facility] 01/15/2025 6:08 PM EDT 01/15/2025 6:11 PM EDT us Generic External Data Provider LAB BLOOD ORDERAB LES Final Result [facility] [address] [place] [phone] * B Type Natriuretic Peptide (BNP) (01/15/2025 6:08 PM EDT) B Type Natriuretic Peptide 20 <100 pg/mL [facility] 01/15/2025 6:08 PM EDT 01/15/2025 6:23 PM EDT us Generic External Data Provider LAB BLOOD ORDERAB LES Final Result [facility] [address] [place] [phone] * (ABNORMAL) Comprehensive Metabolic Panel (01/15/2025 6:08 PM EDT) Sodium 141 135 - 145 mmol/L [facility] Potassium 5.0 3.3 - 5.1 mmol/L [facility] Chloride 106 96 - 108 mmol/L [facility] Carbon Dioxide 27 22 - 29 mmol/L [facility] Anion Gap 13 12 - 20 [facility] Urea Nitrogen (BUN) 14 9 - 16 mg/dL [facility] Creatinine, Serum 0.92 0.5 - 1.4 mg/dL [facility] Creatinine Clr Calc Pharmacy 105.0 [facility] Comment:eGFR (calculated fro m the MDRD study equation) and eCrCl(calculated from the Cockcroft-Gault equation) are based ondifferent parameters and may not yield comparable results.If eCrCl result is absurd, please check patient'sheight/weight. Estimated Glomerular Filt Rate >60 [facility] Comment:Chronic Kidney Disea se: Estimated GFR < 60 mL/min/[id number] Kidney Disease: Estimated GFR < 15 mL/min/1.73m2 Glucose 98 60 - 115 mg/dL [facility] Calcium 9.5 8.4 - 10.2 mg/dL [facility] Bilirubin, Total 0.4 0.0 - 1.0 mg/dL [facility] Aspartate Amino Transferase 31 5 - 37 U/L [facility] Alanine Aminotransferase 50(H) 0 - 40 U/L [facility] Total Protein 8.0 6.5 - 8.0 g/dL [facility] Albumin Level 4.5 3.5 - 5.0 g/dL [facility] Alkaline Phosphatase 96 39 - 117 U/L [facility] 01/15/2025 6:08 PM EDT 01/15/2025 6:11 PM EDT us Generic External Data Provider LAB BLOOD ORDERAB LES Final Result [facility] [address] [place] [phone] * HIV 1/2 ANTIGEN/ANTIBODY,FOURTH GENERATION W/RFL (11/06/2021 12:00 AM EDT) HIV-1/2 ANTIGEN AND ANTIBODIES, 4TH GENERATION W/ REFLEX NON-REACT YURI NON-REACT YURI [facility] Comment: HIV-1 antigen and HIV-1/HIV-2 antibodies were not detected. There is no laboratory evidence of HIV infection. PLEASE NOTE: This information has been disclosed to you from records whose confidentiality may be protected by state law. If your state requires such protection, then the state law prohibits you from making any further disclosure of the information without the specific written consent of the person to whom it pertains, or as otherwise permitted by law. A general authorization for the release of medical or other information is NOT sufficient for this purpose. For additional information please refer to http://education.[employer]our[employer]faq/TMK566 (This link is being provided for informational/ educational purposes only.) The performance of this assay has not been clinically validated in patients less than 2 years old. 11/06/2021 us Rubia Forbes MD LAB BLOOD ORDERABLES Final Result [facility] [address] * (ABNORMAL) LIPID PANEL, STANDARD (11/06/2021 12:00 AM EDT) Chol/HDLC Ratio 6.7(H) <5.0 (calc) [facility] Cholesterol, Total 167 <200 mg/dL [facility] HDL Cholesterol 25(L) > OR = 40 mg/dL [facility] LDL Cholesterol 116(H) mg/dL (calc) [facility] Comment: Reference range: <100 Desirable range <100 mg/dL for primary prevention; <70 mg/dL for patients with CHD or diabetic patients with > or = 2 CHD risk factors. LDL-C is now calculated using the Vira calculation, which is a validated novel method providing better accuracy than the Friedewald equation in the estimation of LDL-C. Abrahan LAYNE et al. APRYL. 2013;310(19): 4184-4156 (http://education.[employer]/faq/JEW645) Non-HDL Cholesterol 142(H) <130 mg/dL (calc) [facility] Comment: For patients with diabetes plus 1 major ASCVD risk factor, treating to a non-HDL-C goal of <100 mg/dL (LDL-C of <70 mg/dL) is considered a therapeutic option. Triglycerides 145 <150 mg/dL [facility] 11/06/2021 Rubia Forbes MD LAB BLOOD ORDERABLES Final Result [facility] [address] from Last 3 Months or Most Recently Relevant to Health Maintenance Insurance [facility] C3 Care Teams Rn Or Lvn Relationship Specialty Start Date End Date Rubia Brantley MD [address] [place] [phone] PCP - General Family Medicine 04/01/18
--- OUTSIDE RECORDS SUMMARY | 2025-03-11 14:37 | XMS_ITS | Clinical Summary ---
Author Organization [address] [facility] Address [address] [place] [address] Phone Care Team Providers Care Fingerprint Technician Name Role Phone Rubia Brantley MD Primary Care Provide r Medications clotrimazole (LOTRIMIN) 1 % cream Apply topically 2 (two) times a day. 30 g 3 5 04/02/20 25 Active Encounters Date Type Department Care Team Description 03/03/2025 1:45 PM EDT Consult Orthopedic Surgery [facility] [address] [phone] Austin Gottlieb DPM Neuritis (Primary Dx); Bilateral foot pain; Dermatophytosis of nail; Pain in toe of right foot; Pain in toe of left foot; Bilateral femoral artery stenosis (CMS/HCC V24) from Last 3 Months Social History Tobacco Use Types Packs/Day Years Used Date Smoking Tobacco: Never Assessed Sex and Gender Information Value Date Recorded Sex Assigned at Not on file Legal Sex Male 8:08 AM EDT Gender Identity Not on file Sexual Orientation Not on file Plan of Treatment Upcoming Encounters Date Type Department Care Team (Late st Contact Info) Description 06/06/2025 1:45 PM EST Office Visit Orthopedic Surgery [facility] [address] [phone] Austin Gottlieb DPM [address] [address] Health Maintenance Due Date Last Done Comments Hepatitis B Vaccines (1 of 3 - 19+ 3-dose series) 1993 COVID-19 Vaccine (4 - 2023-2 5 season) 2024 03/06/2022, 09/06/2021, 08/09/2021 Depression Screening 07/21/2024 Zoster Vaccines (1 of 2) 2024 Cholesterol Screening (Lipid Panel) 12/09/2024 Colorectal Cancer Screening: Colonoscopy 12/09/2024 HIV Screening 12/09/2024 Hepatitis C Screening 12/09/2024 Social Influencers of Health Screening 12/09/2024 Influenza Vaccine (#1) 2025 DTaP,Tdap,and Td Vaccines (3 - Td or Tdap) 05/22/2026 05/22/2016, 10/15/2004 Pneumococcal Vaccine: 50+ Years Completed 10/14/2024 HIB [...] to complete this topic RSV Immunization Patients Under 20 months Aged Out No longer eligible b ased on patient's age to complete this topic Varicella Vaccines Aged Out No longer eligible based on patient's age to complete this topic Insurance [place] - [place] Care Teams Fingerprint Technician Relationship Specialty Start Date End Date Rubia Brantley MD [address] [place] [phone] PCP - General Internal Medicine 12/09/24
[2025-03-11 17:04] LABS: Hemoglobin A1C 165.3442 umol/L; Total Hemoglobin (HGBA1C) 3962.9437 umol/L
[2025-03-11 17:09] LABS: Alanine Aminotransferase 35 U/L (0-40); Albumin Level 4.5 g/dL (3.5-5.0); Alkaline Phosphatase 97 U/L (39-117); Anion Gap 11 (12-20); Aspartate Amino Transferase 28 U/L (5-37); Blood Urea Nitrogen 15 mg/dL (9-16); Calcium 9.6 mg/dL (8.4-10.2); Carbon Dioxide 29 mmol/L (22-29); Chloride 107 mmol/L (96-108); Estimated Glomerular Filt Rate > 60; Potassium 5.1 mmol/L (3.3-5.1); Sodium 142 mmol/L (135-145); Total Protein 8.0 g/dL (6.5-8.0)
[2025-03-11 17:33] LABS: Folate 7.6 ng/mL (> or = 4.0); Vitamin B12 477 pg/mL (200-900)
== END 2025-03-11 14:35 | disposition home or self-care (01) ==
LOC: HO.HHCL 14:34
PROVIDERS: PCP Internal Medicine; Visit Provider Internal Medicine
DX: Z11.3 Encounter for screening for infections with a predominantly sexual mode of transmission (principal); G57.93 Unspecified mononeuropathy of bilateral lower limbs
CPT/HCPCS: 36415; 80053; 82607; 82746; 83036; 84443; 86592

== ENCOUNTER 2025-04-06 18:31 | Emergency (ER) | payer MEDICAID, SELFPAY ==
[2025-04-06 18:37] VITALS: BP 121/71; PULSE 76; RESP 16; TEMP 36.1; O2SAT 98; BMI 29.5
[2025-04-06 18:54] LABS: MANUAL DIFF FLAG NO
[2025-04-06 18:57] LABS: Hematocrit 40.6 % (42.0-52.0); Hemoglobin 14.3 g/dl (14.0-18.0); Imm Gran Abs Auto 0.01 X10*3/uL (0.00-0.03); Imm Gran Pct Auto 0.1 % (0.0-0.4); Lymphocytes Absolute Auto 2.9 X10*3/uL (1.2-4.9); Mean Corpuscular HGB Conc 35.2 g/dl (31.0-36.0); Mean Corpuscular Hemoglobin 30.2 pg (27.0-33.0); Mean Corpuscular Volume 85.8 fL (80.0-98.0); NRBC Abs Auto 0.000 X10*3/uL (0.0-0.012); NRBC Pct Auto 0.0 /100WBC (0.0-0.2); Platelet Count 222 X10*3/uL (160-400); Red Blood Count 4.73 X10*6/uL (4.60-5.80); White Blood Count 8.4 X10*3/uL (4.8-10.8)
--- NOTE | 2025-04-06 19:09 | ED_ITS ---
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 Related Data Home Medications ?Medication ?Instructions ?Recorded ?Confirmed buprenorphine 8 mg-naloxone 2 mg 2 film buccal DAILY 1 08/01/19 04/08/24 sublingual film (Suboxone) quetiapine 50 mg tablet (Seroquel) 50 mg PO DAILY 05/2104/08/24 docusate sodium 100 mg capsule 100 mg PO BID 03/21/22 04/08/24 mirabegron 50 mg tablet,extended 50 mg PO DAILY 04/08/24 release 24 hr (Myrbetriq) oxybutynin chloride 10 mg 10 mg PO DAILY 02/07/2303/21 tablet,extended release 24 hr phenazopyridine 100 mg tablet 100 mg PO TID PRN spasm 02/07/23 04/08/24 (Pyridium) Previous Rx's ?Medication ?Instructions ?Recorded tamsulosin 0.4 mg capsule 0.4 mg PO BEDTIME 30 days #3 0 caps 04/24/21 acetaminophen 500 mg tablet 500 mg PO Q6H PRN pain or fever 11/11/21 (Tylenol Extra Strength) #14 tabs fluconazole 100 mg tablet 100 mg PO DAILY #15 tabs 06/11 omeprazole 20 mg capsule,delayed 20 mg PO BID 60 days #120 caps 08/01/22 release sennosides 8.6 mg-docusate sodium 2 tab PO BEDTIME 90 days #180 tabs 09/19/24 50 mg tablet (Senexon-S) naproxen 500 mg tablet 500 mg PO BID PRN pain #20 t abs 01/15/25 bisacodyl 5 mg tablet,delayed 10 mg (2 x 5 mg) PO ONCE colon 02/28/25 release (Dulcolax (bisacodyl)) prep 5 days #10 tabs polyethylene glycol 3350 17 17 g PO DAILY colon prep 1 day 08/11/25 gram/dose oral powder (Miralax) #238 grams cholecalciferol (vitamin D3) 50 50 mcg PO DAILY 90 day s #90 caps 03/28/25 mcg (2,000 unit) capsule Allergies Allergy/AdvReac Type Severity Reaction Status Date / Time tramadol AdvReac Unknown Verified 04/06/25 18:38 Review of Systems 2 Review of Systems: Pertinent positives and negatives as stated in [facility] Past Medical History Source: nursing notes reviewed Medical History Hiatal hernia Polysubstance abuse Hepatitis C infection Surgical History History of esophagogastroduodenoscopy (EGD) (~03/2018) Family History Family History Father No problems noted. Mother Diabetes Social History Social History Household Members: Family Household Members Other:: mom Alcohol intake: never Patient Tobacco Use Status: Current everyday Tobacco user Tobacco use type: Cigarette Cigarette Packs Per Day: 1 Cigarettes Per Day: 20.0 Years Smoked: 14 Substance Use Type: Former Substance User Advance Directives: No Advance Directives Information Provided: No Current occupational status: disabled Physical Exam ED Exam Exam: VITAL SIGNS: Reviewed. GENERAL: Well developed, well nourished, in no acute distress. HEAD: Normocephalic/atraumatic EYES: PERRLA, EOMI EARS: Ext canals without abnormality NOSE: Nares patent bilateral OROPHARYNX: no oral lesions noted, posterior pharynx clear NECK: Supple, no adenopathy LUNGS: Normal breath sounds. No adventitious sounds or accessory muscle use. CARDIOVASCULAR: Regular rate and rhythm without noted murmurs ABDOMEN: Soft, non-tender, non-distended with bowel sounds. There is an obvious 2 cm carbuncle at the right flank with center fluctuance MUSCULOSKELETAL: No tenderness, deformities, or effusions noted on gross inspection. EXTREMITIES: No cyanosis, clubbing or edema. SKIN: Inspection of the skin reveals no rashes NEUROLOGIC: Alert and oriented x 4. Strength and sensation to light touch were grossly intact x 4. Vital Signs: Vital Signs - 24 hr 04/06/25 18:37 04/06/25 21:05 04/06/25 21:11 Temperature 96.9 F 98 F 98 F Pulse Rate 76 62 62 Respiratory Rate 16 18 18 Blood Pressure 121/71 127/75 127/75 Pulse Oximetry 98 99 99 Oxygen Delivery Method Room Air Room Air BMI result Body Mass Index 29.5 Course Course Course Narrative: RME: 49 year male presents to ED for abscess on right side of the abdomen that is warm red and indurated. Patient is on antibiotics states it is not getting better and states abscess getting bigger. Patient to be evaluated in the ED Medications Administered Discontinued Medications Generic Name Dose Route Start Last Admin Trade Name Freq PRN Reason Stop Dose Admin Lidocaine HCl 5 ml 04/06/25 20:15 04/06/25 20:50 Lidocaine Hcl 2 % Mpf 5 Ml Vial INFILTRATI 04/06/25 20:16 5 ml ONCE ONE Administration Procedures Abscess I/D Site: abdomen Side (if applicable): right Local Anesthetic: lidocaine 2% Amount of anesthesia used (mL): 1 Technique: incised with blade Amount of fluid expressed (mL): 10 Sent for culture/gram staining?: No Irrigation: Yes Packing used?: none Medical Decision Making Medical Decision Making MDM Narrative: 49-year-old male with history and clinical presentation, DX: Patient otherwise appears well/nontoxic and is hemodynamically stable. I do note that labs were ordered, however there is no indication for them at this time however when I reviewed and interpreted these results there is no leukocytosis, anemia, or thrombocytopenia no demonstrate a KI/electrolyte or liver enzyme derangements. Please see the procedure note for the incision and drainage. Patient is otherwise stable for discharge, he does not require antibiotics and was given instructions for post care. Patient does not meet inpatient level of care. Differential Diagnosis Differential Diagnoses: The differential diagnosis associated with the presentation includes See above Admission/Observation Consideration of admission/observation: Escalation of care including admission/observation considered See above Lab Data [facility] Lab Attestation statement: I reviewed the patient's lab results. See above 04/06/25 18:50 04/06/25 18:50 Labs: Lab Results 04/06/25 Range/Units 18:50 WBC 8.4 (4.8-10.8) X10*3/uL RBC 4.73 (4.60-5.80) X10*6/uL Hgb 14.3 (14.0-18.0) g/dl Hct 40.6 L (42.0-52.0) % MCV 85.8 (80.0-98.0) fL MCH 30.2 (27.0-33.0) pg MCHC 35.2 (31.0-36.0) g/dl RDW 12.2 (11.0-16.0) % Plt Count 222 (160-400) X10*3/uL MPV 10.4 (9.4-12.4) fL Immature Gran % (Auto) 0.1 (0.0-0.4) % Neut % (Auto) 52.6 (45-73) % Lymph % (Auto) 35.2 (20-40) % [place] % (Auto) 7.3 (2-11) % Eos % (Auto) 4.0 (0-4) % Baso % (Auto) 0.8 (0-2) % Lymph # (Auto) 2.9 (1.2-4.9) X10*3/uL [place] # (Auto) 0.6 (0.1-1.2) X10*3/uL Eos # (Auto) 0.3 (0.0-0.4) X10*3/uL Baso # (Auto) 0.1 (0.0-0.2) X10*3/uL Abs Immat Gran (auto) 0.01 (0.00-0.03) X10*3/uL Absolute Neuts (auto) 4.4 (2.0-8.3) x10*3/uL Absolute Nucleated RBC 0.000 (0.0-0.012) X10*3/uL Nucleated RBC % (auto) 0.0 (0.0-0.2) /100WBC Sodium 143 (135-145) mmol/L Potassium 4.8 (3.3-5.1) mmol/L Chloride 109 H (96-108) mmol/L Carbon Dioxide 28 (22-29) mmol/L Anion Gap 11 L (12-20) BUN 12 (9-16) mg/dL Creatinine 0.88 (0.5-1.4) mg/dL Estim Creat Clear Calc 108.2 Estimated GFR > 60 Random Glucose 98 (60-115) mg/dL Calcium 9.4 (8.4-10.2) mg/dL Total Bilirubin 0.4 (0.0-1.0) mg/dL AST 30 (5-37) U/L ALT 37 (0-40) U/L Alkaline Phosphatase 94 (39-117) U/L Total Protein 7.9 (6.5-8.0) g/dL Albumin 4.5 (3.5-5.0) g/dL Discharge Plan Discharge Clinical Impression: Carbuncle, Encounter for incision and drainage procedure Patient Disposition: Home, Self-Care Instructions: Abscess Incision and Drainage (DC) Additional Instructions: Recommend [id number] Tylenol/ibuprofen as needed for pain control. You will need to use hot moist compresses to further facilitate resolution of the infection. Follow up with the primary care doctor and do not hesitate to return to the emergency room for any acute worsening of your symptoms. Prescriptions: No Action sennosides-docusate sodium [Senexon-S] 8.6-50 mg tablet 2 tab PO BEDTIME 90 Days Qty: 180 1RF bisacodyl [Dulcolax (bisacodyl)] 5 mg tablet,delayed release (DR/EC) 10 mg PO ONCE 5 Days Qty: 10 0RF Rx Instructions: Take 2 tablets at 12 pm starting 5 days before colonoscopy polyethylene glycol 3350 [Miralax] 17 gram/dose powder 17 g PO DAILY 1 Days Qty: 238 0RF Rx Instructions: Mix Miralax with 64 oz(8 cups) of Crystal light. Take 2 tablets of Dulcolax qt 12 pm. Wait to have your 1st bowel movement, then begin drinking Miralax. Drink a glass of Miralax every 10-15 minutes until you are finished. You will drink at least another 4 cups of clear liquid of your choice over the next 2 hours. Please drink as many clear liquids as possible You may have clear liquids up to four hours before your procedure cholecalciferol (vitamin D3) 50 mcg (2,000 unit) capsule 50 mcg PO DAILY 90 Days Qty: 90 1RF fluconazole 100 mg tablet 100 mg PO DAILY Qty: 15 0RF Rx Instructions: Take 2 tabs day one then one tab thereafter acetaminophen [Tylenol Extra Strength] 500 mg tablet 500 mg PO Q6H PRN (Reason: pain or fever) Qty: 14 0RF naproxen 500 mg tablet 500 mg PO BID PRN (Reason: pain) Qty: 20 0RF tamsulosin 0.4 mg capsule 0.4 mg PO BEDTIME 30 Days Qty: 30 1RF buprenorphine-naloxone [Suboxone] 8-2 mg film 2 film buccal DAILY Rx Instructions: place 1 film on inside of (each) cheek quetiapine [Seroquel] 50 mg tablet 50 mg PO DAILY docusate sodium 100 mg capsule 100 mg PO BID omeprazole 20 mg capsule,delayed release(DR/EC) 20 mg PO BID 60 Days Qty: 120 2RF Myrbetriq 50 mg tablet extended release 24 hr 50 mg PO DAILY oxybutynin chloride 10 mg tablet extended release 24hr 10 mg PO DAILY phenazopyridine [Pyridium] 100 mg tablet 100 mg PO TID PRN (Reason: spasm) Referrals: Rubia Brantley MD [Primary Care Provider, Internal Medicine] Interventions: ED Discharge Assessment Last Done: 04/06/25 21:11 Discharge Date/Time: 04/06/25 21:11 Print Language: [place]
[2025-04-06 19:14] LABS: Alanine Aminotransferase 37 U/L (0-40); Albumin Level 4.5 g/dL (3.5-5.0); Alkaline Phosphatase 94 U/L (39-117); Anion Gap 11 (12-20); Aspartate Amino Transferase 30 U/L (5-37); Blood Urea Nitrogen 12 mg/dL (9-16); Calcium 9.4 mg/dL (8.4-10.2); Carbon Dioxide 28 mmol/L (22-29); Chloride 109 mmol/L (96-108); Creatinine Clr Calc Pharmacy 108.2; Estimated Glomerular Filt Rate > 60; Potassium 4.8 mmol/L (3.3-5.1); Sodium 143 mmol/L (135-145); Total Protein 7.9 g/dL (6.5-8.0)
--- OUTSIDE RECORDS SUMMARY | 2025-04-06 19:33 | XMS_ITS | Clinical Summary ---
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 90 capsule 03/11/20 25 Active diphenhydrAMINE (BENADryl) 25 MG tabletIndicatio ns:Allergic reaction, sequela Take 1 tablet (25 mg) by mouth if needed at bedtime for itching. 3 tablet 03/29/20 25 025 Active doxycycline (Vibramycin) 100 MG capsuleIndicati ons:Cellulitis, unspecified cellulitis site Take 1 capsule (100 mg) by mouth 2 times daily for 10 days. Take with at least 8 ounces (large glass) of water, do not lie down for 30 minutes after 20 capsule 03/29/20 25 025 Active gabapentin (Neurontin) 100 MG capsuleIndicati ons:Bilateral leg pain TAKE 1 CAPSULE BY MOUTH EVERY 8 HOURS 90 capsule 03/02/20 025 Discontinued(Re order (will not trigger notification to Pharmacy)) doxycycline (Vibramycin) 100 MG capsuleIndicati ons:Cellulitis, unspecified cellulitis site Take 1 capsule (100 mg) by mouth 2 times daily for 10 days. Take with at least 8 ounces (large glass) of water, do not lie down for 30 minutes after 20 capsule 03/29/20 25 025 Discontinued diphenhydrAMINE (BENADryl) 25 MG tabletIndicatio ns:Allergic reaction, sequela Take 1 tablet (25 mg) by mouth if needed at bedtime for itching. 3 tablet 03/29/20 025 Discontinued Active Problems Problem Noted Date Diagnosed Date Pain in right testicle 03/11/2025 Assessment & Plan (03/11/2025 4:43 PM EDT): I will order at scrotal ultrasound after results I will put in a referral for urologist in [facility] Neuropathy involving both lower extremities 02/19 Assessment & Plan (03/11/2025 4:44 PM EDT): Will continue with gabapentin 100 mg at bedtime Patient was referred to pain management I advised not to miss his appointment Chronic pain of both feet 12/08/2024 Assessment & Plan (12/08/2024 11:41 AM EDT): Podiatry referral Colon cancer screening 08/27/2023 Venous insufficiency of both lower extremities 0 08/27/2023 Assessment & Plan (03/11/2025 4:43 PM EDT): I will prescribe for him compression stockings 15 to 20 mmHg Continue to follow with vascular Assessment & Plan (10/14/2024 4:24 PM EDT): [...] sin gle episode, without psychotic features 12/24/2017 Assessment & Plan (03/11/2025 4:44 PM EDT): Stable continue to follow with therapist Cirrhosis of liver 12/02/2016 Assessment & Plan (03/11/2025 4:43 PM EDT): I will refer him to GI Assessment & Plan (01/22/2023 3:21 PM EDT): [...] Encounters Date Type Department Care Team Description 03/31/2025 9:20 AM EDT Office Visit [facility] [address] [place] [phone] Rylan Carr MD Abdominal wall cellulitis (Primary Dx) 03/31/2025 Telephone [facility] [address] [place] [address] Rubia Brantley MD NOV RECALL 03/31/2025 Travel 03/30/2025 Refill [facility] [address] [place] [phone] Rubia Brantley MD Bilateral leg pain 03/29/2025 3:40 PM EDT Office Visit [facility] [address] [place] [phone] Demetrice Shi MD Cellulitis, unspecified cellulitis site (Primary Dx); Allergic reaction, sequela 03/29/2025 Travel 03/28/2025 Telephone [facility] [address] [place] [phone] Rubia Brantley MD Referral 03/11/2025 1:45 PM EDT Office Visit [facility] [address] [place] [address] Rubia Brantley MD Neuropathy involving both lower extremities (Primary Dx); Severe major depression, single episode, without psychotic features (CMS/HCC); Cirrhosis of liver without ascites, unspecified hepatic cirrhosis type (CMS/HCC); Pain in right testicle; Venous insufficiency of both lower extremities; Bilateral leg pain 03/11/2025 Travel 03/08/2025 Telephone [facility] [address] [place] [phone] Rubia Brantley MD Chart Prep 03/01/2025 Refill [facility] [address] [place] [address] Rubia Brantley MD Bilateral leg pain 02/23/2025 Refill [facility] [address] [place] [address] Rubia Brantley MD Insomnia, unspecified type 02/01/2025 Refill [facility] [address] [place] [address] Rubia Brantley MD Bilateral leg pain 01/15/2025 Orders Only [facility] External Provider, [facility] 01/05/2025 Refill [facility] [address] [place] [address] Rubia Brantley MD Bilateral leg pain from Last 3 Months Immunizations Immunization Administration [...] your housing situation today? I have ashlyn sing 10/05/[address] you li [...] Sign Reading Time Taken Comments Blood Pressure 120/78 03/31/2025 9:41 AM EDT Pulse 78 03/31/2025 9:41 AM EDT Temperature 36.9 C (98.5 F) 03/31/2025 9:41 AM EDT Respiratory Rate 19 03/31/2025 9:41 AM EDT Oxygen Saturation 96% 03/31/2025 9:41 AM EDT Inhaled Oxygen Concentration - - Weight 88.5 kg (195 lb 2 oz) 03/31/2025 9:41 AM EDT Height 172.7 cm (5' 8 ) 03/31/2025 9:41 AM EDT Body Mass Index 29.67 03/31/2025 9:41 AM EDT Plan of Treatment Upcoming Encounters Date Type Department Care Team (Late st Contact Info) Description 06/01/2025 3:00 PM EST Office Visit [facility] [address] [place] [address] Rubia Brantley MD [address] [place] [address] Health Maintenance Due Date Last Done Comments CT Colonography 1975 Colonoscopy 1975 Colorectal Cancer Screening 1975 FIT DNA/Cologuard 1975 FIT 1975 FOBT 1975 Sigmoidoscopy 1975 Family Planning (PISQ) 1989 Hepatitis A Vaccines (1 of 2 - Risk 2-dose series) 1993 Hepatitis B Vaccines (1 of 3 - 19+ 3-dose series) 1993 Zoster Vaccines (1 of 2) 2024 Depression Screening 11/18/2024 11/19/2023, 11/19/2023 COVID-19 Vaccine (4 - 2024-2 6 season) 2025 03/06/2022, 09/06/2021, 08/09/2021 Influenza Vaccine (#1) 2025 SDOH Screening 10/05/2025 10/05/2024 Disability Screening 10/14/2025 10/14/2024 Alcohol/Substance Use Screening 03/11/2026 03/11/2025 Diabetes: Hemoglobin A1C 03/11/2026 03/11/2025 Tobacco Screening 03/31/2026 03/31/2025 DTaP/Tdap/Td Vaccines (2 - T d or [...] Procedure Name Priority Date/Time Associated Diagnosis Comments COMPREHENSIVE METABOLIC PANEL Routine 04/06/2025 6:50 PM EDT CBC WITH AUTO DIFFERENTIAL Routine 04/06/2025 6:50 PM EDT VITAMIN B12/FOLATE, SERUM PANEL Routine 03/11/2025 2:38 PM EDT Neuropathy involving both lower extremities RPR (MONITOR) W/REFL TITER Routine 03/11/2025 2:38 PM EDT Neuropathy involving both lower extremities TSH W/REFLEX TO FT4 Routine 03/11/2025 2 :38 PM EDT Neuropathy involving both lower extremities HEMOGLOBIN A1C Routine 03/11/2025 2:38 PM EDT Neuropathy involving both lower extremities COMPREHENSIVE METABOLIC PANEL Routine 03/11/2025 2:38 PM EDT Neuropathy involving both lower extremities VASC US LOWER EXTREMITY VENOUS DUPLEX BILATERAL [...] Recently Relevant to Health Maintenance Results * (ABNORMAL) CBC auto differential (04/06/2025 6:50 PM EDT) Only the most recent of2 resultswithin the time period is included. White Blood Count 8.4 4.8 - 10.8 X10*3/uL [facility] Red Blood Count 4.73 4.60 - 5.80 X10*6/uL [facility] Hemoglobin 14.3 14.0 - 18.0 g/dl [facility] Hematocrit 40.6(L) 42.0 - 52.0 % [facility] Mean Corpuscular Volume 85.8 80.0 - 98.0 fL [facility] Mean Corpuscular Hemoglobin 30.2 27.0 - 33.0 pg [facility] Mean Corpuscular HGB Conc 35.2 31.0 - 36.0 g/dl [facility] Red Cell Distribution Width 12.2 11.0 - 16.0 % [facility] Platelet Count 222 160 - 400 X10*3/uL [facility] Mean Platelet Volume 10.4 9.4 - 12.4 fL [facility] Neutrophils Percent Auto 52.6 45 - 73 % [facility] Imm Gran Pct Auto 0.1 0.0 - 0.4 % [facility] Lymphocytes Percent Auto 35.2 20 - 40 % [facility] Monocytes Percent Auto 7.3 2 - 11 % [facility] Eosinophils Percent Auto 4.0 0 - 4 % [facility] Basophils Percent Auto 0.8 0 - 2 % [facility] NRBC Pct Auto 0.0 0.0 - 0.2 /100WBC [facility] Neutrophils Absolute Auto 4.4 2.0 - 8.3 x10*3/uL [facility] Imm Gran Abs Auto 0.01 0.00 - 0.03 X10*3/uL [facility] Lymphocytes Absolute Auto 2.9 1.2 - 4.9 X10*3/uL [facility] Monocytes Absolute Auto 0.6 0.1 - 1.2 X10*3/uL [facility] Eosinophils Absolute Auto 0.3 0.0 - 0.4 X10*3/uL [facility] Basophils Absolute Auto 0.1 0.0 - 0.2 X10*3/uL [facility] NRBC Abs Auto 0.000 0.0 - 0.012 X10*3/uL [facility] 04/06/2025 6:50 PM EDT 04/06/2025 6:53 PM EDT us Generic External Data Provider LAB BLOOD ORDERAB LES Final Result [facility] [address] [place], [place] [phone] * (ABNORMAL) Comprehensive Metabolic Panel (04/06/2025 6:50 PM EDT) Only the most recent of3 resultswithin the time period is included. Sodium 143 135 - 145 mmol/L [facility] Potassium 4.8 3.3 - 5.1 mmol/L [facility] Chloride 109(H) 96 - 108 mmol/L [facility] Carbon Dioxide 28 22 - 29 mmol/L [facility] Anion Gap 11(L) 12 - 20 [facility] Urea Nitrogen (BUN) 12 9 - 16 mg/dL [facility] Creatinine, Serum 0.88 0.5 - 1.4 mg/dL [facility] Creatinine Clr Calc Pharmacy 108.2 [facility] Comment:eGFR (calculated fro m the MDRD study equation) and eCrCl(calculated from the Cockcroft-Gault equation) are based ondifferent parameters and may not yield comparable results.If eCrCl result is absurd, please check patient'sheight/weight. Estimated Glomerular Filt Rate >60 [facility] Comment:Chronic Kidney Disea se: Estimated GFR < 60 mL/min/1.55u6Yhaljv Kidney Disease: Estimated GFR < 15 mL/min/1.73m2 Glucose 98 60 - 115 mg/dL [facility] Calcium 9.4 8.4 - 10.2 mg/dL [facility] Bilirubin, Total 0.4 0.0 - 1.0 mg/dL [facility] Aspartate Amino Transferase 30 5 - 37 U/L [facility] Alanine Aminotransferase 37 0 - 40 U/L [facility] Total Protein 7.9 6.5 - 8.0 g/dL [facility] Albumin Level 4.5 3.5 - 5.0 g/dL [facility] Alkaline Phosphatase 94 39 - 117 U/L [facility] 04/06/2025 6:50 PM EDT 04/06/2025 6:53 PM EDT us Generic External Data Provider LAB BLOOD ORDERAB LES Final Result Performing Organization Address [facility] Co de Phone Number [facility] [address] [place] [phone] * Vitamin B12 (Cobalamin) and Folate Panel, Serum (03/11/2025 2:38 PM EDT) Vitamin B12 477 200 - 900 pg/mL [facility] Comment:NORMAL 200-900 PG/ML INDETERMINATE 160-199 PG/ML DEFICIENT < 160 PG/ML Folate 7.6 > or = 4.0 ng/mL [facility] Comment:Reference Values:> o r = 4.0 ng/mL< 4.0 ng/mL suggests folate deficiency Methotrexate, aminopterin and folinic acid(leucovorin) are chemotherapeutic agents whose molecularstructures are similar to folate; therefore, the Architectfolate assay cannot be used for patients using these drugs. Blood Venous blood specimen / Unknown 03/11/2025 2:38 PM EDT 03/11/2025 4:42 PM EDT us Rubia Forbes MD LAB BLOOD ORDERABLES Final Result Performing Organization Address [facility] Co de Phone Number [facility] [address] [place] [address] [phone] * TSH with Reflex to Free T4 (03/11/2025 2:38 PM EDT) TSH reflex Free T4 1.39 0.32 - 4.0 uIU/mL [facility] Blood Venous blood specimen / Unknown 03/11/2025 2:38 PM EDT 03/11/2025 4:42 PM EDT Rubia Forbes MD LAB BLOOD ORDERABLES Final Result Performing Organization Address [facility] Co de Phone Number [facility] [address] [place] [phone] * RPR (Monitor) with Reflex to??Titer (03/11/2025 2:38 PM EDT) RPR (Monitor) w/Refl Titer NON-REACTI VE NON-REACT YURI [facility] Comment:THIS TEST WAS PERFOR MED AT:[facility] [place] [id number] ZULUAGA MD Rapid Plasma Reagin Ab Titer TNP [facility] Blood Venous blood specimen / Unknown 03/11/2025 2:38 PM EDT 03/11/2025 4:42 PM EDT Rubia Forbes MD LAB BLOOD ORDERABLES Final Result Performing Organization Address [facility] Co de Phone Number [facility] [address] [place] [phone] * Hemoglobin A1c (03/11/2025 2:38 PM EDT) Hemoglobin A1c 6.0 <6.0 % [facility] Comment:Hemoglobin A1C Refer ence Range Adults: 4.8 - 6.0 % Non diabetic: < 6.0 % Goal: < 7.0 %Additional Action Suggested: > 8.0 %Note: Hemoglobin A1c results are invalid for patients with abnormal amounts of HbF. Blood transfusions may impact the HbA1c concentration in the patient sample. Estimated Average Glucose 126 mg/dL [facility] Comment:eAG = Estimated ave rage glucose which is %A1C expressed asaverage glucose, using the formula of the Y5L-TwbdtccIlkyyri Glucose study (ADAG), Diabetes Care, Vol.31,#8,Feb. 2007 Blood Venous blood specimen / Unknown 03/11/2025 2:38 PM EDT 03/11/2025 4:42 PM EDT Rubia Forbes MD LAB BLOOD ORDERABLES Final Result [facility] [address] [place] [phone] * [facility] US Lower Extremity Venous Duplex Bilateral (01/15/2025 7:24 PM EDT) 01/15/2025 7:24 PM EDT Narrative [facility] - 01/15/2025 7:25 PM EDT [address] [address] Ultrasound Report Signed Patient: Demetri Story MR#: [id number] : 1975 Acct:[id number] Age/Sex: 49 / M ADM Date: 01/15/25 Loc: .ED Attending Dr: Ordering Physician: Freedom Good Date of Service: 01/15/25 Procedure(s): US venous duplex LE Accession Number(s): [id number] cc: Rubia Brantley MD; Freedom Good CLINICAL HISTORY: pain Venous duplex ultrasound bilateral lower extremity Comparison: US/AK/SR - US VENOUS DUPLEX LE BI - [...] in OV> 01/15/251924 DD/ 23 TD/TT: 01/15/251923 Metal Base Blocker: Procedure Note Donhoracioter, Image - 01/15/[address] [address] Ultrasound Report Signed Patient: Demetri StoryMR#: [id number] : 1975Acct:[id number] Age/Sex: 49 / MADM Date: 01/15/25 Loc: HO.ED Attending Dr: Ordering Physician: Freedom Good Date of Service: 01/15/25 Procedure(s): US venous duplex LE BI Accession Number(s): [id number] cc: Rubia Brantley MD; Freedom Good CLINICAL HISTORY: pain Venous duplex ultrasound bilateral lower extremity Comparison: US/AK/SR - US VENOUS DUPLEX LE BI - [...] in OV> 01/15/251924 DD/ 23 TD/TT: 01/15/251923 Metal Base Blocker: us [facility] External Provider CV VASC ULAR PROCEDURES Edited Result - Final [facility] [address] [place] [phone] * B Type Natriuretic Peptide (BNP) (01/15/2025 6:08 PM EDT) B Type Natriuretic Peptide 20 <100 pg/mL [facility] 01/15/2025 6:08 PM EDT 01/15/2025 6:23 PM EDT us Generic External Data Provider LAB BLOOD ORDERAB LES Final Result Performing Organization Address City/[facility]/ZIP Co de Phone Number [facility] [address] [place] [address] [phone] * HIV 1/2 ANTIGEN/ANTIBODY,FOURTH GENERATION W/RFL (11/06/2021 12:00 AM EDT) HIV-1/2 ANTIGEN AND ANTIBODIES, 4TH GENERATION W/ REFLEX NON-REACT YURI NON-REACT YURI [facility] Comment: HIV-1 antigen and HIV-1/HIV-2 [...] purpose. For additional information please refer to http://education.Lendio/faq/XDE597 (This link is being provided for informational/ educational purposes only.) The performance of this assay has not been clinically validated in patients less than 2 years old. 11/06/2021 us Rubia Forbes MD LAB BLOOD ORDERABLES Final Result Performing Organization Address [facility] Co de Phone Number [facility] [address] * (ABNORMAL) LIPID PANEL, STANDARD (11/06/2021 12:00 AM EDT) Chol/HDLC Ratio 6.7(H) <5.0 (calc) [facility] Cholesterol, Total 167 <200 mg/dL [facility] HDL Cholesterol 25(L) > OR [...] LDL-C. Abrahan LAYNE et al. APRYL. 2013;310(19): 9457-8788 (http://education.Taxi 24/7.StrongSteam/faq/BIS686) Non-HDL Cholesterol 142(H) <130 mg/dL (calc) [facility] Comment: For patients with diabetes plus 1 major ASCVD risk factor, treating to a non-HDL-C goal of <100 mg/dL (LDL-C of <70 mg/dL) is considered a therapeutic option. Triglycerides 145 <150 mg/dL [facility] 11/06/2021 Rubia Forbes MD LAB BLOOD ORDERABLES Final Result [facility] [address] from Last 3 Months or Most Recently Relevant to Health Maintenance [place] [address] [place] [address] C3 Care Teams Recoating Machine Operator Relationship Specialty Start Date End Date Rubia Brantley MD [address] [place] [phone] PCP - General Family Medicine 04/01/18
--- OUTSIDE RECORDS SUMMARY | 2025-04-06 19:33 | XMS_ITS | Encounter Summary ---
Author Organization [employer] Address [address] [facility] 7t [place] [address] Care Team Providers Care Marking Machine Operator Name Role Phone Rubia Brantley MD Primary Care Provide r Encounter Details Date Type Department Care Team (Late st Contact Info) Description 08/02/2022 Orders Only [facility] [address] [place] [address] [phone] Radha Collado MD [address] [place] [address] [phone] Venous insufficiency (Primary Dx) Social History Tobacco Use Types Packs/Day Years Used Date Smoking Tobacco: Never Assessed Sex and Gender Information Value Date Recorded Sex Assigned at Male 05/20/2022 10:18 AM EDT Legal Sex Male 10:18 AM EDT Gender Identity Male 05/20/2022 10:18 AM EDT Sexual Orientation Choose not to disclose 2021 10:18 AM EDT documented as of this encounter Plan of Treatment Upcoming Encounters Date Type Department Care Team (Late st Contact Info) Description 06/01/2025 3:00 PM EST Office Visit [facility] [address] [place] [address] [phone] Rubia Brantley MD [address] [place], [place] [phone] documented as of this encounter Procedures Procedure Name Priority Date/Time Associated Diagnosis Comments CBC WITH AUTO DIFFERENTIAL Routine 09/11/2022 6:11 PM EST Venous insufficiency B TYPE NATRIURETIC PEPTIDE (BNP) Routine 09/11/2022 6:11 PM EST Venous insufficiency MAGNESIUM Routine 09/11/2022 6:11 PM EST Venous insufficiency HEPATIC FUNCTION PANEL Routine 09/11/2022 6:11 PM EST Venous insufficiency BASIC METABOLIC PANEL Routine 09/11/2022 6:11 PM EST Venous insufficiency VITAMIN D,25-OH,TOTAL,IA Routine 08/02/2022 1:15 PM EST Venous insufficiency VITAMIN B12/FOLATE, SERUM PANEL Routine 08/02/2022 1:15 PM EST Venous insufficiency CBC WITH AUTO DIFFERENTIAL Routine 08/02/2022 1:15 PM EST Venous insufficiency PROTHROMBIN TIME-INR Routine 08/02/2022 1:15 PM EST Venous insufficiency COMPREHENSIVE METABOLIC PANEL Routine 08/02/2022 1:15 PM EST Venous insufficiency documented in this encounter Results * B Type Natriuretic Peptide (BNP) (09/11/2022 6:11 PM EST) Pathologist [facility] [place] B Type Natriuretic Peptide <10 <100 pg/mL [facility] Comment:For those patients w ho are being treated with Natrecor(nesiritide, recombinant BNP), BNP testing should beperformed at least two hours post treatment in order toensure that only endogenous levels of BNP are detected. 09/11/2022 6:11 PM EST 09/11/2022 6:15 PM EST us [facility] External Provider LAB BLO OD ORDERABLES Final Result [facility] [address] [place] [phone] * Magnesium (09/11/2022 6:11 PM EST) Pathologist [facility] [place] Magnesium 1.9 1.6 - 2.6 mg/dL [facility] 09/11/2022 6:11 PM EST 09/11/2022 6:15 PM EST [facility] External Provider LAB BLO OD ORDERABLES Final Result Performing Organization Address City/[facility] Co de Phone Number [facility] [address] [place] [address] [phone] * (ABNORMAL) Basic Metabolic Panel (09/11/2022 6:11 PM EST) Sodium 144 135 - 145 mmol/L [facility] Potassium 4.5 3.3 - 5.1 mmol/L [facility] Chloride 106 96 - 108 mmol/L [facility] Carbon Dioxide 32(H) 22 - 29 mmol/L [facility] Anion Gap 11(L) 12 - 20 [facility] Urea Nitrogen (BUN) 14 9 - 16 mg/dL [facility] Creatinine, Serum 0.87 0.5 - 1.4 mg/dL [facility] Creatinine Clr Calc Pharmacy 118.2 [facility] Comment:eGFR (calculated fro m the MDRD study equation) and eCrCl(calculated from the Cockcroft-Gault equation) are based ondifferent parameters and may not yield comparable results.If eCrCl result is absurd, please check patient'sheight/weight. Estimated Glomerular Filt Rate >60 [facility] Comment:NOTE: For -Am erican individuals, multiply the result by 1.210.Chronic Kidney Disease: Estimated GFR < 60 mL/min/[id number] Kidney Disease: Estimated GFR < 15 mL/min/1.73m2 Glucose 117(H) 60 - 115 mg/dL [facility] Calcium 9.7 8.4 - 10.2 mg/dL [facility] 09/11/2022 6:11 PM EST 09/11/2022 6:15 PM EST [facility] External Provider LAB BLO OD ORDERABLES Final Result [facility] [address] [place] [address] [phone] * Hepatic Function Panel (09/11/2022 6:11 PM EST) [facility] Bilirubin, Total 0.4 0.0 - 1.0 mg/dL [facility] Bilirubin, Direct <0.2 0.0 - 0.5 mg/dL [facility] Aspartate Amino Transferase 22 5 - 37 U/L [facility] Alanine Aminotransferase 30 0 - 40 U/L [facility] Total Protein 8.0 6.5 - 8.0 g/dL [facility] Albumin Level 4.3 3.5 - 5.0 g/dL [facility] Alkaline Phosphatase 87 39 - 117 U/L [facility] 09/11/2022 6:11 PM EST 09/11/2022 6:15 PM EST [facility] External Provider LAB BLO OD ORDERABLES Final Result Performing Organization Address [facility] de Phone Number [facility] [address] [place] [address] [phone] * (ABNORMAL) CBC auto differential (09/11/2022 6:11 PM EST) [facility] White Blood Count 6.5 4.8 - 10.8 X10*3/uL [facility] Red Blood Count 4.87 4.60 - 5.80 X10*6/uL [facility] Hemoglobin 14.3 14.0 - 18.0 g/dl [facility] Hematocrit 42.1 42.0 - 52.0 % [facility] Mean Corpuscular Volume 86.4 80.0 - 98.0 fL [facility] Mean Corpuscular Hemoglobin 29.4 27.0 - 33.0 pg [facility] Mean Corpuscular HGB Conc 34.0 31.0 - 36.0 g/dl [facility] Red Cell Distribution Width 12.0 11.0 - 16.0 % [facility] Platelet Count 237 160 - 400 X10*3/uL [facility] Mean Platelet Volume 9.8 9.4 - 12.4 fL [facility] Neutrophils Percent Auto 54.0 45 - 73 % [facility] Imm Gran Pct Auto 0.3 0.0 - 0.4 % [facility] Lymphocytes Percent Auto 32.7 20 - 40 % [facility] Monocytes Percent Auto 7.9 2 - 11 % [facility] Eosinophils Percent Auto 4.2(H) 0 - 4 % [facility] Basophils Percent Auto 0.9 0 - 2 % [facility] NRBC Pct Auto 0.0 0.0 - 0.2 /100WBC [facility] Neutrophils Absolute Auto 3.5 2.0 - 8.3 x10*3/uL [facility] Imm Gran Abs Auto 0.02 0.00 - 0.03 X10*3/uL [facility] Lymphocytes Absolute Auto 2.1 1.2 - 4.9 X10*3/uL [facility] Monocytes Absolute Auto 0.5 0.1 - 1.2 X10*3/uL [facility] Eosinophils Absolute Auto 0.3 0.0 - 0.4 X10*3/uL [facility] Basophils Absolute Auto 0.1 0.0 - 0.2 X10*3/uL [facility] NRBC Abs Auto 0.000 0.0 - 0.012 X10*3/uL [facility] 09/11/2022 6:11 PM EST 09/11/2022 6:15 PM EST us [facility] External Provider LAB BLO OD ORDERABLES Final Result [facility] [address] [place] [phone] * Vitamin D, 25-Hydroxy, Total, Immunoassay (08/02/2022 1:15 PM EST) Vitamin D 25-OH Total 19.6 >30 ng/mL [facility] Comment:Health Based Referen ce Values*< 20 ng/mL [id number] ng/mL Insufficient> 30 ng/mL Sufficient*Can HUITRON. N Engl J Med. 2007;357:266-280Care must be taken in interpreting Vitamin D results fromdifferent laboratories and methodologies. Published datademonstrated that results from patients undergoinghemodialysis may show a negative bias when tested withvarious automated 25-OH vitamin D assays when compared toLC-MS/MS.When testing samples from patients whose predominant form ofVitamin D is Vitamin D2, such as patients receiving VitaminD2 supplementation, results that are subtherapeutic shouldbe confirmed with another method such as LC-MS/MS. 08/02/2022 1:15 PM EST 08/02/2022 1:15 PM EST [facility] External Provider LAB BLO OD ORDERABLES Final Result [facility] [address] [place] [phone] * Comprehensive Metabolic Panel (08/02/2022 1:15 PM EST) Sodium 139 135 - 145 mmol/L [facility] Potassium 4.4 3.3 - 5.1 mmol/L [facility] Chloride 106 96 - 108 mmol/L [facility] Carbon Dioxide 22 22 - 29 mmol/L [facility] Anion Gap 15 12 - 20 [facility] Urea Nitrogen (BUN) 14 9 - 16 mg/dL [facility] Creatinine, Serum 0.85 0.5 - 1.4 mg/dL [facility] Estimated Glomerular Filt Rate >60 [facility] Comment:NOTE: For -Am erican individuals, multiply the result by 1.210.Chronic Kidney Disease: Estimated GFR < 60 mL/min/[id number] Kidney Disease: Estimated GFR < 15 mL/min/1.73m2 Glucose 106 60 - 115 mg/dL [facility] Calcium 9.4 8.4 - 10.2 mg/dL [facility] Bilirubin, Total 0.3 0.0 - 1.0 mg/dL [facility] Aspartate Amino Transferase 26 5 - 37 U/L [facility] Alanine Aminotransferase 33 0 - 40 U/L [facility] Total Protein 8.0 6.5 - 8.0 g/dL [facility] Albumin Level 4.3 3.5 - 5.0 g/dL [facility] Alkaline Phosphatase 93 39 - 117 U/L [facility] 08/02/2022 1:15 PM EST 08/02/2022 1:15 PM EST [facility] External Provider LAB BLO OD ORDERABLES Final Result Performing Organization Address City/[facility]/ZIP Co de Phone Number [facility] [address] [place] [address] [phone] * Vitamin B12/Folate, Serum Panel (08/02/2022 1:15 PM EST) Vitamin B12 510 200 - 900 pg/mL [facility] Comment:NORMAL 200-900 PG/ML INDETERMINATE 160-199 PG/ML DEFICIENT < 160 PG/ML Folate 15.2 > or = 4.0 ng/mL [facility] Comment:Reference Values:> o r = 4.0 ng/mL< 4.0 ng/mL suggests folate deficiency Methotrexate, aminopterin and folinic acid(leucovorin) are chemotherapeutic agents whose molecularstructures are similar to folate; therefore, the Architectfolate assay cannot be used for patients using these drugs. 08/02/2022 1:15 PM EST 08/02/2022 1:15 PM EST [facility] External Provider LAB BLO OD ORDERABLES Final Result Performing Organization Address City/[facility]/ZIP Co de Phone Number [facility] [address] [place] [address] [phone] * Prothrombin Time-INR (08/02/2022 1:15 PM EST) Prothrombin Time 12.0 10.0 - 13.1 SEC [facility] INTERNATIONAL NORM RATIO 1.0 0.9 - 1.1 [facility] Comment:INTERNATIONAL NORMAL IZED RATIO (INR) REFERENCE RANGES Reference RangeFor patients not on anticoagulant therapy: 0.9 - 1.1INR ranges for oral anticoagulanttherapy:For prevention and treatment of venous thrombosis and pulmonary embolism: 2.0 - 3.0For acute myocardial infarction with aspirin therapy: 2.0 - 3.0For acute myocardial infarction without aspirin therapy: 3.0 - 4.0For patients with mechanical prosthetic heart valves: 2.5 - 3.5 08/02/2022 1:15 PM EST 08/02/2022 1:15 PM EST [facility] External Provider LAB BLO OD ORDERABLES Final Result [facility] [address] [place] [phone] * (ABNORMAL) CBC auto differential (08/02/2022 1:15 PM EST) [facility] White Blood Count 6.8 4.8 - 10.8 X10*3/uL [facility] Red Blood Count 4.89 4.60 - 5.80 X10*6/uL [facility] Hemoglobin 14.3 14.0 - 18.0 g/dl [facility] Hematocrit 41.9(L) 42.0 - 52.0 % [facility] Mean Corpuscular Volume 85.7 80.0 - 98.0 fL [facility] Mean Corpuscular Hemoglobin 29.2 27.0 - 33.0 pg [facility] Mean Corpuscular HGB Conc 34.1 31.0 - 36.0 g/dl [facility] Red Cell Distribution Width 11.9 11.0 - 16.0 % [facility] Platelet Count 231 160 - 400 X10*3/uL [facility] Mean Platelet Volume 9.8 9.4 - 12.4 fL [facility] Neutrophils Percent Auto 59.5 45 - 73 % [facility] Imm Gran Pct Auto 0.1 0.0 - 0.4 % [facility] Lymphocytes Percent Auto 28.0 20 - 40 % [facility] Monocytes Percent Auto 7.6 2 - 11 % [facility] Eosinophils Percent Auto 4.1(H) 0 - 4 % [facility] Basophils Percent Auto 0.7 0 - 2 % [facility] NRBC Pct Auto 0.0 0.0 - 0.2 /100WBC [facility] Neutrophils Absolute Auto 4.1 2.0 - 8.3 x10*3/uL [facility] Imm Gran Abs Auto 0.01 0.00 - 0.03 X10*3/uL [facility] Lymphocytes Absolute Auto 1.9 1.2 - 4.9 X10*3/uL [facility] Monocytes Absolute Auto 0.5 0.1 - 1.2 X10*3/uL [facility] Eosinophils Absolute Auto 0.3 0.0 - 0.4 X10*3/uL [facility] Basophils Absolute Auto 0.1 0.0 - 0.2 X10*3/uL [facility] NRBC Abs Auto 0.000 0.0 - 0.012 X10*3/uL [facility] 08/02/2022 1:15 PM EST 08/02/2022 1:15 PM EST us [facility] External Provider LAB BLO OD ORDERABLES Final Result Performing Organization Address City/State/[facility] Co de Phone Number [facility] [address] [place] [address] [phone] documented in this encounter Visit Diagnoses Diagnosis Venous insufficiency- Primary Unspecified venous (peripheral) insufficiency documented in this encounter Care Teams Marking Machine Operator Relationship Specialty Start Date End Date Rubia Brantley MD [address] [place] [phone] PCP - General Family Medicine 04/01/18 documented as of this encounter
--- OUTSIDE RECORDS SUMMARY | 2025-04-06 19:33 | XMS_ITS | Clinical Summary ---
Author Organization [facility] Address [address] [place] [phone] Phone Care Team Providers Care Power Switchboard Operator Name Role Phone Rubia Brantley MD Primary Care Provide r Medications clotrimazole (LOTRIMIN) 1 % cream Apply topically 2 (two) times a day. 30 g 3 5 04/02/20 25 Encounters Date Type Department Care Team Description 03/03/2025 1:45 PM EDT Consult [facility] [address] [phone] Austin Gottlieb DPM Neuritis (Primary Dx); Bilateral [...] 1:45 PM EST Office Visit [facility] [address] [phone] Austin Gottlieb DPM [address] [phone] Health Maintenance Due Date Last Done Comments Hepatitis B Vaccines (1 of 3 - 19+ 3-dose series) 1993 Depression Screening 07/21/2024 Zoster Vaccines (1 of 2) 2024 Cholesterol Screening (Lipid Panel) 12/09/2024 Colorectal Cancer Screening: Colonoscopy 12/09/2024 HIV Screening 12/09/2024 Hepatitis C Screening 12/09/2024 Social Influencers of Health Screening 12/09/2024 COVID-19 Vaccine (4 - 2024-2 6 season) 2025 03/06/2022, 09/06/2021, 08/09/2021 Influenza Vaccine (#1) 2025 DTaP,Tdap,and Td Vaccines [...] topic Insurance MEDICAID - [place] Care Teams Power Switchboard Operator Relationship Specialty Start Date End Date Rubia Brantley MD [address] [place] [phone] PCP - General Internal Medicine 12/09/24
--- OUTSIDE RECORDS SUMMARY | 2025-04-06 19:33 | XMS_ITS | Encounter Summary ---
Author Organization [email or web address] Address [address] [facility] 7t [place] [address] Care Team Providers Care Magnetic Testing Technician Name Role Phone Rubia Brantley MD Primary Care Provide r Reason for Visit * Reason Comments Med Refill Encounter Details Date Type Department Care Team ([facility] st Contact Info) Description 11/19/2023 Refill [facility] [address] [place] [address] Rubia Brantley MD [address] [place], [place] [phone] Insomnia, unspecified type Social History Tobacco Use Types Packs/Day Years Used Date Smoking Tobacco: Every Day Cigarettes Passive Smoke Exposure: Current Smokeless Tobacco: Never Depression Answer Date Recorded Patient Health Questionnaire-9 Score 0 11/19/2023 Patient Health Questionnaire-9 Score 0 11/19/2023 Last PHQ-9: Questionnaire Data Not on file 0 11/19/2023 Housing Stability Answer Date Recorded What is your housing situation today? I have ashlyn murry 05/16/[address] you li ve. Do you have problems with any of the following? None of the above 05/16/2023 Food Insecurity Answer Date Recorded Within the past 12 months, y ou worried that your food would run out before you got money to buy more: Never True 05/16/2023 Within the past 12 months,th e food you bought just didn't last and you didn't have enough money to get more: Never True Transportation Answer Date Recorded In the past 12 months, has l ack of transportation kept you from medical appts, meetings, work or from getting things needed for daily living? No 05/16/2023 Utilities Answer Date Recorded In the past 12 months, has t he electric, gas, oil or water company threatened to shut off services in your home? No 05/16/2023 Depression Answer Date Recorded Patient Health Questionnaire-2 Score 0 11/19/2023 Sex and Gender Information Value Date Recorded Sex Assigned at Male 05/20/2022 10:18 AM EDT Legal Sex Male 10:18 AM EDT Gender Identity Male 05/20/2022 10:18 AM EDT Sexual Orientation Choose not to disclose 2021 10:18 AM EDT documented as of this encounter Functional Status * Over the past 2 weeks, how often have you been bothered by any of the following problems? Question Answer Date of Assessment Author Patient Health Questionnaire -2 Score 0 11/19/2023 3:36 PM FLOYDT Agustina Lewis MA * Over the past 2 weeks, how often have you been bothered by any of the following problems? Question Answer Date of Assessment Author Little interest or pleasure in doing things Not at all 11/19/2023 3:36 PM EDT Agustina Lewis MA Feeling down, depressed, or hopeless Not at all 11/19/2023 3:36 PM FLOYDT Agustina Lewis MA Trouble falling or staying asleep, or sleeping too much Not at all 11/19/2023 3:36 PM FLOYDT Agustina Lewis MA Feeling tired or having telma le energy Not at all 11/19/2023 3:36 PM FLOYDT Agustina Lewis MA Poor appetite or overeating Not at all 11/19/2023 3: 36 PM FLOYDT Agustina Lewis MA Feeling bad about yourself - or that you are a failure or have let yourself or your family down Not at all 11/19/2023 3:36 PM Agustina Sommers MA Trouble concentrating on things, such as reading the newspaper or watching television Not at all 11/19/2023 3:36 PM FLOYDT Agustina Lewis MA Moving or speaking so slowly that other people could have noticed? Or the opposite - being so fidgety or restless that you have been moving around a lot more than usual. Not at all 11/19/2023 3:36 PM EDT Agustina Lewis MA Thoughts that you would be better off or hurting yourself in some way Not at all 11/19/2023 3:36 PM EDT Agustina Lewis MA Patient Health Questionnaire -9 Score 0 11/19/2023 3:36 PM EDT Agustina Lewis MA documented as of this encounter Miscellaneous Notes * Telephone Encounter - Rubia Forbes MD - 11/20/2023 12:20 PM EDT Already done documented in this encounter Plan of Treatment Upcoming Encounters Date Type Department Care Team (Late st Contact Info) Description 06/01/2025 3:00 PM EST Office Visit [facility] [address] [place] [address] Rubia Brantley MD [address] [place] [phone] documented as of this encounter Visit Diagnoses Diagnosis Insomnia, unspecified type documented in this encounter Additional Health Concerns Assessment Noted Time PHQ-9 Depression Total Score: 0 11/19/19 3:36 PM EDT documented as of this encounter Care Teams Magnetic Testing Technician Relationship Specialty Start Date End Date Rubia Brantley MD [address] [place] [phone] PCP - General Family Medicine 04/01/18 documented as of this encounter
--- OUTSIDE RECORDS SUMMARY | 2025-04-06 19:33 | XMS_ITS | Encounter Summary ---
Author Organization [email or web address] Address [address] [facility] 7t [place] [address] Care Team Providers Care Fire Extinguisher Tester Name Role Phone Rubia Brantley MD Primary Care Provide r Reason for Visit * Reason Comments Med Refill Encounter Details Date Type Department Care Team ([facility] st Contact Info) Description 03/30/2025 Refill [facility] [address] [place] [address] Rubia Brantley MD [address] [place], [place] [phone] Bilateral leg pain Social History Tobacco Use Types Packs/Day Years [...] Description 06/01/2025 3:00 PM EST Office Visit [facility] [address] [place] [phone] Rubia Brantley MD [address] [place] [phone] documented as of this encounter Visit Diagnoses Diagnosis Bilateral leg pain Pain in soft tissues of limb documented in this encounter Additional Health Concerns Assessment Noted Time PHQ-9 Depression Total Score: 0 11/19/19 24 3:36 PM EDT documented as of this encounter Care Teams Fire Extinguisher Tester Relationship Specialty Start Date End Date Rubia Brantley MD [address] [place] [phone] PCP - General Family Medicine 04/01/18 documented as of this encounter
--- OUTSIDE RECORDS SUMMARY | 2025-04-06 19:33 | XMS_ITS | Encounter Summary ---
Author Organization [employer] Address [address] [facility] 7t [place] [address] Care Team Providers Care Reconciliation Accountant Name Role Phone Rubia Brantley MD Primary Care Provide r Encounter Details Date Type Department Care Team (Latest Contact Info) Description 12/10/2018 Abstract [facility] CONVERSIONS Dental, Provider, DDS Social History Tobacco Use Types Packs/Day Years [...] Description 06/01/2025 3:00 PM EST Office Visit [facility] [address] [place] [phone] Rubia Brantley MD [address] [place] [phone] documented as of this encounter Visit Diagnoses Not on filedocumented in this encounter Care Teams Reconciliation Accountant Relationship Specialty Start Date End Date Rubia Brantley MD [address] [place] [address] [phone] PCP - General Family Medicine 04/01/18 documented as of this encounter
--- OUTSIDE RECORDS SUMMARY | 2025-04-06 19:33 | XMS_ITS | Encounter Summary ---
Author Organization [email or web address] Address 75 [facility] 7t [place] [address] Care Team Providers Care Wash Oil Pump Operator Name Role Phone Rubia Brantley MD Primary Care Provide r Encounter Details Date Type Department Care Team (Latest Contact Info) Description 01/18/2019 Abstract [facility] CONVERSIONS Dental, Provider, DDS Social History Tobacco [...] Description 06/01/2025 3:00 PM EST Office Visit [facility] MED[facility] [address] [place] [phone] Rubia Brantley MD [address] [place] [phone] documented as of this encounter Visit Diagnoses Not on filedocumented in this encounter Care Teams Wash Oil Pump Operator Relationship Specialty Start Date End Date Rubia Brantley MD [address] [place] [address] [phone] PCP - General Family Medicine 04/01/18 documented as of this encounter
--- NOTE | 2025-04-06 19:52 | PC.NURSE ---
Assumed care of pt, presents abscess to the right flank, pt states it has gradually worsened over the last x5 days, area is hot to touch and red, aaox3 6 pain, ambulatory, mother at bedside
[2025-04-06] MEDS: Lidocaine HCl 2 % MPF 5 ML VIAL INFILTRATI (20:50)
[2025-04-06 21:05] VITALS: BP 127/75; PULSE 62; RESP 18; TEMP 36.6; O2SAT 99
[2025-04-06 21:11] VITALS: BP 127/75; PULSE 62; RESP 18; TEMP 36.6; O2SAT 99
== END 2025-04-06 21:11 | disposition home or self-care (01) ==
PROVIDERS: Emergency Provider Student in an Organized Health Care Education/Training Program; PCP Internal Medicine
DX: L02.231 Carbuncle of abdominal wall (principal)
CPT/HCPCS: 10060; 36415; 80053; 85025; 99284; J2003

== ENCOUNTER 2025-05-05 13:54 | Outpatient (REF) | payer MEDICAID, SELFPAY ==
--- NOTE | ~2025-05-05 | XR_ITS ---
EXAMINATION: X-ray bilateral feet CLINICAL INFORMATION: Lesion in the popliteal nerve COMPARISON: None TECHNIQUE: Left foot 3 views. Right foot 3 views. FINDINGS: Right foot: No fracture or dislocation. No significant joint space narrowing or marginal osteophytes. No osseous erosion. No abnormal soft tissue calcification. Small posterior calcaneal insertional enthesopathy. Left foot: No fracture or dislocation. No significant joint space narrowing or marginal osteophytes. No osseous erosion. No abnormal soft tissue calcification. Tiny posterior calcaneal spur. XR/XR Foot Gabriel 3V IMPRESSION: No acute osseous findings Electronically signed by: Salvador Urbina MD 05/05/2025 03:28 PM EDT RP
--- OUTSIDE RECORDS SUMMARY | 2025-05-05 18:48 | XMS_ITS | Clinical Summary ---
Author Organization 175 [facility] Address [address] [place] [phone] Phone Care Team Providers Care Agricultural Plow Operator Name Role Phone Rubia Brantley MD Primary Care Provide r Encounters Date Type Department Care Team Description 03/03/2025 1:45 PM EDT Consult Orthopedic [facility] [address] [phone] Austin Gottlieb DPM Neuritis (Primary Dx); Bilateral [...] Upcoming Encounters Date Type Department Care Team ([facility] Contact Info) Description 06/06/2025 1:45 PM EST Office Visit Orthopedic Surgery [facility] [address] [phone] Austin Gottlieb DPM [address] [phone] Health Maintenance Due Date Last Done Comments Colorectal Cancer Screening: Colonoscopy 1974 Hepatitis B Vaccines (1 of 3 - 19+ 3-dose series) 1993 Depression Screening 07/21/2024 Zoster Vaccines (1 of 2) 2024 Cholesterol Screening (Lipid Panel) 12/09/2024 HIV Screening 12/09/2024 Hepatitis C Screening 12/09/2024 Social Influencers of Health Screening 12/09/2024 COVID-19 Vaccine (4 - 2024-2 6 season) 2025 03/06/2022, 09/06/2021, 08/09/2021 Influenza Vaccine (#1) 2025 DTaP,Tdap,and Td Vaccines (3 - Td or Tdap) 05/22/2026 05/22/2016, 10/15/2004 RSV Immunization Adult Patients (1 - 1-dose 75+ series) 2049 Pneumococcal Vaccine: 50+ Years Completed 10/14/2024 HIB [...] topic Insurance MEDICAID - [place] Care Teams Agricultural Plow Operator Relationship Specialty Start Date End Date Rubia Brantley MD [address] [phone] PCP - General Internal Medicine 12/09/24
== END 2025-05-05 13:55 | disposition home or self-care (01) ==
LOC: HO.XRAY 13:54
PROVIDERS: PCP Internal Medicine; Visit Provider Nurse Practitioner Family
DX: G57.30 Lesion of lateral popliteal nerve, unspecified lower limb (principal); M79.671 Pain in right foot; M79.672 Pain in left foot
CPT/HCPCS: 73630; 99212

== ENCOUNTER 2025-05-05 13:54 | Outpatient (AMB) | payer MEDICAID, SELFPAY ==
--- NOTE | 2025-05-05 14:03 | MHC.OFFVIS ---
Vital Signs 05/05/25 14:22 Height 5 ft 8 in Weight 193 lb 8 oz BMI 29.4 BP 130/78 Blood Pressure Location Rt brachial Position Sitting Pulse 72 Pulse Source Pulse Oximeter Pulse Oximetry (%) 99 Oxygen Delivery Method Room Air Intake Visit Reasons: Neuropathy Intake Note: Pain today 8/10 Security Incident Handler Required: Yes Security Incident Handler Language: Client Resolution Specialist Name: Ty #[id number] Accompanied by: Mother Allergies tramadol Adverse Reaction (Verified 05/05/25 14:20) Unknown HPI Comments Details: The patient is a 49-year-old male presenting with chronic bilateral leg pain. The pain has been persistent for the past two years and is described as continuous, burning, numbness, tingling, throbbing, pulling, tugging, tightness, and stiffness. The pain is rated as 8/10 and is constant during waking hours, slightly improving at night. The patient has a history of peroneal neuropathy, with moderately severe left and mild right peroneal neuropathy affecting motor and sensory components per an EMG study conducted in January 2025. He reports difficulty walking on heels and increased pain when standing on them. The patient also has a history of vascular insufficiency, with a recent duplex US study showing no deep vein thrombosis in either leg. He reports discoloration in his legs that has developed gradually over time. The patient has a history of polysubstance abuse, including heroin and cocaine use about 15 years ago, and is currently on Suboxone. He smokes 10 to 15 cigarettes a day, denies alcohol use, and consumes six cups of coffee daily. - Onset: Pain has been present for 2 years - Quality: Described as continuous, burning, numbness, tingling, throbbing, pulling, tugging, tightness, stiffness - Severity: Rated as 8/10 - Timing: Constant during waking hours, improves slightly at night - Exacerbating factors: Worse with walking or when awake - Relieving factors: Slight improvement at night - Affect: Pain impacts daily activities and mood, causing significant discomfort - Analgesia: Currently not on gabapentin, pain rated 8/10 - Adverse Effects: No specific adverse effects from current medications reported - Activities of Daily Living: Difficulty walking on heels, increased pain with standing on heels - Aberrant Drug Related Behaviors: History of heroin and cocaine use, currently on Suboxone [facility] Medical History Hiatal hernia Polysubstance abuse Hepatitis C infection Surgical History History of esophagogastroduodenoscopy (EGD) (~03/2018) Family History Father No problems noted. Mother Diabetes Social History (Updated 05/05/25 @ 14:24 by Chandrika Fierro) Household Members: Family Household Members Other:: mom Alcohol intake: never Patient Tobacco Use Status: Current everyday Tobacco user Tobacco use type: Cigarette Cigarette Packs Per Day: 1 Cigarettes Per Day: 20.0 Years Smoked: 14 Substance Use Type: Former Substance User Substance Use Type Other:: heroin and cocaine Current occupational status: disabled Review of Systems Const Details: - Musculoskeletal: Reports chronic bilateral leg pain, difficulty walking on heels - Neurological: Reports burning, numbness, tingling, throbbing, pulling, tugging, tightness, stiffness in legs - Substance Use: Denies current alcohol use, reports smoking 10-15 cigarettes daily, denies recreational drug use All systems reviewed & are unremarkable except as noted in HPI and below Physical Exam Vital Signs: Last Vital Signs Pulse 72 05/05/25 14:22 BP 130/78 05/05/25 14:22 Pulse Ox 99 05/05/25 14:22 Oxygen Delivery Method Room Air 05/05/25 14:22 BMI result Body Mass Index 29.4 General: Appears afebrile. Alert and oriented. Mood and affect appropriate. Follows and participates in conversation appropriately. Respiratory effort is unlabored. No cough. Able to transition from sit to stand unassisted. Ambulates with bilaterally normal heel strike and toe off. Extrem General: Yes capillary refill normal, Yes no clubbing, cyanosis or edema and Yes no calf tenderness Results Reviewed Results Reviewed: NE nerve conduction velocity 01/18/25 FINDINGS: Bilateral tibial and peroneal motor studies were performed. Bilateral superficial peroneal and sural sensory studies were performed. Tibial H reflexes were obtained and paraspinal muscles were tested with a needle. 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 US venous duplex LE 01/15/25 CLINICAL HISTORY: pain Venous duplex ultrasound bilateral lower extremity Comparison: US/NM/SR - US VENOUS DUPLEX LE BI - 09/30/22 11:46 EDT Findings: The visualized deep veins are fully compressible with normal Doppler color flow and spectral tracings. No popliteal cyst. IMPRESSION: 1. Negative for bilateral lower extremity deep vein thrombosis. X-ray bilateral feet 05/05/25 CLINICAL INFORMATION: Lesion in the popliteal nerve COMPARISON: None TECHNIQUE: Left foot 3 views. Right foot 3 views. FINDINGS: Right foot: No fracture or dislocation. No significant joint space narrowing or marginal osteophytes. No osseous erosion. No abnormal soft tissue calcification. Small posterior calcaneal insertional enthesopathy. Left foot: No fracture or dislocation. No significant joint space narrowing or marginal osteophytes. No osseous erosion. No abnormal soft tissue calcification. Tiny posterior calcaneal spur. IMPRESSION: No acute osseous findings Assessment & Plan Assessment & Plan (1) Peroneal neuropathy: Code(s): G57.30 - Lesion of lateral popliteal nerve, unspecified lower limb Category: Medical (2) Bilateral foot pain: Code(s): M79.671 - Pain in right foot; M79.672 - Pain in left foot Category: Medical Plan The plan includes obtaining bilateral foot x-rays to rule out any structural abnormalities. This was completed after today's visit as noted above, revealed no acute osseous findings. Tentatively will plan for bilateral diagnostic peroneal nerve blocks with local anesthesia and ultrasound guidance. The patient will be considered for a peripheral nerve stimulation Sprint system if the diagnostic blocks provide significant pain relief. Expectations, risks and benefits were reviewed. Patient is aware he will be contacted to schedule this procedure. Physical therapy will be initiated to improve mobility, improve range of motion, strength, flexibility and manage pain. The patient will be provided with educational materials regarding his condition and exercises that can be performed at home. All questions and concerns have been answered and patient agreed with the treatment plan. Follow up after injections and sooner as needed. Patient was informed and verbally consented to the use of an ambient scribe for clinic note documentation during this visit. Orders: Orders XR Foot Gabriel 3V 05/05/25 G57.30 - Lesion of lateral popliteal nerve, unspecified lower limb, M79.671 - Pain in right foot, M79.672 - Pain in left foot PT Evaluation and Treatment 05/05/25 G57.30 - Lesion of lateral popliteal nerve, unspecified lower limb, M79.671 - Pain in right foot, M79.672 - Pain in left foot Coding Level of Care Code New Pt Level 4 (57143) Diagnoses Peroneal neuropathy G57.30 Bilateral foot pain M79.671; M79.672
[2025-05-05 14:22] VITALS: BP 130/78; PULSE 72; O2SAT 99; BMI 29.4
--- OUTSIDE RECORDS SUMMARY | 2025-05-05 17:44 | XMS_ITS | Clinical Summary ---
Author Organization [employer] Address [address] [facility] [address] [place] [address] Care Team Providers Care Director Of Accounts Receivable Name Role Phone Rubia Brantley MD Primary Care Provide r Allergies No known active allergies Medications tamsulosin (Flomax) 0.4 MG 24 hr capsuleIndicatio ns:Benign prostatic hyperplasia with incomplete bladder emptying Take 1 capsule by mouth every day 1/2 hour following the same meal each day 90 capsule 2 10/15/19 25 Active docusate sodium (Colace) 100 MG capsuleIndicatio ns:Constipation, unspecified constipation type TAKE 1 CAPSULE BY MOUTH TWICE A DAY 180 capsule 1 10/15/19 25 Active gabapentin (Neurontin) 100 MG capsuleIndicatio ns:Bilateral leg pain Take 1 capsule (100 mg) by mouth at bedtime. 90 capsule 03/11/20 25 Active diphenhydrAMINE (BENADryl) 25 MG tabletIndication s:Allergic reaction, sequela Take 1 tablet (25 mg) by mouth if needed at bedtime for itching. 3 tablet 03/29/20 25 Active zolpidem (Ambien) 10 MG tabletIndication s:Insomnia, unspecified type TAKE 1 TABLET BY MOUTH EVERY DAY AT BEDTIME NEEDED FOR SLEEP 30 tablet 1 04/27/20 25 Active zolpidem (Ambien) 10 MG tabletIndication s:Insomnia, unspecified type TAKE 1 TABLET BY MOUTH AT BEDTIME NEEDED FOR SLEEP 30 tablet 1 02/26/20 25 025 Discontinued doxycycline (Vibramycin) 100 MG capsuleIndicatio ns:Cellulitis, unspecified cellulitis site Take 1 capsule (100 mg) by mouth 2 times daily for 10 days. Take with at least 8 ounces (large glass) of water, do not lie down for 30 minutes after 20 capsule 03/29/20 25 025 Active Problems Problem Noted Date Diagnosed Date Pain in right testicle 03/11/2025 Assessment & Plan (03/11/2025 4:43 PM EDT): I will order at scrotal ultrasound after results I will put in a referral for urologist in [facility] Neuropathy involving both lower extremities 02/19 [...] depression, sin gle episode, without psychotic features ([facility]/HCC) 12/24/2017 Assessment & Plan (03/11/2025 4:44 PM EDT): Stable continue to follow with therapist Cirrhosis of liver (CMS/HCC) 12/02/2016 Assessment & Plan (03/11/2025 4:43 PM [...] anxiety and depressive disorder 06/05/2012 Substance abuse (CMS/HCC) 06/05/2012 Encounters Date Type Department Care Team Description 04/26/2025 Refill [facility] MEDICINE [address] [place] [phone] Rubia Brantley MD Insomnia, unspecified type 04/08/2025 Orders Only [facility] [address] [place] [phone] Rubia Brantley MD Neuropathy involving both lower extremities (Primary Dx); Bilateral leg pain; Chronic pain of both feet 03/31/2025 9:20 AM EDT Office Visit [facility] W[facility] [address] [place] [phone] Rylan Carr MD Abdominal wall cellulitis (Primary Dx) 03/31/2025 Telephone [facility] CH[facility] MED & PEDS [address], [place] [phone] Rubia Brantley MD NOV RECALL 03/31/2025 Travel 03/30/2025 Refill [facility] MED[facility]INE [address] [place] [phone] Rubia Brantley MD Bilateral leg pain 03/29/2025 3:40 PM EDT Office Visit [facility] [address] [place] [phone] Demetrice Shi MD Cellulitis, unspecified cellulitis site (Primary Dx); Allergic reaction, sequela 03/29/2025 Travel 03/28/2025 Telephone [facility] MED[facility]INE [address] [place] [phone] Rubia Brantley MD Referral 03/11/2025 1:45 PM EDT Office Visit [address] [phone] Rubia Brantley MD Neuropathy involving both lower extremities (Primary Dx); Severe major depression, single episode, without psychotic features (CMS/HCC); Cirrhosis of liver without ascites, unspecified hepatic cirrhosis type (CMS/HCC); Pain in right testicle; Venous insufficiency of both lower extremities; Bilateral leg pain 03/11/2025 Travel 03/08/2025 Telephone [facility] MED & PEDS [address] [place], [place] [phone] Rubia Brantley MD Chart Prep 03/01/2025 Refill [facility] MEDICINE [address] [place], [place] [phone] Rubia Brantley MD Bilateral leg pain 02/23/2025 Refill [facility] MED[facility]INE [address] [place], [place] [phone] Rubia Brantley MD Insomnia, unspecified type from Last 3 Months Immunizations Immunization Administration [...] Description 06/01/2025 3:00 PM EST Office Visit [facility] MED[facility] [address] [place] [address] Rubia Brantley MD [address] [place] [address] Health Maintenance Due Date Last Done Comments [...] Procedure Name Priority Date/Time Associated Diagnosis Comments XR FOOT 3+ VIEWS BILATERAL Routine 05/05/2025 3:08 PM EDT COMPREHENSIVE METABOLIC PANEL Routine 04/06/2025 6:50 PM [...] PM EDT Neuropathy involving both lower extremities HIV 1/2 ANTIGEN/ANTIBODY, FOURTH GENERATION W/RFL Routine 11/06/2021 12:00 AM EDT LIPID PANEL, STANDARD Routine 11/06/2021 12:00 AM EDT from Last 3 Months or Most Recently Relevant to Health Maintenance Results * XR Foot 3+ Views Bilateral (05/05/2025 3:08 PM EDT) Anatomical Region Laterality Modality Lower Extremities, Foot Bilateral Radiogra phic Imaging 05/05/2025 3:08 PM EDT Narrative 05/05/2025 3:31 PM EDT [place] [address] XRay Report Signed Patient: Demetri Story MR#: [id number] : 1975 Acct:[id number] Age/Sex: 49 / M ADM Date: 05/05/25 Loc: [facility] Attending Dr: Kitty Teresa COMPLAINT INVESTIGATOR Ordering Physician: Kitty Teresa Date of Service: 05/05/25 Procedure(s): XR Foot Gabriel 3V Accession Number(s): [id number] cc: Rubia Brantley MD; Kitty Teresa Reason for Exam: G57.30 - Lesion of lateral popliteal nerve, unspecified lower limb EXAMINATION: X-ray bilateral feet CLINICAL INFORMATION: Lesion in the popliteal nerve COMPARISON: None TECHNIQUE: Left foot 3 views. Right foot 3 views. FINDINGS: Right foot: No fracture or dislocation. No significant joint space narrowing or marginal osteophytes. No osseous erosion. No abnormal soft tissue calcification. Small posterior calcaneal insertional enthesopathy. Left foot: No fracture or dislocation. No significant joint space narrowing or marginal osteophytes. No osseous erosion. No abnormal soft tissue calcification. Tiny posterior calcaneal spur. XR/XR Foot Gabriel 3V IMPRESSION: No acute osseous findings Electronically signed by: Salvador Urbina MD 05/05/2025 03:28 PM EDT RP Dictated By: Salvador Urbina MD Signed By: <Electronically signed by Salvador Urbina MD in OV> 05/05/25 1528 DD/ 1508 TD/TT: 05/05/25 1510 Chemist Intern: REYNOLD Procedure Note Donotuseinterpreter, Image - 05/05/2025 [place] [address] XRay Report Signed Patient: Demetri StoryMR#: [id number] : 1975Acct:[id number] Age/Sex: 49 / MADM Date: 05/05/25 Loc: [facility] Attending Dr: Kitty HOLLAND Ordering Physician: Kitty Teresa Date of Service: 05/05/25 Procedure(s): XR Foot Gabriel 3V Accession Number(s): [id number] cc: Rubia Brantley MD; Kitty Teresa Reason for Exam: G57.30 - Lesion of lateral popliteal nerve, unspecifiedlower limb EXAMINATION: X-ray bilateral feet CLINICAL INFORMATION: Lesion in the popliteal nerve COMPARISON: None TECHNIQUE: Left foot 3 views. Right foot 3 views. FINDINGS: Right foot: No fracture or dislocation. No significant joint space narrowing or marginal osteophytes. No osseous erosion. No abnormal soft tissue calcification. Small posterior calcaneal insertional enthesopathy. Left foot: No fracture or dislocation. No significant joint space narrowing or marginal osteophytes. No osseous erosion. No abnormal soft tissue calcification. Tiny posterior calcaneal spur. XR/XR Foot Gabriel 3V IMPRESSION: No acute osseous findings Electronically signed by: Salvador Urbina MD 05/05/2025 03:28 PM EDT Dictated By: Salvador Urbina MD Signed By: <Electronically signed by Salvador Urbina MD in OV> 05/05/25 1528 DD/ 1508 TD/TT: 05/05/25 1510 Chemist Intern: REYNOLD [facility] External Provider IMG XR PROCEDURES Final Result * (ABNORMAL) CBC auto differential (04/06/2025 6:50 PM EDT) White Blood Count 8.4 4.8 - 10.8 X10*3/uL [facility] Red Blood Count 4.73 4.60 - 5.80 X10*6/uL [facility] Hemoglobin 14.3 14.0 - 18.0 g/dl [facility] Hematocrit 40.6(L) 42.0 - 52.0 % [facility] Mean Corpuscular Volume 85.8 80.0 - 98.0 fL [facility] Mean Corpuscular Hemoglobin 30.2 27.0 - 33.0 pg [facility] Mean Corpuscular HGB Conc 35.2 31.0 - 36.0 g/dl [facility] Red Cell Distribution Width 12.2 11.0 - 16.0 % [facility] Platelet Count 222 160 - 400 X10*3/uL [facility] Mean Platelet Volume 10.4 9.4 - 12.4 fL [facility] Neutrophils Percent Auto 52.6 45 - 73 % [facility] Imm Gran Pct Auto 0.1 0.0 - 0.4 % [facility] Lymphocytes Percent Auto 35.2 20 - 40 % [facility] Monocytes Percent Auto 7.3 2 - 11 % [facility] Eosinophils Percent Auto 4.0 0 - 4 % [facility] Basophils Percent Auto 0.8 0 - 2 % [facility] NRBC Pct Auto 0.0 0.0 - 0.2 /100WBC [facility] Neutrophils Absolute Auto 4.4 2.0 - 8.3 x10*3/uL [facility] Imm Gran Abs Auto 0.01 0.00 - 0.03 X10*3/uL [facility] Lymphocytes Absolute Auto 2.9 1.2 - 4.9 X10*3/uL [facility] Monocytes Absolute Auto 0.6 0.1 - 1.2 X10*3/uL [facility] Eosinophils Absolute Auto 0.3 0.0 - 0.4 X10*3/uL [facility] Basophils Absolute Auto 0.1 0.0 - 0.2 X10*3/uL [facility] NRBC Abs Auto 0.000 0.0 - 0.012 X10*3/uL [facility] 04/06/2025 6:50 PM EDT 04/06/2025 6:53 PM EDT us Generic External Data Provider LAB BLOOD ORDERAB LES Final Result [facility] [address] [place] [phone] * (ABNORMAL) Comprehensive Metabolic Panel (04/06/2025 6:50 PM EDT) Only the most recent of2 resultswithin the time period is included. Sodium 143 135 - 145 mmol/L [facility] Potassium 4.8 3.3 - 5.1 mmol/L [facility] Chloride 109(H) 96 - 108 mmol/L [facility] Carbon Dioxide 28 22 - 29 mmol/L [facility] Anion Gap 11(L) 12 - 20 [facility] Urea Nitrogen (BUN) 12 9 - 16 mg/dL [facility] Creatinine, Serum 0.88 0.5 - 1.4 mg/dL [facility] Creatinine Clr Calc Pharmacy 108.2 [facility] Comment:eGFR (calculated fro m the MDRD study equation) and eCrCl(calculated from the Cockcroft-Gault equation) are based ondifferent parameters and may not yield comparable results.If eCrCl result is absurd, please check patient'sheight/weight. Estimated Glomerular Filt Rate >60 [facility] Comment:Chronic Kidney Disea se: Estimated GFR < 60 mL/min/1.81k0[place] Kidney Disease: Estimated GFR < 15 mL/min/1.73m2 Glucose 98 60 - 115 mg/dL [facility] Calcium 9.4 8.4 - 10.2 mg/dL [facility] Bilirubin, Total 0.4 0.0 - 1.0 mg/dL [facility] Aspartate Amino Transferase 30 5 - 37 U/L [facility] Alanine Aminotransferase 37 0 - 40 U/L [facility] Total Protein 7.9 6.5 - 8.0 g/dL [facility] Albumin Level 4.5 3.5 - 5.0 g/dL [facility] Alkaline Phosphatase 94 39 - 117 U/L [facility] 04/06/2025 6:50 PM EDT 04/06/2025 6:53 PM EDT us Generic External Data Provider LAB BLOOD ORDERAB LES Final Result [facility] [address] [place] [phone] * Vitamin B12 (Cobalamin) and Folate Panel, Serum (03/11/2025 2:38 PM EDT) Vitamin B12 477 200 - 900 pg/mL [facility] Comment:NORMAL 200-900 PG/ML INDETERMINATE 160-199 PG/ML DEFICIENT < 160 PG/ML Folate 7.6 > or = 4.0 ng/mL [facility] Comment:Reference Values:> o r = 4.0 [...] BLOOD ORDERABLES Final Result Performing Organization Address [facility] Co de Phone Number [facility] [address] [place] [phone] * TSH with Reflex to Free T4 (03/11/2025 2:38 PM EDT) TSH reflex Free T4 1.39 0.32 - 4.0 uIU/mL [facility] Blood Venous blood specimen / Unknown 03/11/2025 2:38 PM EDT 03/11/2025 4:42 PM EDT Rubia Forbes MD LAB BLOOD ORDERABLES Final Result Performing Organization Address [facility] [address] [place] [phone] * RPR (Monitor) with Reflex to??Titer (03/11/2025 2:38 PM EDT) RPR (Monitor) w/Refl Titer NON-REACTI VE NON-REACT YURI [facility] Comment:THIS TEST WAS PERFOR MED AT:[facility] [place] [phone] ZULUAGA MD Rapid Plasma Reagin Ab Titer TNP [facility] Blood Venous blood specimen / Unknown 03/11/2025 2:38 PM EDT 03/11/2025 4:42 PM EDT us Rubia Forbes MD LAB BLOOD ORDERABLES Final Result [facility] [address] [place] [address] [phone] * Hemoglobin A1c (03/11/2025 2:38 PM EDT) Hemoglobin A1c 6.0 <6.0 % [facility] Comment:Hemoglobin A1C Refer ence Range Adults: 4.8 - 6.0 % Non diabetic: < 6.0 % Goal: < 7.0 %Additional Action Suggested: > 8.0 %Note: Hemoglobin A1c results are invalid for patients with abnormal amounts of HbF. Blood transfusions may impact the HbA1c concentration in the patient sample. Estimated Average Glucose 126 mg/dL [facility] Comment:eAG = Estimated ave rage glucose which is %A1C expressed asaverage glucose, using the formula of the B4B-SzhchicRtnunkd Glucose study (ADAG), Diabetes Care, Vol.31,#8,Feb. 2007 Blood Venous blood specimen / Unknown 03/11/2025 2:38 PM EDT 03/11/2025 4:42 PM EDT Rubia Forbes MD LAB BLOOD ORDERABLES Final Result [facility] [address] [place] [address] [phone] * HIV 1/2 ANTIGEN/ANTIBODY,FOURTH GENERATION W/RFL [...] purpose. For additional information please refer to http://education.IndiaIdeas/faq/SML823 (This link is being provided for informational/ educational purposes only.) The performance of this assay has not been clinically validated in patients less than 2 years old. 11/06/2021 Rubia Forbes MD LAB BLOOD ORDERABLES Final Result Performing Organization Address [facility] de Phone Number [facility] [address] * (ABNORMAL) LIPID PANEL, STANDARD (11/06/2021 [...] factors. LDL-C is now calculated using the Abrahan-Feliz calculation, which is a validated novel method providing better accuracy than the Friedewald equation in the estimation of LDL-C. Abrahan LAYNE et al. APRYL. 2013;310(19): 2292-7271 (http://education.[employer]arm.allyve/faq/VVS031) Non-HDL Cholesterol 142(H) <130 mg/dL (calc) [facility] Comment: For patients with diabetes plus 1 major ASCVD risk factor, treating to a non-HDL-C goal of <100 mg/dL (LDL-C of <70 mg/dL) is considered a therapeutic option. Triglycerides 145 <150 mg/dL [facility] 11/06/2021 us Rubia Forbes MD LAB BLOOD ORDERABLES Final Result Performing Organization Address [facility]/ZIP Co de Phone Number [facility] [address] [place] [address], from Last 3 Months or Most Recently Relevant to Health Maintenance Insurance [facility] C3 Care Teams Director Of Accounts Receivable Relationship Specialty Start Date End Date Rubia Brantley MD [address] [place] [phone] PCP - General Family Medicine 04/01/18
--- OUTSIDE RECORDS SUMMARY | 2025-05-05 17:45 | XMS_ITS | Encounter Summary ---
Author Organization [employer] Address [address] [facility] 7t [place] [address] Care Team Providers Care Refining Supervisor Name Role Phone Rubia Brantley MD Primary Care Provide r Encounter Details Date Type Department Care Team (Latest Contact Info) Description 01/18/2019 Abstract [facility] CONVERSIONS Dental, Provider, DDS Social History Tobacco [...] Description 06/01/2025 3:00 PM EST Office Visit [facility] MEDICINE [address] [place] [phone] Rubia Brantley MD [address] [place] [phone] documented as of this encounter Visit Diagnoses Not on filedocumented in this encounter Care Teams Refining Supervisor Relationship Specialty Start Date End Date Rubia Brantley MD [address] [place] [address] [phone] PCP - General Family Medicine 04/01/18 documented as of this encounter
--- OUTSIDE RECORDS SUMMARY | 2025-05-05 17:45 | XMS_ITS | Encounter Summary ---
Author Organization [employer] Address [address] [facility] 7t [place] [address] Care Team Providers Care Executive Casino Host Name Role Phone Rubia Brantley MD Primary Care Provide r Encounter Details Date Type Department Care Team (Latest Contact Info) Description 12/10/2018 Abstract [facility] CONVERSIONS Dental, Provider, DDS Social History [...] Description 06/01/2025 3:00 PM EST Office Visit [facility] MEDICINE [address] [place] [phone] Rubia Brantley MD [address] [place] [phone] documented as of this encounter Visit Diagnoses Not on filedocumented in this encounter Care Teams Executive Casino Host Relationship Specialty Start Date End Date Rubia Brantley MD [address] [place] [address] [phone] PCP - General Family Medicine 04/01/18 documented as of this encounter
--- OUTSIDE RECORDS SUMMARY | 2025-05-05 17:45 | XMS_ITS | Encounter Summary ---
Author Organization [employer] Address 75 [facility] 7t [place] [address] Care Team Providers Care Phlebotomy Support Tech Name Role Phone Rubia Brantley MD Primary Care Provide r Reason for Visit * Reason Comments Med Refill Encounter Details Date Type Department Care Team ([facility] st Contact Info) Description 11/19/2023 Refill [facility] MEDICINE [address] [place] [phone] Rubia Brantley MD [address] [place], [place] [phone] Insomnia, unspecified type Social History Tobacco Use [...] Description 06/01/2025 3:00 PM EST Office Visit [facility] MEDICINE [address] [place] [phone] Rubia Brantley MD [address] [place] [phone] documented as of this encounter Visit Diagnoses Diagnosis Insomnia, unspecified type documented in this encounter Additional Health Concerns Assessment Noted Time PHQ-9 Depression Total Score: 0 11/19/19 3:36 PM EDT documented as of this encounter Care Teams Phlebotomy Support Tech Relationship Specialty Start Date End Date Rubia Brantley MD [address] [place] [phone] PCP - General Family Medicine 04/01/18 documented as of this encounter
--- OUTSIDE RECORDS SUMMARY | 2025-05-05 17:45 | XMS_ITS | Encounter Summary ---
Author Organization [employer] Address [address] [facility] 7t [place] [address] Care Team Providers Care Document Control Coordinator Name Role Phone Rubia Brantley MD Primary Care Provide r Reason for Visit * Reason Comments Med Refill Encounter Details Date Type Department Care Team ([facility] st Contact Info) Description 03/30/2025 Refill [facility] MEDICINE [address] [place] [address] Rubia Brantley MD [address] [place], [place] [phone] Bilateral leg pain Social History Tobacco Use [...] Description 06/01/2025 3:00 PM EST Office Visit [facility] MEDICINE [address] [place] [phone] Rubia Brantley MD [address] [place] [phone] documented as of this encounter Visit Diagnoses Diagnosis Bilateral leg pain Pain in soft tissues of limb documented in this encounter Additional Health Concerns Assessment Noted Time PHQ-9 Depression Total Score: 0 11/19/19 24 3:36 PM EDT documented as of this encounter Care Teams Document Control Coordinator Relationship Specialty Start Date End Date Rubia Brantley MD [address] [place] [phone] PCP - General Family Medicine 04/01/18 documented as of this encounter
--- OUTSIDE RECORDS SUMMARY | 2025-05-05 17:45 | XMS_ITS | Encounter Summary ---
Author Organization [employer] Address [address] [facility] 7t [place] [address] Care Team Providers Care Hotel Reservationist Name Role Phone Rubia Brantley MD Primary Care Provide r Encounter Details Date Type Department Care Team (Late st Contact Info) Description 08/02/2022 Orders Only [facility] MEDICINE [address] [place] [address] [phone] Radha Collado MD [address] [place] [address] [phone] Venous insufficiency (Primary Dx) Social History Tobacco [...] Description 06/01/2025 3:00 PM EST Office Visit [facility] MEDICINE [address] [place] [address] [phone] Rubia Brantley MD [address] [place], [place] [phone] documented as of this encounter Procedures Procedure [...] Peptide (BNP) (09/11/2022 6:11 PM EST) Pathologist [facility] B Type Natriuretic Peptide <10 <100 pg/mL [facility] Comment:For those patients w ho are being treated with Natrecor(nesiritide, recombinant BNP), BNP testing should beperformed at least two hours post treatment in order toensure that only endogenous levels of BNP are detected. 09/11/2022 6:11 PM EST 09/11/2022 6:15 PM EST us [facility] External Provider LAB BLO OD ORDERABLES Final Result [facility] [address] [place] [phone] * Magnesium (09/11/2022 6:11 PM EST) Pathologist [facility] Magnesium 1.9 1.6 - 2.6 mg/dL [facility] 09/11/2022 6:11 PM EST 09/11/2022 6:15 PM EST [facility] External Provider LAB BLO OD ORDERABLES Final Result Performing Organization Address City/[facility] Co de Phone Number [facility] [address] [place] [address] [phone] * (ABNORMAL) Basic Metabolic Panel (09/11/2022 6:11 PM EST) Sodium 144 135 - 145 mmol/L [facility] Potassium 4.5 3.3 - 5.1 mmol/L [facility] Chloride 106 96 - 108 mmol/L [facility] Carbon Dioxide 32(H) 22 - 29 mmol/L [facility] Anion Gap 11(L) 12 - 20 [facility] Urea Nitrogen (BUN) 14 9 - 16 mg/dL [facility] Creatinine, Serum 0.87 0.5 - 1.4 mg/dL [facility] Creatinine Clr Calc Pharmacy 118.2 [facility] Comment:eGFR (calculated fro m the MDRD study equation) and eCrCl(calculated from the Cockcroft-Gault equation) are based ondifferent parameters and may not yield comparable results.If eCrCl result is absurd, please check patient'sheight/weight. Estimated Glomerular Filt Rate >60 [facility] Comment:NOTE: For -Am erican individuals, multiply the result by 1.210.Chronic Kidney Disease: Estimated GFR < 60 mL/min/1.20w3Hqvkhj Kidney Disease: Estimated GFR < 15 mL/min/1.73m2 Glucose 117(H) 60 - 115 mg/dL [facility] Calcium 9.7 8.4 - 10.2 mg/dL [facility] 09/11/2022 6:11 PM EST 09/11/2022 6:15 PM EST [facility] External Provider LAB BLO OD ORDERABLES Final Result [facility] [address] [place] [phone] * Hepatic Function Panel (09/11/2022 6:11 PM EST) [facility] Bilirubin, Total 0.4 0.0 - 1.0 mg/dL [facility] Bilirubin, Direct <0.2 0.0 - 0.5 mg/dL [facility] Aspartate Amino Transferase 22 5 - 37 U/L [facility] Alanine Aminotransferase 30 0 - 40 U/L [facility] Total Protein 8.0 6.5 - 8.0 g/dL [facility] Albumin Level 4.3 3.5 - 5.0 g/dL [facility] Alkaline Phosphatase 87 39 - 117 U/L [facility] 09/11/2022 6:11 PM EST 09/11/2022 6:15 PM EST [facility] External Provider LAB BLO OD ORDERABLES Final Result Performing Organization Address [facility] de Phone Number [facility] [address] [place] [phone] * (ABNORMAL) CBC auto differential (09/11/2022 6:11 PM EST) [facility] White Blood Count 6.5 4.8 - 10.8 X10*3/uL [facility] Red Blood Count 4.87 4.60 - 5.80 X10*6/uL [facility] Hemoglobin 14.3 14.0 - 18.0 g/dl [facility] Hematocrit 42.1 42.0 - 52.0 % [facility] Mean Corpuscular Volume 86.4 80.0 - 98.0 fL [facility] Mean Corpuscular Hemoglobin 29.4 27.0 - 33.0 pg [facility] Mean Corpuscular HGB Conc 34.0 31.0 - 36.0 g/dl [facility] Red Cell Distribution Width 12.0 11.0 - 16.0 % [facility] Platelet Count 237 160 - 400 X10*3/uL [facility] Mean Platelet Volume 9.8 9.4 - 12.4 fL [facility] Neutrophils Percent Auto 54.0 45 - 73 % [facility] Imm Gran Pct Auto 0.3 0.0 - 0.4 % [facility] Lymphocytes Percent Auto 32.7 20 - 40 % [facility] Monocytes Percent Auto 7.9 2 - 11 % [facility] Eosinophils Percent Auto 4.2(H) 0 - 4 % [facility] Basophils Percent Auto 0.9 0 - 2 % [facility] NRBC Pct Auto 0.0 0.0 - 0.2 /100WBC [facility] Neutrophils Absolute Auto 3.5 2.0 - 8.3 x10*3/uL [facility] Imm Gran Abs Auto 0.02 0.00 - 0.03 X10*3/uL [facility] Lymphocytes Absolute Auto 2.1 1.2 - 4.9 X10*3/uL [facility] Monocytes Absolute Auto 0.5 0.1 - 1.2 X10*3/uL [facility] Eosinophils Absolute Auto 0.3 0.0 - 0.4 X10*3/uL [facility] Basophils Absolute Auto 0.1 0.0 - 0.2 X10*3/uL [facility] NRBC Abs Auto 0.000 0.0 - 0.012 X10*3/uL [facility] 09/11/2022 6:11 PM EST 09/11/2022 6:15 PM EST us [facility] External Provider LAB BLO OD ORDERABLES Final Result [facility] [address] [place] [phone] * Vitamin D, 25-Hydroxy, Total, Immunoassay (08/02/2022 1:15 PM EST) Vitamin D 25-OH Total 19.6 >30 ng/mL [facility] Comment:Health Based Referen ce Values*< 20 ng/mL [id number] ng/mL Insufficient> 30 ng/mL Sufficient*Can HUITRON. N [...] 1:15 PM EST 08/02/2022 1:15 PM EST [facility] External Provider LAB BLO OD ORDERABLES Final Result [facility] [address] [place] [phone] * Comprehensive Metabolic Panel (08/02/2022 1:15 PM EST) Sodium 139 135 - 145 mmol/L [facility] Potassium 4.4 3.3 - 5.1 mmol/L [facility] Chloride 106 96 - 108 mmol/L [facility] Carbon Dioxide 22 22 - 29 mmol/L [facility] Anion Gap 15 12 - 20 [facility] Urea Nitrogen (BUN) 14 9 - 16 mg/dL [facility] Creatinine, Serum 0.85 0.5 - 1.4 mg/dL [facility] Estimated Glomerular Filt Rate >60 [facility] Comment:NOTE: For -Am erican individuals, multiply the result by 1.210.Chronic Kidney Disease: Estimated GFR < 60 mL/min/1.73z7Ciywuv Kidney Disease: Estimated GFR < 15 mL/min/1.73m2 Glucose 106 60 - 115 mg/dL [facility] Calcium 9.4 8.4 - 10.2 mg/dL [facility] Bilirubin, Total 0.3 0.0 - 1.0 mg/dL [facility] Aspartate Amino Transferase 26 5 - 37 U/L [facility] Alanine Aminotransferase 33 0 - 40 U/L [facility] Total Protein 8.0 6.5 - 8.0 g/dL [facility] Albumin Level 4.3 3.5 - 5.0 g/dL [facility] Alkaline Phosphatase 93 39 - 117 U/L [facility] 08/02/2022 1:15 PM EST 08/02/2022 1:15 PM EST [facility] External Provider LAB BLO OD ORDERABLES Final Result Performing Organization Address City/[facility]/ZIP Co de Phone Number [facility] [address] [place] [phone] * Vitamin B12/Folate, Serum Panel (08/02/2022 1:15 PM EST) Vitamin B12 510 200 - 900 pg/mL [facility] Comment:NORMAL 200-900 PG/ML INDETERMINATE 160-199 PG/ML DEFICIENT < 160 PG/ML Folate 15.2 > or = 4.0 ng/mL [facility] Comment:Reference Values:> o r = 4.0 ng/mL< 4.0 ng/mL suggests folate deficiency Methotrexate, aminopterin and folinic acid(leucovorin) are chemotherapeutic agents whose molecularstructures are similar to folate; therefore, the Architectfolate assay cannot be used for patients using these drugs. 08/02/2022 1:15 PM EST 08/02/2022 1:15 PM EST [facility] External Provider LAB BLO OD ORDERABLES Final Result Performing Organization Address City/[facility]/ZIP Co de Phone Number [facility] [address] [place] [phone] * Prothrombin Time-INR (08/02/2022 1:15 PM EST) Prothrombin Time 12.0 10.0 - 13.1 SEC [facility] INTERNATIONAL NORM RATIO 1.0 0.9 - 1.1 [facility] Comment:INTERNATIONAL NORMAL IZED RATIO (INR) [...] 1:15 PM EST 08/02/2022 1:15 PM EST [facility] External Provider LAB BLO OD ORDERABLES Final Result [facility] [address] [place] [phone] * (ABNORMAL) CBC auto differential (08/02/2022 1:15 PM EST) [facility] White Blood Count 6.8 4.8 - 10.8 X10*3/uL [facility] Red Blood Count 4.89 4.60 - 5.80 X10*6/uL [facility] Hemoglobin 14.3 14.0 - 18.0 g/dl [facility] Hematocrit 41.9(L) 42.0 - 52.0 % [facility] Mean Corpuscular Volume 85.7 80.0 - 98.0 fL [facility] Mean Corpuscular Hemoglobin 29.2 27.0 - 33.0 pg [facility] Mean Corpuscular HGB Conc 34.1 31.0 - 36.0 g/dl [facility] Red Cell Distribution Width 11.9 11.0 - 16.0 % [facility] Platelet Count 231 160 - 400 X10*3/uL [facility] Mean Platelet Volume 9.8 9.4 - 12.4 fL [facility] Neutrophils Percent Auto 59.5 45 - 73 % [facility] Imm Gran Pct Auto 0.1 0.0 - 0.4 % [facility] Lymphocytes Percent Auto 28.0 20 - 40 % [facility] Monocytes Percent Auto 7.6 2 - 11 % [facility] Eosinophils Percent Auto 4.1(H) 0 - 4 % [facility] Basophils Percent Auto 0.7 0 - 2 % [facility] NRBC Pct Auto 0.0 0.0 - 0.2 /100WBC [facility] Neutrophils Absolute Auto 4.1 2.0 - 8.3 x10*3/uL [facility] Imm Gran Abs Auto 0.01 0.00 - 0.03 X10*3/uL [facility] Lymphocytes Absolute Auto 1.9 1.2 - 4.9 X10*3/uL [facility] Monocytes Absolute Auto 0.5 0.1 - 1.2 X10*3/uL [facility] Eosinophils Absolute Auto 0.3 0.0 - 0.4 X10*3/uL [facility] Basophils Absolute Auto 0.1 0.0 - 0.2 X10*3/uL [facility] NRBC Abs Auto 0.000 0.0 - 0.012 X10*3/uL [facility] 08/02/2022 1:15 PM EST 08/02/2022 1:15 PM EST us [facility] External Provider LAB BLO OD ORDERABLES Final Result Performing Organization Address City/State/[facility] Co de Phone Number [facility] [address] [place] [phone] documented in this encounter Visit Diagnoses Diagnosis Venous insufficiency- Primary Unspecified venous (peripheral) insufficiency documented in this encounter Care Teams Hotel Reservationist Relationship Specialty Start Date End Date Rubia Brantley MD [address] [place] [phone] PCP - General Family Medicine 04/01/18 documented as of this encounter
== END 2025-05-05 14:44 | disposition home or self-care (01) ==
PROVIDERS: PCP Internal Medicine; Visit Provider Nurse Practitioner Family
DX: G57.30 Lesion of lateral popliteal nerve, unspecified lower limb (principal); M79.671 Pain in right foot; M79.672 Pain in left foot
CPT/HCPCS: 99204

== ENCOUNTER → 2025-05-05 15:01 | Outpatient (BNV) | payer MEDICAID, SELFPAY | PROVIDERS: PCP Internal Medicine; Visit Provider Radiology Diagnostic Ultrasound | DX: M77.51 Other enthesopathy of right foot and ankle (principal); M77.32 Calcaneal spur, left foot | CPT/HCPCS: 73630 ==

== ENCOUNTER 2025-05-10 14:43 | Outpatient (REF) | payer MEDICAID, SELFPAY ==
--- NOTE | ~2025-05-10 | US_ITS ---
CLINICAL HISTORY: pain on riht testicle US scrotum with Doppler Comparison: None Technique: Real time sonographic imaging, including color-flow imaging, was performed by the webbing inspector. Multiple strategic partnership representative static images were saved for review. Findings: Right testicle normal size and echotexture, 4.5 cm. Normal color flow and spectral tracing. Normal epididymis. No hydrocele or varicocele. A 3 mm right scrotal calcification may represent a tiny scrotal christelle, incidental finding.. Left testicle normal size and echotexture, 4.3 cm. Normal color flow and spectral tracing. Normal epididymis. No hydrocele or varicocele. Impression: 1. Likely tiny right scrotal christelle. Otherwise, unremarkable scrotal ultrasound This document has been electronically signed by: Stuart Espinosa MD on 05/11/2025 19:35:50
--- OUTSIDE RECORDS SUMMARY | 2025-05-10 19:47 | XMS_ITS | Clinical Summary ---
Author Organization [email or web address] Address [address] [facility] [address] [place] [address] Care Team Providers Care Home Designer Name Role Phone Rubia Brantley MD Primary [...] 30 tablet 1 02/26/20 25 025 Discontinued Active Problems Problem Noted Date Diagnosed Date Pain in right testicle 03/11/2025 Assessment & Plan (03/11/2025 4:43 PM EDT): I will order at scrotal ultrasound after results I will put in a referral for urologist in [facility] Neuropathy involving both lower extremities 02/19 Assessment [...] depression, sin gle episode, without psychotic features (CMS/HCC) 12/24/2017 Assessment & Plan (03/11/2025 4:44 PM [...] Type Department Care Team Description 04/26/2025 Refill [facility] [address] [place] [phone] Rubia Brantley MD Insomnia, unspecified type 04/08/2025 Orders Only [facility] [address] [place] [phone] Rubia Brantley MD Neuropathy involving both lower extremities (Primary Dx); Bilateral leg pain; Chronic pain of both feet 03/31/2025 9:20 AM EDT Office Visit [facility] [address] [place] [phone] Rylan Carr MD Abdominal wall cellulitis (Primary Dx) 03/31/[address] [facility] [address] [place], [place] [phone] Rubia Brantley MD NOV RECALL 03/31/2025 Travel 03/30/2025 Refill [facility] [address] [place] [phone] Rubia Brantley MD Bilateral leg pain 03/29/2025 3:40 PM EDT Office Visit [facility] [address] [place] [phone] Demetrice Shi MD Cellulitis, unspecified cellulitis site (Primary Dx); Allergic reaction, sequela 03/29/2025 Travel 03/28/2025 Telephone [facility] [address] [place] [phone] Rubia Brantley MD Referral 03/11/2025 1:45 PM EDT Office Visit [facility] [address] [place] [address] [phone] Rubia Brantley MD Neuropathy involving both lower extremities (Primary Dx); Severe major depression, single episode, without psychotic features (CMS/HCC); Cirrhosis of liver without ascites, unspecified hepatic cirrhosis type (CMS/HCC); Pain in right testicle; Venous insufficiency of both lower extremities; Bilateral leg pain 03/11/2025 Travel 03/08/2025 Telephone [facility] [address] [place] [address] Rubia Brantley MD Chart Prep 03/01/2025 Refill [facility] [address] [place] [address] Rubia Brantley MD Bilateral leg pain 02/23/2025 Refill [facility] [address] [place] [address] Rubia Brantley MD Insomnia, unspecified type from [...] 3:00 PM EST Office Visit [facility] [address] [place] [address] Rubia Brantley MD [address] [place] [address] Health Maintenance Due Date Last Done Comments [...] Laterality Modality Lower Extremities, Foot [facility] 05/05/2025 3:08 PM EDT Narrative 05/05/2025 3:31 PM EDT [place] [address] COYay Report Signed Patient: Demetri Story MR#: [id number] : 1975 Acct:[id number] Age/Sex: 49 / M ADM Date: 05/05/25 Loc: [facility] Attending Dr: Kitty HOLLAND Ordering Physician: Kitty Teresa Date of Service: 05/05/25 Procedure(s): XR Foot Gabriel 3V Accession Number(s): [id number] cc: Rubia Brantley MD; Kitty Teresa Reason [...] 05/05/25 1528 DD/ 1508 TD/TT: 05/05/25 1510 Art Conservator: REYNOLD Procedure Note Donotuseinterpreter, Image - 05/05/2025 [place] [address] XRay Report Signed Patient: Demetri Story#: [id number] : 1975Acct:[id number] Age/Sex: 49 / MADM Date: 05/05/25 Loc: [facility] Attending Dr: Kitty HOLLAND Ordering Physician: Kitty Teresa Date of Service: 05/05/25 Procedure(s): XR Foot Gabriel 3V Accession Number(s): [id number] cc: Rubia Brantley MD; Kitty Teresa Reason [...] 05/05/25 1528 DD/ 1508 TD/TT: 05/05/25 1510 Art Conservator: HB us [facility] External Provider IMG XR PROCEDURES Final Result * (ABNORMAL) CBC auto differential (04/06/2025 6:50 PM EDT) White Blood Count 8.4 4.8 - 10.8 X10*3/uL [facility] Red Blood Count 4.73 4.60 - 5.80 X10*6/uL [facility] Hemoglobin 14.3 14.0 - 18.0 g/dl [facility] Hematocrit 40.6(L) 42.0 - 52.0 % [facility] Mean Corpuscular Volume 85.8 80.0 - 98.0 fL [facility] Mean Corpuscular Hemoglobin 30.2 27.0 - 33.0 pg [facility] Mean Corpuscular HGB Conc 35.2 31.0 - 36.0 g/dl [facility] Red Cell Distribution Width 12.2 11.0 - 16.0 % [facility] Platelet Count 222 160 - 400 X10*3/uL [facility] Mean Platelet Volume 10.4 9.4 - 12.4 fL [facility] Neutrophils Percent Auto 52.6 45 - 73 % [facility] Imm Gran Pct Auto 0.1 0.0 - 0.4 % [facility] Lymphocytes Percent Auto 35.2 20 - 40 % [facility] Monocytes Percent Auto 7.3 2 - 11 % [facility] Eosinophils Percent Auto 4.0 0 - 4 % [facility] Basophils Percent Auto 0.8 0 - 2 % [facility] NRBC Pct Auto 0.0 0.0 - 0.2 /100WBC [facility] Neutrophils Absolute Auto 4.4 2.0 - 8.3 x10*3/uL [facility] Imm Gran Abs Auto 0.01 0.00 - 0.03 X10*3/uL [facility] Lymphocytes Absolute Auto 2.9 1.2 - 4.9 X10*3/uL [facility] Monocytes Absolute Auto 0.6 0.1 - 1.2 X10*3/uL [facility] Eosinophils Absolute Auto 0.3 0.0 - 0.4 X10*3/uL [facility] Basophils Absolute Auto 0.1 0.0 - 0.2 X10*3/uL [facility] NRBC Abs Auto 0.000 0.0 - 0.012 X10*3/uL [facility] 04/06/2025 6:50 PM EDT 04/06/2025 6:53 PM EDT us Generic External Data Provider LAB BLOOD ORDERAB LES Final Result [facility] [address] [place] [phone] * (ABNORMAL) Comprehensive Metabolic Panel (04/06/2025 6:50 PM EDT) Only the most recent of2 resultswithin the time period is included. Sodium 143 135 - 145 mmol/L [facility] Potassium 4.8 3.3 - 5.1 mmol/L [facility] Chloride 109(H) 96 - 108 mmol/L [facility] Carbon Dioxide 28 22 - 29 mmol/L [facility] Anion Gap 11(L) 12 - 20 [facility] Urea Nitrogen (BUN) 12 9 - 16 mg/dL [facility] Creatinine, Serum 0.88 0.5 - 1.4 mg/dL [facility] Creatinine Clr Calc Pharmacy 108.2 [facility] Comment:eGFR (calculated fro m the MDRD study equation) and eCrCl(calculated from the Cockcroft-Gault equation) are based ondifferent parameters and may not yield comparable results.If eCrCl result is absurd, please check patient'sheight/weight. Estimated Glomerular Filt Rate >60 [facility] Comment:Chronic Kidney Disea se: Estimated GFR < 60 mL/min/1.35l2Imarxh Kidney Disease: Estimated GFR < 15 mL/min/1.73m2 Glucose 98 60 - 115 mg/dL [facility] Calcium 9.4 8.4 - 10.2 mg/dL [facility] Bilirubin, Total 0.4 0.0 - 1.0 mg/dL [facility] Aspartate Amino Transferase 30 5 - 37 U/L [facility] Alanine Aminotransferase 37 0 - 40 U/L [facility] Total Protein 7.9 6.5 - 8.0 g/dL [facility] Albumin Level 4.5 3.5 - 5.0 g/dL [facility] Alkaline Phosphatase 94 39 - 117 U/L [facility] 04/06/2025 6:50 PM EDT 04/06/2025 6:53 PM EDT us Generic External Data Provider LAB BLOOD ORDERAB LES Final Result [facility] [address] [place] [phone] * Vitamin B12 (Cobalamin) and Folate Panel, Serum (03/11/2025 2:38 PM EDT) Vitamin B12 477 200 - 900 pg/mL [facility] Comment:NORMAL 200-900 PG/ML INDETERMINATE 160-199 PG/ML DEFICIENT < 160 PG/ML Folate 7.6 > or = 4.0 ng/mL [facility] Comment:Reference Values:> o r = [...] BLOOD ORDERABLES Final Result Performing Organization Address [facility] Co de Phone Number [facility] [address] [place] [phone] * TSH with Reflex to Free T4 (03/11/2025 2:38 PM EDT) TSH reflex Free T4 1.39 0.32 - 4.0 uIU/mL [facility] Blood Venous blood specimen / Unknown 03/11/2025 2:38 PM EDT 03/11/2025 4:42 PM EDT us Rubia Forbes MD LAB BLOOD ORDERABLES Final Result Performing Organization Address [facility] Phone Number [facility] [address] [place] [phone] * RPR (Monitor) with Reflex to??Titer (03/11/2025 2:38 PM EDT) RPR (Monitor) w/Refl Titer NON-REACTI VE NON-REACT YURI [facility] Comment:THIS TEST WAS PERFOR MED AT:[facility] [address] [phone] ZULUAGA MD Rapid Plasma Reagin Ab Titer TNP [facility] Blood Venous blood specimen / Unknown 03/11/2025 2:38 PM EDT 03/11/2025 4:42 PM EDT us Rubia Forbes MD LAB BLOOD ORDERABLES Final Result Performing Organization Address [facility] Co de Phone Number [facility] [address] [place] [phone] * Hemoglobin A1c (03/11/2025 2:38 PM EDT) Hemoglobin A1c 6.0 <6.0 % [facility] Comment:Hemoglobin A1C Refer ence Range Adults: 4.8 - 6.0 % Non diabetic: < 6.0 % Goal: < 7.0 %Additional Action Suggested: > 8.0 %Note: Hemoglobin A1c results are invalid for patients with abnormal amounts of HbF. Blood transfusions may impact the HbA1c concentration in the patient sample. Estimated Average Glucose 126 mg/dL [facility] Comment:eAG = Estimated ave rage glucose which is %A1C expressed asaverage glucose, using the formula of the V3O-KyiddsaQxwihiy Glucose study (ADAG), Diabetes Care, Vol.31,#8,2007 Blood Venous blood specimen / Unknown 03/11/2025 2:38 PM EDT 03/11/2025 4:42 PM EDT Rubia Forbes MD LAB BLOOD ORDERABLES Final Result [facility] [address] [place] [phone] * HIV 1/2 ANTIGEN/ANTIBODY,FOURTH GENERATION W/RFL (11/06/2021 12:00 AM EDT) Pathologist [facility] HIV-1/2 ANTIGEN AND ANTIBODIES, 4TH GENERATION W/ REFLEX NON-REACT YURI NON-REACT YUIR [facility] Comment: HIV-1 antigen and HIV-1/HIV-2 [...] purpose. For additional information please refer to http://education.CoinBatch.Parature/faq/UDU315 (This link is being provided for informational/ educational purposes only.) The performance of this assay has not been clinically validated in patients less than 2 years old. 11/06/2021 Rubia Forbes MD LAB BLOOD ORDERABLES Final Result Performing Organization Address [facility] de Phone Number [facility] [address] * (ABNORMAL) LIPID PANEL, STANDARD (11/06/2021 [...] factors. LDL-C is now calculated using the Abrahan-Tray calculation, which is a validated novel method providing better accuracy than the Friedewald equation in the estimation of LDL-C. Abrahan LAYNE et al. APRYL. 2013;310(19): 3743-1474 (http://education.Docurated.com/faq/UTF921) Non-HDL Cholesterol 142(H) <130 mg/dL (calc) [facility] Comment: For patients with diabetes plus 1 major ASCVD risk factor, treating to a non-HDL-C goal of <100 mg/dL (LDL-C of <70 mg/dL) is considered a therapeutic option. Triglycerides 145 <150 mg/dL [facility] 11/06/2021 us Rubia Forbes MD LAB BLOOD ORDERABLES Final Result Performing Organization Address [facility] Co de Phone Number [facility] [address] from Last 3 Months or Most Recently Relevant to Health Maintenance Insurance [facility] C3 * Guarantor: Demetri Story Account Type Relation to Patient Date of Phone Billing Address Personal/Family Self [address] Care Teams Home Designer Relationship Specialty Start Date End Date Rubia Brantley MD [address] [place] [phone] PCP - General Family Medicine 04/01/18
--- OUTSIDE RECORDS SUMMARY | 2025-05-10 19:48 | XMS_ITS | Encounter Summary ---
Author Organization [employer] Address [address] [facility] [address]t [place] [address] Care Team Providers Care Ap Operator Name Role Phone Rubia Brantley MD Primary Care Provide r Encounter Details Date Type Department Care Team (Latest Contact Info) Description 01/18/2019 Abstract [facility] CONVERSIONS Dental, Provider, DDS Social History [...] PM EST Office Visit [facility] [address] [place] [phone] Rubia Brantley MD [address] [place] [phone] documented as of this encounter Visit Diagnoses Not on filedocumented in this encounter Care Teams Ap Operator Relationship Specialty Start Date End Date Rubia Brantley MD [address] [place] [address] [phone] PCP - General Family Medicine 04/01/18 documented as of this encounter
--- OUTSIDE RECORDS SUMMARY | 2025-05-10 19:48 | XMS_ITS | Encounter Summary ---
Author Organization [employer] Address [address] [facility] 7t [place] [address] Care Team Providers Care Custom Tailor Name Role Phone Rubia Brantley MD Primary Care Provide r Encounter Details Date Type Department Care Team (Late st Contact Info) Description 08/02/2022 Orders Only [facility] [address] [place] [address] [phone] Radha Collado MD [address] [place] [address] [phone] Venous insufficiency (Primary Dx) Social History Tobacco [...] Description 06/01/2025 3:00 PM EST Office Visit [facility] [address] [place] [address] [phone] Rubia Brantley MD [address] [place], [place] [phone] documented as of this encounter Procedures Procedure [...] B Type Natriuretic Peptide <10 <100 pg/mL [facility] Comment:For those patients w ho are being treated with Natrecor(nesiritide, recombinant BNP), BNP testing should beperformed at least two hours post treatment in order toensure that only endogenous levels of BNP are detected. 09/11/2022 6:11 PM EST 09/11/2022 6:15 PM EST us [facility] External Provider LAB BLO OD ORDERABLES Final Result [facility] [address] [place] [phone] * Magnesium (09/11/2022 6:11 PM EST) Pathologist [facility] Magnesium 1.9 1.6 - 2.6 mg/dL [facility] 09/11/2022 6:11 PM EST 09/11/2022 6:15 PM EST [facility] External Provider LAB BLO OD ORDERABLES Final Result Performing Organization Address City/[facility] Co de Phone Number [facility] [address] [place] [address] [phone] * (ABNORMAL) Basic Metabolic Panel (09/11/2022 6:11 PM EST) Sodium 144 135 - 145 mmol/L [facility] Potassium 4.5 3.3 - 5.1 mmol/L [facility] Chloride 106 96 - 108 mmol/L [facility] Carbon Dioxide 32(H) 22 - 29 mmol/L [facility] Anion Gap 11(L) 12 - 20 [facility] Urea Nitrogen (BUN) 14 9 - 16 mg/dL [facility] Creatinine, Serum 0.87 0.5 - 1.4 mg/dL [facility] Creatinine Clr Calc Pharmacy 118.2 [facility] Comment:eGFR (calculated fro m the MDRD study equation) and eCrCl(calculated from the Cockcroft-Gault equation) are based ondifferent parameters and may not yield comparable results.If eCrCl result is absurd, please check patient'sheight/weight. Estimated Glomerular Filt Rate >60 [facility] Comment:NOTE: For -Am erican individuals, multiply the result by 1.210.Chronic Kidney Disease: Estimated GFR < 60 mL/min/[id number] Kidney Disease: Estimated GFR < 15 mL/min/1.73m2 Glucose 117(H) 60 - 115 mg/dL [facility] Calcium 9.7 8.4 - 10.2 mg/dL [facility] 09/11/2022 6:11 PM EST 09/11/2022 6:15 PM EST [facility] External Provider LAB BLO OD ORDERABLES Final Result [facility] [address] [place] [phone] * Hepatic Function Panel (09/11/2022 6:11 PM EST) [facility] Bilirubin, Total 0.4 0.0 - 1.0 mg/dL [facility] Bilirubin, Direct <0.2 0.0 - 0.5 mg/dL [facility] Aspartate Amino Transferase 22 5 - 37 U/L [facility] Alanine Aminotransferase 30 0 - 40 U/L [facility] Total Protein 8.0 6.5 - 8.0 g/dL [facility] Albumin Level 4.3 3.5 - 5.0 g/dL [facility] Alkaline Phosphatase 87 39 - 117 U/L [facility] 09/11/2022 6:11 PM EST 09/11/2022 6:15 PM EST [facility] External Provider LAB BLO OD ORDERABLES Final Result Performing Organization Address [facility] de Phone Number [facility] [address] [place] [phone] * (ABNORMAL) CBC auto differential (09/11/2022 6:11 PM EST) [facility] White Blood Count 6.5 4.8 - 10.8 X10*3/uL [facility] Red Blood Count 4.87 4.60 - 5.80 X10*6/uL [facility] Hemoglobin 14.3 14.0 - 18.0 g/dl [facility] Hematocrit 42.1 42.0 - 52.0 % [facility] Mean Corpuscular Volume 86.4 80.0 - 98.0 fL [facility] Mean Corpuscular Hemoglobin 29.4 27.0 - 33.0 pg [facility] Mean Corpuscular HGB Conc 34.0 31.0 - 36.0 g/dl [facility] Red Cell Distribution Width 12.0 11.0 - 16.0 % [facility] Platelet Count 237 160 - 400 X10*3/uL [facility] Mean Platelet Volume 9.8 9.4 - 12.4 fL [facility] Neutrophils Percent Auto 54.0 45 - 73 % [facility] Imm Gran Pct Auto 0.3 0.0 - 0.4 % [facility] Lymphocytes Percent Auto 32.7 20 - 40 % [facility] Monocytes Percent Auto 7.9 2 - 11 % [facility] Eosinophils Percent Auto 4.2(H) 0 - 4 % [facility] Basophils Percent Auto 0.9 0 - 2 % [facility] NRBC Pct Auto 0.0 0.0 - 0.2 /100WBC [facility] Neutrophils Absolute Auto 3.5 2.0 - 8.3 x10*3/uL [facility] Imm Gran Abs Auto 0.02 0.00 - 0.03 X10*3/uL [facility] Lymphocytes Absolute Auto 2.1 1.2 - 4.9 X10*3/uL [facility] Monocytes Absolute Auto 0.5 0.1 - 1.2 X10*3/uL [facility] Eosinophils Absolute Auto 0.3 0.0 - 0.4 X10*3/uL [facility] Basophils Absolute Auto 0.1 0.0 - 0.2 X10*3/uL [facility] NRBC Abs Auto 0.000 0.0 - 0.012 X10*3/uL [facility] 09/11/2022 6:11 PM EST 09/11/2022 6:15 PM EST us [facility] External Provider LAB BLO OD ORDERABLES Final Result [facility] [address] [place] [phone] * Vitamin D, 25-Hydroxy, Total, Immunoassay (08/02/2022 1:15 PM EST) Vitamin D 25-OH Total 19.6 >30 ng/mL [facility] Comment:Health Based Referen ce Values*< 20 ng/mL Hhcucesmn95-26 ng/mL Insufficient> 30 ng/mL Sufficient*Can HUITRON. N [...] 1:15 PM EST 08/02/2022 1:15 PM EST [facility] External Provider LAB BLO OD ORDERABLES Final Result [facility] [address] [place] [phone] * Comprehensive Metabolic Panel (08/02/2022 1:15 PM EST) Sodium 139 135 - 145 mmol/L [facility] Potassium 4.4 3.3 - 5.1 mmol/L [facility] Chloride 106 96 - 108 mmol/L [facility] Carbon Dioxide 22 22 - 29 mmol/L [facility] Anion Gap 15 12 - 20 [facility] Urea Nitrogen (BUN) 14 9 - 16 mg/dL [facility] Creatinine, Serum 0.85 0.5 - 1.4 mg/dL [facility] Estimated Glomerular Filt Rate >60 [facility] Comment:NOTE: For -Am erican individuals, multiply the result by 1.210.Chronic Kidney Disease: Estimated GFR < 60 mL/min/1.17q1Cfmfug Kidney Disease: Estimated GFR < 15 mL/min/1.73m2 Glucose 106 60 - 115 mg/dL [facility] Calcium 9.4 8.4 - 10.2 mg/dL [facility] Bilirubin, Total 0.3 0.0 - 1.0 mg/dL [facility] Aspartate Amino Transferase 26 5 - 37 U/L [facility] Alanine Aminotransferase 33 0 - 40 U/L [facility] Total Protein 8.0 6.5 - 8.0 g/dL [facility] Albumin Level 4.3 3.5 - 5.0 g/dL [facility] Alkaline Phosphatase 93 39 - 117 U/L [facility] 08/02/2022 1:15 PM EST 08/02/2022 1:15 PM EST [facility] External Provider LAB BLO OD ORDERABLES Final Result Performing Organization Address City/[facility]/ZIP Co de Phone Number [facility] [address] [place] [phone] * Vitamin B12/Folate, Serum Panel (08/02/2022 1:15 PM EST) Vitamin B12 510 200 - 900 pg/mL [facility] Comment:NORMAL 200-900 PG/ML INDETERMINATE 160-199 PG/ML DEFICIENT < 160 PG/ML Folate 15.2 > or = 4.0 ng/mL [facility] Comment:Reference Values:> o r = 4.0 ng/mL< 4.0 ng/mL suggests folate deficiency Methotrexate, aminopterin and folinic acid(leucovorin) are chemotherapeutic agents whose molecularstructures are similar to folate; therefore, the Architectfolate assay cannot be used for patients using these drugs. 08/02/2022 1:15 PM EST 08/02/2022 1:15 PM EST [facility] External Provider LAB BLO OD ORDERABLES Final Result Performing Organization Address City/[facility]/ZIP Co de Phone Number [facility] [address] [place] [phone] * Prothrombin Time-INR (08/02/2022 1:15 PM EST) Prothrombin Time 12.0 10.0 - 13.1 SEC [facility] INTERNATIONAL NORM RATIO 1.0 0.9 - 1.1 [facility] Comment:INTERNATIONAL NORMAL IZED RATIO (INR) [...] 1:15 PM EST 08/02/2022 1:15 PM EST [facility] External Provider LAB BLO OD ORDERABLES Final Result [facility] [address] [place] [phone] * (ABNORMAL) CBC auto differential (08/02/2022 1:15 PM EST) [facility] White Blood Count 6.8 4.8 - 10.8 X10*3/uL [facility] Red Blood Count 4.89 4.60 - 5.80 X10*6/uL [facility] Hemoglobin 14.3 14.0 - 18.0 g/dl [facility] Hematocrit 41.9(L) 42.0 - 52.0 % [facility] Mean Corpuscular Volume 85.7 80.0 - 98.0 fL [facility] Mean Corpuscular Hemoglobin 29.2 27.0 - 33.0 pg [facility] Mean Corpuscular HGB Conc 34.1 31.0 - 36.0 g/dl [facility] Red Cell Distribution Width 11.9 11.0 - 16.0 % [facility] Platelet Count 231 160 - 400 X10*3/uL [facility] Mean Platelet Volume 9.8 9.4 - 12.4 fL [facility] Neutrophils Percent Auto 59.5 45 - 73 % [facility] Imm Gran Pct Auto 0.1 0.0 - 0.4 % [facility] Lymphocytes Percent Auto 28.0 20 - 40 % [facility] Monocytes Percent Auto 7.6 2 - 11 % [facility] Eosinophils Percent Auto 4.1(H) 0 - 4 % [facility] Basophils Percent Auto 0.7 0 - 2 % [facility] NRBC Pct Auto 0.0 0.0 - 0.2 /100WBC [facility] Neutrophils Absolute Auto 4.1 2.0 - 8.3 x10*3/uL [facility] Imm Gran Abs Auto 0.01 0.00 - 0.03 X10*3/uL [facility] Lymphocytes Absolute Auto 1.9 1.2 - 4.9 X10*3/uL [facility] Monocytes Absolute Auto 0.5 0.1 - 1.2 X10*3/uL [facility] Eosinophils Absolute Auto 0.3 0.0 - 0.4 X10*3/uL [facility] Basophils Absolute Auto 0.1 0.0 - 0.2 X10*3/uL [facility] NRBC Abs Auto 0.000 0.0 - 0.012 X10*3/uL [facility] 08/02/2022 1:15 PM EST 08/02/2022 1:15 PM EST us [facility] External Provider LAB BLO OD ORDERABLES Final Result Performing Organization Address City/State/[facility] Co de Phone Number [facility] [address] [place] [phone] documented in this encounter Visit Diagnoses Diagnosis Venous insufficiency- Primary Unspecified venous (peripheral) insufficiency documented in this encounter Care Teams Custom Tailor Relationship Specialty Start Date End Date Rubia Brantlye MD [address] [place] [phone] PCP - General Family Medicine 04/01/18 documented as of this encounter
--- OUTSIDE RECORDS SUMMARY | 2025-05-10 19:48 | XMS_ITS | Clinical Summary ---
Author Organization [address] [facility] Address [address] [place] [phone] Phone Care Team Providers Care Glass Blower Helper Name Role Phone Rubia Brantley MD Primary Care Provide r Encounters Date Type Department Care Team Description 03/03/2025 1:45 PM EDT Consult [facility] [address] [phone] Austin Gottlieb DPM Neuritis (Primary Dx); Bilateral [...] Upcoming Encounters Date Type Department Care Team ([facility] Contact Info) Description 06/06/2025 1:45 PM EST Office Visit Orthopedic Surgery [facility] [address] [phone] Austin Gottlieb DPM [address] [phone] Health Maintenance Due Date Last Done Comments [...] topic Insurance MEDICAID - [place] Care Teams Glass Blower Helper Relationship Specialty Start Date End Date Rubia Brantley MD [address] [phone] PCP - General Internal Medicine 12/09/24
--- OUTSIDE RECORDS SUMMARY | 2025-05-10 19:48 | XMS_ITS | Encounter Summary ---
Author Organization [employer] Address 75 [facility] 7t [place] [address] Care Team Providers Care Therapeutic Riding Instructor Name Role Phone Rubia Brantley MD Primary Care Provide r Reason for Visit * Reason Comments Med Refill Encounter Details Date Type Department Care Team ([facility] st Contact Info) Description 03/30/2025 Refill [facility] [address] [place] [address] Rubia Brantley MD [address] [place], [place] [phone] Bilateral leg pain Social History Tobacco Use [...] Description 06/01/2025 3:00 PM EST Office Visit [facility] [address] [place] [phone] Rubia Brantley MD [address] [place] [phone] documented as of this encounter Visit Diagnoses Diagnosis Bilateral leg pain Pain in soft tissues of limb documented in this encounter Additional Health Concerns Assessment Noted Time PHQ-9 Depression Total Score: 0 11/19/19 24 3:36 PM EDT documented as of this encounter Care Teams Therapeutic Riding Instructor Relationship Specialty Start Date End Date Rubia Brantley MD [address] [place] [phone] PCP - General Family Medicine 04/01/18 documented as of this encounter
--- OUTSIDE RECORDS SUMMARY | 2025-05-10 19:48 | XMS_ITS | Encounter Summary ---
Author Organization [employer] Address [address] [facility] [address] [place] [address] Care Team Providers Care Wood Flour Miller Name Role Phone Rubia Brantley MD Primary Care Provide r Encounter Details Date Type Department Care Team (Latest Contact Info) Description 12/10/2018 Abstract [facility] CONVERSIONS Dental, Provider, DDS Social History [...] 3:00 PM EST Office Visit [facility] [address] [place] [phone] Rubia Brantley MD [address] [place] [phone] documented as of this encounter Visit Diagnoses Not on filedocumented in this encounter Care Teams Wood Flour Miller Relationship Specialty Start Date End Date Rubia Brantley MD [address] [place] [address] [phone] PCP - General Family Medicine 04/01/18 documented as of this encounter
--- OUTSIDE RECORDS SUMMARY | 2025-05-10 19:48 | XMS_ITS | Encounter Summary ---
Author Organization [employer] Address [address] [facility] [address]t [place] [address] Care Team Providers Care Barman Name Role Phone Rubia Brantley MD Primary Care Provide r Reason for Visit * Reason Comments Med Refill Encounter Details Date Type Department Care Team ([facility] st Contact Info) Description 11/19/2023 Refill [facility] [address] [place] [address] Rubia Brantley MD [address] [place], [place] [phone] Insomnia, unspecified type Social History Tobacco Use [...] 3:00 PM EST Office Visit [facility] [address] [place] [address] Rubia Brantley MD [address] [place] [phone] documented as of this encounter Visit Diagnoses Diagnosis Insomnia, unspecified type documented in this encounter Additional Health Concerns Assessment Noted Time PHQ-9 Depression Total Score: 0 11/19/19 3:36 PM EDT documented as of this encounter Care Teams Barman Relationship Specialty Start Date End Date Rubia Brantley MD [address] [place] [phone] PCP - General Family Medicine 04/01/18 documented as of this encounter
== END 2025-05-10 14:44 | disposition home or self-care (01) ==
LOC: HO.US 14:43
PROVIDERS: PCP Internal Medicine; Visit Provider Internal Medicine
DX: N50.811 Right testicular pain (principal)
CPT/HCPCS: 76870

== ENCOUNTER → 2025-05-10 14:45 | Outpatient (BNV) | payer MEDICAID, SELFPAY | PROVIDERS: PCP Internal Medicine; Visit Provider Radiology Diagnostic Radiology | DX: N50.811 Right testicular pain (principal) | CPT/HCPCS: 76870 ==

== ENCOUNTER 2025-05-26 13:58 | Outpatient (AMB) | payer MEDICAID, SELFPAY ==
[2025-05-26 14:04] VITALS: BP 110/74; PULSE 73; BMI 29.8
--- NOTE | 2025-05-26 14:04 | A.OFFVIS_ITS ---
Vital Signs 05/26/25 14:04 Height 5 ft 8 in Weight 196 lb 3.382 oz BMI 29.8 BP 110/74 Blood Pressure Location Lt brachial Position Sitting Pulse 73 Intake Visit Reasons: follow up Intake Note: Patient follow up for chronic constipation. CC; Patient reports doing well and denies having any new GI symptoms. Agriculture Instructor Required: Yes Agriculture Instructor Name: [facility] Interpeter Accompanied by: Self / Same As Patient Allergies tramadol Adverse Reaction (Verified 05/26/25 14:10) Unknown Medication List - Last Reconciled 05/26/25 by Cheng Bolanos MD acetaminophen (Tylenol Extra Strength) 500 mg PO Q6H PRN bisacodyl (Dulcolax (bisacodyl)) 10 mg (2 x 5 mg) PO ONCE 5 days buprenorphine-naloxone 8-2 mg (Suboxone) 2 film buccal DAILY cholecalciferol (vitamin D3) 50 mcg PO DAILY 90 days clotrimazole 1% appl topical BID docusate sodium 100 mg PO BID gabapentin 100 mg PO BEDTIME naproxen 500 mg PO BID PRN omeprazole 20 mg PO BID 60 days phenazopyridine (Pyridium) 100 mg PO TID PRN polyethylene glycol 3350 (Miralax) 17 grams PO DAILY 1 day sennosides-docusate sodium 8.6-50 mg (Senexon-S) 2 tabs PO BEDTIME 90 days tamsulosin 0.4 mg PO BEDTIME 30 days zolpidem 10 mg PO BEDTIME PRN HPI HPI follow up: Details: GI CLINIC?VISIT FOR THIS 49-YEAR-OLD COMORAN-SPEAKING MALE FOR FU of GERD, history of Hep C and compensated liver cirrhosis ??TODAY'S VISIT ?[facility] [employer] SAFETY PROGRAM COORDINATOR, Caitlyn (Pt can understand and speak a little Monegasque) Patient is accompanied by his mom. Patient reports doing well and denies having any new GI symptoms. Cancelled colon appt on 03/28/25 since he was not ready and confused about the prep. Patient denies known family history of colon cancer and would prefer to do a stool Cologuard test (reports doing a stool test in the past and [employer] did not come to cotton picker operator the samples) PAST VISIT: Abd US results and colon Prep instructions reviewed with the patient with the help of the truck rental service attendant Patient reports constipation with some blood on and off. Patient also is been having both legs with inflammation and pain. Denies any other GI issues. Complains of constipation - sometimes no BM for 5 days. Notes intermittent BR blood in the stool after he strains to have a BM Heartburn is better. Pt would like to wait till he is 49 to schedule a colonoscopy. Complains of mild constipation which he attributes to his diet - eats anything Denies known family hx of colon polyps or cancer EGD results were reviewed with the patient Intermittent GERD symptoms Denies abd pain Sometimes he notes RUQ pain with bloating 1-2 times a month. Pain resolves after a few seconds to a few minutes. Feels like someone is putting a needle in him. Pt advised to schedule a screening colonoscopy. Denies known FH of colon cancer or polyps. ? Everything is good ? Lab resuts were reviewed with the patient. ? Did not have an US done since he did not get called with an appointment. ? Heartburn well controlled with Omeprazole twice a day? - requesting a refill ? Sometimes takes two Omeprazole at the same time. ? Denies dysphagia, heartburn, change in appetite or weight. ? Takes 2 beers sometimes on weekends. ? Reminded to have labs checked and schedule an abdominal US. ? Has not had labs checked due to COVID 19 pandemic. LABS [facility]?02/23/19 Normal CBC, INR and LFTs IMAGING STUDIES:? 08/2022 ABD US SHOWED: Hepatomegaly. Increased hepatic echogenicity which can be seen in the setting of hepatic steatosis or underlying liver disease. No focal liver lesion. 03/2021 ABD US SHOWED: 1. Impression: Echogenic liver. Nonvisualization of the pancreas. ?2. Liver elastography:? Adequate liver sampling.? In the absence of other known clinical signs, rules out compensated advanced chronic liver disease. 02/24/19 abd US showed: ? 1. Unremarkable complete abdomen ultrasound. ? 2. On the previous 2016 ultrasound exam there was mild hepatosplenomegaly and increased hepatic texture which is not visualized at this time. ENDOSCOPIC STUDIES: 04/2022 EGD WAS PERFORMED [address] DR FARIA: Esophagus: GE junction at 38? cm, diaphragm hiatus at 38 cm, islands of salmon pink mucosa with few short tongues consistent with barretts, bx taken. Also esophagitis noted with furrowing of mucosa. Bx taken from GEJ, and distal, proximal esophagus. white patches noted consistent with candidiasis. No esophageal varices noted. Stomach: Patchy gastric erythema. Biopsies were obtained. Grade 3 flap valve on retroflexed examination of the cardia with very lax LES> Impression/Findings: possible barretts esophagitis gastritis candidiasis PLAN:? 2 week course of fluconazole GERD precautions if H pylori pos then treat If Barretts pos then repeat EGD in 3 yrs or so BIOPSIES SHOWED: A.? Stomach, biopsy:? Antral-type and oxyntic mucosa with mild chronic inactive inflammation; no Helicobacter organisms seen. B.? GE junction, biopsy: - Cardiac-type mucosa with moderate chronic, focally active, inflammation; no intestinal metaplasia seen. - Squamous mucosa within normal limits; no fungi seen. C.? Esophagus, distal, biopsy:? Active esophagitis (few eosinophils and neutrophils); no fungi seen. D.? Esophagus, proximal, biopsy:? Active esophagitis (rare eosinophil); no fungi seen. 03/27/18? EGD SHOWED: ? Small hiatal hernia and erosive esophagitis and no varices ?PAST GI HISTORY BY REVIEW OF MEDICAL RECORDS: ? Pt was seen on 11/29/19: 1. Gastroesophageal reflux disease, esophagitis presence not specified - K21.9 (Primary) 2. Cirrhosis of liver without ascites, unspecified hepatic cirrhosis type - K74.60 3. History of hepatitis C - Z86.19 44 YM with obesity, history of Chronic Hep B and C x several years status post hepatitis C treatment 3 years ago. Liver fibrosis test suggestive of F1-2 cirrhosis. Patient has normal LFTs, albumin, prothrombin time without thrombocytopenia. He most likely has early cirrhosis related to Hep C and MENDOZA. He will need to work on weight reduction to prevent progression of liver disease related to MENDOZA. 02/23/19 abdominal US was normal. He was advisied to FU in 8-9 months. ? Treatment 1. Gastroesophageal reflux disease, esophagitis presence not specified Refill Omeprazole Capsule Delayed Release, 20 mg, 1 capsule, Orally, once a day, 30 days, 30, Refills 5 ?? ? LAB: CREATININE ?? ? LAB: LIVER PROFILE ?? ? LAB: CBC w/o DIFF ?? ? LAB: PROTHROMBIN TIME (PT, INR) 2. History of hepatitis C Notes: Treated in the past. FU monitoring with repeat viral load showed a viral load of < 1.18 in Jul, 2019 [facility] Medical History Hiatal hernia Polysubstance abuse Hepatitis C infection Surgical History History of esophagogastroduodenoscopy (EGD) (~03/2018) Family History Father No problems noted. Mother Diabetes Social History Household Members: Family Household Members Other:: mom Alcohol intake: never Patient Tobacco Use Status: Current everyday Tobacco user Tobacco use type: Cigarette Cigarette Packs Per Day: 1 Cigarettes Per Day: 20.0 Years Smoked: 14 Substance Use Type: Former Substance User Current occupational status: disabled Review of Systems Const All systems reviewed & are unremarkable except as noted in HPI and below Physical Exam Vital Signs: Last Vital Signs Pulse 73 05/26/25 14:04 BP 110/74 05/26/25 14:04 BMI result Body Mass Index 29.8 Const General: healthy appearing and no acute distress Nutritional Appearance: overweight Orientation/consciousness: patient oriented x3 Limitations: language barrier HEENT Head: Yes normal to inspection Ears: hearing grossly normal bilaterally Eyes Sclerae: sclerae normal Pupils: Equal, round and reactive pupils present Neck Neck: Yes normal visual inspection Chest Chest palpation & inspection: normal inspection of the chest Resp Effort & Inspection: normal respiratory effort Auscultation: clear to auscultation bilaterally Cardio Palpation: normal PMI Rate: regular rate Rhythm: regular rhythm Heart sounds: S1 normal heart sound present, S2 normal heart sound present and no murmurs GI Palpation (GI): Soft to palpation, nontender and No hepatosplenomegaly present Auscultation: normal bowel sounds Rectal Exam - Male: Yes deferred Skin General skin exam: no rashes or lesions noted Neuro General: patient oriented x3, gait normal and moves all extremities Cranial nerves: Yes Equal, round and reactive pupils present Psych Appearance: grossly normal Mental Status: mental status grossly normal Assessment & Plan Assessment & Plan (1) GERD (gastroesophageal reflux disease): Code(s): K21.9 - Gastro-esophageal reflux disease without esophagitis Category: Medical (2) Cirrhosis of liver without ascites: Comment: Liver fibrosis test suggestive of F1-2 cirrhosis. Patient has normal LFTs, albumin, prothrombin time without thrombocytopenia. He most likely has early cirrhosis related to past Hep C and MENDOZA Code(s): K74.60 - Unspecified cirrhosis of liver Category: Medical (3) Colon cancer screening: Code(s): Z12.11 - Encounter for screening for malignant neoplasm of colon Category: Medical (4) Chronic constipation: Code(s): K59.09 - Other constipation Category: Medical Plan 49 YM with obesity, history of Chronic Hep B and C x several years status post hepatitis C treatment 4 years ago. Liver fibrosis test suggestive of F1-2 cirrhosis. Patient has normal LFTs, albumin, prothrombin time without thrombocytopenia. He most likely has early cirrhosis related to Hep C and MENDOZA. He will need to work on weight reduction to prevent progression of liver disease related to MENDOZA. 03/2021 abdominal US with Elastography was normal. Pt will be scheduled for a FU Abd US 04/2022 EGD (FU of GERD) and performed by Dr Faria and results as noted above. Colonoscopy will be scheduled on FU next year since patient would like to wait till he has 49 to schedule his colonoscopy 01/29/24 Complains of constipation - sometimes no BM for 5 days. Notes intermittent BR blood in the stool after he strains to have a BM Patient was advised to take senna at bedtime for constipation. He will be scheduled for a colonoscopy for colon cancer screen and rectal ble eding Abdominal US for HCC surveillance On 04/26/25 @ 09:38 [address] Wrote To Sima Mehta lvm to r/s procedures On 03/28/25 @ 14:08 Seema Valente Wrote To [facility] Pt came in the office asking for new procedure date On 03/24/25 @ 11:19 Sima Mehta Wrote To Vanessa Barone call to patient via Forms Designer #[id number] confirms colonoscopy on Wednesday 03/28, he has transportation and prep- m/d. He did not start dulcolax yesterday ( start 5days prior) Reviewed [facility] what is acceptable and what to avoid. Discussed what he can eat leading up to CLD . He will start taking 2 dulcolax this evening and continue til day before procedure and take 2 at 12pm and 2 at 5pm followed by miralax. He has understanding,- confirmed with teach back. He is aware [facility] will call tomorrow with his arrival time. 05/26/25 Pt advised to schedule an Abd US - screen for HCC Cologuard test for colon cancer screening. FU in 6 months Orders: Orders US abdomen limited Today K74.60 - Unspecified cirrhosis of liver Referrals Cologuard Test Z12.11 - Encounter for screening for malignant neoplasm of colon Coding Level of Care Code Est Pt Level 4 (59667) Complex EM visit Add On G2211 Diagnoses GERD (gastroesophageal reflux disease) K21.9 Cirrhosis of liver without ascites K74.60 Colon cancer screening Z12.11 Chronic constipation K59.09 Time Spent (min) 23
--- OUTSIDE RECORDS SUMMARY | 2025-05-26 17:02 | XMS_ITS | Clinical Summary ---
Author Organization [employer] Address [address] [facility] 7t [place] [address] Care Team Providers Care Supervisor Parking Lot Name Role Phone Rubia Brantley MD Primary [...] put in a referral for urologist in [facility] Neuropathy involving both lower extremities 02/19 [...] Encounters Date Type Department Care Team Description 05/25/2025 Patient Outreach [address] [address] Rubia Brantley MD Pre-visit Planning (SDPR screening completed on 10/05/24) 05/18/2025 Results Follow-Up [address] [address] Rubia Brantley MD US Scrotum 05/18/2025 Orders Only [address] [address] Rubia Brantley MD Pain in right testicle (Primary Dx) 04/26/2025 Refill [facility] [address] [place] [address] Rubia Brantley MD Insomnia, unspecified type 04/08/2025 Orders Only [address] [address] Rubia Brantley MD Neuropathy involving both lower extremities (Primary Dx); Bilateral leg pain; Chronic pain of both feet 03/31/2025 9:20 AM EDT Office Visit [facility] [address] [address] Rylan Carr MD Abdominal wall cellulitis (Primary Dx) 03/31/2025 Telephone [facility] [address] [place], [place] [phone] Rubia Brantley MD NOV RECALL 03/31/2025 Travel 03/30/2025 Refill [facility] [address] [place] [phone] Rubia Brantley MD Bilateral leg pain 03/29/2025 3:40 PM EDT Office Visit [facility] [address] [address] Demetrice Shi MD Cellulitis, unspecified cellulitis site (Primary Dx); Allergic reaction, sequela 03/29/2025 Travel 03/28/2025 Telephone [facility] [address] [place] [address] Rubia Brantley MD Referral 03/11/2025 1:45 PM EDT Office Visit [address] [address] Rubia Brantley MD Neuropathy involving both lower extremities (Primary Dx); Severe major depression, single episode, without psychotic features (CMS/HCC); Cirrhosis of liver without ascites, unspecified hepatic cirrhosis type (CMS/HCC); Pain in right testicle; Venous insufficiency of both lower extremities; Bilateral leg pain 03/11/2025 Travel 03/08/2025 Telephone [facility] [address] [place], [place] [phone] Rubia Brantley MD Chart Prep 03/01/2025 Refill [facility] [address] [place], [place] [phone] Rubia Brantley MD Bilateral leg pain 02/23/2025 Refill [facility] [address] [place], [place] [phone] Rubia Brantley MD Insomnia, unspecified type from [...] Description 06/01/2025 3:00 PM EST Office Visit [facility] [address] [place] [address] Rubia Brantley MD [address] [place] [address] Health Maintenance Due Date Last Done Comments [...] Depression Screening 11/18/2024 11/19/2023, 11/19/2023 COVID-19 Vaccine (2024-2 6 season) 2025 03/06/2022, 09/06/2021, 08/09/2021 Influenza [...] Procedure Name Priority Date/Time Associated Diagnosis Comments US SCROTUM Routine 05/11/2025 7:35 PM EDT Pain in right testicle XR FOOT 3+ VIEWS BILATERAL Routine 05/05/2025 [...] Recently Relevant to Health Maintenance Results * US Scrotum (05/11/2025 7:35 PM EDT) Anatomical Region Laterality Modality Body Ultrasound 05/11/2025 7:35 PM EDT Narrative 05/11/2025 7:37 PM EDT [address] [address] Ultrasound Report Signed Patient: Demetri Story MR#: [id number] : 1975 Acct:[id number] Age/Sex: 49 / M ADM Date: 05/10/25 Loc: HO.US Attending Dr: Rubia Forbes MD Ordering Physician: Rubia Brantley MD Date of Service: 05/10/25 Procedure(s): US scrotum Accession Number(s): [id number] cc: Rubia Brantley MD Reason for Exam: pain on riht testicle CLINICAL HISTORY: pain on riht testicle US scrotum with Doppler Comparison: None Technique: Real time sonographic imaging, including color-flow imaging, was performed by the solar installation technician. Multiple sales and service representative static images were saved for review. Findings: Right testicle normal size and echotexture, 4.5 cm. Normal color flow and spectral tracing. Normal epididymis. No hydrocele or varicocele. A 3 mm right scrotal calcification may represent a tiny scrotal christelle, incidental finding.. Left testicle normal size and echotexture, 4.3 cm. Normal color flow and spectral tracing. Normal epididymis. No hydrocele or varicocele. Impression: 1. Likely tiny right scrotal christelle. Otherwise, unremarkable scrotal ultrasound This document has been electronically signed by: Stuart Espinosa MD on 05/11/2025 19:35:50 Dictated By: Stuart Espinosa MD Signed By: <Electronically signed by Stuart Espinosa MD in OV> 05/11/251935 DD/ 34 TD/TT: 05/11/251934 Egg Crater: Procedure Note Donotuseinterpreter, Image - 05/11/[address] [address] Ultrasound Report Signed Patient: Flower Story#: [id number] : 1975Acct:[id number] Age/Sex: 49 / MADM Date: 05/10/25 Loc: HO.US Attending Dr: Rubia Forbes MD Ordering Physician: Rubia Brantley MD Date of Service: 05/10/25 Procedure(s): US scrotum Accession Number(s): [id number] cc: Rubia Brantley MD Reason for Exam: pain on riht testicle CLINICAL HISTORY: pain on riht testicle US scrotum with Doppler Comparison: None Technique: Real time sonographic imaging, including color-flow imaging, was performed by the solar installation technician. Multiple sales and service representative static images were saved for review. Findings: Right testicle normal size and echotexture, 4.5 cm. Normal color flow and spectral tracing. Normal epididymis. No hydrocele or varicocele. A 3 mm right scrotal calcification may represent a tiny scrotal christelle, incidental finding.. Left testicle normal size and echotexture, 4.3 cm. Normal color flow and spectral tracing. Normal epididymis. No hydrocele or varicocele. Impression: 1. Likely tiny right scrotal christelle. Otherwise, unremarkable scrotal ultrasound This document has been electronically signed by: Stuart Espinosa MD on 05/11/2025 19:35:50 Dictated By: Stuart Espinosa MD Signed By: <Electronically signed by Stuart Espinosa MD in OV> 05/11/251935 DD/ 34 TD/TT: 05/11/251934 Egg Crater: us Rubia oFrbes MD IMG US PROCEDURES Fin al Result * XR Foot 3+ Views Bilateral (05/05/2025 3:08 PM EDT) Anatomical Region Laterality Modality Lower Extremities, Foot Bilateral Radiogra phic Imaging 05/05/2025 3:08 PM EDT Narrative 05/05/2025 3:31 PM EDT [address] [address] XRay Report Signed Patient: Demetri Story MR#: [id number] : 1975 Acct:[id number] Age/Sex: 49 / M ADM Date: 05/05/25 Loc: COOKIE Attending Dr: Kitty Teresa CURAM DEVELOPER Ordering Physician: Kitty Teresa Date of Service: 05/05/25 Procedure(s): XR Foot Gabriel 3V Accession Number(s): [id number] cc: Rubia Brantley MD; Kitty Teresa Reason [...] 05/05/25 1528 DD/ 1508 TD/TT: 05/05/25 1510 Egg Crater: REYNOLD Procedure Note Donotuseinterpreter, Image - 05/05/2025 [place] [address] XRay Report Signed Patient: Demetri StoryMR#: [id number] : 1975Acct:[id number] Age/Sex: 49 / MADM Date: 05/05/25 Loc: COOKIE Attending Dr: Kitty HOLLAND Ordering Physician: Kitty Teresa Date of Service: 05/05/25 Procedure(s): XR Foot Gabriel 3V Accession Number(s): [id number] cc: Rubia Brantley MD; Kitty Teresa Reason [...] 05/05/25 1528 DD/ 1508 TD/TT: 05/05/25 1510 Egg Crater: REYNOLD [facility] External Provider IMG XR PROCEDURES Final Result * (ABNORMAL) CBC auto differential (04/06/2025 6:50 PM EDT) White Blood Count 8.4 4.8 - 10.8 X10*3/uL [facility] Red Blood Count 4.73 4.60 - 5.80 X10*6/uL [facility] Hemoglobin 14.3 14.0 - 18.0 g/dl [facility] Hematocrit 40.6(L) 42.0 - 52.0 % [facility] Mean Corpuscular Volume 85.8 80.0 - 98.0 fL [facility] Mean Corpuscular Hemoglobin 30.2 27.0 - 33.0 pg [facility] Mean Corpuscular HGB Conc 35.2 31.0 - 36.0 g/dl [facility] Red Cell Distribution Width 12.2 11.0 - 16.0 % [facility] Platelet Count 222 160 - 400 X10*3/uL [facility] Mean Platelet Volume 10.4 9.4 - 12.4 fL [facility] Neutrophils Percent Auto 52.6 45 - 73 % [facility] Imm Gran Pct Auto 0.1 0.0 - 0.4 % [facility] Lymphocytes Percent Auto 35.2 20 - 40 % [facility] Monocytes Percent Auto 7.3 2 - 11 % [facility] Eosinophils Percent Auto 4.0 0 - 4 % [facility] Basophils Percent Auto 0.8 0 - 2 % [facility] NRBC Pct Auto 0.0 0.0 - 0.2 /100WBC [facility] Neutrophils Absolute Auto 4.4 2.0 - 8.3 x10*3/uL [facility] Imm Gran Abs Auto 0.01 0.00 - 0.03 X10*3/uL [facility] Lymphocytes Absolute Auto 2.9 1.2 - 4.9 X10*3/uL [facility] Monocytes Absolute Auto 0.6 0.1 - 1.2 X10*3/uL [facility] Eosinophils Absolute Auto 0.3 0.0 - 0.4 X10*3/uL [facility] Basophils Absolute Auto 0.1 0.0 - 0.2 X10*3/uL [facility] NRBC Abs Auto 0.000 0.0 - 0.012 X10*3/uL [facility] 04/06/2025 6:50 PM EDT 04/06/2025 6:53 PM EDT us Generic External Data Provider LAB BLOOD ORDERAB LES Final Result [facility] [address] [place] [phone] * (ABNORMAL) Comprehensive Metabolic Panel (04/06/2025 6:50 PM EDT) Only the most recent of2 resultswithin the time period is included. Sodium 143 135 - 145 mmol/L [facility] Potassium 4.8 3.3 - 5.1 mmol/L [facility] Chloride 109(H) 96 - 108 mmol/L [facility] Carbon Dioxide 28 22 - 29 mmol/L [facility] Anion Gap 11(L) 12 - 20 [facility] Urea Nitrogen (BUN) 12 9 - 16 mg/dL [facility] Creatinine, Serum 0.88 0.5 - 1.4 mg/dL [facility] Creatinine Clr Calc Pharmacy 108.2 [facility] Comment:eGFR (calculated fro m the MDRD study equation) and eCrCl(calculated from the Cockcroft-Gault equation) are based ondifferent parameters and may not yield comparable results.If eCrCl result is absurd, please check patient'sheight/weight. Estimated Glomerular Filt Rate >60 [facility] Comment:Chronic Kidney Disea se: Estimated GFR < 60 mL/min/1.47r2Ztdfkt Kidney Disease: Estimated GFR < 15 mL/min/1.73m2 Glucose 98 60 - 115 mg/dL [facility] Calcium 9.4 8.4 - 10.2 mg/dL [facility] Bilirubin, Total 0.4 0.0 - 1.0 mg/dL [facility] Aspartate Amino Transferase 30 5 - 37 U/L [facility] Alanine Aminotransferase 37 0 - 40 U/L [facility] Total Protein 7.9 6.5 - 8.0 g/dL [facility] Albumin Level 4.5 3.5 - 5.0 g/dL [facility] Alkaline Phosphatase 94 39 - 117 U/L [facility] 04/06/2025 6:50 PM EDT 04/06/2025 6:53 PM EDT us Generic External Data Provider LAB BLOOD ORDERAB LES Final Result [facility] [address] [place] [phone] * Vitamin B12 (Cobalamin) and Folate Panel, Serum (03/11/2025 2:38 PM EDT) Vitamin B12 477 200 - 900 pg/mL [facility] Comment:NORMAL 200-900 PG/ML INDETERMINATE 160-199 PG/ML DEFICIENT < 160 PG/ML Folate 7.6 > or = 4.0 ng/mL [facility] Comment:Reference Values:> o r = 4.0 [...] BLOOD ORDERABLES Final Result Performing Organization Address [facility] Co de Phone Number [facility] [address] [place] [phone] * TSH with Reflex to Free T4 (03/11/2025 2:38 PM EDT) TSH reflex Free T4 1.39 0.32 - 4.0 uIU/mL [facility] Blood Venous blood specimen / Unknown 03/11/2025 2:38 PM EDT 03/11/2025 4:42 PM EDT Rubia Forbes MD LAB BLOOD ORDERABLES Final Result Performing Organization Address [facility] [address] [place] [phone] * RPR (Monitor) with Reflex to??Titer (03/11/2025 2:38 PM EDT) RPR (Monitor) w/Refl Titer NON-REACTI VE NON-REACT YURI [facility] Comment:THIS TEST WAS PERFOR MED AT:[id number] [place] [phone] ZULUAGA MD Rapid Plasma Reagin Ab Titer TNP [facility] Blood Venous blood specimen / Unknown 03/11/2025 2:38 PM EDT 03/11/2025 4:42 PM EDT us Rubia Forbes MD LAB BLOOD ORDERABLES Final Result [facility] [address] [place] [phone] * Hemoglobin A1c (03/11/2025 2:38 PM EDT) Hemoglobin A1c 6.0 <6.0 % [facility] Comment:Hemoglobin A1C Refer ence Range Adults: 4.8 - 6.0 % Non diabetic: < 6.0 % Goal: < 7.0 %Additional Action Suggested: > 8.0 %Note: Hemoglobin A1c results are invalid for patients with abnormal amounts of HbF. Blood transfusions may impact the HbA1c concentration in the patient sample. Estimated Average Glucose 126 mg/dL [facility] Comment:eAG = Estimated ave rage glucose which is %A1C expressed asaverage glucose, using the formula of the V2X-EdrvubzGzpswzg Glucose study (ADAG), Diabetes Care, Vol.31,#8,Feb. 2007 Blood Venous blood specimen / Unknown 03/11/2025 2:38 PM EDT 03/11/2025 4:42 PM EDT Rubia Forbes MD LAB BLOOD ORDERABLES Final Result [facility] [address] [place] [phone] [phone] * HIV 1/2 ANTIGEN/ANTIBODY,FOURTH GENERATION W/RFL [...] purpose. For additional information please refer to http://education.[employer]/faq/DUW418 (This link is being provided for informational/ educational purposes only.) The performance of this assay has not been clinically validated in patients less than 2 years old. 11/06/2021 Rubia Forbes MD LAB BLOOD ORDERABLES Final Result Performing Organization Address [facility] de Phone Number [facility] [address] * (ABNORMAL) LIPID PANEL, STANDARD (11/06/2021 [...] factors. LDL-C is now calculated using the Abrahna-Feliz calculation, which is a validated novel method providing better accuracy than the Friedewald equation in the estimation of LDL-C. Abrahan LAYNE et al. APRYL. 2013;310(19): 2445-1358 (http://education.[employer].Searcheeze/faq/LRQ010) Non-HDL Cholesterol 142(H) <130 mg/dL (calc) [facility] Comment: For patients with diabetes plus 1 major ASCVD risk factor, treating to a non-HDL-C goal of <100 mg/dL (LDL-C of <70 mg/dL) is considered a therapeutic option. Triglycerides 145 <150 mg/dL [facility] 11/06/2021 us Rubia Forbes MD LAB BLOOD ORDERABLES Final Result Performing Organization Address [facility]/ZIP Co de Phone Number [facility] [address] [place] [address], from Last 3 Months or Most Recently Relevant to Health Maintenance Insurance [facility] C3 Care Teams Supervisor Parking Lot Relationship Specialty Start Date End Date Rubia Brantley MD [address] [place] [phone] PCP - General Family Medicine 04/01/18
--- OUTSIDE RECORDS SUMMARY | 2025-05-26 17:02 | XMS_ITS | Encounter Summary ---
Author Organization [employer] Address [address] [facility] 7t [place] [address] Care Team Providers Care Nanotechnician Name Role Phone Rubia Brantley MD Primary Care Provide r Encounter Details Date Type Department Care Team (Latest Contact Info) Description 12/10/2018 Abstract [facility] CONVERSIONS Dental, Provider, DDS Social History [...] 3:00 PM EST Office Visit [facility] [address] [place] [phone] Rubia Brantley MD [address] [place] [phone] documented as of this encounter Visit Diagnoses Not on filedocumented in this encounter Care Teams Nanotechnician Relationship Specialty Start Date End Date Rubia Brantley MD [address] [place] [address] [phone] PCP - General Family Medicine 04/01/18 documented as of this encounter
--- OUTSIDE RECORDS SUMMARY | 2025-05-26 17:02 | XMS_ITS | Clinical Summary ---
Author Organization [address] [facility] Address [address] [place] [phone] Phone Care Team Providers Care Chief Enterprise Architect Name Role Phone Rubia Brantley MD Primary Care Provide r Encounters Date Type Department Care Team Description 03/03/2025 1:45 PM EDT Consult Orthopedic [facility] [address] [phone] Austin Gottlieb DPM Neuritis (Primary Dx); Bilateral [...] Upcoming Encounters Date Type Department Care Team ([facility] Contact Info) Description 06/06/2025 1:45 PM EST Office Visit Orthopedic Surgery [facility] [address] [phone] Austin Gottlieb DPM [address] [phone] Health Maintenance Due Date Last Done Comments [...] topic Insurance MEDICAID - [place] Care Teams Chief Enterprise Architect Relationship Specialty Start Date End Date Rubia Brantley MD [address] [phone] PCP - General Internal Medicine 12/09/24
--- OUTSIDE RECORDS SUMMARY | 2025-05-26 17:02 | XMS_ITS | Encounter Summary ---
Author Organization [employer] Address [address] [facility] 7t [place] [address] Care Team Providers Care Loader Malt House Name Role Phone Rubia Brantley MD Primary Care Provide r Encounter Details Date Type Department Care Team (Latest Contact Info) Description 01/18/2019 Abstract [facility] CONVERSIONS Dental, Provider, DDS Social History Tobacco [...] Description 06/01/2025 3:00 PM EST Office Visit [facility] [address] [place] [phone] Rubia Brantley MD [address] [place] [phone] documented as of this encounter Visit Diagnoses Not on filedocumented in this encounter Care Teams Loader Malt House Relationship Specialty Start Date End Date Rubia Brantley MD [address] [place] [address] [phone] PCP - General Family Medicine 04/01/18 documented as of this encounter
--- OUTSIDE RECORDS SUMMARY | 2025-05-26 17:02 | XMS_ITS | Encounter Summary ---
Author Organization [employer] Address [address] [facility] 7t h Floor [place] [phone] Care Team Providers Care Blood Bank Manager Name Role Phone Rubia Brantley MD Primary Care Provide r Reason for Visit * Reason Comments Pre-visit Planning SDOH screening compl eted on 10/05/24 Encounter Details Date Type Department Care Team ([facility] st Contact Info) Description 05/25/2025 Patient Outreach [facility] [address] [place] [address] Rubia Brantley MD [address] [place] [address] Pre-visit Planning (SDOH screening completed on 10/05/24) Social History Tobacco Use Types Packs/Day Years [...] AM EDT documented as of this encounter Progress Notes * Brandee Flannery - 05/25/2025 4:34 PM EST CC Brandee lucero successful outbound call to patient for pre-visit planning. Patient name and confirmed. Patient confirms appt date and time, and has transportation arrangements. Biggest concern for appointment at this time is no concerns. Patient advised to bring to appointment a photo id and insurance card. Appropriate screenings completed in anticipation of appointment. documented in this encounter Plan of Treatment Upcoming Encounters Date Type Department Care Team (Late st Contact Info) Description 06/01/2025 3:00 PM EST Office Visit [facility] [address] [place] [address] Rubia Brantley MD [address] [place] [address] documented as of this encounter Visit Diagnoses Not on filedocumented in this encounter Additional Health Concerns Assessment Noted Time PHQ-9 Depression Total Score: 0 11/19/19 24 3:36 PM EDT documented as of this encounter Care Teams Blood Bank Manager Relationship Specialty Start Date End Date Rubia Brantley MD [address] [place], [place] [phone] PCP - General Family Medicine 04/01/18 documented as of this encounter
--- OUTSIDE RECORDS SUMMARY | 2025-05-26 17:02 | XMS_ITS | Encounter Summary ---
Author Organization [employer] Address [address] [facility] 7t [place] [address] Care Team Providers Care Handicapped Teacher Name Role Phone Rubia Brantley MD Primary Care Provide r Reason for Visit * Reason Comments Med Refill Encounter Details Date Type Department Care Team ([facility] st Contact Info) Description 03/30/2025 Refill [facility] [address] [place] [address] Rubia Brantley MD 230 [place], [place] [phone] Bilateral leg pain Social History Tobacco Use [...] Office Visit [facility] [address] [place] [phone] Rubia Brantley MD [address] [place] [address] documented as of this encounter Visit Diagnoses Diagnosis Bilateral leg pain Pain in soft tissues of limb documented in this encounter Additional Health Concerns Assessment Noted Time PHQ-9 Depression Total Score: 0 11/19/19 24 3:36 PM EDT documented as of this encounter Care Teams Handicapped Teacher Relationship Specialty Start Date End Date Rubia Brantley MD [address] [place] [phone] PCP - General Family Medicine 04/01/18 documented as of this encounter
--- OUTSIDE RECORDS SUMMARY | 2025-05-26 17:03 | XMS_ITS | Encounter Summary ---
Author Organization [employer] Address [address] [facility] 7t [place] [address] Care Team Providers Care Social Services Director Name Role Phone Rubia Brantley MD Primary Care Provide r Reason for Visit * Reason Comments Med Refill Encounter Details Date Type Department Care Team ([facility] st Contact Info) Description 11/19/2023 Refill [facility] [address] [place] [address] Rubia Brantley MD 230 [place], [place] [phone] Insomnia, unspecified type Social History Tobacco Use [...] Description 06/01/2025 3:00 PM EST Office Visit [facility] [address] [place] [address] Rubia Brantley MD [address] [place] [address] documented as of this encounter Visit Diagnoses Diagnosis Insomnia, unspecified type documented in this encounter Additional Health Concerns Assessment Noted Time PHQ-9 Depression Total Score: 0 11/19/19 3:36 PM EDT documented as of this encounter Care Teams Social Services Director Relationship Specialty Start Date End Date Rubia Brantley MD [address] [place] [phone] PCP - General Family Medicine 04/01/18 documented as of this encounter
--- OUTSIDE RECORDS SUMMARY | 2025-05-26 17:03 | XMS_ITS | Encounter Summary ---
Author Organization [employer] Address [address] [place] [address] Care Team Providers Care Mineral Engineer Name Role Phone Rubia Brantley MD Primary Care Provide r Encounter Details Date Type Department Care Team (Late st Contact Info) Description 08/02/2022 Orders Only [facility] [address] [place] [address] [phone] Radha Collado MD [address] [place] [address] [phone] Venous insufficiency (Primary Dx) Social History Tobacco [...] Description 06/01/2025 3:00 PM EST Office Visit [facility] [address] [place] [address] [phone] Rubia Brantley MD [address] [place], [place] [phone] documented as of this encounter Procedures Procedure [...] Peptide (BNP) (09/11/2022 6:11 PM EST) Pathologist [facility] B Type Natriuretic Peptide <10 <100 pg/mL [facility] Comment:For those patients w ho are being treated with Natrecor(nesiritide, recombinant BNP), BNP testing should beperformed at least two hours post treatment in order toensure that only endogenous levels of BNP are detected. 09/11/2022 6:11 PM EST 09/11/2022 6:15 PM EST us [facility] External Provider LAB BLO OD ORDERABLES Final Result [facility] [address] [place] [phone] * Magnesium (09/11/2022 6:11 PM EST) Pathologist [facility] Magnesium 1.9 1.6 - 2.6 mg/dL [facility] 09/11/2022 6:11 PM EST 09/11/2022 6:15 PM EST [facility] External Provider LAB BLO OD ORDERABLES Final Result Performing Organization Address [facility] Co de Phone Number [facility] [address] [place] [address] [phone] * (ABNORMAL) Basic Metabolic Panel (09/11/2022 6:11 PM EST) Sodium 144 135 - 145 mmol/L [facility] Potassium 4.5 3.3 - 5.1 mmol/L [facility] Chloride 106 96 - 108 mmol/L [facility] Carbon Dioxide 32(H) 22 - 29 mmol/L [facility] Anion Gap 11(L) 12 - 20 [facility] Urea Nitrogen (BUN) 14 9 - 16 mg/dL [facility] Creatinine, Serum 0.87 0.5 - 1.4 mg/dL [facility] Creatinine Clr Calc Pharmacy 118.2 [facility] Comment:eGFR (calculated fro m the MDRD study equation) and eCrCl(calculated from the Cockcroft-Gault equation) are based ondifferent parameters and may not yield comparable results.If eCrCl result is absurd, please check patient'sheight/weight. Estimated Glomerular Filt Rate >60 [facility] Comment:NOTE: For -Am erican individuals, multiply the result by 1.210.Chronic Kidney Disease: Estimated GFR < 60 mL/min/1.65f6Zpoqos Kidney Disease: Estimated GFR < 15 mL/min/1.73m2 Glucose 117(H) 60 - 115 mg/dL [facility] Calcium 9.7 8.4 - 10.2 mg/dL [facility] 09/11/2022 6:11 PM EST 09/11/2022 6:15 PM EST [facility] External Provider LAB BLO OD ORDERABLES Final Result [facility] [address] [place] [address] [phone] * Hepatic Function Panel (09/11/2022 6:11 PM EST) [facility] Bilirubin, Total 0.4 0.0 - 1.0 mg/dL [facility] Bilirubin, Direct <0.2 0.0 - 0.5 mg/dL [facility] Aspartate Amino Transferase 22 5 - 37 U/L [facility] Alanine Aminotransferase 30 0 - 40 U/L [facility] Total Protein 8.0 6.5 - 8.0 g/dL [facility] Albumin Level 4.3 3.5 - 5.0 g/dL [facility] Alkaline Phosphatase 87 39 - 117 U/L [facility] 09/11/2022 6:11 PM EST 09/11/2022 6:15 PM EST [facility] External Provider LAB BLO OD ORDERABLES Final Result Performing Organization Address [facility] de Phone Number [facility] [address] [place] [address] [phone] * (ABNORMAL) CBC auto differential (09/11/2022 6:11 PM EST) [facility] White Blood Count 6.5 4.8 - 10.8 X10*3/uL [facility] Red Blood Count 4.87 4.60 - 5.80 X10*6/uL [facility] Hemoglobin 14.3 14.0 - 18.0 g/dl [facility] Hematocrit 42.1 42.0 - 52.0 % [facility] Mean Corpuscular Volume 86.4 80.0 - 98.0 fL [facility] Mean Corpuscular Hemoglobin 29.4 27.0 - 33.0 pg [facility] Mean Corpuscular HGB Conc 34.0 31.0 - 36.0 g/dl [facility] Red Cell Distribution Width 12.0 11.0 - 16.0 % [facility] Platelet Count 237 160 - 400 X10*3/uL [facility] Mean Platelet Volume 9.8 9.4 - 12.4 fL [facility] Neutrophils Percent Auto 54.0 45 - 73 % [facility] Imm Gran Pct Auto 0.3 0.0 - 0.4 % [facility] Lymphocytes Percent Auto 32.7 20 - 40 % [facility] Monocytes Percent Auto 7.9 2 - 11 % [facility] Eosinophils Percent Auto 4.2(H) 0 - 4 % [facility] Basophils Percent Auto 0.9 0 - 2 % [facility] NRBC Pct Auto 0.0 0.0 - 0.2 /100WBC [facility] Neutrophils Absolute Auto 3.5 2.0 - 8.3 x10*3/uL [facility] Imm Gran Abs Auto 0.02 0.00 - 0.03 X10*3/uL [facility] Lymphocytes Absolute Auto 2.1 1.2 - 4.9 X10*3/uL [facility] Monocytes Absolute Auto 0.5 0.1 - 1.2 X10*3/uL [facility] Eosinophils Absolute Auto 0.3 0.0 - 0.4 X10*3/uL [facility] Basophils Absolute Auto 0.1 0.0 - 0.2 X10*3/uL [facility] NRBC Abs Auto 0.000 0.0 - 0.012 X10*3/uL [facility] 09/11/2022 6:11 PM EST 09/11/2022 6:15 PM EST us [facility] External Provider LAB BLO OD ORDERABLES Final Result [facility] [address] [place] [address] [phone] * Vitamin D, 25-Hydroxy, Total, Immunoassay (08/02/2022 1:15 PM EST) Vitamin D 25-OH Total 19.6 >30 ng/mL [facility] Comment:Health Based Referen ce Values*< 20 ng/mL Xencqezub89-07 ng/mL Insufficient> 30 ng/mL Sufficient*Can HUITRON. N [...] 1:15 PM EST 08/02/2022 1:15 PM EST [facility] External Provider LAB BLO OD ORDERABLES Final Result [facility] [address] [place] [phone] * Comprehensive Metabolic Panel (08/02/2022 1:15 PM EST) Sodium 139 135 - 145 mmol/L [facility] Potassium 4.4 3.3 - 5.1 mmol/L [facility] Chloride 106 96 - 108 mmol/L [facility] Carbon Dioxide 22 22 - 29 mmol/L [facility] Anion Gap 15 12 - 20 [facility] Urea Nitrogen (BUN) 14 9 - 16 mg/dL [facility] Creatinine, Serum 0.85 0.5 - 1.4 mg/dL [facility] Estimated Glomerular Filt Rate >60 [facility] Comment:NOTE: For -Am erican individuals, multiply the result by 1.210.Chronic Kidney Disease: Estimated GFR < 60 mL/min/[id number] Kidney Disease: Estimated GFR < 15 mL/min/1.73m2 Glucose 106 60 - 115 mg/dL [facility] Calcium 9.4 8.4 - 10.2 mg/dL [facility] Bilirubin, Total 0.3 0.0 - 1.0 mg/dL [facility] Aspartate Amino Transferase 26 5 - 37 U/L [facility] Alanine Aminotransferase 33 0 - 40 U/L [facility] Total Protein 8.0 6.5 - 8.0 g/dL [facility] Albumin Level 4.3 3.5 - 5.0 g/dL [facility] Alkaline Phosphatase 93 39 - 117 U/L [facility] 08/02/2022 1:15 PM EST 08/02/2022 1:15 PM EST [facility] External Provider LAB BLO OD ORDERABLES Final Result Performing Organization Address [facility]/ZIP Co de Phone Number [facility] [address] [place] [address] [phone] Vitamin B12/Folate, Serum Panel (08/02/2022 1:15 PM EST) Vitamin B12 510 200 - 900 pg/mL [facility] Comment:NORMAL 200-900 PG/ML INDETERMINATE 160-199 PG/ML DEFICIENT < 160 PG/ML Folate 15.2 > or = 4.0 ng/mL [facility] Comment:Reference Values:> o r = 4.0 ng/mL< 4.0 ng/mL suggests folate deficiency Methotrexate, aminopterin and folinic acid(leucovorin) are chemotherapeutic agents whose molecularstructures are similar to folate; therefore, the Architectfolate assay cannot be used for patients using these drugs. 08/02/2022 1:15 PM EST 08/02/2022 1:15 PM EST [facility] External Provider LAB BLO OD ORDERABLES Final Result Performing Organization Address [facility]/ZIP Co de Phone Number [facility] [address] [place] [address] [phone] * Prothrombin Time-INR (08/02/2022 1:15 PM EST) Prothrombin Time 12.0 10.0 - 13.1 SEC [facility] INTERNATIONAL NORM RATIO 1.0 0.9 - 1.1 [facility] Comment:INTERNATIONAL NORMAL IZED RATIO (INR) REFERENCE [...] 1:15 PM EST 08/02/2022 1:15 PM EST [facility] External Provider LAB BLO OD ORDERABLES Final Result [facility] [address] [place] [phone] * (ABNORMAL) CBC auto differential (08/02/2022 1:15 PM EST) [facility] White Blood Count 6.8 4.8 - 10.8 X10*3/uL [facility] Red Blood Count 4.89 4.60 - 5.80 X10*6/uL [facility] Hemoglobin 14.3 14.0 - 18.0 g/dl [facility] Hematocrit 41.9(L) 42.0 - 52.0 % [facility] Mean Corpuscular Volume 85.7 80.0 - 98.0 fL [facility] Mean Corpuscular Hemoglobin 29.2 27.0 - 33.0 pg [facility] Mean Corpuscular HGB Conc 34.1 31.0 - 36.0 g/dl [facility] Red Cell Distribution Width 11.9 11.0 - 16.0 % [facility] Platelet Count 231 160 - 400 X10*3/uL [facility] Mean Platelet Volume 9.8 9.4 - 12.4 fL [facility] Neutrophils Percent Auto 59.5 45 - 73 % [facility] Imm Gran Pct Auto 0.1 0.0 - 0.4 % [facility] Lymphocytes Percent Auto 28.0 20 - 40 % [facility] Monocytes Percent Auto 7.6 2 - 11 % [facility] Eosinophils Percent Auto 4.1(H) 0 - 4 % [facility] Basophils Percent Auto 0.7 0 - 2 % [facility] NRBC Pct Auto 0.0 0.0 - 0.2 /100WBC [facility] Neutrophils Absolute Auto 4.1 2.0 - 8.3 x10*3/uL [facility] Imm Gran Abs Auto 0.01 0.00 - 0.03 X10*3/uL [facility] Lymphocytes Absolute Auto 1.9 1.2 - 4.9 X10*3/uL [facility] Monocytes Absolute Auto 0.5 0.1 - 1.2 X10*3/uL [facility] Eosinophils Absolute Auto 0.3 0.0 - 0.4 X10*3/uL [facility] Basophils Absolute Auto 0.1 0.0 - 0.2 X10*3/uL [facility] NRBC Abs Auto 0.000 0.0 - 0.012 X10*3/uL [facility] 08/02/2022 1:15 PM EST 08/02/2022 1:15 PM EST us [facility] External Provider LAB BLO OD ORDERABLES Final Result Performing Organization Address City/State/[facility] Co de Phone Number [facility] [address] [place] [address] [phone] documented in this encounter Visit Diagnoses Diagnosis Venous insufficiency- Primary Unspecified venous (peripheral) insufficiency documented in this encounter Care Teams Mineral Engineer Relationship Specialty Start Date End Date Rubia Brantley MD [address] [place] [address] [phone] PCP - General Family Medicine 04/01/18 documented as of this encounter
== END 2025-05-26 14:41 | disposition home or self-care (01) ==
LOC: HO.HGI 13:59
PROVIDERS: PCP Internal Medicine; Visit Provider Internal Medicine Gastroenterology
DX: Z01.818 Encounter for other preprocedural examination (principal); Z12.11 Encounter for screening for malignant neoplasm of colon; K74.60 Unspecified cirrhosis of liver; K59.04 Chronic idiopathic constipation; K21.9 Gastro-esophageal reflux disease without esophagitis
CPT/HCPCS: 99212

== ENCOUNTER → 2025-05-26 13:58 | Outpatient (BNVA) | payer MEDICAID, SELFPAY | PROVIDERS: PCP Internal Medicine; Visit Provider Internal Medicine Gastroenterology | DX: K21.9 Gastro-esophageal reflux disease without esophagitis (principal); K74.60 Unspecified cirrhosis of liver; K59.09 Other constipation | CPT/HCPCS: 99212 ==

== ENCOUNTER 2025-07-01 09:30 | Outpatient (AMB) | payer MEDICAID, SELFPAY ==
--- NOTE | 2025-07-01 09:32 | MHC.OFFVIS ---
Vital Signs 07/01/25 09:34 Height 5 ft 8 in Weight 193 lb BMI 29.3 BP 146/73 H Blood Pressure Location Lt brachial Position Sitting Respiration 16 Pulse 78 Pulse Source Pulse Oximeter Pulse Oximetry (%) 99 Oxygen Delivery Method Room Air Intake Visit Reasons: Right diagnostic peroneal nerve blocks Rn Progressive Care Unit Required: Yes Rn Progressive Care Unit Services: Rn Progressive Care Unit Present Rn Progressive Care Unit Name: Di Software Packaging Engineer: Software Packaging Engineer Present Accompanied by: Jitendra Farmer Allergies tramadol Adverse Reaction (Verified 07/01/25 09:35) Unknown Medication List - Last Reconciled 07/01/25 by Machelle Tran LPN acetaminophen (Tylenol Extra Strength) 500 mg PO Q6H PRN bisacodyl (Dulcolax (bisacodyl)) 10 mg (2 x 5 mg) PO ONCE 5 days buprenorphine-naloxone 8-2 mg (Suboxone) 2 film buccal DAILY cholecalciferol (vitamin D3) 50 mcg PO DAILY 90 days clotrimazole 1% appl topical BID docusate sodium 100 mg PO BID gabapentin 100 mg PO BEDTIME naproxen 500 mg PO BID PRN omeprazole 20 mg PO BID 60 days phenazopyridine (Pyridium) 100 mg PO TID PRN polyethylene glycol 3350 (Miralax) 17 grams PO DAILY 1 day sennosides-docusate sodium 8.6-50 mg (Senexon-S) 2 tabs PO BEDTIME 90 days tamsulosin 0.4 mg PO BEDTIME 30 days zolpidem 10 mg PO BEDTIME PRN HPI Comments Details: History of Present Illness The patient is a 49 year old male presenting with bilateral foot pain for which he is undergoing a diagnostic peroneal nerve block. His pain presentation is consistent with a neuropathy pattern, involving the medial and lateral aspects of the ankle, along with a proximal peroneal and sciatic distribution above the knee. Pain Description - Location: The patient reports bilateral foot pain. - Distribution: Pain is described in a pattern involving both the medial and lateral aspects of the ankle, a proximal peroneal distribution, and a sciatic distribution above the knee. - Associated Signs: An area of tenderness was identified in the region of the peroneal nerve. Results [facility] Medical History Hiatal hernia Polysubstance abuse Hepatitis C infection Surgical History History of esophagogastroduodenoscopy (EGD) (~03/2018) Family History Father No problems noted. Mother Diabetes Social History Household Members: Family Household Members Other:: mom Alcohol intake: never Patient Tobacco Use Status: Current everyday Tobacco user Tobacco use type: Cigarette Cigarette Packs Per Day: 1 Cigarettes Per Day: 20.0 Years Smoked: 14 Substance Use Type: Former Substance User Current occupational status: disabled Physical Exam Exam Exam: Physical Exam - General: The patient was placed in a left lateral decubitus position for the procedure. - Neurologic: Examination of the peroneal nerve revealed no palpable areas of compression or other pathology. - Musculoskeletal: Tenderness was noted on palpation in the region of the peroneal nerve. Procedure - Procedure: Diagnostic peroneal nerve block. - Consent: Informed consent was obtained prior to the procedure. - Narrative: The patient was placed in the left lateral decubitus position. Upon examination, no areas of compression or pathology were identified along the peroneal nerve, though an area of tenderness was noted. A hydrodissection/nerve block of the nerve was performed using 10 mL of 0.2% ropivacaine, which was injected without pain. The patient tolerated the procedure well. Image of the USG injection was saved. 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 1. Peroneal Neuropathy - A diagnostic peroneal nerve block was performed to evaluate its effect on the patient's pain. - The patient will follow up to assess his response to the injection. - Further management will be determined based on the outcome of the procedure. Discussion Notes I discussed with the patient that the purpose of the injection is to diagnose the source of his pain. I informed him that he may experience some temporary numbness in his foot and leg, which is a normal side effect that will resolve in about a day. I instructed him to monitor his response to the procedure, and we will proceed with further treatment based on the outcome. The patient will follow up to review his response. Patient Instructions - The injection you received today is to help determine the cause of your foot pain. - It is normal for your foot and leg to feel numb for a day or so. - Please pay attention to how much pain relief you get from this injection. - You will have a follow-up visit to discuss how you feel after the procedure to decide on the next steps. Coding Level of Care Code Procedure Only Diagnoses Peroneal neuropathy G57.30
[2025-07-01 09:34] VITALS: BP 146/73; PULSE 78; RESP 16; O2SAT 99; BMI 29.3
== END 2025-07-01 09:57 | disposition home or self-care (01) ==
LOC: HO.PMC 09:31
PROVIDERS: PCP Internal Medicine; Visit Provider Internal Medicine
DX: G57.31 Lesion of lateral popliteal nerve, right lower limb (principal)
CPT/HCPCS: 64450; 77002

== ENCOUNTER → 2025-07-01 09:30 | Outpatient (BNVA) | payer MEDICAID, SELFPAY | PROVIDERS: PCP Internal Medicine; Visit Provider Internal Medicine | DX: G57.33 Lesion of lateral popliteal nerve, bilateral lower limbs (principal) | CPT/HCPCS: 64450 ==

== ENCOUNTER 2025-07-08 09:34 | Outpatient (REF) | payer MEDICAID, SELFPAY ==
--- NOTE | ~2025-07-08 | US_ITS ---
CLINICAL HISTORY: K74.60 - Unspecified cirrhosis of liver --- Additional Notes or Special Instructions: screen for HCC US abdomen limited Comparison: US/SR - US ABDOMEN LIMITED - 02/17/24 09:46 EDT Findings: The visualized pancreas, aorta, and inferior vena cava are unremarkable. The liver is normal in size, right lobe length is 14.7 cm. Normal in echogenicity, no discrete lesion is visualized in the imaged liver. No bile duct dilatation. Common duct 4 mm diameter. Normal gallbladder. Negative sonographic Rhodes sign. Main portal vein shows antegrade flow. Right kidney normal, 10.9 cm in length. No free fluid in the right upper quadrant of the abdomen. Impression: No hepatic mass is seen. No sonographic features to indicate cirrhosis. This document has been electronically signed by: Sandrine Jin MD on 07/08/2025 14:31:04
--- OUTSIDE RECORDS SUMMARY | 2025-07-08 10:20 | XMS_ITS | Clinical Summary ---
Author Organization [employer] Address 75 [facility] 7t [place] [address] Care Team Providers Care Naphthol Soaping Machine Operator Name Role Phone Rubia Brantley [...] 10/15/19 25 Active gabapentin (Neurontin) 100 MG capsuleIndicati ons:Bilateral leg pain Take 1 capsule (100 mg) by mouth at bedtime. 90 capsule 03/11/20 25 Active diphenhydrAMINE (BENADryl) 25 MG tabletIndicatio ns:Allergic reaction, sequela Take 1 tablet (25 mg) by mouth if needed at bedtime for itching. 3 tablet 03/29/20 25 Active zolpidem (Ambien) 10 MG tabletIndicatio ns:Insomnia, unspecified type Take 1 tablet (10 mg) by mouth if needed at bedtime for sleep. 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 Patient has normal LFTs, albumin, prothrombin time without thrombocytopenia. He most likely has early cirrhosis related to past Hep C and MENDOZA Encounter for incision and drainage procedure GERD (gastroesophageal reflux disease) Chronic venous stasis dermatitis of both lower e xtremities 06/01/2025 Prediabetes 06/01/2025 Chronic venous hypertension (idiopathic) with other complications of left lower extremity 04/25/2025 Pain in right testicle 03/11/2025 Assessment & Plan (03/11/2025 4:43 PM EDT): I will order at scrotal ultrasound after results I will put in a referral for urologist in [facility] Neuropathy involving both lower extremities 02/19 Assessment & Plan (03/11/2025 4:44 PM EDT): Will continue with gabapentin 100 mg at bedtime Patient was referred to pain management I advised not to miss his appointment Chronic pain of both feet 12/08/2024 Assessment & Plan (12/08/2024 11:41 AM EDT): Podiatry referral Tobacco abuse 08/04/2024 Overview (06/01/2025): smokes 21-30 cigarettes daily Colon cancer screening 08/27/2023 Venous insufficiency of [...] to podiatry for possible plantar fasciitis Venous hypertension of lower extremity Venous insufficiency 11/07/2022 Assessment & Plan (11/07/2022 [...] depression, sin gle episode, without psychotic features ([facility]/HCC) 12/24/2017 Assessment & Plan (03/11/2025 4:44 PM EDT): Stable continue to follow with therapist Cirrhosis of liver ([facility]/HCC) 12/02/2016 Assessment & Plan (03/11/2025 4:43 PM [...] anxiety and depressive disorder 06/05/2012 Substance abuse ([facility]/HCC) 06/05/2012 Encounters Date Type Department Care Team Description 07/04/2025 Refill [facility] [address] [place] [address] Rubia Brantley MD Insomnia, unspecified type 06/15/2025 Telephone [facility] [address] [place] [address] Rubia Brantley MD feb recall 06/01/2025 3:00 PM EST Office Visit [facility] [address] [place] [address] Rubia Brantley MD Venous insufficiency of both lower extremities (Primary Dx); Pain in right testicle; Prediabetes; Insomnia, unspecified type 06/01/2025 Travel 05/31/[address] [address] Rubia Brantley MD Chart Prep 05/25/2025 Patient Outreach [address] [address] Rubia Brantley MD Pre-visit Planning (SDOH screening completed on 10/05/24) 05/18/2025 Results Follow-Up [address] [address] Rubia Brantley MD US Scrotum 05/18/2025 Orders Only [address] [address] Rubia Brantley MD Pain in right testicle (Primary Dx) 04/26/[address] [address] Rubia Brantley MD Insomnia, unspecified type 04/08/2025 Orders Only [address] [address] Rubia Brantley MD Neuropathy involving both lower extremities (Primary Dx); Bilateral leg pain; Chronic pain of both feet from Last 3 Months Immunizations Immunization Administration [...] Answer Date Recorded Patient Health Questionnaire-9 Score 7 06/01/2025 Patient Health Questionnaire-9 Score 7 06/01/2025 Last PHQ-9: Questionnaire Data Not on file 1 08/01/2024 Housing Stability Answer Date Recorded What is [...] Answer Date Recorded Patient Health Questionnaire-2 Score 2 06/01/2025 Internet Access Answer Date Recorded Internet Access [...] Sign Reading Time Taken Comments Blood Pressure 124/78 06/01/2025 3:00 PM EST Pulse 78 06/01/2025 3:00 PM EST Temperature 36.4 C (97.5 F) 06/01/2025 3:00 PM EST Respiratory Rate 15 06/01/2025 3:00 PM EST Oxygen Saturation 98% 06/01/2025 3:00 PM EST Inhaled Oxygen Concentration - - Weight 89.4 kg (197 lb 3.2 oz) 06/01/2025 3:00 P M EST Height 175.3 cm (5' 9 ) 06/01/2025 3:00 PM EST Body Mass Index 29.12 06/01/2025 3:00 PM EST Plan of Treatment Upcoming Encounters Date Type Department Care Team ([facility] st Contact Info) Description 08/22/2025 3:30 PM EST Office Visit [facility] [address] [place] [address] [place] [address] Rubia Brantley MD [address] [place] [address] Health Maintenance Due Date Last Done Comments CT Colonography 1975 Colonoscopy 1974 Colorectal Cancer Screening 1974 FIT DNA/Cologuard 1974 FIT 1974 FOBT 1974 Sigmoidoscopy 1974 Family Planning (PISQ) 1989 Hepatitis A Vaccines (1 of 2 - Risk 2-dose series) 1993 Hepatitis B Vaccines (1 of 3 - 19+ 3-dose series) 1993 RSV Patients and Patients Aged 60 years or older (1 - Risk 50-74 years 1-dose series) 2024 Zoster Vaccines (1 of 2) 2024 COVID-19 Vaccine (4 - 2024-2 6 season) 2025 03/06/2022, 09/06/2021, 08/09/2021 Influenza Vaccine (#1) 2025 SDOH Screening 10/05/2025 10/05/2024 Disability Screening 10/14/2025 10/14/2024 Alcohol/Substance Use Screening 03/11/2026 03/11/2025 Diabetes: Hemoglobin A1C 03/11/2026 03/11/2025 DTaP/Tdap/Td Vaccines (2 - T d or Tdap) 05/22/2026 05/22/2016, 10/15/2004 Depression Screening 06/01/2026 06/01/2025, 06/01/2025 Tobacco Screening 06/01/2026 06/01/2025 Lipid Panel 11/06/2026 11/06/2021 HIV Screening Completed 11/06/2021 Pneumococcal Vaccine: 50+ [...] Procedure Name Priority Date/Time Associated Diagnosis Comments AMB REFERRAL TO UROLOGY Routine 06/01/2025 Pain in right testicle US SCROTUM Routine 05/11/2025 7:35 PM EDT Pain in right testicle XR FOOT 3+ VIEWS BILATERAL Routine 05/05/2025 3:08 PM EDT HEMOGLOBIN A1C Routine 03/11/2025 2:38 PM EDT Neuropathy involving both lower extremities HIV 1/2 ANTIGEN/ANTIBODY, FOURTH GENERATION W/RFL Routine 11/06/2021 12:00 AM EDT LIPID PANEL, STANDARD Routine 11/06/2021 12:00 AM EDT from Last 3 Months or Most Recently Relevant to Health Maintenance Results * Referral to Urology (06/01/2025) us Rubia Forbes MD OUTPATIENT REFERRAL O RDERABLES Final Result * US Scrotum (05/11/2025 7:35 PM EDT) Anatomical Region Laterality Modality Body Ultrasound 05/11/2025 7:35 PM EDT Narrative 05/11/2025 7:37 PM EDT [address] [address] Ultrasound Report Signed Patient: Demetri Story MR#: [id number] : 1975 Acct:[id number] Age/Sex: 49 / M ADM Date: 05/10/25 Loc: HO.US Attending Dr: Rubia Forbes MD Ordering Physician: Rubia Brantley MD Date of Service: 05/10/25 Procedure(s): US scrotum Accession Number(s): [id number] cc: Rubia Brantley MD Reason for Exam: pain on riht testicle CLINICAL HISTORY: pain on riht testicle US scrotum with Doppler Comparison: None Technique: Real time sonographic imaging, including color-flow imaging, was performed by the java software architect. Multiple direct marketing representative static images were saved for review. [...] in OV> 05/11/251935 DD/ 34 TD/TT: 05/11/251934 Service And Repair Supervisor: Procedure Note Donotuseinterpreter, Image - 05/11/2025 [place] [address] Ultrasound Report Signed Patient: Demetri Story#: [id number] : 1975Acct:[id number] Age/Sex: 49 / MADM Date: 05/10/25 Loc: HO.US Attending Dr: Rubia Forbes MD Ordering Physician: Rubia Brantley MD Date of Service: 05/10/25 Procedure(s): US scrotum Accession Number(s): [id number] cc: Rubia Brantley MD Reason for Exam: pain on riht testicle CLINICAL HISTORY: pain on riht testicle US scrotum with Doppler Comparison: None Technique: Real time sonographic imaging, including color-flow imaging, was performed by the java software architect. Multiple direct marketing representative static images were saved for review. [...] in OV> 05/11/251935 DD/ 34 TD/TT: 05/11/251934 Service And Repair Supervisor: us Rubia Forbes MD IMG US PROCEDURES Fin al Result * XR Foot 3+ Views Bilateral (05/05/2025 3:08 PM EDT) Anatomical Region Laterality Modality Lower Extremities, Foot Bilateral Radiogra phic Imaging 05/05/2025 3:08 PM EDT Narrative 05/05/2025 3:31 PM EDT [place] [address] XRay Report Signed Patient: Demetri Story MR#: [id number] : 1975 Acct:[id number] Age/Sex: 49 / M ADM Date: 05/05/25 Loc: COOKIE Attending Dr: Kitty HOLLAND Ordering Physician: Kitty Teresa Date of Service: 05/05/25 Procedure(s): XR Foot Gabriel 3V Accession Number(s): [id number] cc: Rubia Brantley MD; Kitty Teresa Reason [...] 05/05/25 1528 DD/ 1508 TD/TT: 05/05/25 1510 Service And Repair Supervisor: REYNOLD Procedure Note Donotuseinterpreter, Image - 05/05/2025 [place] [address] XRay Report Signed Patient: Demetri Story#: [id number] : 1975Acct:[id number] Age/Sex: 49 / MADM Date: 05/05/25 Loc: COOKIE Attending Dr: Kitty HOLLAND Ordering Physician: Kitty Teresa Date of Service: 05/05/25 Procedure(s): XR Foot Gabriel 3V Accession Number(s): [id number] cc: Rubia Brantley MD; Kitty Teresa Reason [...] 03:28 PM EDT RP Dictated By: Salvador rUbina MD Signed By: <Electronically signed by Salvador Urbina MD in OV> 05/05/25 1528 DD/ 1508 TD/TT: 05/05/25 1510 Service And Repair Supervisor: HB [facility] External Provider IMG XR PROCEDURES Final Result * Hemoglobin A1c (03/11/2025 2:38 PM EDT) Hemoglobin A1c 6.0 <6.0 % [facility] Comment:Hemoglobin A1C Refer ence Range Adults: 4.8 - 6.0 % Non diabetic: < 6.0 % Goal: < 7.0 %Additional Action Suggested: > 8.0 %Note: Hemoglobin A1c results are invalid for patients with abnormal amounts of HbF. Blood transfusions may impact the HbA1c concentration in the patient sample. Estimated Average Glucose 126 mg/dL [facility] Comment:eAG = Estimated ave rage glucose which is %A1C expressed asaverage glucose, using the formula of the T0A-SnmnsofAtjcwxt Glucose study (ADAG), Diabetes Care, Vol.31,#8,Feb. 2007 Blood Venous blood specimen / Unknown 03/11/2025 2:38 PM EDT 03/11/2025 4:42 PM EDT Rubia Forbes MD LAB BLOOD ORDERABLES Final Result [facility] [address] [place] [address] [phone] * HIV 1/2 ANTIGEN/ANTIBODY,FOURTH GENERATION W/RFL [...] purpose. For additional information please refer to http://[employer].RingRang/faq/VAX412 (This link is being provided for informational/ educational purposes only.) The performance of this assay has not been clinically validated in patients less than 2 years old. 11/06/2021 us Rubia Forbes MD LAB BLOOD ORDERABLES Final Result [facility] [address] * (ABNORMAL) LIPID PANEL, STANDARD (11/06/2021 [...] LDL-C. Abrahan LAYNE et al. APRYL. 2013;310(19): 8465-2596 (http://education.Solutionreach.[employer]/faq/NHB509) Non-HDL Cholesterol 142(H) <130 mg/dL (calc) [facility] Comment: For patients with diabetes plus 1 major ASCVD risk factor, treating to a non-HDL-C goal of <100 mg/dL (LDL-C of <70 mg/dL) is considered a therapeutic option. Triglycerides 145 <150 mg/dL [facility] 11/06/2021 Rubia Forbes MD LAB BLOOD ORDERABLES Final Result [facility] [address] [place] [address], from Last 3 Months or Most Recently Relevant to Health Maintenance [facility] Care Teams Naphthol Soaping Machine Operator Relationship Specialty Start Date End Date Rubia Brantley MD [address] [place] [phone] PCP - General Family Medicine 04/01/18
--- OUTSIDE RECORDS SUMMARY | 2025-07-08 10:20 | XMS_ITS | Clinical Summary ---
Author Organization [address] [facility] Address [address] [place] [address] Phone Care Team Providers Care Host And Hostess Name Role Phone Rubia Brantley MD Primary Care Provide r Social History Tobacco Use Types Packs/Day Years Used Date Smoking Tobacco: Never Assessed Sex and Gender Information Value Date Recorded Sex Assigned at Not on file Legal Sex Male 8:08 AM EDT Gender Identity Not on file Sexual Orientation Not on file Plan of Treatment Health Maintenance Due Date [...] topic Insurance MEDICAID - [place] Care Teams Host And Hostess Relationship Specialty Start Date End Date Rubia Brantely MD [address] [phone] PCP - General Internal Medicine 12/09/24
--- OUTSIDE RECORDS SUMMARY | 2025-07-08 10:20 | XMS_ITS | Encounter Summary ---
Author Organization [employer] Address 75 [facility] 7t [place] [address] Care Team Providers Care Lunchroom Attendant Name Role Phone Rubia Brantley MD Primary Care Provide r Reason for Visit * Reason Comments Med Refill Encounter Details Date Type Department Care Team ([facility] st Contact Info) Description 03/30/2025 Refill [facility] [address] [place] [address] Rubia Brantley MD [address] [place], [place] [phone] Bilateral leg pain Social History Tobacco Use [...] Care Team (Late st Contact Info) Description 08/22/2025 3:30 PM EST Office Visit [facility] [address] [place] [phone] Rubia Brantley MD [address] [place] [address] documented as of this encounter Visit Diagnoses Diagnosis Bilateral leg pain Pain in soft tissues of limb documented in this encounter Additional Health Concerns Assessment Noted Time PHQ-9 Depression Total Score: 0 11/19/19 24 3:36 PM EDT documented as of this encounter Care Teams Lunchroom Attendant Relationship Specialty Start Date End Date Rubia Brantley MD [address] [place] [phone] PCP - General Family Medicine 04/01/18 documented as of this encounter
--- OUTSIDE RECORDS SUMMARY | 2025-07-08 10:21 | XMS_ITS | Encounter Summary ---
Author Organization [employer] Address 75 [facility] 7t [place] [address] Care Team Providers Care Creeler Name Role Phone Rubia Brantley MD Primary Care Provide r Encounter Details Date Type Department Care Team (Latest Contact Info) Description 12/10/2018 Abstract [facility] CONVERSIONS Dental, Provider, DDS Social History [...] Description 08/22/2025 3:30 PM EST Office Visit [facility] [address] [place] [phone] Rubia Brantley MD [address] [place] [phone] documented as of this encounter Visit Diagnoses Not on filedocumented in this encounter Care Teams Creeler Relationship Specialty Start Date End Date Rubia Brantley MD [address] [place] [phone] PCP - General Family Medicine 04/01/18 documented as of this encounter
--- OUTSIDE RECORDS SUMMARY | 2025-07-08 10:21 | XMS_ITS | Encounter Summary ---
Author Organization [employer] Address 75 [facility] 7t [place] [address] Care Team Providers Care Direct Marketing Manager Name Role Phone Rubia Brantley MD Primary Care Provide r Reason for Visit * Reason Comments Med Refill Encounter Details Date Type Department Care Team ([facility] st Contact Info) Description 11/19/2023 Refill [facility] [address] [place] [address] Rubia Brantley MD [address] [place], [place] [phone] Insomnia, unspecified type Social History Tobacco Use [...] AM EDT documented as of this encounter Miscellaneous Notes * Telephone Encounter - Rubia Forbes MD - 11/20/2023 12:20 PM EDT Already done documented in this encounter Plan of Treatment Upcoming Encounters Date Type Department Care Team (Late st Contact Info) Description 08/22/2025 3:30 PM EST Office Visit [facility] [address] [place] [address] Rubia Brantley MD [address] [place] [address] documented as of this encounter Visit Diagnoses Diagnosis Insomnia, unspecified type documented in this encounter Additional Health Concerns Assessment Noted Time PHQ-9 Depression Total Score: 0 11/19/19 24 3:36 PM EDT documented as of this encounter Care Teams Direct Marketing Manager Relationship Specialty Start Date End Date Rubia Brantley MD [address] [place] [address] PCP - General Family Medicine 04/01/18 documented as of this encounter
--- OUTSIDE RECORDS SUMMARY | 2025-07-08 10:21 | XMS_ITS | Encounter Summary ---
Author Organization [employer] Address 75 [facility] 7t [place] [address] Care Team Providers Care Treatment Plant Operator Name Role Phone Rubia Brantley MD Primary Care Provide r Encounter Details Date Type Department Care Team (Latest Contact Info) Description 01/18/2019 Abstract [facility] CONVERSIONS Dental, Provider, DDS Social History Tobacco [...] Description 08/22/2025 3:30 PM EST Office Visit [facility] [address] [place] [phone] Rubia Brantley MD [address] [place] [phone] documented as of this encounter Visit Diagnoses Not on filedocumented in this encounter Care Teams Treatment Plant Operator Relationship Specialty Start Date End Date Rubia Brantley MD [address] [place] [phone] PCP - General Family Medicine 04/01/18 documented as of this encounter
--- OUTSIDE RECORDS SUMMARY | 2025-07-08 10:21 | XMS_ITS | Encounter Summary ---
Author Organization [employer] Address [address] [facility] 7t [place] [address] Care Team Providers Care Vessel Liner Name Role Phone Rubia Brantley MD Primary Care Provide r Reason for Visit * Reason Onset Date Comments Med Refill 07/04/2025 Encounter Details Date Type Department Care Team ([facility] st Contact Info) Description 07/04/2025 Refill [facility] [address] [place] [address] Rubia Brantley MD [address] [place] [address] Insomnia, unspecified type Social History Tobacco Use [...] as of this encounter Miscellaneous Notes * Addendum Note - Beto Orr RN - 07/04/2025 1:19 PM ESTAddended by: BETO ORR on: 07/04/2025 01:19 PM Modules accepted: Orders * Telephone Encounter - Suri Baires - 07/04/2025 12:21 PM EST Pt walked in requesting refill on zolpidem 10mg. documented in this encounter Plan of Treatment Upcoming Encounters Date Type Department Care Team (Late st Contact Info) Description 08/22/2025 3:30 PM EST Office Visit [facility] [address] [place] [address] Rubia Brantley MD [address] [place] [address] documented as of this encounter Visit Diagnoses Diagnosis Insomnia, unspecified type documented in this encounter Additional Health Concerns Assessment Noted Time PHQ-9 Depression Total Score: 7 06/01/20 25 3:56 PM EST documented as of this encounter Care Teams Vessel Liner Relationship Specialty Start Date End Date Rubia Brantley MD [address] [place], [place] [phone] PCP - General Family Medicine 04/01/18 documented as of this encounter
--- OUTSIDE RECORDS SUMMARY | 2025-07-08 10:21 | XMS_ITS | Encounter Summary ---
Author Organization [employer] Address [address] [facility] 7t [place] [address] Care Team Providers Care Precision Grinder External Name Role Phone Rubia Brantley MD Primary Care Provide r Encounter Details Date Type Department Care Team (Late st Contact Info) Description 08/02/2022 Orders Only [facility] [address] [place] [address] [phone] Radha Collado MD [address] [place] [address] [phone] Venous insufficiency (Primary Dx) Social History Tobacco [...] Description 08/22/2025 3:30 PM EST Office Visit [facility] [address] [place] [address] [phone] Rubia Brantley MD [address] [place], [place] [phone] documented as of this encounter Procedures Procedure [...] Peptide (BNP) (09/11/2022 6:11 PM EST) Pathologist [facility] B Type Natriuretic Peptide <10 <100 pg/mL [facility] Comment:For those patients w ho are being treated with Natrecor(nesiritide, recombinant BNP), BNP testing should beperformed at least two hours post treatment in order toensure that only endogenous levels of BNP are detected. 09/11/2022 6:11 PM EST 09/11/2022 6:15 PM EST us [facility] External Provider LAB BLO OD ORDERABLES Final Result [facility] [address] [place] [phone] * Magnesium (09/11/2022 6:11 PM EST) Pathologist [facility] Magnesium 1.9 1.6 - 2.6 mg/dL [facility] 09/11/2022 6:11 PM EST 09/11/2022 6:15 PM EST [facility] External Provider LAB BLO OD ORDERABLES Final Result Performing Organization Address City/[facility] Co de Phone Number [facility] [address] [place] [address] [phone] * (ABNORMAL) Basic Metabolic Panel (09/11/2022 6:11 PM EST) Sodium 144 135 - 145 mmol/L [facility] Potassium 4.5 3.3 - 5.1 mmol/L [facility] Chloride 106 96 - 108 mmol/L [facility] Carbon Dioxide 32(H) 22 - 29 mmol/L [facility] Anion Gap 11(L) 12 - 20 [facility] Urea Nitrogen (BUN) 14 9 - 16 mg/dL [facility] Creatinine, Serum 0.87 0.5 - 1.4 mg/dL [facility] Creatinine Clr Calc Pharmacy 118.2 [facility] Comment:eGFR (calculated fro m the MDRD study equation) and eCrCl(calculated from the Cockcroft-Gault equation) are based ondifferent parameters and may not yield comparable results.If eCrCl result is absurd, please check patient'sheight/weight. Estimated Glomerular Filt Rate >60 [facility] Comment:NOTE: For -Am erican individuals, multiply the result by 1.210.Chronic Kidney Disease: Estimated GFR < 60 mL/min/[id number] Kidney Disease: Estimated GFR < 15 mL/min/1.73m2 Glucose 117(H) 60 - 115 mg/dL [facility] Calcium 9.7 8.4 - 10.2 mg/dL [facility] 09/11/2022 6:11 PM EST 09/11/2022 6:15 PM EST [facility] External Provider LAB BLO OD ORDERABLES Final Result [facility] [address] [place] [phone] * Hepatic Function Panel (09/11/2022 6:11 PM EST) [facility] Bilirubin, Total 0.4 0.0 - 1.0 mg/dL [facility] Bilirubin, Direct <0.2 0.0 - 0.5 mg/dL [facility] Aspartate Amino Transferase 22 5 - 37 U/L [facility] Alanine Aminotransferase 30 0 - 40 U/L [facility] Total Protein 8.0 6.5 - 8.0 g/dL [facility] Albumin Level 4.3 3.5 - 5.0 g/dL [facility] Alkaline Phosphatase 87 39 - 117 U/L [facility] 09/11/2022 6:11 PM EST 09/11/2022 6:15 PM EST [facility] External Provider LAB BLO OD ORDERABLES Final Result Performing Organization Address [facility] de Phone Number [facility] [address] [place] [address] [phone] * (ABNORMAL) CBC auto differential (09/11/2022 6:11 PM EST) [facility] White Blood Count 6.5 4.8 - 10.8 X10*3/uL [facility] Red Blood Count 4.87 4.60 - 5.80 X10*6/uL [facility] Hemoglobin 14.3 14.0 - 18.0 g/dl [facility] Hematocrit 42.1 42.0 - 52.0 % [facility] Mean Corpuscular Volume 86.4 80.0 - 98.0 fL [facility] Mean Corpuscular Hemoglobin 29.4 27.0 - 33.0 pg [facility] Mean Corpuscular HGB Conc 34.0 31.0 - 36.0 g/dl [facility] Red Cell Distribution Width 12.0 11.0 - 16.0 % [facility] Platelet Count 237 160 - 400 X10*3/uL [facility] Mean Platelet Volume 9.8 9.4 - 12.4 fL [facility] Neutrophils Percent Auto 54.0 45 - 73 % [facility] Imm Gran Pct Auto 0.3 0.0 - 0.4 % [facility] Lymphocytes Percent Auto 32.7 20 - 40 % [facility] Monocytes Percent Auto 7.9 2 - 11 % [facility] Eosinophils Percent Auto 4.2(H) 0 - 4 % [facility] Basophils Percent Auto 0.9 0 - 2 % [facility] NRBC Pct Auto 0.0 0.0 - 0.2 /100WBC [facility] Neutrophils Absolute Auto 3.5 2.0 - 8.3 x10*3/uL [facility] Imm Gran Abs Auto 0.02 0.00 - 0.03 X10*3/uL [facility] Lymphocytes Absolute Auto 2.1 1.2 - 4.9 X10*3/uL [facility] Monocytes Absolute Auto 0.5 0.1 - 1.2 X10*3/uL [facility] Eosinophils Absolute Auto 0.3 0.0 - 0.4 X10*3/uL [facility] Basophils Absolute Auto 0.1 0.0 - 0.2 X10*3/uL [facility] NRBC Abs Auto 0.000 0.0 - 0.012 X10*3/uL [facility] 09/11/2022 6:11 PM EST 09/11/2022 6:15 PM EST us [facility] External Provider LAB BLO OD ORDERABLES Final Result [facility] [address] [place] [phone] * Vitamin D, 25-Hydroxy, Total, Immunoassay (08/02/2022 1:15 PM EST) Vitamin D 25-OH Total 19.6 >30 ng/mL [facility] Comment:Health Based Referen ce Values*< 20 ng/mL Cynzvocsg29-40 ng/mL Insufficient> 30 ng/mL Sufficient*Can HUITRON. N [...] 1:15 PM EST 08/02/2022 1:15 PM EST [facility] External Provider LAB BLO OD ORDERABLES Final Result [facility] [address] [place] [phone] * Comprehensive Metabolic Panel (08/02/2022 1:15 PM EST) Sodium 139 135 - 145 mmol/L [facility] Potassium 4.4 3.3 - 5.1 mmol/L [facility] Chloride 106 96 - 108 mmol/L [facility] Carbon Dioxide 22 22 - 29 mmol/L [facility] Anion Gap 15 12 - 20 [facility] Urea Nitrogen (BUN) 14 9 - 16 mg/dL [facility] Creatinine, Serum 0.85 0.5 - 1.4 mg/dL [facility] Estimated Glomerular Filt Rate >60 [facility] Comment:NOTE: For -Am erican individuals, multiply the result by 1.210.Chronic Kidney Disease: Estimated GFR < 60 mL/min/1.74x7Xdzyni Kidney Disease: Estimated GFR < 15 mL/min/1.73m2 Glucose 106 60 - 115 mg/dL [facility] Calcium 9.4 8.4 - 10.2 mg/dL [facility] Bilirubin, Total 0.3 0.0 - 1.0 mg/dL [facility] Aspartate Amino Transferase 26 5 - 37 U/L [facility] Alanine Aminotransferase 33 0 - 40 U/L [facility] Total Protein 8.0 6.5 - 8.0 g/dL [facility] Albumin Level 4.3 3.5 - 5.0 g/dL [facility] Alkaline Phosphatase 93 39 - 117 U/L [facility] 08/02/2022 1:15 PM EST 08/02/2022 1:15 PM EST [facility] External Provider LAB BLO OD ORDERABLES Final Result Performing Organization Address City/[facility]/ZIP Co de Phone Number [facility] [address] [place] [phone] * Vitamin B12/Folate, Serum Panel (08/02/2022 1:15 PM EST) Vitamin B12 510 200 - 900 pg/mL [facility] Comment:NORMAL 200-900 PG/ML INDETERMINATE 160-199 PG/ML DEFICIENT < 160 PG/ML Folate 15.2 > or = 4.0 ng/mL [facility] Comment:Reference Values:> o r = 4.0 ng/mL< 4.0 ng/mL suggests folate deficiency Methotrexate, aminopterin and folinic acid(leucovorin) are chemotherapeutic agents whose molecularstructures are similar to folate; therefore, the Architectfolate assay cannot be used for patients using these drugs. 08/02/2022 1:15 PM EST 08/02/2022 1:15 PM EST [facility] External Provider LAB BLO OD ORDERABLES Final Result Performing Organization Address City/[facility]/ZIP Co de Phone Number [facility] [address] [place] [address] [phone] * Prothrombin Time-INR (08/02/2022 1:15 PM EST) Prothrombin Time 12.0 10.0 - 13.1 SEC [facility] INTERNATIONAL NORM RATIO 1.0 0.9 - 1.1 [facility] Comment:INTERNATIONAL NORMAL IZED RATIO (INR) [...] 1:15 PM EST 08/02/2022 1:15 PM EST [facility] External Provider LAB BLO OD ORDERABLES Final Result [facility] [address] [place] [phone] * (ABNORMAL) CBC auto differential (08/02/2022 1:15 PM EST) [facility] White Blood Count 6.8 4.8 - 10.8 X10*3/uL [facility] Red Blood Count 4.89 4.60 - 5.80 X10*6/uL [facility] Hemoglobin 14.3 14.0 - 18.0 g/dl [facility] Hematocrit 41.9(L) 42.0 - 52.0 % [facility] Mean Corpuscular Volume 85.7 80.0 - 98.0 fL [facility] Mean Corpuscular Hemoglobin 29.2 27.0 - 33.0 pg [facility] Mean Corpuscular HGB Conc 34.1 31.0 - 36.0 g/dl [facility] Red Cell Distribution Width 11.9 11.0 - 16.0 % [facility] Platelet Count 231 160 - 400 X10*3/uL [facility] Mean Platelet Volume 9.8 9.4 - 12.4 fL [facility] Neutrophils Percent Auto 59.5 45 - 73 % [facility] Imm Gran Pct Auto 0.1 0.0 - 0.4 % [facility] Lymphocytes Percent Auto 28.0 20 - 40 % [facility] Monocytes Percent Auto 7.6 2 - 11 % [facility] Eosinophils Percent Auto 4.1(H) 0 - 4 % [facility] Basophils Percent Auto 0.7 0 - 2 % [facility] NRBC Pct Auto 0.0 0.0 - 0.2 /100WBC [facility] Neutrophils Absolute Auto 4.1 2.0 - 8.3 x10*3/uL [facility] Imm Gran Abs Auto 0.01 0.00 - 0.03 X10*3/uL [facility] Lymphocytes Absolute Auto 1.9 1.2 - 4.9 X10*3/uL [facility] Monocytes Absolute Auto 0.5 0.1 - 1.2 X10*3/uL [facility] Eosinophils Absolute Auto 0.3 0.0 - 0.4 X10*3/uL [facility] Basophils Absolute Auto 0.1 0.0 - 0.2 X10*3/uL [facility] NRBC Abs Auto 0.000 0.0 - 0.012 X10*3/uL [facility] 08/02/2022 1:15 PM EST 08/02/2022 1:15 PM EST us [facility] External Provider LAB BLO OD ORDERABLES Final Result Performing Organization Address City/State/[facility] Co de Phone Number [facility] [address] [place] [address] [phone] documented in this encounter Visit Diagnoses Diagnosis Venous insufficiency- Primary Unspecified venous (peripheral) insufficiency documented in this encounter Care Teams Precision Grinder External Relationship Specialty Start Date End Date Rubia Brantley MD [address] [place] [address] [phone] PCP - General Family Medicine 04/01/18 documented as of this encounter
== END 2025-07-08 09:35 | disposition home or self-care (01) ==
LOC: HO.US 09:34
PROVIDERS: PCP Internal Medicine; Visit Provider Internal Medicine Gastroenterology
DX: K74.60 Unspecified cirrhosis of liver (principal)
CPT/HCPCS: 76705

== ENCOUNTER → 2025-07-08 09:35 | Outpatient (BNV) | payer MEDICAID, SELFPAY | PROVIDERS: PCP Internal Medicine; Visit Provider Radiology Diagnostic Radiology | DX: K74.69 Other cirrhosis of liver (principal) | CPT/HCPCS: 76705 ==

== ENCOUNTER 2025-07-11 11:53 | Outpatient (AMB) | payer MEDICAID, SELFPAY ==
--- NOTE | 2025-07-11 11:59 | A.OFFVIS_ITS ---
Vital Signs 07/11/25 12:00 Height 5 ft 8 in Weight 193 lb BMI 29.3 BP 132/68 Blood Pressure Location Lt brachial Position Sitting Respiration 16 Pulse 103 H Pulse Source Pulse Oximeter Pulse Oximetry (%) 99 Oxygen Delivery Method Room Air Intake Visit Reasons: Left diagnostic peroneal nerve blocks Hospitalist Nocturnist Physician Required: Yes Hospitalist Nocturnist Physician Services: Hospitalist Nocturnist Physician Present Hospitalist Nocturnist Physician Name: Di Recreational Leader: Recreational Leader Present Accompanied by: Jitendra Farmer Allergies tramadol Adverse Reaction (Verified 07/11/25 12:01) Unknown Medication List - Last Reconciled 07/11/25 by Machelle Tran LPN acetaminophen (Tylenol Extra Strength) 500 mg PO Q6H PRN bisacodyl (Dulcolax (bisacodyl)) 10 mg (2 x 5 mg) PO ONCE 5 days buprenorphine-naloxone 8-2 mg (Suboxone) 2 film buccal DAILY cholecalciferol (vitamin D3) 50 mcg PO DAILY 90 days clotrimazole 1% appl topical BID docusate sodium 100 mg PO BID gabapentin 100 mg PO BEDTIME naproxen 500 mg PO BID PRN omeprazole 20 mg PO BID 60 days phenazopyridine (Pyridium) 100 mg PO TID PRN polyethylene glycol 3350 (Miralax) 17 grams PO DAILY 1 day sennosides-docusate sodium 8.6-50 mg (Senexon-S) 2 tabs PO BEDTIME 90 days tamsulosin 0.4 mg PO BEDTIME 30 days zolpidem 10 mg PO BEDTIME PRN HPI HPI Left diagnostic peroneal nerve blocks: Details: History of Present Illness The patient is a 49 year old male presenting for follow-up after a recent diagnostic right peroneal nerve block. He reports that the injection did not make any difference in his pain. The patient's main complaint is knee pain, characterized by a feeling that his knees cannot bear weight. The pain is located around the knee and on the side, accompanied by a sensation of pressure. He denies any prior history of knee x- rays. Pain Description - Location: The patient's pain is primarily around the knee and on the sides. - Quality: He describes feeling a lot of pressure. - Functional Impact: The patient reports his knees feel unable to bear weight. - Prior Intervention: A diagnostic right pudendal nerve block did not provide any pain relief. Physical Exam - Appears afebrile. - Alert and oriented. - Mood and affect appropriate. - Follows and participates in conversation appropriately. Results - Diagnostic right pudendal nerve block: The patient reported no improvement or change in his pain after the injection. Pain Management: - Analgesia: A diagnostic right pudendal nerve block was recently performed and was not effective. - Activities of Daily Living: The patient reports his knees feel unable to bear weight. [facility] Medical History Hiatal hernia Polysubstance abuse Hepatitis C infection Surgical History History of esophagogastroduodenoscopy (EGD) (~03/2018) Family History Father No problems noted. Mother Diabetes Social History Household Members: Family Household Members Other:: mom Alcohol intake: never Patient Tobacco Use Status: Current everyday Tobacco user Tobacco use type: Cigarette Cigarette Packs Per Day: 1 Cigarettes Per Day: 20.0 Years Smoked: 14 Substance Use Type: Former Substance User Current occupational status: disabled Physical Exam Vital Signs: Last Vital Signs Pulse 103 H 07/11/25 12:00 Resp 16 07/11/25 12:00 BP 132/68 07/11/25 12:00 Pulse Ox 99 07/11/25 12:00 Oxygen Delivery Method Room Air 07/11/25 12:00 BMI result Body Mass Index 29.3 Assessment & Plan Assessment & Plan (1) Leg pain, bilateral: Code(s): M79.604 - Pain in right leg; M79.605 - Pain in left leg Category: Medical Plan Plan Patient was informed and verbally consented to the use of an ambient scribe for clinic note documentation during this visit. 1. Bilateral Knee Pain - The etiology of the patient's leg pain is currently uncertain. - As the patient has never had them, an order for bilateral knee x-rays will be placed to further work up his bilateral knee pain. - The patient has been instructed to go to radiology on the 2nd floor to have the imaging completed today. - A follow-up appointment will be scheduled to review the x-ray results and determine the next steps in management. - At this time, the patient is not an appropriate candidate for neurostimulation because the distribution of his pain is not well defined. 2. Failed Diagnostic Nerve Block - The patient reported no improvement following the diagnostic block. - The diagnostic focus will now shift to evaluating his bilateral knee pain. Discussion Notes I saw the patient for a follow-up visit after a diagnostic right peroneal nerve block. I noted his report that the injection provided no pain relief. We discussed that the cause of his leg pain is currently uncertain. To further investigate his symptoms, I recommended he get x-rays of his knees, as he has not had them done before. I placed an order and informed him he could go to the radiology department on the 2nd floor to have the x-rays done today. I explained that we will schedule a follow-up appointment to go over the results and decide on the next steps. I also informed him that he is not currently a candidate for neurostimulation due to the generalized distribution of his pain. Patient Instructions - Please go to the radiology department, located on the 2nd floor, to get x-rays of both your knees today. - You will need to schedule a follow-up appointment to review the results of your x-rays and discuss the next steps for your treatment. Orders: Orders XR knee standing BI 07/11/25 M17.0 - Bilateral primary osteoarthritis of knee Coding Level of Care Code Est Pt Level 3 (80594) Diagnoses Leg pain, bilateral M79.604; M79.605
[2025-07-11 12:00] VITALS: BP 132/68; PULSE 103; RESP 16; O2SAT 99; BMI 29.3
--- OUTSIDE RECORDS SUMMARY | 2025-07-11 15:10 | XMS_ITS | Encounter Summary ---
Author Organization [employer] Address [address] [place] [address] Care Team Providers Care Block Handler Name Role Phone Rubia Brantley MD Primary Care Provide r Encounter Details Date Type Department Care Team ([facility] Contact Info) Description 07/08/2025 Orders Only [facility] External Provider, [facility] Social History Tobacco Use Types Packs/Day Years [...] Description 08/22/2025 3:30 PM EST Office Visit [facility] [address] [place], [place] [phone] Rubia Brantley MD [address] [place], [place] [phone] documented as of this encounter Procedures Procedure Name Priority Date/Time Associated Diagnosis Comments US ABDOMEN LIMITED Routine 07/08/2025 2: 31 PM EST documented in this encounter Results * US Abdomen Limited (07/08/2025 2:31 PM EST) Anatomical Region Laterality Modality Abdomen Ultrasound 07/08/2025 2:31 PM EST Narrative 07/08/2025 2:32 PM EST [address] [address] Ultrasound Report Signed Patient: Demetri Story MR#: [id number] : 1975 Acct:[id number] Age/Sex: 49 / M ADM Date: 07/08/25 Loc: HO.US Attending Dr: Cheng Bolanos MD Ordering Physician: Cheng Bolanos MD Date of Service: 07/08/25 Procedure(s): US abdomen limited Accession Number(s): [id number] cc: Rubia Brantley MD; Cheng Bolanos MD Reason for Exam: K74.60 - Unspecified cirrhosis of liver CLINICAL HISTORY: K74.60 - Unspecified cirrhosis of liver --- Additional Notes or Special Instructions: screen for HCC US abdomen limited Comparison: US/SR - US ABDOMEN LIMITED - 02/17/24 09:46 EDT Findings: The visualized pancreas, aorta, and inferior vena cava are unremarkable. The liver is normal in size, right lobe length is 14.7 cm. Normal in echogenicity, no discrete lesion is visualized in the imaged liver. No bile duct dilatation. Common duct 4 mm diameter. Normal gallbladder. Negative sonographic Rhodes sign. Main portal vein shows antegrade flow. Right kidney normal, 10.9 cm in length. No free fluid in the right upper quadrant of the abdomen. Impression: No hepatic mass is seen. No sonographic features to indicate cirrhosis. This document has been electronically signed by: Sandrine Jin MD on 07/08/2025 14:31:04 Dictated By: Sandrine Jin MD Signed By: <Electronically signed by Sandrine Jin MD in OV> 07/08/25 143 DD/ 143 TD/TT: 07/08/251430 Structural Steel Worker: Procedure Note Donotuseinterpreter, Image - 07/08/2025 [place] [address] Ultrasound Report Signed Patient: Demetri StoryMR#: [id number] : 1975Acct:[id number] Age/Sex: 49 / MADM Date: 07/08/25 Loc: HO.US Attending Dr: Cheng Bolanos MD Ordering Physician: Cheng Bolanos MD Date of Service: 07/08/25 Procedure(s): US abdomen limited Accession Number(s): [id number] cc: Rubia Brantley MD; Cheng Bolanos MD Reason for Exam: K74.60 - Unspecified cirrhosis of liver CLINICAL HISTORY: K74.60 - Unspecified cirrhosis of liver --- AdditionalNotes or Special Instructions: screen for HCC US abdomen limited Comparison: US/SR - US ABDOMEN LIMITED - 02/17/24 09:46 EDT Findings: The visualized pancreas, aorta, and inferior vena cava are unremarkable. The liver is normal in size, right lobe length is 14.7 cm. Normal in echogenicity, no discrete lesion is visualized in the imaged liver. No bile duct dilatation. Common duct 4 mm diameter. Normal gallbladder. Negative sonographic Rhodes sign. Main portal vein shows antegrade flow. Right kidney normal, 10.9 cm in length. No free fluid in the right upper quadrant of the abdomen. Impression: No hepatic mass is seen. No sonographic features to indicate cirrhosis. This document has been electronically signed by: Sandrine Jin MD on 07/08/2025 14:31:04 Dictated By: Sandrine Jin MD Signed By: <Electronically signed by Sandrine Jin MD in OV> 07/08/25 1431 DD/ 1431 TD/TT: 07/08/25 1431 Structural Steel Worker: [facility] External Provider IMG US PROCEDURES Final Result documented in this encounter Visit Diagnoses Not on filedocumented in this encounter Additional Health Concerns Assessment Noted Time PHQ-9 Depression Total Score: 7 06/01/20 25 3:56 PM EST documented as of this encounter Care Teams Block Handler Relationship Specialty Start Date End Date Rubia Brantley MD [address] [place] [phone] PCP - General Family Medicine 04/01/18 documented as of this encounter
--- OUTSIDE RECORDS SUMMARY | 2025-07-11 15:10 | XMS_ITS | Encounter Summary ---
Author Organization [employer] Address [address] [facility] 7t [place] [address] Care Team Providers Care Clinical Psychologist Name Role Phone Rubia Brantley MD Primary Care Provide r Encounter Details Date Type Department Care Team (Late st Contact Info) Description 08/02/2022 Orders Only [facility] MEDICINE [address] [address] [phone] Radha Collado MD [address] [place] [address] [phone] Venous insufficiency (Primary Dx) Social History Tobacco [...] Description 08/22/2025 3:30 PM EST Office Visit [facility] MEDICINE [address] [address] [phone] Rubia Brantley MD [address] [place], [place] [phone] documented as of this encounter Procedures Procedure [...] Peptide (BNP) (09/11/2022 6:11 PM EST) Pathologist [facility] B Type Natriuretic Peptide <10 <100 pg/mL [facility] Comment:For those patients w ho are being treated with Natrecor(nesiritide, recombinant BNP), BNP testing should beperformed at least two hours post treatment in order toensure that only endogenous levels of BNP are detected. 09/11/2022 6:11 PM EST 09/11/2022 6:15 PM EST us [facility] External Provider LAB BLO OD ORDERABLES Final Result [facility] [address] [place] [phone] * Magnesium (09/11/2022 6:11 PM EST) Pathologist [facility] Magnesium 1.9 1.6 - 2.6 mg/dL [facility] 09/11/2022 6:11 PM EST 09/11/2022 6:15 PM EST [facility] External Provider LAB BLO OD ORDERABLES Final Result Performing Organization Address City/[facility] Co de Phone Number [facility] [address] [place] [address] [phone] * (ABNORMAL) Basic Metabolic Panel (09/11/2022 6:11 PM EST) Sodium 144 135 - 145 mmol/L [facility] Potassium 4.5 3.3 - 5.1 mmol/L [facility] Chloride 106 96 - 108 mmol/L [facility] Carbon Dioxide 32(H) 22 - 29 mmol/L [facility] Anion Gap 11(L) 12 - 20 [facility] Urea Nitrogen (BUN) 14 9 - 16 mg/dL [facility] Creatinine, Serum 0.87 0.5 - 1.4 mg/dL [facility] Creatinine Clr Calc Pharmacy 118.2 [facility] Comment:eGFR (calculated fro m the MDRD study equation) and eCrCl(calculated from the Cockcroft-Gault equation) are based ondifferent parameters and may not yield comparable results.If eCrCl result is absurd, please check patient'sheight/weight. Estimated Glomerular Filt Rate >60 [facility] Comment:NOTE: For -Am erican individuals, multiply the result by 1.210.Chronic Kidney Disease: Estimated GFR < 60 mL/min/[id number] Kidney Disease: Estimated GFR < 15 mL/min/1.73m2 Glucose 117(H) 60 - 115 mg/dL [facility] Calcium 9.7 8.4 - 10.2 mg/dL [facility] 09/11/2022 6:11 PM EST 09/11/2022 6:15 PM EST [facility] External Provider LAB BLO OD ORDERABLES Final Result [facility] [address] [place] [address] [phone] * Hepatic Function Panel (09/11/2022 6:11 PM EST) [facility] Bilirubin, Total 0.4 0.0 - 1.0 mg/dL [facility] Bilirubin, Direct <0.2 0.0 - 0.5 mg/dL [facility] Aspartate Amino Transferase 22 5 - 37 U/L [facility] Alanine Aminotransferase 30 0 - 40 U/L [facility] Total Protein 8.0 6.5 - 8.0 g/dL [facility] Albumin Level 4.3 3.5 - 5.0 g/dL [facility] Alkaline Phosphatase 87 39 - 117 U/L [facility] 09/11/2022 6:11 PM EST 09/11/2022 6:15 PM EST [facility] External Provider LAB BLO OD ORDERABLES Final Result Performing Organization Address [facility] de Phone Number [facility] [address] [place] [address] [phone] * (ABNORMAL) CBC auto differential (09/11/2022 6:11 PM EST) [facility] White Blood Count 6.5 4.8 - 10.8 X10*3/uL [facility] Red Blood Count 4.87 4.60 - 5.80 X10*6/uL [facility] Hemoglobin 14.3 14.0 - 18.0 g/dl [facility] Hematocrit 42.1 42.0 - 52.0 % [facility] Mean Corpuscular Volume 86.4 80.0 - 98.0 fL [facility] Mean Corpuscular Hemoglobin 29.4 27.0 - 33.0 pg [facility] Mean Corpuscular HGB Conc 34.0 31.0 - 36.0 g/dl [facility] Red Cell Distribution Width 12.0 11.0 - 16.0 % [facility] Platelet Count 237 160 - 400 X10*3/uL [facility] Mean Platelet Volume 9.8 9.4 - 12.4 fL [facility] Neutrophils Percent Auto 54.0 45 - 73 % [facility] Imm Gran Pct Auto 0.3 0.0 - 0.4 % [facility] Lymphocytes Percent Auto 32.7 20 - 40 % [facility] Monocytes Percent Auto 7.9 2 - 11 % [facility] Eosinophils Percent Auto 4.2(H) 0 - 4 % [facility] Basophils Percent Auto 0.9 0 - 2 % [facility] NRBC Pct Auto 0.0 0.0 - 0.2 /100WBC [facility] Neutrophils Absolute Auto 3.5 2.0 - 8.3 x10*3/uL [facility] Imm Gran Abs Auto 0.02 0.00 - 0.03 X10*3/uL [facility] Lymphocytes Absolute Auto 2.1 1.2 - 4.9 X10*3/uL [facility] Monocytes Absolute Auto 0.5 0.1 - 1.2 X10*3/uL [facility] Eosinophils Absolute Auto 0.3 0.0 - 0.4 X10*3/uL [facility] Basophils Absolute Auto 0.1 0.0 - 0.2 X10*3/uL [facility] NRBC Abs Auto 0.000 0.0 - 0.012 X10*3/uL [facility] 09/11/2022 6:11 PM EST 09/11/2022 6:15 PM EST us [facility] External Provider LAB BLO OD ORDERABLES Final Result [facility] [address] [place] [phone] * Vitamin D, 25-Hydroxy, Total, Immunoassay (08/02/2022 1:15 PM EST) Vitamin D 25-OH Total 19.6 >30 ng/mL [facility] Comment:Health Based Referen ce Values*< 20 ng/mL [id number] ng/mL Insufficient> 30 ng/mL Sufficient*Can HUITRON. N [...] 1:15 PM EST 08/02/2022 1:15 PM EST [facility] External Provider LAB BLO OD ORDERABLES Final Result [facility] [address] [place] [phone] * Comprehensive Metabolic Panel (08/02/2022 1:15 PM EST) Sodium 139 135 - 145 mmol/L [facility] Potassium 4.4 3.3 - 5.1 mmol/L [facility] Chloride 106 96 - 108 mmol/L [facility] Carbon Dioxide 22 22 - 29 mmol/L [facility] Anion Gap 15 12 - 20 [facility] Urea Nitrogen (BUN) 14 9 - 16 mg/dL [facility] Creatinine, Serum 0.85 0.5 - 1.4 mg/dL [facility] Estimated Glomerular Filt Rate >60 [facility] Comment:NOTE: For -Am erican individuals, multiply the result by 1.210.Chronic Kidney Disease: Estimated GFR < 60 mL/min/[id number] Kidney Disease: Estimated GFR < 15 mL/min/1.73m2 Glucose 106 60 - 115 mg/dL [facility] Calcium 9.4 8.4 - 10.2 mg/dL [facility] Bilirubin, Total 0.3 0.0 - 1.0 mg/dL [facility] Aspartate Amino Transferase 26 5 - 37 U/L [facility] Alanine Aminotransferase 33 0 - 40 U/L [facility] Total Protein 8.0 6.5 - 8.0 g/dL [facility] Albumin Level 4.3 3.5 - 5.0 g/dL [facility] Alkaline Phosphatase 93 39 - 117 U/L [facility] 08/02/2022 1:15 PM EST 08/02/2022 1:15 PM EST [facility] External Provider LAB BLO OD ORDERABLES Final Result Performing Organization Address City/[facility]/ZIP Co de Phone Number [facility] [address] [place] [address] [phone] * Vitamin B12/Folate, Serum Panel (08/02/2022 1:15 PM EST) Vitamin B12 510 200 - 900 pg/mL [facility] Comment:NORMAL 200-900 PG/ML INDETERMINATE 160-199 PG/ML DEFICIENT < 160 PG/ML Folate 15.2 > or = 4.0 ng/mL [facility] Comment:Reference Values:> o r = 4.0 ng/mL< 4.0 ng/mL suggests folate deficiency Methotrexate, aminopterin and folinic acid(leucovorin) are chemotherapeutic agents whose molecularstructures are similar to folate; therefore, the Architectfolate assay cannot be used for patients using these drugs. 08/02/2022 1:15 PM EST 08/02/2022 1:15 PM EST [facility] External Provider LAB BLO OD ORDERABLES Final Result Performing Organization Address City/[facility]/ZIP Co de Phone Number [facility] [address] [place] [address] [phone] * Prothrombin Time-INR (08/02/2022 1:15 PM EST) Prothrombin Time 12.0 10.0 - 13.1 SEC [facility] INTERNATIONAL NORM RATIO 1.0 0.9 - 1.1 [facility] Comment:INTERNATIONAL NORMAL IZED RATIO (INR) [...] 1:15 PM EST 08/02/2022 1:15 PM EST [facility] External Provider LAB BLO OD ORDERABLES Final Result [facility] [address] [place] [phone] * (ABNORMAL) CBC auto differential (08/02/2022 1:15 PM EST) [facility] White Blood Count 6.8 4.8 - 10.8 X10*3/uL [facility] Red Blood Count 4.89 4.60 - 5.80 X10*6/uL [facility] Hemoglobin 14.3 14.0 - 18.0 g/dl [facility] Hematocrit 41.9(L) 42.0 - 52.0 % [facility] Mean Corpuscular Volume 85.7 80.0 - 98.0 fL [facility] Mean Corpuscular Hemoglobin 29.2 27.0 - 33.0 pg [facility] Mean Corpuscular HGB Conc 34.1 31.0 - 36.0 g/dl [facility] Red Cell Distribution Width 11.9 11.0 - 16.0 % [facility] Platelet Count 231 160 - 400 X10*3/uL [facility] Mean Platelet Volume 9.8 9.4 - 12.4 fL [facility] Neutrophils Percent Auto 59.5 45 - 73 % [facility] Imm Gran Pct Auto 0.1 0.0 - 0.4 % [facility] Lymphocytes Percent Auto 28.0 20 - 40 % [facility] Monocytes Percent Auto 7.6 2 - 11 % [facility] Eosinophils Percent Auto 4.1(H) 0 - 4 % [facility] Basophils Percent Auto 0.7 0 - 2 % [facility] NRBC Pct Auto 0.0 0.0 - 0.2 /100WBC [facility] Neutrophils Absolute Auto 4.1 2.0 - 8.3 x10*3/uL [facility] Imm Gran Abs Auto 0.01 0.00 - 0.03 X10*3/uL [facility] Lymphocytes Absolute Auto 1.9 1.2 - 4.9 X10*3/uL [facility] Monocytes Absolute Auto 0.5 0.1 - 1.2 X10*3/uL [facility] Eosinophils Absolute Auto 0.3 0.0 - 0.4 X10*3/uL [facility] Basophils Absolute Auto 0.1 0.0 - 0.2 X10*3/uL [facility] NRBC Abs Auto 0.000 0.0 - 0.012 X10*3/uL [facility] 08/02/2022 1:15 PM EST 08/02/2022 1:15 PM EST us [facility] External Provider LAB BLO OD ORDERABLES Final Result Performing Organization Address City/State/[facility] Co de Phone Number [facility] [address] [place] [address] [phone] documented in this encounter Visit Diagnoses Diagnosis Venous insufficiency- Primary Unspecified venous (peripheral) insufficiency documented in this encounter Care Teams Clinical Psychologist Relationship Specialty Start Date End Date Rubia Brantley MD [address] [place] [phone] PCP - General Family Medicine 04/01/18 documented as of this encounter
--- OUTSIDE RECORDS SUMMARY | 2025-07-11 15:10 | XMS_ITS | Encounter Summary ---
Author Organization [employer] Address [address] [facility] 7[address] [place] [address] Care Team Providers Care Manager Medical Affairs Name Role Phone Rubia Brantley MD Primary Care Provide r Encounter Details Date Type Department Care Team (Latest Contact Info) Description 01/18/2019 Abstract [facility] CONVERSIONS Dental, [...] 3:30 PM EST Office Visit [facility] MEDICINE [address] [place] [phone] Rubia Brantley MD [address] [place] [phone] documented as of this encounter Visit Diagnoses Not on filedocumented in this encounter Care Teams Manager Medical Affairs Relationship Specialty Start Date End Date Rubia Brantley MD [address] [place] [address] [phone] PCP - General Family Medicine 04/01/18 documented as of this encounter
--- OUTSIDE RECORDS SUMMARY | 2025-07-11 15:10 | XMS_ITS | Encounter Summary ---
Author Organization [employer] Address [address] [facility] [address] [place] [address] Care Team Providers Care Laboratory Animal Facility Supervisor Name Role Phone Rubia Brantley MD Primary Care Provide r Encounter Details Date Type Department Care Team (Latest Contact Info) Description 12/10/2018 Abstract [facility] CONVERSIONS Dental, Provider, DDS Social History [...] 08/22/2025 3:30 PM EST Office Visit [facility] MEDICINE [address] [place] [phone] Rubia Brantley MD [address] [place] [phone] documented as of this encounter Visit Diagnoses Not on filedocumented in this encounter Care Teams Laboratory Animal Facility Supervisor Relationship Specialty Start Date End Date Rubia Brantley MD [address] [place] [address] [phone] PCP - General Family Medicine 04/01/18 documented as of this encounter
--- OUTSIDE RECORDS SUMMARY | 2025-07-11 15:10 | XMS_ITS | Clinical Summary ---
Author Organization [facility] Address [address] [place] [phone] Phone Care Team Providers Care Undergraduate Intern Name Role Phone Rubia Brantley MD Primary [...] topic Insurance MEDICAID - [place] Care Teams Undergraduate Intern Relationship Specialty Start Date End Date Rubia Brantley MD [address] [phone] PCP - General Internal Medicine 12/09/24
--- OUTSIDE RECORDS SUMMARY | 2025-07-11 15:10 | XMS_ITS | Encounter Summary ---
Author Organization [employer] Address [address] [facility] 7t [place] [address] Care Team Providers Care Contract Design Agent Name Role Phone Rubia Brantley MD Primary Care Provide r Reason for Visit * Reason Comments Med Refill Encounter Details Date Type Department Care Team ([facility] st Contact Info) Description 03/30/2025 Refill [facility] MEDICINE [address] [place] [address] Rubia Brantley MD [address] [place], [place] [phone] Bilateral leg pain Social History Tobacco Use [...] Description 08/22/2025 3:30 PM EST Office Visit [facility] [address] [place] [phone] Rubia Brantley MD [address] [place] [phone] documented as of this encounter Visit Diagnoses Diagnosis Bilateral leg pain Pain in soft tissues of limb documented in this encounter Additional Health Concerns Assessment Noted Time PHQ-9 Depression Total Score: 0 11/19/19 24 3:36 PM EDT documented as of this encounter Care Teams Contract Design Agent Relationship Specialty Start Date End Date Rubia Brantley MD [address] [place] [phone] PCP - General Family Medicine 04/01/18 documented as of this encounter
--- OUTSIDE RECORDS SUMMARY | 2025-07-11 15:10 | XMS_ITS | Clinical Summary ---
Author Organization [employer] Address [address] [facility] [address] [place] [address] Care Team Providers Care Coil Winder Name Role Phone Rubia Brantley MD Primary Care Provide r Allergies No known active allergies Medications tamsulosin (Flomax) 0.4 MG 24 hr capsuleIndicati ons:Benign prostatic hyperplasia with incomplete bladder emptying Take 1 capsule by mouth every day 1/2 hour following the same meal each day 90 capsule 2 10/15/19 25 Active gabapentin (Neurontin) 100 MG [...] sleep. 30 tablet 1 07/04/20 25 Active docusate sodium (Colace) 100 MG capsuleIndicati ons:Constipatio n, unspecified constipation type TAKE 1 CAPSULE BY MOUTH TWICE A DAY 180 capsule 1 07/11/20 25 Active docusate sodium (Colace) 100 MG capsuleIndicati ons:Constipatio n, unspecified constipation type TAKE 1 CAPSULE BY MOUTH TWICE A DAY 180 capsule 1 10/15/19 25 025 Discontinued zolpidem (Ambien) 10 MG tabletIndicatio ns:Insomnia, unspecified type TAKE 1 TABLET BY MOUTH EVERY DAY AT BEDTIME NEEDED FOR SLEEP 30 tablet 1 10/08/20 25 025 Discontinued(Re order (will not trigger [...] plantar fasciitis Venous hypertension of lower extremity 3 Venous insufficiency 11/07/2022 Assessment & Plan (11/07/2022 [...] Assessment & Plan (11/21/2023 9:29 AM EDT): Pascualien will be refill Assessment & Plan (11/07/2022 [...] depression, sin gle episode, without psychotic features ([facility]) 12/24/2017 Assessment & Plan (03/11/2025 4:44 PM EDT): Stable continue to follow with therapist Cirrhosis of liver ([facility]) 12/02/2016 Assessment & Plan (03/11/2025 4:43 PM [...] anxiety and depressive disorder 06/05/2012 Substance abuse ([facility]) 06/05/2012 Encounters Date Type Department Care Team Description 07/09/2025 Refill [facility] [address] [place] [address] Rubia Brantley MD Constipation, unspecified constipation type 07/08/2025 Orders Only [facility] External Provider, [facility] 07/04/[address] [address] Rubia Brantley MD Insomnia, unspecified type 06/15/[address] [address] Rubia Brantley MD feb recall 06/01/2025 3:00 PM EST Office Visit [address] [address] Rubia Brantley MD Venous insufficiency of both lower extremities (Primary Dx); Pain in right testicle; Prediabetes; Insomnia, unspecified type 06/01/2025 Travel 05/31/[address] [address] Rubia Brantley MD Chart Prep 05/25/2025 Patient Outreach [address] [address] Rubia Brantley MD Pre-visit Planning (SDOH screening completed on 10/05/24) 05/18/2025 Results Follow-Up [address] [address] Rubia Brantley MD Scrotum 05/18/2025 Orders Only [address] [address] Rubia Brantley MD Pain in right testicle (Primary Dx) 04/26/[address] [address] Rubia Brantley MD Insomnia, unspecified type from [...] Description 08/22/2025 3:30 PM EST Office Visit [facility] [address] [place] [address] Rubia Brantley MD [address] [place], [place] [phone] Health Maintenance Due Date Last Done Comments [...] LIMITED Routine 07/08/2025 2: 31 PM EST AMB REFERRAL TO UROLOGY Routine 06/01/2025 Pain [...] Relevant to Health Maintenance Results * US Abdomen Limited (07/08/2025 2:31 PM EST) Anatomical Region Laterality Modality Abdomen Ultrasound 07/08/2025 2:31 PM EST Narrative 07/08/2025 2:32 PM EST [address] [address] Ultrasound Report Signed Patient: Demetri Story MR#: [id number] : 1975 Acct:[id number] Age/Sex: 49 / M ADM Date: 07/08/25 Loc: HO.US Attending Dr: Cheng Bolanos MD Ordering Physician: Cheng Bolanos MD Date of Service: 07/08/25 Procedure(s): US abdomen limited Accession Number(s): [id number] cc: Rubia Brantley MD; Cheng Bolanos MD [...] 07/08/25 1431 DD/ 1431 TD/TT: 07/08/25 1431 Refrigeration Engineering Teacher: Procedure Note Donotuseinterpreter, Image - 07/08/2025 [place] [address] Ultrasound Report Signed Patient: Demetri Story#: [id number] : 1975Acct:[id number] Age/Sex: 49 / MADM Date: 07/08/25 Loc: HO.US Attending Dr: Cheng Bolanos MD Ordering Physician: Cheng Bolanos MD Date of Service: 07/08/25 Procedure(s): US abdomen limited Accession Number(s): [id number] cc: Rubia Brantley MD; Cheng Bolanos MD [...] 07/08/25 1431 DD/ 1431 TD/TT: 07/08/25 1431 Refrigeration Engineering Teacher: us [facility] External Provider IMG US PROCEDURES Final Result * Referral to Urology (06/01/2025) Rubia Forbes MD OUTPATIENT REFERRAL O RDERABLES Final Result * US Scrotum (05/11/2025 7:35 PM EDT) Anatomical Region Laterality Modality Body Ultrasound 05/11/2025 7:35 PM EDT Narrative 05/11/2025 7:37 PM EDT [address] [address] Ultrasound Report Signed Patient: Demetri Story MR#: [id number] : 1975 Acct:[id number] Age/Sex: 49 / M ADM Date: 05/10/25 Loc: HO.US Attending Dr: Rubia Forbes MD Ordering Physician: Rubia Brantley MD Date of Service: 05/10/25 Procedure(s): US scrotum Accession Number(s): [id number] cc: Rubia Brantley MD Reason for Exam: pain on riht testicle CLINICAL HISTORY: pain on riht testicle US scrotum with Doppler Comparison: None Technique: Real time sonographic imaging, including color-flow imaging, was performed by the die cutter diamond. Multiple computer help desk representative static images were saved for review. [...] in OV> 05/11/251935 DD/ 34 TD/TT: 05/11/251934 Refrigeration Engineering Teacher: Procedure Note Donotuseinterpreter, Image - 05/11/2025 [place] [address] Ultrasound Report Signed Patient: Demetri Story#: [id number] : 1975Acct:[id number] Age/Sex: 49 / MADM Date: 05/10/25 Loc: HO.US Attending Dr: Rubia Forbes MD Ordering Physician: Rubia Brantley MD Date of Service: 05/10/25 Procedure(s): US scrotum Accession Number(s): [id number] cc: Rubia Brantley MD Reason for Exam: pain on riht testicle CLINICAL HISTORY: pain on riht testicle US scrotum with Doppler Comparison: None Technique: Real time sonographic imaging, including color-flow imaging, was performed by the die cutter diamond. Multiple computer help desk representative static images were saved for review. [...] in OV> 05/11/251935 DD/ 34 TD/TT: 05/11/251934 Ref[employer]eration Engineering Teacher: us Rubia Forbes MD IMG US PROCEDURES Fin al Result * XR Foot 3+ Views Bilateral (05/05/2025 3:08 PM EDT) Anatomical Region Laterality Modality Lower Extremities, Foot Bilateral Radiogra phic Imaging 05/05/2025 3:08 PM EDT Narrative 05/05/2025 3:31 PM EDT [place] [address] XRay Report Signed Patient: Demetri Story MR#: [id number] : 1975 Acct:[id number] Age/Sex: 49 / M ADM Date: 05/05/25 Loc: COOKIE Attending Dr: Kitty HOLLAND Ordering Physician: Kitty Teresa Date of Service: 05/05/25 Procedure(s): XR Foot Gabriel 3V Accession Number(s): [id number] cc: Rubia Brantley MD; Kitty Teresa Reason [...] 05/05/25 1528 DD/ 1508 TD/TT: 05/05/25 1510 Refrigeration Engineering Teacher: REYNOLD Procedure Note Donotuseinterpreter, Image - 05/05/2025 [place] [address] XRay Report Signed Patient: Demetri Story#: [id number] : 1975Acct:[id number] Age/Sex: 49 / MADM Date: 05/05/25 Loc: COOKIE Attending Dr: Kitty HOLLAND Ordering Physician: Kitty Teresa Date of Service: 05/05/25 Procedure(s): XR Foot Gabriel 3V Accession Number(s): [id number] cc: Rubia Brantley MD; Kitty Teresa Reason [...] 05/05/25 1528 DD/ 1508 TD/TT: 05/05/25 1510 Refrigeration Engineering Teacher: HB [facility] External Provider IMG XR PROCEDURES Final [...] patient sample. Estimated Average Glucose 126 mg/dL [facility] Comment:eAG = Estimated ave rage glucose which is %A1C expressed asaverage glucose, using the formula of the I2N-XpryxqvYderjhu Glucose study (ADAG), Diabetes Care, Vol.31,#8,Feb. 2007 Blood Venous blood specimen / Unknown 03/11/2025 2:38 PM EDT 03/11/2025 4:42 PM EDT Rubia Forbes MD LAB BLOOD ORDERABLES Final Result [facility] [address] [place] [address] [phone] * HIV 1/2 ANTIGEN/ANTIBODY,FOURTH GENERATION W/RFL (11/06/2021 12:00 AM EDT) HIV-1/2 ANTIGEN AND ANTIBODIES, 4TH GENERATION W/ REFLEX NON-REACT YURI NON-REACT YURI [facility] Comment: HIV-1 antigen and [...] purpose. For additional information please refer to http://[employer] Power.JobSlot/faq/IEF672 (This link is being provided for informational/ educational purposes only.) The performance of this assay has not been clinically validated in patients less than 2 years old. 11/06/2021 us Rubia Forbes MD LAB BLOOD ORDERABLES Final Result [facility] [address] [place] [address], * (ABNORMAL) LIPID PANEL, STANDARD (11/06/2021 12:00 [...] LDL-C. Abrahan LAYNE et al. APRYL. 2013;310(19): 6657-0840 (http://education.[employer] International.Kool Kid Kent/faq/BRA849) Non-HDL Cholesterol 142(H) <130 mg/dL (calc) [facility] Comment: For patients with diabetes plus 1 major ASCVD risk factor, treating to a non-HDL-C goal of <100 mg/dL (LDL-C of <70 mg/dL) is considered a therapeutic option. Triglycerides 145 <150 mg/dL [facility] 11/06/2021 Rubia Forbes MD LAB BLOOD ORDERABLES Final Result [facility] [address] [place] [address], from Last 3 Months or Most Recently Relevant to Health Maintenance Insurance [facility] C3 Care Teams Coil Winder Relationship Specialty Start Date End Date Rubia Brantley MD [address] [place] [phone] PCP - General Family Medicine 04/01/18
--- OUTSIDE RECORDS SUMMARY | 2025-07-11 15:10 | XMS_ITS | Encounter Summary ---
Author Organization [employer] Address [address] [facility] [address] [place] [address] Care Team Providers Care Air Vice Marshal Name Role Phone Rubia Brantley MD Primary Care Provide r Reason for Visit * Reason Comments Med Refill Encounter Details Date Type Department Care Team ([facility] st Contact Info) Description 11/19/2023 Refill [facility] [address] [place] [address] Rubia Brantley MD [address] [place], [place] [phone] Insomnia, unspecified type Social History Tobacco Use Types Packs/Day Years Used Date Smoking Tobacco: Every Day Cigarettes Passive Smoke Exposure: Current Smokeless Tobacco: Never Depression Answer Date Recorded Patient Health Questionnaire-9 Score 0 11/19/2023 Patient Health Questionnaire-9 Score 0 11/19/2023 Last PHQ-9: Questionnaire Data Not on file 0 11/19/2023 Housing Stability Answer Date Recorded What is your housing situation today? I have ashyln murry 05/16/[address] you [...] Description 08/22/2025 3:30 PM EST Office Visit [facility] [address] [place] [address] Rubia Brantley MD [address] [place] [address] documented as of this encounter Visit Diagnoses Diagnosis Insomnia, unspecified type documented in this encounter Additional Health Concerns Assessment Noted Time PHQ-9 Depression Total Score: 0 11/19/19 24 3:36 PM EDT documented as of this encounter Care Teams Air Vice Marshal Relationship Specialty Start Date End Date Rubia Brantley MD [address] [place] [address] PCP - General Family Medicine 04/01/18 documented as of this encounter
--- OUTSIDE RECORDS SUMMARY | 2025-07-11 15:10 | XMS_ITS | Encounter Summary ---
Author Organization [employer] Address [address] [facility] [address] [place] [address] Care Team Providers Care Scientific Technical Writer Name Role Phone Rubia Brantley MD Primary Care Provide r Reason for Visit * Reason Comments Med Refill Encounter Details Date Type Department Care Team ([facility] st Contact Info) Description 07/09/2025 Refill [facility] [address] [place] [address] Rubia Brantley MD [address] [place], [place] [phone] Constipation, unspecified constipation type Social History Tobacco Use Types Packs/Day [...] Description 08/22/2025 3:30 PM EST Office Visit [facility] [address] [place] [phone] Rubia Brantley MD [address] [place] [address] documented as of this encounter Visit Diagnoses Diagnosis Constipation, unspecified constipation type documented in this encounter Additional Health Concerns Assessment Noted Time PHQ-9 Depression Total Score: 7 06/01/20 25 3:56 PM EST documented as of this encounter Care Teams Scientific Technical Writer Relationship Specialty Start Date End Date Rubia Brantley MD [address] [place] [phone] PCP - General Family Medicine 04/01/18 documented as of this encounter
== END 2025-07-11 12:31 | disposition home or self-care (01) ==
LOC: HO.PMC 11:53
PROVIDERS: PCP Internal Medicine; Visit Provider Internal Medicine
DX: M79.604 Pain in right leg (principal); M79.605 Pain in left leg
CPT/HCPCS: 99213

== ENCOUNTER 2025-07-11 11:53 | Outpatient (REF) | payer MEDICAID, SELFPAY ==
--- NOTE | ~2025-07-11 | XR_ITS ---
EXAMINATION: XR KNEE AP STANDING CLINICAL INFORMATION: M17.0 - Bilateral primary osteoarthritis of knee COMPARISON: X-ray 12/08/2018 TECHNIQUE: AP bilateral standing view of the knees was obtained. Right knee 1 view. Left knee 1 view. FINDINGS: Right knee: No fracture or joint effusion. Alignment is anatomic. Joint spaces are maintained. Limited evaluation of the patellofemoral joint space . No abnormal soft tissue calcification. Left knee: No acute fracture or joint effusion. Alignment is anatomic. Femorotibial joint space is maintained. Limited evaluation of patellofemoral joint space. No abnormal soft tissue calcification. XR/XR knee standing BI IMPRESSION: No acute findings Electronically signed by: Salvador Urbina MD 07/11/2025 04:10 PM [facility]
== END 2025-07-11 11:54 | disposition home or self-care (01) ==
LOC: HO.XRAY 11:53
PROVIDERS: PCP Internal Medicine; Visit Provider Internal Medicine
DX: M17.0 Bilateral primary osteoarthritis of knee (principal); M79.604 Pain in right leg; M79.605 Pain in left leg; M25.561 Pain in right knee; M25.562 Pain in left knee
CPT/HCPCS: 73565; 99212

== ENCOUNTER → 2025-07-11 12:52 | Outpatient (BNV) | payer MEDICAID, SELFPAY | PROVIDERS: PCP Internal Medicine; Visit Provider Radiology Diagnostic Ultrasound | DX: M17.0 Bilateral primary osteoarthritis of knee (principal) | CPT/HCPCS: 73565 ==